=== PATIENT | female | born 1965 | race Caucasian/White ===

== ENCOUNTER 2018-06-15 14:58 | Inpatient (IN) | payer MEDICARE, OTHER ==
[2018-06-14] MEDS: RT-ALBUTEROL/IPRATROPIUM 3 ML (DUONEB) VIAL INH SCH (21:56)
[~2018-06-15] VITALS: Ht 175.3 cm; Wt 109.3 kg
--- OUTSIDE RECORDS SUMMARY | 2018-06-15 15:03 | XMS REPORT ---
Author Dianna Britton Organization [employer] Address Unknown Phone Unavailable Care Team Providers Care [facility] Corpsman Name Role Phone Dianna Morrell CP Unavailable Allergies, Adverse Reactions, Alerts Substance Reaction Event Type Penicillin G Sodium Info Not Available Drug Allergy Problems Problem Type Condition ICD-9 Code Onset Dates Condition Status Problem Type II diabetes mellitus, uncontrolled 250.02 Active Assessment Type II diabetes mellitus, uncontrolled 250.02 Active Problem COPD (chronic obstructive pulmonary disease) 496 Active Assessment COPD (chronic obstructive pulmonary disease) 496 Active Medications Medication Code System Code Instructions Start Date End Date Status Dosage Lunesta [facility] [address]-56 3 MG Orally Once a day Active 1 tablet immediately before bedtime Amitriptyline HCl [facility] [address]-49 25 MG Orally Once a day Active 1 tablet at bedtime DuoNeb [facility] 0 Active not defined Mobic [facility] [address]-84 15 MG Orally Once a day Active [address] [facility] [address]-66 15 MCG/2ML Inhalation Twice a day Active [address] [facility] [address]-72 10-325 MG Orally every 4 hours Active 1 tablet as needed NovoLog [facility] [address]-01 100 UNIT/ML Subcutaneous Active 40 units with meals Levemir [facility] [address]-19 100 UNIT/ML Subcutaneous twice a day Active 30 units Metformin HCl [facility] [address]-69 1000 MG Orally Twice a day Active 1 tablet with meals Spiriva HandiHaler [facility] [address]-66 18 MCG Inhalation twice a day Active 1 capsule Procedures Procedure Coding System Code Date OFFICE VISIT EST PATIENT LEVEL 3 CPT-4 03140 Jul 28, 2014 Vital Signs Date/Time: Jul 28, 2014 BMI 38.68 Index Weight 269.6 lbs Height 70 in Blood Pressure Diastolic 83 mm Hg Blood Pressure Systolic 136 mm Hg Cardiac Monitoring Heart Rate 84 /min Temperature 97.3 F Respiratory Rate 20 /min Results No Known Results Summary Purpose [employer] Submission
--- OUTSIDE RECORDS SUMMARY | 2018-06-15 15:03 | XMS REPORT ---
Author Dianna Britton Organization [employer] Address Unknown Phone Unavailable Care Team Providers Care Fourth Hand Name Role Phone Dianna Morrell CP Unavailable Allergies No Known Allergies Problems Problem Type Condition ICD-9 Code Onset Dates Condition Status Problem Type II diabetes mellitus, uncontrolled 250.02 Active Medications Medication Code System Code Instructions Start Date End Date Status Dosage Levemir [facility] [address]-16 100 UNIT/ML Subcutaneous twice a day Active 30 units Results No Known Results Summary Purpose [employer] Submission
--- OUTSIDE RECORDS SUMMARY | 2018-06-15 15:04 | XMS REPORT ---
Author Author GENERATED, SYSTEM Organization Unknown Address Unknown Phone Unavailable Care Team Providers Care Electrophonic Engineer Name Role Phone MD OLEGARIO, JEROME RODRIGUEZ Unavailable Reason For Visit Chief Complaint BACK PAIN Social History Functional Status Vital Signs Results Chemistry from 02/13/2014 2:38 PMSODIUM 138 MMOL/L (136-145 MMOL/L) POTASSIUM 3.9 MMOL/L (3.5-5.1 MMOL/L) CHLORIDE 103 MMOL/L (98-107 MMOL/L) TCO2 31.5 MMOL/L (21.0-32.0 MMOL/L) ANION GAP 3.5 MMOL/L L (8.0-16.0 MMOL/L) BUN 14 MG/DL (7-18 MG/DL) CREATININE 0.73 MG/DL (0.43-0.83 MG/DL) BUN/CREATININE RATIO 19.2 H (9.1-17.0 ) GLUCOSE 244 MG/DL H (65-99 MG/DL) GFR EST NON AFR COMORAN >90 ML/MIN GFRA EST AFR AMER >90 ML/MIN CALCIUM 9.0 MG/DL (8.5-10.1 MG/DL) BILIRUBIN TOTAL 0.62 MG/DL (0.20-1.00 MG/DL) TOTAL PROTEIN 7.6 GM/DL (6.4-8.2 GM/DL) ALBUMIN 3.4 GM/DL (3.4-5.0 GM/DL) GLOBULIN 4.2 GM/DL H (2.3-3.5 GM/DL) A/G RATIO 0.8 MG/DL L (1.5-2.2 MG/DL) ALK PHOS 139 U/L H (46-116 U/L) ALT (SGPT) 53 U/L (12-78 U/L) AST (SGOT) 53 U/L H (15-37 U/L) Hematology from 02/13/2014 2:38 PMWBC 5.8 X10e3/UL (3.6-11.2 X10e3/UL) RBC 4.59 X10e6/UL (3.63-4.92 X10e6/UL) HEMOGLOBIN 13.8 G/DL (11.0-14.3 G/DL) HEMATOCRIT 40.7 % (31.2-41.9 %) MCV 88.8 FL (79.0-98.0 FL) MCH 30.1 PG (27.0-33.0 PG) MCHC 33.9 G/DL (32.0-36.0 G/DL) RDW 14.6 % (12.3-17.0 %) RDWSD 45.1 (37.1-47.8 ) PLATELET 79 X10e3/UL L (159-386 X10e3/UL) MPV 9.7 FL (7.4-10.4 FL) AUTOMATED DIFF PERFORMED SEGS 67.8 % LYMPHOCYTES 22.7 % MONOCYTES 6.7 % EOSINOPHILS 1.6 % BASOPHILS 1.2 % ABSOLUTE NEUTROPHILS 3.9 X10e3/UL (1.8-7.8 X10e3/UL) ABSOLUTE LYMPHOCYTES 1.3 X10e3/UL (1.0-3.0 X10e3/UL) ABSOLUTE MONOCYTES 0.4 X10e3/UL (0.3-1.0 X10e3/UL) ABSOLUTE EOSINOPHILS 0.1 X10e3/UL (0.0-0.5 X10e3/UL) ABSOLUTE BASOPHILS 0.1 X10e3/UL (0.0-0.2 X10e3/UL) Urinalysis from 02/13/2014 2:40 PMURINE COLOR YELLOW (STRAW/YELL/DK YELL ) URINE APPEARANCE CLEAR (CLEAR ) URINE PH 6.0 (5.0-8.0 ) URINE SPECIFIC GRAVITY 1.020 (<=1.005->=1.030 ) URINE GLUCOSE 250 MG/DL A (NEGATIVE MG/DL) URINE BILIRUBIN NEGATIVE (NEGATIVE ) URINE KETONES NEGATIVE MG/DL (NEGATIVE MG/DL) URINE BLOOD TRACE-LYSED A (NEGATIVE ) URINE PROTEIN TRACE MG/DL A (NEGATIVE MG/DL) URINE UROBILINOGEN 0.2 EU/DL (0.2-1.0 EU/DL) URINE NITRITES POSITIVE A (NEGATIVE ) *URINE LEUKOCYTES NEGATIVE (NEGATIVE ) MICROSCOPIC EXAM PERFORMED PERFORMED WBC 10-25 /HPF A (0-5 /HPF) RBC 1-5 /HPF A (0-1 /HPF) SQUAMOUS EP. CELLS MODERATE /LPF A (NEG-FEW /LPF) BACTERIA MANY /HPF A (NEGATIVE /HPF) GRANULAR CASTS 0-1 /LPF (0 /LPF) Microbiology from 02/13/2014 2:40 PM* CULTURE URINE (Preliminary Result) Specimen Number: [id number] Specimen Source: Sample Collection Date/Time: 02/13/2014 2:40 PM CULTURE URINE: >100,000 cfu/ml gram negative colony types Further report to follow Problems Encounter Diagnosis No relevant problems exist. Additional Problems * Hyperglycemia Status:Active. * Pneumonia Status:Active. Encounters Encounter Diagnosis No relevant problems exist. Plan of Care Procedures No relevant procedures performed. Immunizations No immunizations administered or ordered. Hospital Course Hospital Discharge Instructions Allergies, Adverse Reactions, Alerts * Penicillins causes Severe "unable to stand". * Latex Allergy has not been assessed. * IV Contrast Allergy has not been assessed. Medication Medication reconciliation has not been performed.
--- OUTSIDE RECORDS SUMMARY | 2018-06-15 15:04 | XMS REPORT | Summary of Care ---
Author Author Saira Dugan, Anne Ruiz Unknown Address Unknown Phone Unavailable Care Team Providers Care Money Counter Name Role Phone Cary P.A., Danyelle Unavailable Unavailable Saira Dugan, Anne Unavailable Unavailable Lissett Dugan, Haylie Mahoney Unavailable Unavailable Bijal Dugan, Slime Santacruz Unavailable Unavailable Anne Chávez PP Unavailable Unavailable Unavailable Functional Status Functional Status Health Issues* Name Dates Details Functional status health issues are not documented Status: Cognitive Status Health Issues* Name Dates Details Cognitive status health issues are not documented Status: Problems Name Dates Details Depression (311, F32.9) Status: Active Esophageal reflux (530.81, K21.9) Status: Active Cervicalgia (723.1, M54.2) Status: Active Neurodermatitis (698.3, L28.0) Status: Active Psoriasis (696.1, L40.9) Status: Active Diabetes mellitus (250.00, E11.9) Status: Active Noncompliance (V15.81, Z91.19) Status: Active Obstructive sleep apnea (327.23, G47.33) Status: Active 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, 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 Quantity: 30 Cary, Danyelle P.A.* Started 14-Jul-2010 ActiveBrovana 15 MCG/2ML Inhalation Nebulization Solution INHALE THE CONTENTS OF 1 VIAL TWO TIMES DAILY IN THE MORNING AND EVENING VIA STANDARD JET NEBULIZER DIRECTED. (Dx:496) * Quantity: 60 Refills: 11 Noam Appiah M.D.* Started 14-Jul-2010 Active2 ML Vial (60 Vials) Albuterol Sulfate (2.5 MG/3ML) 0.083% Inhalation Nebulization Solution INHALE 1 0.083% Daily PRN (Dx: 496) * Quantity: 90 Refills: 11 Noam Appiah M.D.* Started 13-Oct-2010 ActiveOxycodone-Acetaminophen 10-325 MG Oral Tablet TAKE 1 TABLET EVERY 4 HOURS NEEDED FOR PAIN.*MAX 6 PER DAY*MAY FILL ON OR AFTER 09/17/14* * Quantity: 180 Refills: 0 Anne Chávez M.D.* Started 15-Sep-2011 ActiveQvar 80 MCG/ACT Inhalation Aerosol Solution INHALE 2 PUFFS, BY MOUTH, TWICE DAILY. RINSE MOUTH AFTER USE. * Quantity: 1 Refills: 11 Noam Appiah M.D.* Started 19-Oct-2011 Active8.7 GM Inhaler Oxygen Use 2 liters 24 hours/day * Quantity: 2 Refills: 0 Danyelle Townsend P.A.* Started 15-Apr-2012 ActiveCombivent Respimat 20-100 MCG/ACT Inhalation Aerosol Solution one puff qid * Quantity: 1 Refills: 3 Noam Appiah M.D.* Started Active4 GM Inhaler Amitriptyline HCl - 25 MG Oral Tablet TAKE 1 TABLET DAILY AT BEDTIME. * Quantity: 30 Refills: 1 * Started 15-Jul-2013 ActiveMeloxicam 15 MG Oral Tablet TAKE ONE TABLET BY MOUTH EVERY DAY WITH FOOD * Quantity: 30 Refills: 0 Anne Chávez M.D.* Started 15-Jul-2013 ActiveTest Strips ONE TOUCH MINI ULTRA, ONCE DAILY TESTING. DX: 25O.OO * Quantity: 30 Refills: 6 Anne Chávez M.D.* Started 23-Sep-2013 ActiveNeedles INSULIN SYRINGES 50 UNITS WITH 31 GAUGE . INJECTS TID. DX: 250 * Quantity: 100 Refills: 6 Anne Chávez M.D.* Started 25-Sep-2013 ActiveVentolin HFA 108 (90 Base) MCG/ACT Inhalation Aerosol Solution INHALE 1 TO 2 PUFFS EVERY 4 TO 6 HOURS NEEDED. * Quantity: 1 Refills: 5 Noam Appiah M.D.* Started [id number] GM Inhaler Clobetasol Propionate 0.05 % External Cream APPLY THIN LAYER TO AFFECTED AREAS TWICE DAILY * Quantity: 1 Refills: 3 Denzel Galeana M.D.* Started [id number] GM Tube Eszopiclone 3 MG Oral Tablet TAKE 1 TABLET BY MOUTH EVERY NIGHT AT BEDTIME FOR SLEEP * Quantity: 30 Refills: 0 Noam Appiah M.D.* Started 01-Apr-2014 ActiveLevemir 100 UNIT/ML Subcutaneous Solution INJECT 35 UNITS SUBCUTANEOUSLY TWICE DAILY * Quantity: 1 Refills: 0 Anne Chávez M.D.* Started 13-Apr-2014 [id number] ML Vial NovoLOG FlexPen 100 UNIT/ML Subcutaneous Solution Pen-injector INJECT 42 UNITS SUBCUTANEOUSLY THREE TIMES A DAY WITH MEALS * Quantity: 1 Refills: 5 Anne Chávez M.D.* Started 20-Apr-2014 Active3 ML Pen (5 Pens) [place] novolog flex pen 10 units TID * Quantity: 100 Refills: 3 Anne Chávez M.D.* Started 20-Apr-2014 ActiveOneTouch Ultra Blue In Vitro Strip TEST THREE TIMES A DAY * Quantity: 100 Refills: 0 Anne Chávez M.D.* Started 19-Aug-2014 ActiveOneTomiriam Delica Lancets 33G Miscellaneous TEST THREE TIMES A DAY * Quantity: 100 Refills: 0 Anne Chávez M.D.* Started 19-Aug-2014 ActiveClonazePAM 1 MG Oral Tablet TAKE 1 TABLET AT BEDTIME. * Quantity: 30 Refills: 3 Noam Appiah M.D.* Started 20-Aug-2014 ActiveTopiramate 50 MG Oral Tablet Take one tablet by mouth twice a day * Quantity: 60 Refills: 2 Anne Chávez M.D.* Started 04-May-2014 ActiveMetFORMIN HCl - 1000 MG Oral Tablet TAKE 1 TABLET BY MOUTH TWICE DAILY WITH FOOD * Quantity: 60 Refills: 3 Anne Chávez M.D.* Started 15-Aug-2013 Active Allergies and Adverse Reactions Name Dates Details Penicillins Status: Active Latex Status: Denied Past Medical History Name Dates Details History of acute bronchitis (V12.69, Z87.09) Status: Resolved History of Burning Sensation During Urination Status: Resolved History of noncompliance with medical treatment, presenting hazards to health ( V15.81, Z91.19) Status: Resolved History of obesity (V13.89, Z87.898) Status: Resolved Procedures Procedure Dates Details History of Neck Surgery History of Ankle Surgery History of Tonsillectomy History of Hernia Repair History of Oophorectomy - Unilateral (Removal Of One Ovary) Procedures not documented Immunization Name Dates Details Pneumo (Pneumovax) Administered on:2009 Family History Unknown Family Member* Name Dates Details Family history of reaction to anesthesia (V19.8, Z84.89) Comments: Family History Status: Active aunt* Name Dates Details Family history of cardiac disorder (V17.49, Z82.49) Status: Active Mother* Name Dates Details Family history of diabetes mellitus (V18.0, Z83.3) Status: Active Family history of alcohol abuse (V61.41, Z81.1) Status: Active Family history of malignant neoplasm of breast (V16.3, Z80.3) Status: Active Father* Name Dates Details Family history of Current Smoker Status: Active Family history of Lung Cancer (V16.1) Status: Active Family history of alcohol abuse (V61.41, Z81.1) Status: Active Sister* Name Dates Details Family history of Sleep Apnea Status: Active Family history of Emphysema Status: Active Family history of hypertension (V17.49, Z82.49) Status: Active Family history of malignant neoplasm of breast (V16.3, Z80.3) Status: Active Social History Name Dates Details Smoking Status* Former smoker Vital Signs Date Test Result Details 19-Aug-2014 10:43 BP Systolic 136 mm[Hg] Status: BP Diastolic 88 mm[Hg] Status: Heart Rate 81 /min Status: Respiration Rate 20 /min Status: Weight 268.5 lb Status: Height 69 in Status: O2 SAT 99 % Status: Body Mass Index Calculated 39.65 kg/m2 Status: Body Surface Area Calculated 2.34 m2 Status: Results Date Description Value Details 24-Jul-2014 15:05 ULTRASOUND BIOPSY BREAST LEFT Comments: Exam Date: 13:41Dictation Date: 15:05 XS BIOPSY BREAST LEFT (Better) 05-Aug-2014 13:54 XM UNILATERAL (Better) Comments: Exam Date: 15 :05Dictation Date: 13:54 20-Aug-2014 08:17 HEMOGLOBIN A1C 3507 Hemoglobin A1C 13.4 % (Better) ESTIMATED AVG. GLUCOSE 338 (Better) Plan of Care Planned Observations* Name Dates Details Planned Goals not documented Goal Planned Encounters* Appointment; Provider: Noam Appiah On 21-Dec-2014 13:45 * Appointment; Provider: Vanna Herring On 24-Sep-2014 13:00 * Appointment; Provider: Santana Sands On 21-Aug-2014 15:30 Instructions * Instructions not documented Encounters Appointment; Anne Chávez Encounter Diagnosis: Problem not documented On 19-Aug-2014 11:00 Appointment; Marc Garcia Encounter Diagnosis: Problem not documented On 17-Aug-2014 14:15 Appointment; Marc Garcia Encounter Diagnosis: Problem not documented On 20-Jul-2014 13:30 Appointment; Noam Appiah Encounter Diagnosis: Problem not documented On 22-Jun-2014 14:30 Appointment; Anne Chávez Encounter Diagnosis: Problem not documented On 16-Jun-2014 10:45 Appointment; Anne Chávez Encounter Diagnosis: Problem not documented On 08-Jun-2014 09:45 Appointment; Danyelle Townsend Encounter Diagnosis: Problem not documented On 08-Jun-2014 08:45 Appointment; Anne Chávez Encounter Diagnosis: Problem not documented On 04-Jun-2014 15:45 Appointment; Anne Chávez Encounter Diagnosis: Problem not documented On 26-May-2014 15:15 Appointment; Denzel Galeana Encounter Diagnosis: Problem not documented On 14-May-2014 09:30 Appointment; Anne Chávez Encounter Diagnosis: Problem not documented On 12-May-2014 14:45 Appointment; Anne Chávez Encounter Diagnosis: Problem not documented On 13-Apr-2014 14:15 Appointment; Denzel Galeana Encounter Diagnosis: Problem not documented On 14:45 Appointment; Anne Chávez Encounter Diagnosis: Problem not documented On 15:00 Appointment; Anne Chávez Encounter Diagnosis: Problem not documented On 26-Dec-2013 14:45 Appointment; Anne Chávez Encounter Diagnosis: Problem not documented On 17-Dec-2013 10:30 Appointment; Noam Appiah Encounter Diagnosis: Problem not documented On 08-Dec-2013 10:45 Appointment; Anne Chávez Encounter Diagnosis: Problem not documented On 23-Sep-2013 14:15 Appointment; Vanna Herring Encounter Diagnosis: Problem not documented On 22-Sep-2013 10:30 Appointment; Santana Sands Encounter Diagnosis: Problem not documented On 18-Aug-2013 15:00 Appointment; Anne Chávez Encounter Diagnosis: Problem not documented On 15-Aug-2013 10:00 Appointment; Anne Chávez Encounter Diagnosis: Problem not documented On 15-Jul-2013 09:30 Appointment; Noam Appiah Encounter Diagnosis: Problem not documented On 09-Jun-2013 10:45 Appointment; Noam Appiah Encounter Diagnosis: Problem not documented On 12-May-2013 16:00 Appointment; Denzel Galeana Encounter Diagnosis: Problem not documented On 26-Dec-2012 10:45 Appointment; Noam Appiah Encounter Diagnosis: Problem not documented On 05-Dec-2012 11:45 Appointment; Denzel Galeana Encounter Diagnosis: Problem not documented On 11-Nov-2012 14:00
--- OUTSIDE RECORDS SUMMARY | 2018-06-15 15:04 | XMS REPORT | Summary of Care ---
Author Author Maggie Grubbs Unknown Address [address] [place] [address] Phone Unavailable Care Team Providers Care Block Stacker Name Role Phone Danyelle Carrion Unavailable Unavailable Saira Dugan, Anne Unavailable Unavailable [...] Active Diabetes mellitus (250.00, E11.9) Status: Active DJD (degenerative joint disease), cervical (722.4, M50.90) Status: Active DJD (degenerative joint disease), lumbar (721.3, M47.816) Status: Active COPD exacerbation (491.21, J44.1) Status: Active Morbid obesity (278.01, E66.01) Status: Active Noncompliance (V15.81, Z91.19) Status: Active Chronic obstructive pulmonary disease (496, J44.9) Status: Active Obstructive sleep apnea (327.23, G47.33) Status: Active 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 * Quantity: 30 Refills: 12 Danyelle Townsend P.A.* Started 14-Jul-2010 ActiveBrovana 15 MCG/2ML Inhalation [...] 6 PER DAY*MAY FILL ON OR AFTER 07/17/14* * Quantity: 180 Refills: 0 Anne Chávez [...] Refills: 0 Anne Chávez M.D.* Started 15-Jul-2013 ActiveMetFORMIN HCl - 1000 MG Oral Tablet TAKE 1 TABLET BY MOUTH TWICE DAILY WITH FOOD * Quantity: 60 Refills: 3 Anne Chávez M.D.* Started 15-Aug-2013 ActiveTopiramate 50 MG Oral Tablet Take one tablet by mouth twice a day * Quantity: 60 Refills: 2 Anne Chávez M.D.* Started 04-May-2014 ActiveTest Strips ONE TOUCH MINI ULTRA, ONCE [...] HOURS NEEDED. * Quantity: 1 Refills: 5 Noma Appiah M.D.* Started [id number] GM Inhaler Clobetasol Propionate 0.05 % External Cream APPLY THIN LAYER TO AFFECTED AREAS TWICE DAILY * Quantity: 1 Refills: 3 Denzel Galeana M.D.* Started [id number] GM Tube Levemir 100 UNIT/ML Subcutaneous Solution INJECT 30 UNITS SUBCUTANEOUSLY AT BEDTIME DIRECTED. * Quantity: 1 Refills: 0 Anne Chávez M.D.* Started 13-Apr-2014 [id number] ML Vial NovoLOG FlexPen 100 UNIT/ML Subcutaneous Solution Pen-injector INJECT 40 UNITS SUBCUTANEOUS TID * Quantity: 15 Refills: 3 Anne Chávez M.D.* Started 20-Apr-2014 ActiveNeedles novolog flex pen 10 units TID * Quantity: 100 Refills: 3 Anne Chávez M.D.* Started 20-Apr-2014 Active Allergies and Adverse Reactions Name Dates [...] smoker Vital Signs Date Test Result Details 20-Jul-2014 13:40 BP Systolic 110 mm[Hg] Status: BP Diastolic 80 mm[Hg] Status: Heart Rate 94 /min Status: Temperature 97.9 f Status: Weight 273 lb Status: Height 69.5 in Status: O2 SAT 95 % Status: Body Mass Index Calculated 39.74 kg/m2 Status: Body Surface Area Calculated 2.37 m2 Status: Results Date Description Value Details 24-Jul-2014 15:05 ULTRASOUND BIOPSY BREAST LEFT Comments: Exam Date: 13:41Dictation Date: 15:05 XS BIOPSY BREAST LEFT (Better) 05-Aug-2014 13:54 XM UNILATERAL (Better) Comments: Exam Date: 15 :05Dictation Date: [id number] 13:54 Plan of Care Planned Observations* Name Dates Details Planned Goals not documented Goal Planned Encounters* Appointment; Provider: Noam Appiah On 21-Dec-2014 13:45 * Appointment; Provider: Vanna Herring On 24-Sep-2014 13:00 * Appointment; Provider: Santana Sands On 21-Aug-2014 15:30 * Appointment; Provider: Anne Chávez On 19-Aug-2014 11:00 * Appointment; Provider: Marc Garcia On 17-Aug-2014 14:15 Instructions * Instructions not documented Encounters Appointment; Marc Garcia Encounter Diagnosis: Problem not [...]
--- OUTSIDE RECORDS SUMMARY | 2018-06-15 15:04 | XMS REPORT ---
Author Author GENERATED, SYSTEM Organization Unknown Address Unknown Phone Unavailable Care Team Providers Care Access Specialist Name Role Phone MD OLEGARIO, JEROME RODRIGUEZ Unavailable Reason For Visit Chief Complaint DISCHARGE FROM NIPPLE Social History Functional Status Vital Signs Results Problems Encounter Diagnosis No relevant problems exist. [...]
--- OUTSIDE RECORDS SUMMARY | 2018-06-15 15:05 | XMS REPORT ---
Author Author Noam Appiah Organization Unknown Address [address] [place], [place] [id number] Phone Care Team Providers Care Network Internship Name Role Phone Elfego HUERTA PP Unavailable Unavailable Reason for Referral No Reason for Referral was given. History of Present Illness Patient presents as a sick call. She is short of breath and has had a cough with green sputum production for a week and a half. No fevers. She has been wheezing and has had chest pain. She continues to wear CPAP. Problems * Chronic Obstructive Pulmonary Disease Last Assessed: 05/12/2013 4:11:30 PM ( 496); (Active) * Acute Bronchitis Last Assessed: 05/12/2013 4:11:32 PM (466.0); (Active ) * Normal Routine History And Physical Adult (V70.0); (Active) * Headache (784.0); (Active) * Fatigue (780.79); (Active) * Esophageal Reflux (530.81); (Active) * Obesity (278.00); (Active) * Hypertension (401.9); (Active) * Diabetes Mellitus (250.00); (Active) * Feeling Weak (780.79); (Active) * Hypoxia (799.02); (Active) * Depression (311); (Active) * Obstructive Sleep Apnea (327.23); (Active) * Insomnia (780.52); (Active) * Cough (786.2); (Active) Medication * Lantus 100 UNIT/ML Subcutaneous Solution; USE DIRECTED.; Start Date: 2008 (Active) * HumaLOG 100 UNIT/ML Subcutaneous Solution; USE DIRECTED.; Start Date: 04/23 (Active) * Lunesta 3 MG Oral Tablet; TAKE 1 TABLET BY MOUTH AT BEDTIME NEEDED FOR SLEEP; Start Date: 01/20/2010 (Active) * Spiriva HandiHaler 18 MCG Inhalation Capsule; INHALE CONTENTS OF 1 CAPSULE ONCE DAILY.; Start Date: 07/14/2010; End Date: (Active) * Brovana 15 MCG/2ML Inhalation Nebulization Solution; INHALE THE CONTENTS OF 1 VIAL TWO TIMES DAILY IN THE MORNING AND EVENING VIA STANDARD JET NEBULIZER DIRECTED.; Start Date: 07/14/2010; End Date: (Active) * Albuterol Sulfate (2.5 MG/3ML) 0.083% Inhalation Nebulization Solution; INHALE 1 0.083% Daily PRN; Start Date: 10/13/2010; End Date: (Active) * Percocet 5-325 MG Oral Tablet; TAKE 1 TABLET EVERY 4 TO 6 HOURS NEEDED FOR PAIN.; Start Date: 09/15/2011 (Active) * Qvar 80 MCG/ACT Inhalation Aerosol Solution; INHALE 2 PUFFS, BY MOUTH, TWICE DAILY. RINSE MOUTH AFTER USE.; Start Date: 10/19/2011 (Active) * Oxygen; Use 2 liters 24 hours/day; Start Date: 04/15/2012 (Active) * Halobetasol Propionate 0.05 % External Cream; APPLY THIN LAYER TO AFFECTED AREAS ON ARMS AND LEGS TWICE DAILY; Start Date: 11/11/2012; End Date: 1899 (Active) * Combivent Respimat 20-100 MCG/ACT Inhalation Aerosol Solution; one puff qid; Start Date: 02/19/2013; End Date: (Active) * Azithromycin 250 MG Oral Tablet; TAKE 2 TABLETS ON DAY 1 THEN TAKE 1 TABLET A DAY FOR 4 DAYS.; Start Date: 05/12/2013; End Date: (Active) Allergies and Adverse Reactions * Penicillins (Active) Past Medical History * History of Acute Bronchitis (466.0); (Resolved) * History of Burning Sensation During Urination (Resolved) Procedures Procedure Procedure Date Date Completed Status Neck Surgery - - Active Ankle Surgery - - Active Tonsillectomy - - Active Hernia Repair - - Active Oophorectomy - Unilateral (Removal Of One Ovary) - - Active Immunization * Pneumo (Pneumovax) Family History * Sororal history of Sleep Apnea (Active) * Sororal history of Emphysema (Active) * Paternal history of Current Smoker (Active) * Paternal history of Lung Cancer (V16.1); (Active) Social History * Caffeine Use (Active) * Never Drank Alcohol (Active) * 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) * Racial Background (___ %) (Active) * Marital History - (Active) * History of Smoking Cigarettes (V15.82); (Active) Vital Signs Date Description Test Result 12 May 2013 03:54 PM recorded by: Lucila Roblero Height 67 in Weight 313 lb Body Mass Index Calculated 49.13 Body Surface Area Calculated 2.44 BP Systolic 136 mm[Hg] BP Diastolic 76 mm[Hg] Heart Rate 94 /min O2 SAT 96 % Results Date Description Test Name Value Reference Interpretation Status 12 May 2013 03:50 PM XRay CHEST-PA & LAT X CHEST PA & LAT Completed Treatment Plan * Oxygen 07/14/2010 Routine * Urine Culture PRN 8000 10/31/2011 Stat * ORTHO KNEE RIGHT 11/09/2011 Routine * Urine Culture PRN 8000 01/26/2012 Stat * XRay CHEST-PA & LAT 05/12/2013 Routine Advance Directives * No Advance Directives available. Encounters * Appointment 05/12/2013 * [facility] , Provider: Bijal Santacruz, Status: [place] , Time: 10:45 AM 06/09
--- OUTSIDE RECORDS SUMMARY | 2018-06-15 15:06 | XMS REPORT | Referral Summary ---
Author Organization Unknown Address Unknown Phone Unavailable Care Team Providers Care Wellness Educator Name Role Phone No PCP, Pt States PCP Encounter VC Date(s): 08/28/14 - 08/28/14 [facility] [address], [place] [address] Discharge Diagnosis: Hyperglycemia Discharge Diagnosis: Dehydration Discharge Diagnosis: Hypovolemia Discharge Diagnosis: Syncope Discharge Disposition: Home or Self Care Attending Physician: Estrella Aceves MD Admitting Physician: Estrella Aceves MD Referring Physician: Self Referred, X Vital Signs Most recent to 1 oldest [Reference Range]: Temperature Oral 36.1 degC [35.8-37.3 degC] (08/28/14 10:06 AM) Peripheral Pulse 91 bpm Rate [60-100 bpm] (08/28/14 10:06 AM) Heart Rate Monitored 78 bpm [60-100 bpm] (08/28/14 3:00 PM) Respiratory Rate 19 br/min [14-20 br/min] (08/28/14 3:00 PM) Blood Pressure 133/94 mmHg [90-140/60-90 mmHg] (08/28/14 3:00 PM) Mean Arterial 100 mmHg Pressure, Cuff (08/28/14 3:00 PM) Most recent to 1 oldest [Reference Range]: SpO2 96 % (08/28/14 3:00 PM) Problem List Condition Effective Dates Status Health Status Informant Back pain(Confirmed) Active patient COPD (chronic Active patient obstructive pulmonary disease)(Confirmed) Diabetes(Confirmed) Active patient Tobacco Active patient user(Confirmed) Allergies, Adverse Reactions, Alerts Substance Reaction Severity Status penicillins passed out Active Medications albuterol 0 Refill(s) Start Date: 08/28/14 Status: Ordered clonazePAM Oral, TID, 0 Refill(s) Start Date: 08/28/14 Status: Ordered Combivent Respimat puffs, Inhalation, QID, 0 Refill(s) Start Date: 08/28/14 Status: Ordered HumaLOG SubCutaneous, 0 Refill(s) Start Date: 08/28/14 Status: Ordered Levemir SubCutaneous, 0 Refill(s) Start Date: 08/28/14 Status: Ordered Percocet 10/325 oral tablet 2 tabs, Oral, q6hr, as needed for pain, 0 Refill(s) Start Date: 08/28/14 Status: Ordered Results Hematology Most recent to 1 oldest [Reference Range]: WBC [4.8-10.8 K/uL] 6.5 K/uL (08/28/14 10:08 AM) RBC [4.00-5.20 M/uL] 5.30 M/uL *HI* (08/28/14 10:08 AM) Hgb [12.0-16.0 16.1 gm/dL gm/dL] *HI* (08/28/14 10:08 AM) Hct [37.0-47.0 %] 46.0 % (08/28/14 10:08 AM) MCV [82.0-99.0 fL] 86.8 fL (08/28/14 10:08 AM) MCH [27.0-32.0 pg] 30.4 pg (08/28/14 10:08 AM) MCHC [32.0-36.0 35.0 gm/dL gm/dL] (08/28/14 10:08 AM) RDW [11.5-14.5 %] 13.2 % (08/28/14 10:08 AM) Platelet [150-400 92 K/uL K/uL] *LOW* (08/28/14 10:08 AM) MPV [9.4-12.4 fL] 12.3 fL (08/28/14 10:08 AM) Immature 0.2 % Granulocytes (08/28/14 10:08 AM) [0.0-1.0 %] Neutrophils [51-75 71 % %] (08/28/14 10:08 AM) Lymphocytes [20-46 20 % %] (08/28/14 10:08 AM) Monocytes [4-11 %] 8 % (08/28/14 10:08 AM) Eosinophils [0-4 %] 1 % (08/28/14 10:08 AM) Basophils [0-2 %] 1 % (08/28/14 10:08 AM) Neutro Absolute 4.57 THOUS [1.90-7.00 THOUS] (08/28/14 10:08 AM) Lymph Absolute 1.26 THOUS [0.80-3.30 THOUS] (08/28/14 10:08 AM) [place] Absolute 0.50 THOUS [0.30-1.00 THOUS] (08/28/14 10:08 AM) Eos Absolute 0.09 THOUS [0.00-0.50 THOUS] (08/28/14 10:08 AM) Baso Absolute 0.03 THOUS [0.00-0.20 THOUS] (08/28/14 10:08 AM) Differential Scanned Slide (08/28/14:08 AM) Chemistry Most recent to 1 oldest [Reference Range]: Sodium Lvl [136-144 133 mEq/L mEq/L] *LOW* (08/28/14 10:08 AM) Potassium Lvl 4.1 mEq/L [3.6-5.1 mEq/L] (08/28/14 10:08 AM) Chloride [99-109 96 mEq/L mEq/L] *LOW* (08/28/14 10:08 AM) CO2 [22-32 mEq/L] 27 mEq/L (08/28/14 10:08 AM) AGAP [3-20] 10 (08/28/14 10:08 AM) BUN [4-20 mg/dL] 11 mg/dL (08/28/14 10:08 AM) Glucose Lvl [70-100 505 mg/dL mg/dL] *HI* (08/28/14 10:08 AM) Creatinine Lvl 0.67 mg/dL [0.44-1.03 mg/dL] (08/28/14 10:08 AM) eGFR [>60] >60 2 (08/28/14 10:08 AM) Calcium Lvl 9.0 mg/dL [8.6-10.0 mg/dL] (08/28/14 10:08 AM) Albumin Lvl [3.5-4.8 3.6 gm/dL gm/dL] (08/28/14 10:08 AM) Total Protein 7.6 gm/dL [6.1-7.9 gm/dL] (08/28/14 10:08 AM) Globulin [1.9-4.3 4.0 gm/dL gm/dL] (08/28/14 10:08 AM) ALT [14-54 unit/L] 47 unit/L (08/28/14 10:08 AM) AST [15-41 unit/L] 39 unit/L (08/28/14 10:08 AM) Alk Phos [26-104 158 unit/L unit/L] *HI* (08/28/14 10:08 AM) Bili Total [0.2-1.2 0.9 mg/dL 1 mg/dL] (08/28/14 10:08 AM) Troponin [<0.06 <0.05 ng/mL ng/mL] (08/28/14 10:08 AM) Acetone [Negative] Negative (08/28/14 10:08 AM) 1Result Comment: Naproxen, specifically the metabolite O-desmethylnaproxen, may cause spurious elevation in Total Bilirubin levels. 2Result Comment: Multiply eGFR results by 1.21 for race. Immunizations No data available for this section Procedures No data available for this section Social History Social History Type Response Smoking Status Former smoker; Type: Cigarettes; Tobacco use per day: 1 Pack Assessment and Plan No data available for this section
--- OUTSIDE RECORDS SUMMARY | 2018-06-15 15:06 | XMS REPORT | Continuity of Care Document ---
Author Author [facility] Organization [facility] Address Unknown Phone Unavailable Care Team Providers Care Pilot Plant Operator Name Role Phone Llewellyn, Bony Marrero MD PP Insurance Providers Payer Name Policy Number Subscriber Name Relationship [facility] [id number] Mak Correa 18 Self / Same As Patient Advance Directives Directive Response Recorded Date Advanced Directives No 05/26/13 4:40pm Problems Medical Problem Onset Date Diabetes mellitus type 2 11/06/12 Mild chronic obstructive pulmonary disease 05/08/12 Neck pain 05/26/13 Social History History Response Recorded Date/Time Exposure to occupational hazards N 1:52pm Allergies, Adverse Reactions, Alerts Allergen Type Severity Reaction Last Updated Penicillins Allergy 05/08/12 Medications Medication Dose Units Route Sig Qty Days Insulin Lispro (Humalog) 30 Unit SQ TIDWM Citalopram Hydrobromide (Celexa) 20 Mg PO DAILY Zolpidem Tartrate (Ambien) 10 Mg PO HS PRN Budesonide (Pulmicort) 0.5 Mg IH BID Albuterol/Ipratropium (Duoneb Rt) 3 Ml INH QID Oxycodone Hcl/Acetaminophen (Percocet 10-325 Mg Tablet) 1 Each PO PRN Insulin Glargine,Hum.rec.anlog (Lantus Solostar) 100 Unit SQ BID Azithromycin (Zithromax) 250 Mg PO DAILY 5 Lisinopril (Zestril) 10 Mg PO DAILY Fentanyl (Duragesic) 25 Mcg TD Q72H Cyclobenzaprine Hcl (Flexeril) 1 Tab PO TID PRN 15 Insulin Lispro (Humalog) 30 Unit SQ TIDWM Response Recorded Date/Time Status not known Unknown Results No Known Relevant Diagnostic Tests, Laboratory Data and/or Discharge Summary. Procedures Procedure Code Date Blood Culture 05/08/12 Encounters Encounter Location Date/Time Departed Emergency Room [facility] 05/26/13 4:35pm Discharged Inpatient [facility] 11/06/12 12:18pm
--- OUTSIDE RECORDS SUMMARY | 2018-06-15 15:06 | XMS REPORT | Summary of Care ---
Author Author Saira Dugan, Anne Ruiz Unknown Address Unknown Phone Unavailable Care Team Providers Care Defect Cutter Name Role Phone Cary P.A., Danyelle Unavailable [...] DAILY AT BEDTIME. * Quantity: 30 Refills: 6 Anne Chávez M.D.* Started 15-Jul-2013 ActiveMeloxicam 15 MG Oral Tablet [...] ONCE DAILY TESTING. DX: 25O.OO * Quantity: 100 Refills: 6 Anne Chávez M.D.* Started 23-Sep-2013 ActiveNeedles INSULIN SYRINGES 50 UNITS WITH 31 GAUGE . INJECTS TID. DX: 250 * Quantity: 100 Refills: 6 Anen Chávez M.D.* Started 25-Sep-2013 ActiveVentolin HFA 108 (90 Base) MCG/ACT Inhalation Aerosol Solution INHALE 1 TO 2 PUFFS EVERY 4 TO 6 HOURS NEEDED. * Quantity: 1 Refills: 5 Noam Appiah M.D.* Started [id number] GM Inhaler Clobetasol Propionate 0.05 % External Cream APPLY THIN LAYER TO AFFECTED AREAS TWICE DAILY * Quantity: 1 Refills: 3 Denzel Galeana M.D.* Started [id number] GM Tube Eszopiclone 3 MG Oral Tablet TAKE 1 TABLET BY MOUTH EVERY NIGHT AT BEDTIME FOR SLEEP * Quantity: 30 Refills: 0 Noam Appiah M.D.* Started 01-Apr-2014 ActiveLevemir 100 UNIT/ML Subcutaneous Solution INJECT 35 UNITS SUBCUTANEOUSLY TWICE DAILY * Quantity: 1 Refills: 0 Anne Chávez M.D.* Started 13-Apr-2014 [id number] ML Vial NovoLOG FlexPen 100 UNIT/ML Subcutaneous Solution Pen-injector INJECT 42 UNITS SUBCUTANEOUSLY THREE TIMES A DAY WITH MEALS * Quantity: 1 Refills: 5 Anne Chávez M.D.* Started 20-Apr-2014 Active3 ML Pen (5 Pens) [place] novolog flex pen 10 units TID * Quantity: 100 Refills: 3 Anne Chávez M.D.* Started 20-Apr-2014 ActiveOneTouch Delmarcela Lancets 33G Miscellaneous TEST THREE TIMES A DAY * Quantity: 100 Refills: 0 Anne Chávez M.D.* Started 19-Aug-2014 ActiveClonazePAM 1 MG Oral Tablet TAKE 1 TABLET AT BEDTIME. * Quantity: 30 Refills: 3 Noam Appiah M.D.* Started 20-Aug-2014 Active Allergies and Adverse Reactions Name Dates [...] m2 Status: Results Date Description Value Details 20-Aug-2014 08:17 HEMOGLOBIN A1C 3507 Hemoglobin A1C 13.4 % (Better) ESTIMATED AVG. GLUCOSE 338 (Better) Plan of Care Planned Observations* Name Dates Details Planned Goals not documented Goal Planned Encounters* Appointment; Provider: Noam Appiah On 21-Dec-2014 13:45 * Appointment; Provider: Vanna Herring On 24-Sep-2014 13:00 Instructions * Instructions not documented Encounters Appointment; Santana Sands Encounter Diagnosis: Problem not documented On 03-Sep-2014 13:00 Appointment; Santana Sands Encounter Diagnosis: Problem not documented On 21-Aug-2014 15:30 Appointment; Anne Chávez Encounter Diagnosis: Problem not [...]
--- OUTSIDE RECORDS SUMMARY | 2018-06-15 15:06 | XMS REPORT | Continuity of care Document ---
Author Author GENERATED, SYSTEM Organization Unknown Address Unknown Phone Unavailable Purpose Hospital Course Allergies, Adverse Reactions, Alerts * Penicillins causes Severe "unable to stand". * Latex Allergy has not been assessed. * IV Contrast Allergy has not been assessed. Problems * Hyperglycemia Status:Active. * Pneumonia Status:Active. Procedures No relevant procedures performed. Medication Medication reconciliation has not been performed. Results Chemistry from 11/07/2013 9:50 PMANION GAP 3.4 MMOL/L L (8.0-16.0 MMOL/L) A/G RATIO 0.7 MG/DL L (1.5-2.2 MG/DL) ALBUMIN 3.3 GM/DL L (3.4-5.0 GM/DL) ALK PHOS 276 U/L H (46-116 U/L) ALT (SGPT) 44 U/L (12-78 U/L) AST (SGOT) 31 U/L (15-37 U/L) BUN/CREATININE RATIO 16.5 (9.1-17.0 ) BILIRUBIN TOTAL 0.50 MG/DL (0.20-1.00 MG/DL) BUN 18 MG/DL (7-18 MG/DL) CALCIUM 8.9 MG/DL (8.5-10.1 MG/DL) CHLORIDE 94 MMOL/L L (98-107 MMOL/L) CREATININE 1.09 MG/DL H (0.43-0.83 MG/DL) GFRA EST AFR AMER 68 ML/MIN GFR EST NON AFR MALAGASY 59 ML/MIN GLOBULIN 4.9 GM/DL H (2.3-3.5 GM/DL) GLUCOSE 650 MG/DL HH (65-99 MG/DL) POTASSIUM 4.1 MMOL/L (3.5-5.1 MMOL/L) SODIUM 129 MMOL/L L (136-145 MMOL/L) TCO2 31.6 MMOL/L (21.0-32.0 MMOL/L) TOTAL PROTEIN 8.2 GM/DL (6.4-8.2 GM/DL) B-TYPE NATRIURETIC PROTEIN 29 PG/ML (1-100 PG/ML) TROPONIN-I <0.04 (SEE BELOW ) Coagulation from 11/07/2013 9:50 PMPARTIAL THROMBOPLASTIN TIME 24.4 SECONDS (22.0- 28.0 SECONDS) INR 1.0 PROTHROMBIN TIME 10.9 SECONDS (9.4-11.5 SECONDS) DX Radiology from 11/07/2013 9:33 PMCHEST 1 VIEW DATE OF EXAM: Nov 07 2013 9: 43PM Proc: DG 0066 - CHEST 1 VIEW CPT Code(s): 46139-; ; ; INDICATION / CLINICAL HISTORY: COPD. FINDINGS: Comparison is made to the previous exam on 08/26/2013. The heart size and pulmonary vasculature are within normal limits. No pleural effusion, pneumothorax, or consolidation is identified. IMPRESSION: No acute disease in the chest. Hematology from 11/07/2013 9:50 PMHEMATOCRIT 42.5 % H (31.2-41.9 %) HEMOGLOBIN 14.1 G/DL (11.0-14.3 G/DL) MCH 29.3 PG (27.0-33.0 PG) MCHC 33.3 G/DL (32.0-36.0 G/DL) MCV 88.0 FL (79.0-98.0 FL) MPV 10.4 FL (7.4-10.4 FL) PLATELET 70 X10e3/UL L (159-386 X10e3/UL) RBC 4.83 X10e6/UL (3.63-4.92 X10e6/UL) RDW 14.4 % (12.3-17.0 %) RDWSD 44.2 (37.1-47.8 ) WBC 10.2 X10e3/UL (3.6-11.2 X10e3/UL) ABSOLUTE BASOPHILS 0.2 X10e3/UL (0.0-0.2 X10e3/UL) AUTOMATED DIFF PERFORMED ABSOLUTE EOSINOPHILS 0.1 X10e3/UL (0.0-0.5 X10e3/UL) ABSOLUTE LYMPHOCYTES 1.5 X10e3/UL (1.0-3.0 X10e3/UL) ABSOLUTE MONOCYTES 0.5 X10e3/UL (0.3-1.0 X10e3/UL) ABSOLUTE NEUTROPHILS 7.9 X10e3/UL H (1.8-7.8 X10e3/UL) BASOPHILS 1.5 % EOSINOPHILS 0.7 % LYMPHOCYTES 14.4 % MONOCYTES 5.3 % SEGS 78.1 % Urinalysis from 11/07/2013 9:35 PMURINE APPEARANCE CLEAR (CLEAR ) URINE COLOR YELLOW (STRAW/YELL/DK YELL ) URINE SPECIFIC GRAVITY <=1.005 (<=1.005->=1.030 ) URINE BILIRUBIN NEGATIVE (NEGATIVE ) URINE BLOOD Trace-Lysed A (NEGATIVE ) URINE GLUCOSE >=1000 MG/DL A (NEGATIVE MG/DL) URINE KETONES NEGATIVE MG/DL (NEGATIVE MG/DL) *URINE LEUKOCYTES NEGATIVE (NEGATIVE ) URINE NITRITES NEGATIVE (NEGATIVE ) URINE PH 6.0 (5.0-8.0 ) URINE PROTEIN NEGATIVE MG/DL (NEGATIVE MG/DL) URINE UROBILINOGEN 0.2 EU/DL (0.2-1.0 EU/DL) BACTERIA FEW /HPF A (NEGATIVE /HPF) RBC 0-1 /HPF (0-1 /HPF) SQUAMOUS EP. CELLS FEW /LPF (NEG-FEW /LPF) MICROSCOPIC EXAM PERFORMED PERFORMED WBC 5-10 /HPF A (0-5 /HPF)
--- OUTSIDE RECORDS SUMMARY | 2018-06-15 15:06 | XMS REPORT ---
Author Author GENERATED, SYSTEM Organization Unknown Address Unknown Phone Unavailable Care Team Providers Care Credit And Collections Representative Name Role Phone MD OLEGARIO, JEROME RODRIGUEZ Unavailable Reason For Visit Reason for Visit from 06/08/2014 2:49 PM:* Pt Stated Reason for Adm : cough, high blood sugars Chief Complaint COPD EXACERBATION, ACUTE BRONCHITIS, R/O,PNEUMONIA Social History Social History from 06/15/2014 10:31 AM:* Tobacco Use? : Former Smoker Social History from 06/08/2014 2:49 PM:* Tobacco Use? : Former Smoker Functional Status Functional Status from 06/15/2014 8:55 AM:* LOC : Alert * Oriented To : Person,Place,Time * Weight Bearing Status : Full * Assist Level : Independent * # Assists : Independent Functional Status from 06/14/2014 9:02 PM:* LOC : Alert * Oriented To : Person,Place,Time,Event * Weight Bearing Status : Full * Assist Level : Independent * # Assists : Independent Functional Status from 06/14/2014 12:36 PM:* LOC : Alert * Oriented To : Person,Place,Time,Event * Weight Bearing Status : Full * Assist Level : Independent * # Assists : Independent Functional Status from 06/13/2014 8:35 PM:* LOC : Alert * Oriented To : Person,Place,Time,Event * Weight Bearing Status : Full * Assist Level : Independent * # Assists : Independent Functional Status from 06/13/2014 8:54 AM:* LOC : Alert * Oriented To : Person,Place,Time,Event * Weight Bearing Status : Full * Assist Level : Independent * # Assists : Independent Functional Status from 06/12/2014 9:10 PM:* LOC : Alert * Oriented To : Person,Place,Time,Event * Weight Bearing Status : Full * Assist Level : Independent * # Assists : 1 Functional Status from 06/12/2014 8:02 AM:* LOC : Alert * Oriented To : Person,Place,Time,Event * Weight Bearing Status : Full * Assist Level : Independent * # Assists : Independent Functional Status from 06/11/2014 8:08 PM:* LOC : Alert * Oriented To : Person,Place,Time,Event * Weight Bearing Status : Full * Assist Level : Independent * # Assists : Independent Functional Status from 06/11/2014 7:44 AM:* LOC : Alert * Oriented To : Person,Place,Time,Event * Weight Bearing Status : Full * Assist Level : Independent * # Assists : 1 Functional Status from 06/10/2014 7:30 PM:* LOC : Alert * Oriented To : Person,Place,Time,Event * Weight Bearing Status : Full * Assist Level : Independent * # Assists : 1 Functional Status from 06/10/2014 7:45 AM:* LOC : Alert * Oriented To : Person,Place,Time,Event * Weight Bearing Status : Full * Assist Level : Independent * # Assists : Independent Functional Status from 06/09/2014 8:00 PM:* LOC : Alert * Oriented To : Person,Place,Time,Event * Weight Bearing Status : Full * Assist Level : Independent * # Assists : Independent Functional Status from 06/09/2014 8:32 AM:* LOC : Alert * Oriented To : Person,Place,Time,Event * Weight Bearing Status : Full * Assist Level : Independent * # Assists : 1 Functional Status from 06/08/2014 9:11 PM:* LOC : Alert * Oriented To : Person,Place,Time,Event * Weight Bearing Status : Full * Assist Level : Independent * # Assists : Independent Functional Status from 06/08/2014 2:49 PM:* LOC : Alert * Oriented To : Person,Place,Time,Event * Weight Bearing Status : Full * Assist Level : Independent * # Assists : Independent Vital Signs Hospital Vital Signs from 06/15/2014 8:56 AM:* Height : 5/11 ft,in Hospital Vital Signs from 06/15/2014 7:55 AM:* Height : 5/11 ft,in * Temperature : 96.5 F * Pulse : 86 * Respirations : 18 * BP : 131/68 Hospital Vital Signs from 06/14/2014 10:30 PM:* Height : 5/11 ft,in * Temperature : 97.6 F * Pulse : 82 * Respirations : 18 * BP : 112/60 Hospital Vital Signs from 06/14/2014 6:54 PM:* Height : 5/11 ft,in * Temperature : 96.6 F * Pulse : 100 * Respirations : 18 * BP : 120/79 Hospital Vital Signs from 06/14/2014 3:27 PM:* Height : 5/11 ft,in * Temperature : 97.6 F * Pulse : 114 * Respirations : 20 * BP : 140/67 Hospital Vital Signs from 06/14/2014 3:21 PM:* Height : 5/11 ft,in * Temperature : 96.9 F * Pulse : 91 * Respirations : 18 * BP : 144/82 Hospital Vital Signs from 06/14/2014 12:33 PM:* Temperature : 97.8 F Hospital Vital Signs from 06/14/2014 11:36 AM:* Height : 5/11 ft,in * Temperature : 97.6 F * Pulse : 85 * Respirations : 18 * BP : 123/61 Hospital Vital Signs from 06/14/2014 8:07 AM:* Height : 5/11 ft,in * Temperature : 95.5 F * Pulse : 85 * Respirations : 20 * BP : 139/76 Hospital Vital Signs from 06/13/2014 10:41 PM:* Height : 5/11 ft,in * Temperature : 96.9 F * Pulse : 86 * Respirations : 20 * BP : 120/59 Hospital Vital Signs from 06/13/2014 7:20 PM:* Height : 5/11 ft,in * Temperature : 98.3 F * Pulse : 82 * Respirations : 20 * BP : 153/77 Hospital Vital Signs from 06/13/2014 2:32 PM:* Height : 5/11 ft,in * Temperature : 98.8 F * Pulse : 83 * Respirations : 18 * BP : 118/73 Hospital Vital Signs from 06/13/2014 11:39 AM:* Height : 5/11 ft,in * Temperature : 97.3 F * Pulse : 95 * Respirations : 18 * BP : 140/73 Hospital Vital Signs from 06/13/2014 7:23 AM:* Height : 5/11 ft,in * Temperature : 95.9 F * Pulse : 86 * Respirations : 18 * BP : 120/62 Hospital Vital Signs from 06/12/2014 10:21 PM:* Height : 5/11 ft,in * Temperature : 96.8 F * Pulse : 85 * Respirations : 18 * BP : 130/76 Hospital Vital Signs from 06/12/2014 7:08 PM:* Height : 5/11 ft,in * Temperature : 96.3 F * Pulse : 87 * Respirations : 22 * BP : 145/84 Hospital Vital Signs from 06/12/2014 3:36 PM:* Height : 5/11 ft,in * Temperature : 97.1 F * Pulse : 88 * Respirations : 20 * BP : 159/84 Hospital Vital Signs from 06/12/2014 11:28 AM:* Height : 5/11 ft,in * Temperature : 97.3 F * Pulse : 82 * Respirations : 20 * BP : 171/87 Hospital Vital Signs from 06/12/2014 8:07 AM:* Height : 5/11 ft,in * Temperature : 96.9 F * Pulse : 90 * Respirations : 20 * BP : 144/85 Hospital Vital Signs from 06/11/2014 10:34 PM:* Height : 5/11 ft,in * Temperature : 96.7 F * Pulse : 89 * Respirations : 20 * BP : 128/69 Hospital Vital Signs from 06/11/2014 8:05 PM:* Height : 5/11 ft,in * Temperature : 96.9 F * Pulse : 92 * Respirations : 22 * BP : 129/84 Hospital Vital Signs from 06/11/2014 3:38 PM:* Height : 5/11 ft,in * Temperature : 97.1 F * Pulse : 97 * Respirations : 18 * BP : 134/77 Hospital Vital Signs from 06/11/2014 12:00 PM:* Height : 5/11 ft,in * Temperature : 97.4 F * Pulse : 90 * Respirations : 18 * BP : 184/80 Hospital Vital Signs from 06/11/2014 7:19 AM:* Height : 5/11 ft,in * Temperature : 96.3 F * Pulse : 90 * Respirations : 18 * BP : 132/62 Hospital Vital Signs from 06/10/2014 9:55 PM:* Height : 5/11 ft,in * Temperature : 96.2 F * Pulse : 84 * Respirations : 18 * BP : 115/70 Hospital Vital Signs from 06/10/2014 7:30 PM:* Height : 5/11 ft,in * Temperature : 97.1 F * Pulse : 87 * Respirations : 18 * BP : 132/61 Hospital Vital Signs from 06/10/2014 4:07 PM:* Height : 5/11 ft,in * Temperature : 97.3 F * Pulse : 90 * Respirations : 18 * BP : 102/55 Hospital Vital Signs from 06/10/2014 10:24 AM:* Height : 5/11 ft,in * Temperature : 97.8 F * Pulse : 88 * Respirations : 18 * BP : 164/77 Hospital Vital Signs from 06/10/2014 7:03 AM:* Height : 5/11 ft,in * Temperature : 97.0 F * Pulse : 95 * Respirations : 18 * BP : 121/60 Hospital Vital Signs from 06/09/2014 9:31 PM:* Height : 5/11 ft,in * Temperature : 96.8 F * Pulse : 97 * Respirations : 18 * BP : 122/65 Hospital Vital Signs from 06/09/2014 7:49 PM:* Height : 5/11 ft,in * Temperature : 98.0 F * Pulse : 92 * Respirations : 20 * BP : 120/65 Hospital Vital Signs from 06/09/2014 2:09 PM:* Height : 5/11 ft,in * Temperature : 97.7 F * Pulse : 94 * Respirations : 20 * BP : 136/83 Hospital Vital Signs from 06/09/2014 10:35 AM:* Height : 5/11 ft,in * Temperature : 97.9 F * Pulse : 94 * Respirations : 20 * BP : 110/71 Hospital Vital Signs from 06/09/2014 9:15 AM:* Height : 5/11 ft,in Hospital Vital Signs from 06/09/2014 7:15 AM:* Height : 5/11 ft,in * Temperature : 95.8 F * Pulse : 78 * Respirations : 20 * BP : 140/87 Hospital Vital Signs from 06/08/2014 10:00 PM:* Height : 5/11 ft,in * Temperature : 96.9 F * Pulse : 85 * Respirations : 20 * BP : 134/81 Hospital Vital Signs from 06/08/2014 9:11 PM:* Heart Rate : 88 Hospital Vital Signs from 06/08/2014 7:51 PM:* Height : 5/11 ft,in * Temperature : 96.5 F * Pulse : 86 * Respirations : 20 * BP : 131/80 Hospital Vital Signs from 06/08/2014 2:49 PM:* Weight : 125.7/ kg * Height : 11 ft,in Hospital Vital Signs from 06/08/2014 2:11 PM:* Weight : 125.7/ kg * Height : 511 ft,in * Temperature : 97.8 F * Pulse : 96 * Respirations : 20 * BP : 165/92 Results Chemistry from 06/15/2014 4:54 AMSODIUM 137 MMOL/L (136-145 MMOL/L) POTASSIUM 4.0 MMOL/L (3.5-5.1 MMOL/L) CHLORIDE 103 MMOL/L (98-107 MMOL/L) TCO2 27.2 MMOL/L (21.0-32.0 MMOL/L) ANION GAP 6.8 MMOL/L L (8.0-16.0 MMOL/L) BUN 23 MG/DL H (7-18 MG/DL) CREATININE 0.76 MG/DL (0.43-0.83 MG/DL) BUN/CREATININE RATIO 30.3 H (9.1-17.0 ) GLUCOSE 201 MG/DL H (65-99 MG/DL) GFR EST NON AFR ANDORRAN >90 ML/MIN GFRA EST AFR AMER >90 ML/MIN CALCIUM 8.6 MG/DL (8.5-10.1 MG/DL) BILIRUBIN TOTAL 0.36 MG/DL (0.20-1.00 MG/DL) TOTAL PROTEIN 6.1 GM/DL L (6.4-8.2 GM/DL) ALBUMIN 2.8 GM/DL L (3.4-5.0 GM/DL) GLOBULIN 3.3 GM/DL (2.3-3.5 GM/DL) A/G RATIO 0.8 MG/DL L (1.5-2.2 MG/DL) ALK PHOS 95 U/L (46-116 U/L) ALT (SGPT) 70 U/L (12-78 U/L) AST (SGOT) 52 U/L H (15-37 U/L) Chemistry from 06/14/2014 5:04 AMSODIUM 140 MMOL/L (136-145 MMOL/L) POTASSIUM 3.8 MMOL/L (3.5-5.1 MMOL/L) CHLORIDE 105 MMOL/L (98-107 MMOL/L) TCO2 28.8 MMOL/L (21.0-32.0 MMOL/L) ANION GAP 6.2 MMOL/L L (8.0-16.0 MMOL/L) BUN 25 MG/DL H (7-18 MG/DL) CREATININE 0.79 MG/DL (0.43-0.83 MG/DL) BUN/CREATININE RATIO 31.6 H (9.1-17.0 ) GLUCOSE 129 MG/DL H (65-99 MG/DL) GFR EST NON AFR ANDORRAN 87 ML/MIN GFRA EST AFR AMER >90 ML/MIN CALCIUM 8.8 MG/DL (8.5-10.1 MG/DL) Chemistry from 06/08/2014 5:24 PMGLUCOSE 680 MG/DL HH (65-99 MG/DL) Chemistry from 06/08/2014 4:22 PMSODIUM 130 MMOL/L L (136-145 MMOL/L) POTASSIUM 4.0 MMOL/L (3.5-5.1 MMOL/L) CHLORIDE 95 MMOL/L L (98-107 MMOL/L) TCO2 27.7 MMOL/L (21.0-32.0 MMOL/L) ANION GAP 7.3 MMOL/L L (8.0-16.0 MMOL/L) BUN 15 MG/DL (7-18 MG/DL) CREATININE 0.83 MG/DL (0.43-0.83 MG/DL) BUN/CREATININE RATIO 18.1 H (9.1-17.0 ) GLUCOSE 735 MG/DL HH (65-99 MG/DL) GFR EST NON AFR ANDORRAN 82 ML/MIN GFRA EST AFR AMER >90 ML/MIN CALCIUM 8.9 MG/DL (8.5-10.1 MG/DL) BILIRUBIN TOTAL 0.72 MG/DL (0.20-1.00 MG/DL) TOTAL PROTEIN 7.2 GM/DL (6.4-8.2 GM/DL) ALBUMIN 3.3 GM/DL L (3.4-5.0 GM/DL) GLOBULIN 3.9 GM/DL H (2.3-3.5 GM/DL) A/G RATIO 0.8 MG/DL L (1.5-2.2 MG/DL) ALK PHOS 162 U/L H (46-116 U/L) ALT (SGPT) 53 U/L (12-78 U/L) AST (SGOT) 36 U/L (15-37 U/L) Hematology from 06/15/2014 4:54 AMWBC 6.0 X10e3/UL (3.6-11.2 X10e3/UL) RBC 4.53 X10e6/UL (3.63-4.92 X10e6/UL) HEMOGLOBIN 13.7 G/DL (11.0-14.3 G/DL) HEMATOCRIT 41.6 % (31.2-41.9 %) MCV 91.9 FL (79.0-98.0 FL) MCH 30.2 PG (27.0-33.0 PG) MCHC 32.9 G/DL (32.0-36.0 G/DL) RDW 14.4 % (12.3-17.0 %) RDWSD 45.9 (37.1-47.8 ) PLATELET 86 X10e3/UL L (159-386 X10e3/UL) MPV 10.3 FL (7.4-10.4 FL) Hematology from 06/14/2014 5:04 AMWBC 6.6 X10e3/UL (3.6-11.2 X10e3/UL) RBC 4.69 X10e6/UL (3.63-4.92 X10e6/UL) HEMOGLOBIN 14.2 G/DL (11.0-14.3 G/DL) HEMATOCRIT 42.8 % H (31.2-41.9 %) MCV 91.3 FL (79.0-98.0 FL) MCH 30.3 PG (27.0-33.0 PG) MCHC 33.2 G/DL (32.0-36.0 G/DL) RDW 14.6 % (12.3-17.0 %) RDWSD 46.4 (37.1-47.8 ) PLATELET 85 X10e3/UL L (159-386 X10e3/UL) MPV 9.5 FL (7.4-10.4 FL) Hematology from 06/08/2014 4:22 PMWBC 5.1 X10e3/UL (3.6-11.2 X10e3/UL) RBC 4.98 X10e6/UL H (3.63-4.92 X10e6/UL) HEMOGLOBIN 15.0 G/DL H (11.0-14.3 G/DL) HEMATOCRIT 44.9 % H (31.2-41.9 %) MCV 90.2 FL (79.0-98.0 FL) MCH 30.1 PG (27.0-33.0 PG) MCHC 33.3 G/DL (32.0-36.0 G/DL) RDW 14.2 % (12.3-17.0 %) RDWSD 44.6 (37.1-47.8 ) PLATELET 67 X10e3/UL L (159-386 X10e3/UL) MPV 10.8 FL H (7.4-10.4 FL) AUTOMATED DIFF PERFORMED SEGS 73.7 % LYMPHOCYTES 19.6 % MONOCYTES 4.7 % EOSINOPHILS 0.8 % BASOPHILS 1.2 % ABSOLUTE NEUTROPHILS 3.8 X10e3/UL (1.8-7.8 X10e3/UL) ABSOLUTE LYMPHOCYTES 1.0 X10e3/UL (1.0-3.0 X10e3/UL) ABSOLUTE MONOCYTES 0.2 X10e3/UL L (0.3-1.0 X10e3/UL) ABSOLUTE EOSINOPHILS 0.0 X10e3/UL (0.0-0.5 X10e3/UL) ABSOLUTE BASOPHILS 0.1 X10e3/UL (0.0-0.2 X10e3/UL) PLATELET SLIDE REVIEW DECREASED A (ADEQUATE ) DX Radiology from 06/08/2014 2:40 PMCHEST 1 VIEW DATE OF EXAM: Jun 08 2014 3: 03PM Proc: DG 0066 - CHEST 1 VIEW CPT Code(s): 12469-; ; ; INDICATION / CLINICAL HISTORY: COPD exacerbation. COMPARISON: 05/27/14. FINDINGS: The cardiac silhouette and pulmonary vasculature are within normal limits. There are no acute infiltrates or effusions. IMPRESSION: No acute cardiopulmonary disease. Problems Encounter Diagnosis * Acute Bronchitis Comment:Problem resolved by [facility] Workflow upon Discharge, Status:Resolved. * Acute Exacerbation of Chronic Obstructive Airways Disease Comment:Problem resolved by [facility] Workflow upon Discharge, Status:Resolved. * Chronic Low Back Pain Comment:Problem resolved by [facility] Workflow upon Discharge, Status:Resolved. * Degenerative Joint Disease involving Multiple Joints Status:Active. * Depression Status:Active. * Gastroesophageal Reflux Disease Comment:Problem resolved by [facility] Workflow upon Discharge, Status:Resolved. * Morbid Obesity Comment:Problem resolved by [facility] Workflow upon Discharge, Status:Resolved. * Noncompliance with Therapeutic Regimen Comment:Problem resolved by [facility] Workflow upon Discharge, Status:Resolved. * Obstructive Sleep Apnea Syndrome Status:Active. Additional Problems * Hyperglycemia Comment:Problem resolved by [facility] Workflow upon Discharge, Status:Resolved. * Pneumonia Comment:Problem resolved by [facility] Workflow upon Discharge, Status: Resolved. Encounters Encounter Diagnosis * Acute Bronchitis Comment:Problem resolved by [facility] Workflow upon Discharge, Status:Resolved. * Acute Exacerbation of Chronic Obstructive Airways Disease Comment:Problem resolved by [facility] Workflow upon Discharge, Status:Resolved. * Chronic Low Back Pain Comment:Problem resolved by [facility] Workflow upon Discharge, Status:Resolved. * Degenerative Joint Disease involving Multiple Joints Status:Active. * Depression Status:Active. * Gastroesophageal Reflux Disease Comment:Problem resolved by [facility] Workflow upon Discharge, Status:Resolved. * Morbid Obesity Comment:Problem resolved by [facility] Workflow upon Discharge, Status:Resolved. * Noncompliance with Therapeutic Regimen Comment:Problem resolved by [facility] Workflow upon Discharge, Status:Resolved. * Obstructive Sleep Apnea Syndrome Status:Active. Plan of Care Follow-up Appointments from 06/15/2014 10:31 AM:* #1 Office appointment: : Dr. Melvin * #1 Date/Time : 06/16/2014 10:45 AM * Address # 1 : [facility]: [facility] [address] [place]- [phone] or * #2 Office appointment: : Dr. Appiah * #2 Date/Time : 06/22/2014 2:30 PM * Address # 2 : [facility]: [address] [place]- or Treatment Plan from 06/15/2014 10:45 AM:* Care Management Note : Patient plans to return home today. She has information on how to visit with medication assistance credit clerk at [facility] and credit clerk is sending information to patient in mail about application for mediations. Transisitional care social worker palliative care notified of discharge for today. Treatment Plan from 06/12/2014 12:47 PM:* Care Management Note : Transitional Care Program social worker palliative care aware of request to follow up with patient at discharge. Dr Appiah stated he has sent script for cpap supplies to [facility] already. Patient aware she is not discharged today but plans to return home once dismissed. Treatment Plan from 06/12/2014 9:50 AM:* Care Management Note : Glucose greater than 400. Insulin doses increased. Clinical update provided to [employer] insurance per phone. Approved until 06-15-14 Treatment Plan from 06/11/2014 2:58 PM:* Care Management Note : Informed by Ciera with [facility] that cpap card read and shows patient has been using machine. I then spoke with liaison with [facility] to update on information and see what else needs to be done so new tubing and mask can be obtained for patient. I was referred to another worker there and informed that order from Dr. Appiah needs to be written and then faxed to them. I called Maggie with Dr. Appiah and she will let doctor know. Treatment Plan from 06/11/2014 11:30 AM:* Care Management Note : Rounded w/ both Dr. Melvin et Dr. Appiah. Patient w/ acute exac of COPD. POC includes IV antibiotics et Solumedrol IV q 12. Blood sugars remained elevated. Adjusting insulin. STACIE Godinez working on dc needs for new cpap mask et tubing. Encouraged patient to ambulate et to work w/ DM educator et child welfare manager. DC plan is for a.m. Treatment Plan from 06/10/2014 3:58 PM:* Care Management Note : Referral made to transitional care program with patient's permission. Patient up walking independently in room and daughters present. Patient still plans to return home at discharge. Informed by Kourtney Espinosa RN, that she attempted to notify [facility] of patient's need for new tubing and mask for cpap, since she hasn' t had any new for past 4 years. She was informed by [facility] liaison that dog day care attendant needs to call. I then called [facility] and informed that patient's card needs to be read before going any further with replacing supplies. [facility] worker currently at hospital for another patient and I asked she take cpap card with her to take back to read. She followed through with this and states she will call me once card is read. Treatment Plan from 06/09/2014 3:14 PM:* Care Management Note : Met with patient to discuss discharge needs. Patient lives at home with her 16 year old daughter. She voiced concerns with cost of medications. soap worker in emergency department saw her approximately 2 weeks ago and provided her information on [employer] to help apply for medicare part D. Patient has not followed through with this, stating she doesn't read or spell very well. I encouraged patient to follow up with Nidia Long at [facility] to apply for medication assistance program. She stated she tried before but she wasn't in her office. [employer] information also provided to help with cost of meds and she stated she has used them last year but they won't help with her pain medications. Patient informed they can help with"life saving" medications. Patient tearful and appeared anxious. Will follow up and offer referral to Transitional Care Program. Patient open to services, stating she just needs us to figure it out for her. Treatment Plan from 06/09/2014 9:13 AM:* Care Management Note : Plan of care discussed with Dr. Melvin. Patient will continue IV anitibiotics, steroids, respiratory treatments, O2. Patient with diagnosis of morbid obesity, Insulin dependent Diabetic. Diabetic education and child welfare manager consulted. Treatment Plan from 06/08/2014 3:28 PM:* Care Management Note : Admitted from Physician's office with failed outpatient treatment of acute bronchitis and COPD exacerbation. Plan of care is IV antibiotics every 8 hours, IV steroids every 12 hours, RT treatments QID, O2. Anticipate length of stay greater than 2 midnights. Will follow with SW for discharage needs. Procedures * Completed , on 04/08/2013 12:00 AM * Completed , on 09/14/2011 12:00 AM Immunizations No immunizations administered or ordered. Hospital Course Hospital Discharge Instructions How to care for yourself at home from 06/15/2014 10:31 AM:* Discharge Activity : Activity as tolerated * Discharge Diet : Modification as given by physician * Discharge Diet: : no sugar * Call your doctor if: : Fever over 101 F or severe chills,Chest pain or other unexplained symptoms,Tingling or numbness develops,A sudden increase or decrease in weight,You have persistent or worsening symptoms,If you have Heart Failure and you gain 3 pounds within 1 week or your symptoms worsen. (Weigh at home tomorrow morning) * Specific Discharge Teaching Instructions provided: : No * Discharge on Warfarin : No Allergies, Adverse Reactions, Alerts * Penicillins causes Severe "unable to stand". * No Latex Allergy. * No IV Contrast Allergy. Medication It is the responsibility of the patient or patient lead generation representative to confirm the list of medications with either the patient's personal care provider or the patient's follow-up care provider to ensure the patient has an appropriate list of medications to take at home. Discharge medications New medications* predniSONE 5 mg Tablet, Ordered By: LADAN RIOS RN Directions: 1 tablet oral daily with breakfast Additional Instructions: take 20mg daily for 4 days, then 10mg daily for 4 days , then 5mg daily for 5 days then stop Continued medications* amitriptyline 25 mg Tablet, Ordered By: JEROME MELVIN MD Directions: 1 tablet oral daily at bedtime * arformoterol (Brovana) 15 mcg/2 mL Solution for Nebulization, Ordered By: JEROME MELVIN MD Directions: 2 mL by inhalation twice a day * eszopiclone (Lunesta) 3 mg Tablet, Ordered By: JEROME MELVIN MD Directions: 1 tablet oral daily at bedtime * topiramate 50 mg Tablet, Ordered By: JEROME MELVIN MD Directions: 1 tablet oral twice a day * oxyCODONE-acetaminophen (Percocet) 10 mg-325 mg Tablet, Ordered By: JEROME MELVIN MD Directions: 1 tablet oral every four hours PRN pain * metFORMIN 1,000 mg Tablet, Ordered By: JEROME MELVIN MD Directions: 1 tablet oral twice a day with or after meal * meloxicam 15 mg Tablet, Ordered By: JEROME MELVIN MD Directions: 1 tablet oral daily * ipratropium-albuterol (DuoNeb) 0.5 mg-3 mg (2.5 mg base)/3 mL Solution for Nebulization, Ordered By: JEROME MELVIN MD Directions: 3 mL by inhalation daily PRN shortness of breath Changed medications* tiotropium bromide (SPIriva with HandiHaler) 18 mcg Capsule , w/Inhalation Device, Ordered By: JEROME MELVIN MD Directions: 1 capsule by inhalation twice a day Additional Instructions: script never picked up * insulin aspart (NovoLOG) 100 unit/mL Solution, Ordered By: JEROME MELVIN MD Directions: 40 unit subcutaneous three times a day with or after meal * insulin detemir (Levemir) 100 unit/mL Solution, Ordered By: JEROME MELVIN MD Directions: 30 unit subcutaneous twice a day Stopped medications* levofloxacin (LevaQUIN) 500 mg Tablet Directions: 1 tablet oral daily every morning Additional Instructions: completed dose 06/08/14
--- OUTSIDE RECORDS SUMMARY | 2018-06-15 15:07 | XMS REPORT | Summary of Care ---
Author Author Saira Dugan, Anne Ruiz Unknown Address Unknown Phone Unavailable Care Team Providers Care Ticket Worker Name Role Phone Danyelle Carrion Unavailable Unavailable [...] 1 Refills: 5 Noam Appiah M.D.* Started [id number] GM Inhaler Clobetasol Propionate 0.05 % External Cream APPLY THIN LAYER TO AFFECTED AREAS TWICE DAILY * Quantity: 1 Refills: 3 Denzel Galeana M.D.* Started [id number] GM Tube Levemir 100 UNIT/ML Subcutaneous Solution INJECT 30 UNITS SUBCUTANEOUSLY AT BEDTIME DIRECTED. * Quantity: 1 Refills: 0 Anne Chávez M.D.* Started 13-Apr-2014 [id number] ML Vial NovoLOG FlexPen 100 UNIT/ML Subcutaneous [...] (Better) Comments: Exam Date: 15 :05Dictation Date: [id number] 13:54 Plan of Care Planned Observations* Name [...]
--- OUTSIDE RECORDS SUMMARY | 2018-06-15 15:07 | XMS REPORT | Summary of Care ---
Author Author Saira Dugan, Anne Ruiz Unknown Address Unknown Phone Unavailable Care Team Providers Care [facility] Director Name Role Phone Danyelle Carrion Unavailable Unavailable [...] 1 Refills: 5 Noam Appiah M.D.* Started Vuptbg32 GM Inhaler Clobetasol Propionate 0.05 % External Cream APPLY THIN LAYER TO AFFECTED AREAS TWICE DAILY * Quantity: 1 Refills: 3 Denzel Galeana M.D.* Started Oqqipz80 GM Tube Levemir 100 UNIT/ML Subcutaneous Solution INJECT 30 UNITS SUBCUTANEOUSLY AT BEDTIME DIRECTED. * Quantity: 1 Refills: 0 Anne Chávez M.D.* Started 13-Apr-2014 Baxyuj07 ML Vial NovoLOG FlexPen 100 UNIT/ML Subcutaneous [...] (Better) Comments: Exam Date: 15 :05Dictation Date: [id number] 13:54 Plan of Care Planned Observations* Name [...]
--- OUTSIDE RECORDS SUMMARY | 2018-06-15 15:07 | XMS REPORT | Summary of Care ---
Author Author Saira Dugan, Anne Ruiz Unknown Address Unknown Phone Unavailable Care Team Providers Care Cooperative Education Coordinator Name Role Phone Danyelle Carrion Unavailable Unavailable [...] 1 Refills: 5 Noam Appiah M.D.* Started Qbxdyu21 GM Inhaler Clobetasol Propionate 0.05 % External Cream APPLY THIN LAYER TO AFFECTED AREAS TWICE DAILY * Quantity: 1 Refills: 3 Denzel Galeana M.D.* Started Cwrwym10 GM Tube Levemir 100 UNIT/ML Subcutaneous Solution INJECT 30 UNITS SUBCUTANEOUSLY AT BEDTIME DIRECTED. * Quantity: 1 Refills: 0 Anne Chávez M.D.* Started 13-Apr-2014 Uuniii47 ML Vial NovoLOG FlexPen 100 UNIT/ML Subcutaneous [...] (Better) Comments: Exam Date: 15 :05Dictation Date: [id number] 13:54 Plan of Care Planned Observations* Name [...]
--- OUTSIDE RECORDS SUMMARY | 2018-06-15 15:08 | XMS REPORT ---
Author Author Noam Appiah Organization Unknown Address [address], [place] [id number] Phone Care Team Providers Care Keymodule Assembly Machine Tender Name Role Phone Ashlee HUERTA PP Unavailable Unavailable Reason for Referral No Reason for Referral was given. History of Present Illness Patient states she is breathing well. She is using the nebulizer with brovana and budesonide twice a day. She also has oxygen at night but has increased it to 3 liters as she was wakening with headaches. CPAP is also being worn with the oxygen. She occasionally has insomnia and has been trying to cut back on the sleep aid. She denies worsening dyspnea. She has some cough but no sputum production. Problems * Chronic Obstructive Pulmonary Disease Last Assessed: 06/09/2013 10:44:04 AM ( 496); (Active) * Obstructive Sleep Apnea Last Assessed: 06/09/2013 10:44:10 AM (327.23); (Active) * Insomnia Last Assessed: 06/09/2013 10:45:19 AM (780.52); (Active) * Hypoxia Last Assessed: 06/09/2013 10:45:24 AM (799.02); (Active) * Normal Routine History And Physical Adult (V70.0); (Active) * Headache (784.0); (Active) * Fatigue (780.79); (Active) * Esophageal Reflux (530.81); (Active) * Obesity (278.00); (Active) * Hypertension (401.9); (Active) * Diabetes Mellitus (250.00); (Active) * Feeling Weak (780.79); (Active) * Depression (311); (Active) * Cough (786.2); (Active) * Acute Bronchitis (466.0); (Active) Medication * Lantus 100 UNIT/ML Subcutaneous [...] 4 DAYS.; Start Date: 05/12/2013; End Date: 06/09/2013 (Complete) Allergies and Adverse Reactions * Penicillins (Active) [...] (Active) Vital Signs Date Description Test Result 09 Jun 2013 10:34 AM recorded by: Lucila Roblero Height 67 in Weight 306 lb Body Mass Index Calculated 48.03 Body Surface Area Calculated 2.42 BP Systolic 140 mm[Hg] BP Diastolic 80 mm[Hg] Heart Rate 96 /min O2 SAT 94 % Treatment Plan * Oxygen 07/14/2010 Routine * Urine Culture PRN 8000 10/31/2011 Stat * ORTHO KNEE RIGHT 11/09/2011 Routine * Urine Culture PRN 8000 01/26/2012 Stat * XRay CHEST-PA & LAT 05/12/2013 Routine Advance Directives * No Advance Directives available. Encounters * Appointment 06/09/2013 * QUAN , Provider: Bijal Santacruz, Status: [place] , Time: 10:45 AM 12/08
--- OUTSIDE RECORDS SUMMARY | 2018-06-15 15:08 | XMS REPORT ---
Author Author GENERATED, SYSTEM Organization Unknown Address Unknown Phone Unavailable Care Team Providers Care Supervisor Pairing And Inspecting Name Role Phone MD OLEGARIO, JEROME RODRIGUEZ Unavailable Reason For Visit Chief Complaint FEELS BAD Social History Functional Status Vital Signs Results Blood Gas from 05/27/2014 2:23 PMARTERIAL PH 7.427 (7.350-7.450 ) ARTERIAL PC02 40.5 MM HG (35.0-45.0 MM HG) ART. PO2 96 MM HG H (80-95 MM HG) ART. TOTAL CO2 22.5 mmol/L (20.0-30.0 mmol/L) ART. BICARBONATE 26.2 MEQ/L (19.0-29.0 MEQ/L) ART. BASE EXCESS 2.2 (-2.5-2.5 ) ART. O2 SATURATION 97.9 % H (91.0-97.0 %) PATIENT ATMOSPHERE 2 LITERS SPECIMEN SITE ARTERIAL Chemistry from 05/27/2014 2:00 PMSODIUM 131 MMOL/L L (136-145 MMOL/L) POTASSIUM 4.4 MMOL/L (3.5-5.1 MMOL/L) CHLORIDE 94 MMOL/L L (98-107 MMOL/L) TCO2 28.3 MMOL/L (21.0-32.0 MMOL/L) ANION GAP 8.7 MMOL/L (8.0-16.0 MMOL/L) BUN 21 MG/DL H (7-18 MG/DL) CREATININE 1.10 MG/DL H (0.43-0.83 MG/DL) BUN/CREATININE RATIO 19.1 H (9.1-17.0 ) GLUCOSE 684 MG/DL HH (65-99 MG/DL) GFR EST NON AFR CHADIAN 58 ML/MIN GFRA EST AFR AMER 67 ML/MIN CALCIUM 8.8 MG/DL (8.5-10.1 MG/DL) BILIRUBIN TOTAL 0.64 MG/DL (0.20-1.00 MG/DL) TOTAL PROTEIN 7.4 GM/DL (6.4-8.2 GM/DL) ALBUMIN 3.4 GM/DL (3.4-5.0 GM/DL) GLOBULIN 4.0 GM/DL H (2.3-3.5 GM/DL) A/G RATIO 0.9 MG/DL L (1.5-2.2 MG/DL) ALK PHOS 196 U/L H (46-116 U/L) ALT (SGPT) 60 U/L (12-78 U/L) AST (SGOT) 48 U/L H (15-37 U/L) AMYLASE 28 U/L (25-115 U/L) LIPASE 136 U/L (73-393 U/L) KETONE (B-HYDROXY) WB 1.4 MMOL/L H (-<0.6 MMOL/L) Hematology from 05/27/2014 2:00 PMWBC 6.1 X10e3/UL (3.6-11.2 X10e3/UL) RBC 5.11 X10e6/UL H (3.63-4.92 X10e6/UL) HEMOGLOBIN 15.3 G/DL H (11.0-14.3 G/DL) HEMATOCRIT 46.1 % H (31.2-41.9 %) MCV 90.3 FL (79.0-98.0 FL) MCH 29.9 PG (27.0-33.0 PG) MCHC 33.1 G/DL (32.0-36.0 G/DL) RDW 14.0 % (12.3-17.0 %) RDWSD 43.8 (37.1-47.8 ) PLATELET 79 X10e3/UL L (159-386 X10e3/UL) MPV 11.2 FL H (7.4-10.4 FL) AUTOMATED DIFF PERFORMED SEGS 72.5 % LYMPHOCYTES 19.4 % MONOCYTES 6.4 % EOSINOPHILS 0.8 % BASOPHILS 0.9 % ABSOLUTE NEUTROPHILS 4.5 X10e3/UL (1.8-7.8 X10e3/UL) ABSOLUTE LYMPHOCYTES 1.2 X10e3/UL (1.0-3.0 X10e3/UL) ABSOLUTE MONOCYTES 0.4 X10e3/UL (0.3-1.0 X10e3/UL) ABSOLUTE EOSINOPHILS 0.0 X10e3/UL (0.0-0.5 X10e3/UL) ABSOLUTE BASOPHILS 0.1 X10e3/UL (0.0-0.2 X10e3/UL) Urinalysis from 05/27/2014 2:00 PM* Status: Final Result URINALYSIS Specimen Number: [id number] Sample Collection Date/Time: 05/27/2014 2:00 PM Specimen Source: URINE COLOR YELLOW (STRAW/YELL/DK YELL ) URINE APPEARANCE CLEAR (CLEAR ) URINE PH 6.0 (5.0-8.0 ) URINE SPECIFIC GRAVITY <1.005 (<=1.005->=1.030 ) URINE GLUCOSE >1000 MG/DL A (NEGATIVE MG/DL) URINE BILIRUBIN NEGATIVE (NEGATIVE ) URINE KETONES 15 MG/DL A (NEGATIVE MG/DL) URINE BLOOD TRACE-INTACT A (NEGATIVE ) URINE PROTEIN TRACE MG/DL A (NEGATIVE MG/DL) URINE UROBILINOGEN 0.2 EU/DL (0.2-1.0 EU/DL) URINE NITRITES NEGATIVE (NEGATIVE ) *URINE LEUKOCYTES NEGATIVE (NEGATIVE ) MICROSCOPIC EXAM PERFORMED PERFORMED WBC 0-1 /HPF (0-5 /HPF) RBC 0-1 /HPF (0-1 /HPF) SQUAMOUS EP. CELLS FEW /LPF (NEG-FEW /LPF) Coagulation from 05/27/2014 2:00 PMPROTHROMBIN TIME 11.0 SECONDS (9.4-11.5 SECONDS) INR 1.0 PARTIAL THROMBOPLASTIN TIME 21.7 SECONDS L (22.0-28.0 SECONDS) DX Radiology from 05/27/2014 1:59 PMCHEST 2 VIEWS DATE OF EXAM: May 27 2014 2: 29PM Proc: DG 0067 - CHEST 2 VIEWS CPT Code(s): 60716-; ; ; INDICATION / CLINICAL HISTORY: Cough FINDINGS: There is mild hyperinflation consistent with COPD. The heart size is within normal limits. No acute infiltrate, pneumothorax or pleural effusion identified. IMPRESSION: Chronic obstructive pulmonary disease (COPD) without evidence of acute cardiopulmonary process. Problems Encounter Diagnosis No relevant problems exist. Additional Problems * Hyperglycemia Comment:Problem resolved by [facility] Workflow upon Discharge, Status:Resolved. * Pneumonia Comment:Problem resolved by [facility] Workflow upon Discharge, Status: Resolved. Encounters Encounter Diagnosis No relevant problems exist. Plan of Care Procedures * Completed , on 04/08/2013 12:00 [...]
--- OUTSIDE RECORDS SUMMARY | 2018-06-15 15:08 | XMS REPORT ---
Author Dianna Britton Organization [employer] Address Unknown Phone Unavailable Care Team Providers Care Palliative Care Nurse Practitioner Name Role Phone Dianna Morrell Unavailable Allergies No Known Allergies Problems Problem Type Condition ICD-9 Code Onset Dates Condition Status Problem Type II diabetes mellitus, uncontrolled 250.02 Active Assessment Diabetes mellitus without mention of complication, type II or unspecified type, not stated as uncontrolled 250.00 Active Problem COPD (chronic obstructive pulmonary disease) 496 Active Medications Medication Code System Code Instructions Start Date End Date Status Dosage Amitriptyline HCl [facility] [address]-52 25 MG Orally Once a day Active 1 tablet at bedtime Brovana [facility] [address]-90 15 MCG/2ML Inhalation Twice a day Active 2 ml Metformin HCl [facility] [address]-98 1000 MG Orally Twice a day Active 1 tablet with meals Mobic [facility] [address]-28 15 MG Orally Once a day Active 1 tablet Lunesta [facility] [address]-75 3 MG Orally Once a day Active 1 tablet immediately before bedtime Spiriva HandiHaler [facility] [address]-42 18 MCG Inhalation twice a day Active 1 capsule NovoLog [facility] [address]-20 100 UNIT/ML Subcutaneous Active 40 units with meals Levemir [facility] [address]-88 100 UNIT/ML Subcutaneous twice a day Active 30 units DuoNeb NDC 0 Active not defined Percocet [facility] [address]-44 10-325 MG Orally every 4 hours Active 1 tablet as needed Procedures Procedure Coding System Code Date DM OP SLF-MGMT TRN SRVC IND-30 MIN CPT-4 G0108 Aug 13, 2014 Results No Known Results Summary Purpose [employer] Submission
--- OUTSIDE RECORDS SUMMARY | 2018-06-15 15:08 | XMS REPORT | Continuity of care Document ---
[...] has not been performed. Results Chemistry from 01/10/2014 8:50 PMSODIUM 135 MMOL/L L (136-145 MMOL/L) POTASSIUM 3.8 MMOL/L (3.5-5.1 MMOL/L) CHLORIDE 98 MMOL/L (98-107 MMOL/L) TCO2 29.2 MMOL/L (21.0-32.0 MMOL/L) ANION GAP 7.8 MMOL/L L (8.0-16.0 MMOL/L) BUN 18 MG/DL (7-18 MG/DL) CREATININE 0.82 MG/DL (0.43-0.83 MG/DL) BUN/CREATININE RATIO 22.0 H (9.1-17.0 ) GLUCOSE 435 MG/DL H (65-99 MG/DL) GFR EST NON AFR [facility] 83 ML/MIN GFRA EST AFR AMER >=90 ML/MIN CALCIUM 8.8 MG/DL (8.5-10.1 MG/DL) BILIRUBIN TOTAL 0.45 MG/DL (0.20-1.00 MG/DL) TOTAL PROTEIN 7.6 GM/DL (6.4-8.2 GM/DL) ALBUMIN 3.1 GM/DL L (3.4-5.0 GM/DL) GLOBULIN 4.5 GM/DL H (2.3-3.5 GM/DL) A/G RATIO 0.7 MG/DL L (1.5-2.2 MG/DL) ALK PHOS 202 U/L H (46-116 U/L) ALT (SGPT) 55 U/L (12-78 U/L) AST (SGOT) 43 U/L H (15-37 U/L) SODIUM, CORRECTED 140 MMOL/L (136-145 MMOL/L) OSMOLALITY, CALCULATED 301 MOSM/KG (278-305 MOSM/KG) MAGNESIUM 1.9 MG/DL (1.8-2.4 MG/DL) PHOSPHORUS 2.9 MG/DL (2.5-4.9 MG/DL) KETONE (B-HYDROXY) WB <0.6 MMOL/L (-<0.6 MMOL/L) PH VENOUS PLASMA 7.50 H (7.35-7.45 ) Hematology from 01/10/2014 8:50 PMWBC 7.3 X10e3/UL (3.6-11.2 X10e3/UL) RBC 4.61 X10e6/UL (3.63-4.92 X10e6/UL) HEMOGLOBIN 13.8 G/DL (11.0-14.3 G/DL) HEMATOCRIT 40.6 % (31.2-41.9 %) MCV 88.0 FL (79.0-98.0 FL) MCH 29.9 PG (27.0-33.0 PG) MCHC 34.0 G/DL (32.0-36.0 G/DL) RDW 14.3 % (12.3-17.0 %) RDWSD 43.8 (37.1-47.8 ) PLATELET 77 X10e3/UL L (159-386 X10e3/UL) MPV 10.6 FL H (7.4-10.4 FL) AUTOMATED DIFF PERFORMED SEGS 68.0 % LYMPHOCYTES 22.4 % MONOCYTES 7.2 % EOSINOPHILS 1.6 % BASOPHILS 0.8 % ABSOLUTE NEUTROPHILS 5.0 X10e3/UL (1.8-7.8 X10e3/UL) ABSOLUTE LYMPHOCYTES 1.6 X10e3/UL (1.0-3.0 X10e3/UL) ABSOLUTE MONOCYTES 0.5 X10e3/UL (0.3-1.0 X10e3/UL) ABSOLUTE EOSINOPHILS 0.1 X10e3/UL (0.0-0.5 X10e3/UL) ABSOLUTE BASOPHILS 0.1 X10e3/UL (0.0-0.2 X10e3/UL) Urinalysis from 01/10/2014 5:40 PMURINE COLOR YELLOW (STRAW/YELL/DK YELL ) URINE APPEARANCE CLEAR (CLEAR ) URINE PH 6.0 (5.0-8.0 ) URINE SPECIFIC GRAVITY <=1.005 (<=1.005->=1.030 ) URINE GLUCOSE >=1000 MG/DL A (NEGATIVE MG/DL) URINE BILIRUBIN NEGATIVE (NEGATIVE ) URINE KETONES NEGATIVE MG/DL (NEGATIVE MG/DL) URINE BLOOD NEGATIVE (NEGATIVE ) URINE PROTEIN NEGATIVE MG/DL (NEGATIVE MG/DL) URINE UROBILINOGEN 0.2 EU/DL (0.2-1.0 EU/DL) URINE NITRITES NEGATIVE (NEGATIVE ) *URINE LEUKOCYTES NEGATIVE (NEGATIVE ) UR NEGATIVE (NEGATIVE ) Microbiology from 01/10/2014 7:35 PM* *ZAFAR- FUNGAL SMEAR Specimen Number: [id number] Specimen Source: Sample Collection Date/Time: 01/10/2014 7:35 PM *ZAFAR- FUNGAL SMEAR: No yeast or fungal elements seen Report Status: FINAL * *WET PREP Specimen Number: [id number] Specimen Source: Sample Collection Date/Time: 01/10/2014 7:35 PM Report Status: FINAL *WET PREP: No Trichomonas seen * CULTURE GC PROFILE (Preliminary Result) Specimen Number: [id number] Specimen Source: Sample Collection Date/Time: 01/10/2014 7:35 PM CULTURE GC PROFILE: No Neisseria gonorrhoeae isolated Reference Lab from 01/10/2014 7:45 PM* SOURCE Specimen Number: [id number] Specimen Source: Sample Collection Date/Time: 01/10/2014 7:45 PM SOURCE: [facility]
--- OUTSIDE RECORDS SUMMARY | 2018-06-15 15:09 | XMS REPORT | Summary of Care ---
Author Author Saira Dugan, Anne Ruiz Unknown Address Unknown Phone Unavailable Care Team Providers Care Battalion Fire Chief Name Role Phone Danyelle Carrion Unavailable Unavailable [...] 1 Refills: 5 Noam Appiah M.D.* Started Kihacu87 GM Inhaler Clobetasol Propionate 0.05 % External Cream APPLY THIN LAYER TO AFFECTED AREAS TWICE DAILY * Quantity: 1 Refills: 3 Denzel Galeana M.D.* Started Kdemno99 GM Tube Levemir 100 UNIT/ML Subcutaneous Solution INJECT 30 UNITS SUBCUTANEOUSLY AT BEDTIME DIRECTED. * Quantity: 1 Refills: 0 Anne Chávez M.D.* Started 13-Apr-2014 Ulgypy19 ML Vial NovoLOG FlexPen 100 UNIT/ML Subcutaneous [...] (Better) Comments: Exam Date: 15 :05Dictation Date: [id number] 13:54 Plan of Care Planned Observations* Name Dates Details Planned Goals not documented Goal Planned Encounters* Appointment; Provider: Noam Appiah On 21-Dec-2014 13:45 * Appointment; Provider: Vanna Herring On 24-Sep-2014 13:00 * Appointment; Provider: Santana Sands On 21-Aug-2014 15:30 * Appointment; Provider: Anne Chávez On 19-Aug-2014 11:00 Instructions * Instructions not documented Encounters Appointment; [...]
--- OUTSIDE RECORDS SUMMARY | 2018-06-15 15:09 | XMS REPORT | Summary of Care ---
Author Author Saira Dugan, Anne Ruiz Unknown Address Unknown Phone Unavailable Care Team Providers Care Repairer Shoe Sticks Name Role Phone Danyelle Carrion Unavailable Unavailable [...] Status: Active Cervicalgia (723.1, M54.2) Status: Active LBP (low back pain) (724.2, M54.5) Status: Active Right knee pain (719.46, M25.561) Status: Active Obstructive sleep apnea (327.23, G47.33) Status: Active Hypoxia (799.02, R09.02) Status: Active Insomnia (780.52, G47.00) Status: Active Opioid withdrawal (292.0, F11.23) Status: Active Psoriasis (696.1, L40.9) Status: Active Neurodermatitis (698.3, L28.0) Status: Active DJD (degenerative joint disease), cervical (722.4, M50.90) Status: Active DJD (degenerative joint disease), lumbar (722.52, M51.36) Status: Active Morbid obesity (278.01, E66.01) Status: Active Chronic obstructive pulmonary disease (496, J44.9) Status: Active Diabetes mellitus (250.00, E11.9) Status: Active Noncompliance (V15.81, Z91.19) Status: Active Medications Name Dates Details Lunesta 3 MG Oral Tablet TAKE ONE TABLET BY MOUTH ONCE DAILY AT BEDTIME FOR SLEEP Quantity: 30 Noam Appiah M.D.* Started ActiveBrovana 15 MCG/2ML Inhalation Nebulization Solution INHALE [...] Refills: 11 Noam Appiah M.D.* Started 13-Oct-2010 ActiveQvar 80 MCG/ACT Inhalation Aerosol Solution INHALE 2 PUFFS, BY MOUTH, TWICE DAILY. RINSE MOUTH AFTER USE. * Quantity: 1 Refills: 11 Noam Appiah M.D.* Started 19-Oct-2011 Active8.7 GM Inhaler Oxygen Use 2 liters 24 hours/day * Quantity: 2 Refills: 0 Danyelle Townsned P.A.* Started 15-Apr-2012 ActiveCombivent Respimat 20-100 MCG/ACT Inhalation Aerosol Solution one puff qid * Quantity: 1 Refills: 3 Noam Appiah M.D.* Started Active4 GM Inhaler Meloxicam 15 MG Oral Tablet TAKE ONE TABLET [...] Refills: 2 Anne Chávez M.D.* Started 04-May-2014 ActiveOnglyza 2.5 MG Oral Tablet TAKE 1 TABLET DAILY. DX:25O.OO * Quantity: 30 Refills: 6 Anne Chávez M.D.* Started 23-Sep-2013 ActiveTest Strips ONE TOUCH MINI ULTRA, ONCE DAILY TESTING. DX: 25O.OO * Quantity: 30 Refills: 6 Anne Chávez M.D.* Started 23-Sep-2013 ActiveNeshannan INSULIN SYRINGES 50 UNITS WITH 31 GAUGE . INJECTS TID. DX: 250 * Quantity: 100 Refills: 6 Anne Chávez M.D.* Started 25-Sep-2013 ActiveBelviq 10 MG Oral Tablet TAKE 1 TABLET TWICE DAY.MUST LAST 30 DAYS * Quantity: 60 Refills: 0 Anne Chávez M.D.* Started 13-Apr-2014 ActiveOxycodone-Acetaminophen 10-325 MG Oral Tablet TAKE 1 TABLET EVERY 4 HOURS NEEDED FOR PAIN.*MAX 6 PER DAY*MAY FILL ON OR AFTER 05/20/14* * Quantity: 180 Refills: 0 Anne Chávez M.D.* Started 15-Sep-2011 ActiveSpiriva HandiHaler 18 MCG Inhalation Capsule INHALE CONTENTS OF 1 CAPSULE ONCE DAILY. * Quantity: 30 Refills: 12 Danyelle Townsend P.ARachele* Started 14-Jul-2010 ActiveNeedles novolog flex pen 10 units TID * Quantity: 100 Refills: 3 Anne Chávez M.D.* Started 20-Apr-2014 ActiveNovoLOG FlexPen 100 UNIT/ML Subcutaneous Solution Pen-injector INJECT 10 UNITS SUBCUTANEOUS TID * Quantity: 15 Refills: 3 Anne Chávez M.D.* Started 20-Apr-2014 ActiveLevemir 100 UNIT/ML Subcutaneous Solution INJECT 10 UNITS SUBCUTANEOUSLY AT BEDTIME DIRECTED. * Quantity: 1 Refills: 0 Anne Chávez M.D.* Started 13-Apr-2014 Jgseod84 ML Vial Clobetasol Propionate 0.05 % External Cream APPLY THIN LAYER TO AFFECTED AREAS TWICE DAILY * Quantity: 1 Refills: 3 Denzel Galeana M.D.* Started Thlvxy76 GM Tube Ventolin HFA 108 (90 Base) MCG/ACT Inhalation Aerosol Solution INHALE 1 TO 2 PUFFS EVERY 4 TO 6 HOURS NEEDED. * Quantity: 1 Refills: 5 Noam Appiah M.D.* Started Uvakgg78 GM Inhaler Amitriptyline HCl - 25 MG Oral Tablet TAKE 1 TABLET DAILY AT BEDTIME. * Quantity: 30 Refills: 1 * Started 15-Jul-2013 Active Allergies and Adverse Reactions Name Dates Details Penicillins Status: Active Past Medical History Name Dates Details History of acute bronchitis (V12.69, Z87.09) Status: Resolved History of Burning Sensation During Urination Status: Resolved History of obesity (V13.89, Z87.898) [...] smoker Vital Signs Date Test Result Details 12-May-2014 14:44 BP Systolic 128 mm[Hg] Status: BP Diastolic 80 mm[Hg] Status: Heart Rate 88 /min Status: Respiration Rate 18 /min Status: Weight 277.5 lb Status: Height 70 in Status: O2 SAT 92 % Status: Body Mass Index Calculated 39.82 kg/m2 Status: Body Surface Area Calculated 2.4 m2 Status: Results Date Description Value Details 11-May-2014 15:31 HEMOGLOBIN A1C 3507 Hemoglobin A1C 14.3 % (Better) ESTIMATED AVG. GLUCOSE 364 (Better) Plan of Care Planned Observations* Name Dates Details Planned Goals not documented Goal Planned Encounters* Appointment; Provider: Vanna Herring On 24-Sep-2014 13:00 * Appointment; Provider: Santana Sands On 21-Aug-2014 15:30 * Appointment; Provider: Noam Appiah On 08-Jun-2014 13:15 * Appointment; Provider: Anne Chávez On 26-May-2014 15:15 Instructions * Instructions not documented Encounters Appointment; Denzel Galeana Encounter Diagnosis: Problem not [...] Diagnosis: Problem not documented On 11-Nov-2012 14:00 Appointment; Ronsick, Noam Encounter Diagnosis: Problem not documented On 06-Jun-2012 10:30
--- OUTSIDE RECORDS SUMMARY | 2018-06-15 15:09 | XMS REPORT | Summary of Care ---
Author Author Maggie Grubbs Unknown Address [address] [place] [address] Phone Unavailable Care Team Providers Care Quality Technician Name Role Phone Danyelle Carrion Unavailable Unavailable [...] 1 Refills: 5 Noam Appiah M.D.* Started Cgcrkv77 GM Inhaler Clobetasol Propionate 0.05 % External Cream APPLY THIN LAYER TO AFFECTED AREAS TWICE DAILY * Quantity: 1 Refills: 3 Denzel Galeana M.D.* Started Fcmgju77 GM Tube Levemir 100 UNIT/ML Subcutaneous Solution INJECT 30 UNITS SUBCUTANEOUSLY AT BEDTIME DIRECTED. * Quantity: 1 Refills: 0 Anne Chávez M.D.* Started 13-Apr-2014 Aacahd30 ML Vial NovoLOG FlexPen 100 UNIT/ML Subcutaneous [...] (Better) Comments: Exam Date: 15 :05Dictation Date: [id number] 13:54 Plan of Care Planned Observations* Name [...]
--- OUTSIDE RECORDS SUMMARY | 2018-06-15 15:10 | XMS REPORT | Summary of Care ---
Author Author Danyelle Carrion Organization Unknown Address [address] [place], [place] [id number] Phone Unavailable Care Team Providers Care Design Agent Name Role Phone Danyelle Carrion Unavailable Unavailable Anne Chávez M.D. Unavailable Unavailable Lissett Dugan, Haylie Mahoney Unavailable [...] 1 Refills: 5 Noam Appiah M.D.* Started Rpqoed28 GM Inhaler Clobetasol Propionate 0.05 % External Cream APPLY THIN LAYER TO AFFECTED AREAS TWICE DAILY * Quantity: 1 Refills: 3 Denzel Galeana M.D.* Started Bugpoa95 GM Tube Levemir 100 UNIT/ML Subcutaneous Solution INJECT 30 UNITS SUBCUTANEOUSLY AT BEDTIME DIRECTED. * Quantity: 1 Refills: 0 Anne Chávez M.D.* Started 13-Apr-2014 Fhyjql28 ML Vial NovoLOG FlexPen 100 UNIT/ML Subcutaneous [...] (Better) Comments: Exam Date: 15 :05Dictation Date: [id number] 13:54 Plan of Care Planned Observations* Name [...]
--- OUTSIDE RECORDS SUMMARY | 2018-06-15 15:10 | XMS REPORT | Continuity of Care Document ---
Author Author [facility] Organization [facility] Address Unknown Phone Unavailable Allergies Active Description Code Type Severity Reaction Onset Reported/Identified Relationship to Patient Clinical Status Yes PCN (penicillin) 20997720 Drug Allergy Moderate Dyspnea Yes Penicillins Penicillins Drug Allergy Unknown CANNOT BREATHE 08/14/2014 Yes penicillins NKMA N/A passed out 08/28/2014 Yes penicillin 51328 Ingredient moderate to severe Lethargy~Trouble Breathing 04/26/2018 Medications Medication Packaging Start Date Stop Date Route Dosage Sig BACITRACIN OINT 450UNITS/0.9GM UD 05/06/2018 05/06/2018 TOPICAL 1 ERNIE IBUPROFEN (MOTRIN) TAB 600MG 12/201705/10/2018 PO 600 MG IBUPROFEN (ADVIL,MOTRIN) TAB 200MG 05/10/2018 05/10/2018 PO 600 MG ACETAM/ASA/CAFF 250/250/65MG TAB 05/10/2018 05/10/2018 PO 1 TAB NICOTINE (NICORETTE) GUM 2MG 12/201705/10/2018 PO 2 MG Problems Date Dx Coded Attending Type Code Diagnosis Diagnosed By 08/31/2014 Estrella Aceves MD Final 250.00 Diabetes mellitus without mention of complication, type II or unspecified t 08/31/2014 Estrella Aceves MD Final 276.51 Dehydration 08/31/2014 Estrella Aceves MD Final 276.52 Hypovolemia 08/31/2014 Estrella Aceves MD Final 305.1 TOBACCO USE DISORDER 08/31/2014 Estrella Aceves MD Reason 780.2 SYNCOPE AND COLLAPSE 03/25/2018 S E1142 Type 2 diabetes mellitus with diabetic polyneuropathy 03/25/2018 S R86915 Nicotine dependence, cigarettes, uncomplicated 03/25/2018 S R0602 Shortness of breath 03/25/2018 P R0789 Other chest pain 03/25/2018 S R110 Nausea 03/25/2018 S R600 Localized edema 03/25/2018 S R61 Generalized hyperhidrosis 03/25/2018 S Z794 custodial ( current) use of insulin 03/25/2018 S 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 03/25/2018 S Z880 Allergy status to penicillin 04/02/2018 MARTHA DU R P B182 Chronic viral hepatitis C 04/02/2018 MARTHA DU S R162 Hepatomegaly with splenomegaly, not elsewhere classified 04/05/2018 MINERVA HUERTA, DAYO Stallings B1920 Unspecified viral hepatitis C without hepatic coma 04/05/2018 MINERVA HUERTA, DAYO Stallings E119 Type 2 diabetes mellitus without complications 04/05/2018 MINERVA HUERTA, DAYO Stallings F329 Major depressive disorder, single episode, unspecified 04/05/2018 DAYO PALMA MD G250 Essential tremor 04/05/2018 DAYO PALMA MD R197 Diarrhea, unspecified 04/05/2018 DAYO PALMA MD 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 04/23/2018 MARTHA DU P K7469 Other cirrhosis of liver 04/30/2018 Martha Du B37.81 Candidal Esophagitis 05/03/2018 MARTHA DU P B182 Chronic viral hepatitis C 05/06/2018 NAHOMI PETIT MD E119 Type 2 diabetes mellitus without complications 05/06/2018 NAHOMI PETIT MD A32121 Nicotine dependence, cigarettes, uncomplicated 05/06/2018 NAHOMI PETIT MD F329 Major depressive disorder, single episode, unspecified 05/06/2018 NAHOMI PETIT MD J449 Chronic obstructive pulmonary disease, unspecified 05/06/2018 NAHOMI PETIT MD L989 Disorder of the skin and subcutaneous tissue, unspecified 05/06/2018 NAHOMI PETIT MD D21331 Other usp (current) drug therapy 05/06/2018 NAHOMI PETIT MD Z8619 Personal history of other infectious and parasitic diseases 05/10/2018 F E11.42 05/10/2018 F F11.10 05/10/2018 F F12.10 05/10/2018 F F33.2 05/10/2018 F F43.10 05/10/2018 F J44.9 05/10/2018 F R45.851 05/10/2018 F Z63.4 05/10/2018 F Z79.4 05/10/2018 F Z86.19 05/10/2018 F Z88.0 05/10/2018 DARIUS GRANT B1920 Unspecified viral hepatitis C without hepatic coma 05/10/2018 DARIUS GRANT B9681 Helicobacter pylori [H. 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 Type 2 diabetes mellitus with diabetic polyneuropathy 05/10/2018 DARIUS GRANT G97623 Nicotine dependence, cigarettes, uncomplicated 05/10/2018 DARIUS GRANT F329 Major depressive disorder, single episode, unspecified 05/10/2018 DARIUS GRANT G4700 Insomnia, unspecified 05/10/2018 DARIUS GRANT J449 Chronic obstructive pulmonary disease, unspecified 05/10/2018 DARIUS GRANT K7460 Unspecified cirrhosis of liver 05/10/2018 DARIUS GRANT M549 Dorsalgia, unspecified 05/10/2018 DARIUS GRANT R05 Cough 05/10/2018 DARIUS GRANT R252 Cramp and spasm 05/10/2018 DARIUS GRANT R451 Restlessness and agitation 05/10/2018 DARIUS GRANT R4583 Excessive crying of child, adolescent or adult 05/10/2018 DARIUS GRANT X43451 Suicidal ideations 05/10/2018 DARIUS GRANT R51 Headache 05/10/2018 DARIUS GRANT R5381 Other malaise 05/10/2018 DARIUS GRANT R5383 Other fatigue 05/10/2018 DARIUS GRANT 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 Results Test Result Range PROTHROMBIN TIME - 04/02/18 07:50 INR 1.1 0.8 - 1.4 PROTIME 12.3 Secs 10.0 - 12.5 TSH REFLEX FT4 - 04/02/18 07:50 THYROID STIMULATING HORMONE 0.701 uIU/L 0.460 - 4.680 Hepatitis C virus genotype - 04/02/18 07:50 RBC MORPH NRG HEPATITIS C GENOTYPE LAB NRG PROTHROMBIN TIME - 04/23/18 11:20 INR 1.1 0.8 - 1.4 PROTIME 12.4 Secs 10.0 - 12.5 CBC ADIFF W/REFLEX MDIFF - 04/23/18 11:20 WHITE BLOOD COUNT 5.9 X10^3 4.0 - 11.0 RED BLOOD COUNT 5.07 10^6/uL 4.00 - 5.00 MEAN CORPUSCULAR VOLUME 88 FL 80 - 100 MEAN CORPUSCULAR HEMOGLOBIN 29.6 pg 26.0 - 34.0 MEAN CORPUSCULAR HGB CONC 33.8 g/dL 31.0 - 37.0 RED CELL DISTRIBUTION WIDTH 14.9 % 11.8 - 15.6 MEAN PLATELET VOLUME 11.9 FL 6.0 - 9.5 CBC ADIFF W/REFLEX MDIFF LAB NRG HEMOGLOBIN 15.0 g/dL 12.0 - 15.5 HEMATOCRIT 44.40 % 35.00 - 45.00 PLATELETS 73 10^3/uL 150 - 450 %NEUT 72.0 % 51.0 - 73.0 %LYMPH 17.8 % 20.0 - 46.0 %MONO 8.2 % 3.0 - 11.0 %EOS 1.5 % 0.0 - 4.0 %BASO 0.3 % 0.0 - 2.0 #NEUT 4.27 10^3/uL 2.04 - 7.37 #LYMPH 1.1 10^3/uL 0.8 - 5.0 #MONO 0.49 10^3/uL 0.12 - 1.21 #EOS 0.1 10^3/uL 0.0 - 0.4 #BASO 0.0 10^3/uL 0.0 - 0.2 MANUAL DIFF NOT INDICATED NRG RBC MORPH NOT INDICATED NRG Serum or plasma amylase measurement - 04/23/18 11:20 AMYLASE 58 U/L 25 - 115 Lipase measurement - 04/23/18 11:20 LIPASE 71 U/L 23 - 300 COMPREHENSIVE METABOLIC PANEL - 04/23/18 11:20 CARBON DIOXIDE 28 mmol/L 22 - 29 BLOOD UREA NITROGEN 17 mg/dL 7 - 18 GLOBULIN 3.3 g/dL 2.0 - 3.5 AG E TYPING 55 yrs NRG GLUCOSE 115 mg/dL 70 - 110 SODIUM 142 mmol/L 135 - 150 POTASSIUM 4.5 mmol/L 3.5 - 5.1 CHLORIDE 105 mmol/L 98 - 108 ANION GAP 9 mEq/L 3 - 15 CREATININE 0.67 mg/dL 0.60 - 1.20 BUN/CREAT 25 10 - 20 SGOT/AST 31 U/L 15 - 37 ALBUMIN 3.9 g/dL 3.4 - 5.0 TOTAL PROTEIN 7.2 g/dL 6.4 - 8.5 A/G RATIO 1.2 1.1 - 1.8 ALKALINE PHOS 92 U/L 38 - 126 TOTAL BILI 0.6 mg/dL 0.1 - 1.0 CALCIUM 9.2 mg/dL 8.8 - 10.8 OSMOLALITY 277 mOsm/L 280 - 300 SGPT/ALT 23 U/L 4 - 35 eGFR AfrAm >60 mL/min/1.7 REF RANGE=>60 eGFR NonAfrAm >60 mL/min/1.7 REF RANGE=>60 CALC IZ CA 4.2 mmol/L 3.8 - 4.6 ALPHA-FETO PROTEIN MARKER - 04/23/18 11:20 RBC MORPH NRG ALPHA-FETO PROTEIN MARKER LAB NRG HEP C RNA DETECT QT - 05/03/18 11:40 RBC MORPH NRG HEP C RNA DETECT QT LAB NRG HCV FIBROSURE--[facility] - 05/03/18 11:40 HCV FIBROSURE--[facility] LAB NRG CBC ADIFF W/REFLEX MDIFF - 05/10/18 17:01 WHITE BLOOD COUNT 8.9 X10^3 4.0 - 11.0 RED BLOOD COUNT 4.85 10^6/uL 4.00 - 5.00 MEAN CORPUSCULAR VOLUME 87 FL 80 - 100 MEAN CORPUSCULAR HEMOGLOBIN 30.1 pg 26.0 - 34.0 MEAN CORPUSCULAR HGB CONC 34.6 g/dL 31.0 - 37.0 RED CELL DISTRIBUTION WIDTH 14.3 % 11.8 - 15.6 MEAN PLATELET VOLUME 11.9 FL 6.0 - 9.5 CBC ADIFF W/REFLEX MDIFF LAB NRG HEMOGLOBIN 14.6 g/dL 12.0 - 15.5 HEMATOCRIT 42.20 % 35.00 - 45.00 PLATELETS 82 10^3/uL 150 - 450 %NEUT 77.2 % 51.0 - 73.0 %LYMPH 14.9 % 20.0 - 46.0 %MONO 7.1 % 3.0 - 11.0 %EOS 0.4 % 0.0 - 4.0 %BASO 0.2 % 0.0 - 2.0 #NEUT 6.89 10^3/uL 2.04 - 7.37 #LYMPH 1.3 10^3/uL 0.8 - 5.0 #MONO 0.63 10^3/uL 0.12 - 1.21 #EOS 0.0 10^3/uL 0.0 - 0.4 #BASO 0.0 10^3/uL 0.0 - 0.2 MANUAL DIFF NOT INDICATED NRG RBC MORPH NOT INDICATED NRG DRUG SCREEN STAT - 05/10/18 17:01 Methadone NEGATIVE NORMAL: NEGATIVE Oxycodone NEGATIVE NORMAL: NEGATIVE Phencyclidine (PCP) NEGATIVE NORMAL: NEGATIVE Propoxyphene NEGATIVE NORMAL: NEGATIVE DRUG SCREEN STAT LAB NRG COCAINE NEGATIVE NORMAL: NEGATIVE AMPHETAMINES NEGATIVE NORMAL: NEGATIVE METHAMPHET NEGATIVE NORMAL: NEGATIVE THC POSITIVE NORMAL: NEGATIVE OPIATES NEGATIVE NORMAL: NEGATIVE BARBITURATES NEGATIVE NORMAL: NEGATIVE TCA NEGATIVE NORMAL: NEGATIVE BENZO NEGATIVE NORMAL: NEGATIVE COMPREHENSIVE METABOLIC PANEL - 05/10/18 17:01 CARBON DIOXIDE 31 mmol/L 22 - 29 BLOOD UREA NITROGEN 20 mg/dL 7 - 18 GLOBULIN 3.4 g/dL 2.0 - 3.5 AG E TYPING 55 yrs NRG GLUCOSE 121 mg/dL 70 - 110 SODIUM 141 mmol/L 135 - 150 POTASSIUM 4.1 mmol/L 3.5 - 5.1 CHLORIDE 101 mmol/L 98 - 108 ANION GAP 9 mEq/L 3 - 15 CREATININE 0.70 mg/dL 0.60 - 1.20 BUN/CREAT 29 10 - 20 SGOT/AST 26 U/L 15 - 37 ALBUMIN 3.8 g/dL 3.4 - 5.0 TOTAL PROTEIN 7.2 g/dL 6.4 - 8.5 A/G RATIO 1.1 1.1 - 1.8 ALKALINE PHOS 74 U/L 38 - 126 TOTAL BILI 0.6 mg/dL 0.1 - 1.0 CALCIUM 8.7 mg/dL 8.8 - 10.8 OSMOLALITY 296 mOsm/L 280 - 300 SGPT/ALT 19 U/L 4 - 35 eGFR AfrAm >60 mL/min/1.7 REF RANGE=>60 eGFR NonAfrAm >60 mL/min/1.7 REF RANGE=>60 CALC IZ CA 3.9 mmol/L 3.8 - 4.6 ACETAMINOPHEN/SALICYLATES SERUM - 05/10/18 17:01 ACETAMINOPHEN <10.0 mcg/mL 10.0 - 30.0 SALICYLATE <1.0 mg/dL 2.0 - 20.0 TSH NON REFLEX - 05/10/18 17:01 TSH. 0.215 uIU/L 0.460 - 4.680 Encounters ACCT No. Visit Date/Time Discharge Status Pt. Type Provider Facility Loc./Unit Complaint [id number] 04/29/2018 13:47:00 04/29/2018 23:59:00 DIS Outpatient Martha Du [place] [facility] OUTPT Esophagogastroduodenoscopy [id number] 08/28/2014 09:54:00 08/28/2014 15:15:00 DIS Emergency Yola HUERTA, Estrella [facility] ED cant walk [id number] 03/21/2016 21:49:43 03/21/2016 21:49:43 Outpatient [id number] 05/10/2018 21:57:28 05/10/2018 23:59:59 CLS Outpatient [facility] [id number] 05/10/2018 16:20:00 05/10/2018 21:59:00 DIS Emergency DARIUS GRANT 015 PSYCH [id number] 05/05/2018 23:44:00 05/06/2018 00:12:00 DIS Emergency MARISABEL HUERTA, NAHOMI Pappas 015 CANT BREATHE/NOT FEELING WELL [id number] 05/03/2018 11:37:00 05/03/2018 23:59:59 CLS Outpatient MARTHA DU [id number] 05/03/2018 10:59:00 05/03/2018 11:35:00 DIS Outpatient MINERVA HUERTA, DAYO Bradley F/U on essential tremors [id number] 04/23/2018 11:08:00 04/23/2018 23:59:59 CLS Outpatient MARTHA DU [id number] 04/05/2018 11:03:00 04/05/2018 12:02:00 DIS Outpatient ADYO PALMA MD [id number] 04/02/2018 06:49:00 04/02/2018 06:49:00 DIS Outpatient MARTHA DU [facility] C [id number] 03/25/2018 09:34:00 Document Registration [id number] 08/14/2014 14:02:00 08/14/2014 15:00:00 DIS Emergency Romain De Santiago DO [facility] [id number] 05/10/2018 22:49:00 Document Registration [id number] 05/26/2013 16:35:00 05/26/2013 18:48:00 DIS Emergency [id number] 08/14/2014 14:21:06 ACT Document Registration [id number] 05/25/2018 12:13:00 05/25/2018 23:59:00 DIS Outpatient Frankie Du
[2018-06-15] MEDS ORDERED: NS IV 1000 ML 1,000 ML IV SCH (15:11)
[2018-06-15] MEDS ORDERED: RT-ALBUTEROL/IPRATROPIUM 3 ML (DUONEB) VIAL ONE (15:14)
[2018-06-15] MEDS ORDERED: RT-ALBUTEROL/IPRATROPIUM 3 ML (DUONEB) VIAL INH ONE (15:15)
[2018-06-15] MEDS ORDERED: cefTRIAXone FOR IV USE 1,000 MG in NS (IVPB) 50 ML IV ONE (15:15)
[2018-06-15] MEDS ORDERED: AZITHROMYCIN INJECTION 500 MG in NS (IVPB) 250 ML IV ONE (15:15)
[2018-06-15] MEDS ORDERED: RT-ALBUTEROL SULF 2.5 MG/3 ML PRE-MIX VIAL ONE (15:24)
--- NOTE | 2018-06-15 15:26 | ED Respiratory ---
General Stated Complaint: SOB Source: patient Exam Limitations: no limitations History of Present Illness Date Seen by Provider: Jun 15, 2018 Time Seen by Provider: 15:03 Initial Comments Patient presents to ER by private conveyance with chief complaint of shortness of breath past couple days. She's got worse yesterday. She started having some chest pain under and around her left breast yesterday morning. It's worse with deep inspiration, direct palpation over her chest wall or coughing. She's had a cough is been sometimes productive of green-yellow sputum. She's had no fever or chills. No nausea vomiting. She has a history of COPD for which she uses, several times a day. She does not have a nebulizer. She recently moved down to [facility] from [place] outside of [place] and has not established care with a primary care provider yet. She has no history of coronary artery disease or CHF. Allergies and Home Medications Allergies Coded Allergies: Penicillins (Verified Allergy, Unknown, weak, cant stand up and lose color., 06/15/18) Patient Home Medication List Home Medication List Reviewed: Yes Review of Systems Review of Systems Constitutional: No chills, No diaphoresis EENTM: No ear discharge, No ear pain Respiratory: see HPI, cough, short of breath, wheezing Cardiovascular: see HPI, chest pain; No Hx of Intervention, No palpitations, No vascular heart diseas Gastrointestinal: No abdominal pain, No constipation, No diarrhea, No nausea Genitourinary: No discharge, No dysuria Musculoskeletal: No back pain, No joint pain Past Bmbqizu-Cymapx-Tbszso Hx Patient Social History Alcohol Use: Denies Use Recreational Drug Use: Yes Drug of Choice: THC Smoking Status: Current Everyday Smoker Type Used: Cigarettes (1 ppd) Recent Foreign Travel: No Contact w/Someone Who Travel: No Physical Exam Vital Signs - First Documented 06/15/18 06/15/18 06/15/18 15:22 15:55 16:15 Temp 96.3 Pulse 98 Resp 20 B/P (MAP) 151/107 (122) Pulse Ox 98 O2 Delivery Room Air O2 Flow Rate 2.00 Capillary Refill : Height: '" Weight: lbs. oz. kg; BMI Method: General Appearance: WD/WN, moderate distress Eyes: Bilateral Eye Normal Inspection, Bilateral Eye PERRL, Bilateral Eye EOMI HEENT: PERRL/EOMI, normal ENT inspection, pharynx normal (oral mucosa dry) Neck: non-tender, full range of motion, supple, other (no specific lymphadenopathy but she does have some fullness above the right clavicle which could be secondary to lymphadenopathy) Respiratory: respiratory distress, decreased breath sounds, accessory muscle use (mild mild), wheezing (scant), expiration (prolonged), other (left chest wall lateral to the left breast is tender to palpation.) Cardiovascular: normal peripheral pulses, regular rate, rhythm, no edema Gastrointestinal: normal bowel sounds, non tender, soft Extremities: no pedal edema, normal capillary refill Neurologic/Psychiatric: alert, normal mood/affect, oriented x 3 Skin: normal color, warm/dry Focused Exam Lactate Level 06/15/18 15:20: Lactic Acid Level 1.90 Lactic Acid Level Laboratory Tests Test 06/15/18 15:20 Lactic Acid Level 1.90 MMOL/L (0.50-2.00) Progress/Results/Core Measures Suspected Sepsis SIRS Temperature: Pulse: Respiratory Rate: Laboratory Tests 06/15/18 15:20: White Blood Count 5.3 Blood Pressure / Mean: 06/15/18 15:20: Lactic Acid Level 1.90 Laboratory Tests 06/15/18 15:20: Creatinine 0.81, INR Comment 1.1, Platelet Count 92L, Total Bilirubin 0.5 Results/Orders Lab Results Laboratory Tests Test 06/15/18 15:20 06/15/18 16:01 Range/Units White Blood Count 5.3 4.3-11.0 10^3/uL Red Blood Count 4.68 4.35-5.85 10^6/uL Hemoglobin 13.8 11.5-16.0 G/DL Hematocrit 42 35-52 % Mean Corpuscular Volume 89 80-99 FL Mean Corpuscular Hemoglobin 30 25-34 PG Mean Corpuscular Hemoglobin Concent 33 32-36 G/DL Red Cell Distribution Width 14.8 H 10.0-14.5 % Platelet Count 92 L 130-400 10^3/uL Mean Platelet Volume 11.8 H 7.4-10.4 FL Neutrophils (%) (Auto) 68 42-75 % Lymphocytes (%) (Auto) 22 12-44 % Monocytes (%) (Auto) 9 0-12 % Eosinophils (%) (Auto) 2 0-10 % Basophils (%) (Auto) 0 0-10 % Neutrophils # (Auto) 3.6 1.8-7.8 X 10^3 Lymphocytes # (Auto) 1.2 1.0-4.0 X 10^3 Monocytes # (Auto) 0.5 0.0-1.0 X 10^3 Eosinophils # (Auto) 0.1 0.0-0.3 10^3/uL Basophils # (Auto) 0.0 0.0-0.1 10^3/uL Prothrombin Time 13.9 12.2-14.7 SEC INR Comment 1.1 0.8-1.4 Activated Partial Thromboplast Time 31 24-35 SEC Sodium Level 144 135-145 MMOL/L Potassium Level 4.1 3.6-5.0 MMOL/L Chloride Level 106 98-107 MMOL/L Carbon Dioxide Level 24 21-32 MMOL/L Anion Gap 14 5-14 MMOL/L Blood Urea Nitrogen 16 7-18 MG/DL Creatinine 0.81 0.60-1.30 MG/DL Estimat Glomerular Filtration Rate > 60 BUN/Creatinine Ratio 20 Glucose Level 161 H 70-105 MG/DL Lactic Acid Level 1.90 0.50-2.00 MMOL/L Calcium Level 9.6 8.5-10.1 MG/DL Corrected Calcium 9.7 8.5-10.1 MG/DL Total Bilirubin 0.5 0.1-1.0 MG/DL Aspartate Amino Transf (AST/SGOT) 18 5-34 U/L Alanine Aminotransferase (ALT/SGPT) 15 0-55 U/L Alkaline Phosphatase 98 40-136 U/L Troponin I < 0.30 <0.30 NG/ML C-Reactive Protein High Sensitivity 0.07 0.00-0.50 MG/DL Total Protein 7.9 6.4-8.2 GM/DL Albumin 3.9 3.2-4.5 GM/DL Urine Color YELLOW Urine Clarity SLIGHTLY CLOUDY Urine pH 6.5 5-9 Urine Specific [place] 1.020 1.016-1.022 Urine Protein 3+ H NEGATIVE Urine Glucose (UA) NEGATIVE NEGATIVE Urine Ketones NEGATIVE NEGATIVE Urine Nitrite NEGATIVE NEGATIVE Urine Bilirubin NEGATIVE NEGATIVE Urine Urobilinogen NORMAL NORMAL MG/DL Urine Leukocyte Esterase 1+ H NEGATIVE Urine RBC (Auto) 2+ H NEGATIVE Urine RBC 0-2 /HPF Urine WBC 0-2 /HPF Urine Squamous Epithelial Cells 2-5 /HPF Urine Crystals NONE /LPF Urine Bacteria FEW H /HPF Urine Casts NONE /LPF Urine Mucus NEGATIVE /LPF Urine Culture Indicated NO Micro Results Microbiology 06/15/18 Influenza Types A,B Antigen (FRANCISCO) - Final, Complete My Orders Orders - HALLIE FUNG Albuterol/Ipra Inhalation Soln (Duoneb I (06/15/18 15:14) Arterial Blood Gas (06/15/18 15:11) Hs C Reactive Protein (06/15/18 15:11) Troponin I (06/15/18 15:11) Influenza A And B Antigens (06/15/18 15:11) Albuterol/Ipra Inhalation Soln (Duoneb I (06/15/18 15:15) Saline Lock/Iv-Start (06/15/18 15:11) Ns Iv 1000 Ml (Sodium Chloride 0.9%) (06/15/18 15:11) Cbc With Automated Diff (06/15/18 15:11) Comprehensive Metabolic Panel (06/15/18 15:11) Blood Culture (06/15/18 15:11) Sputum Culture (06/15/18 15:11) Urinalysis (06/15/18 15:11) Urine Culture (06/15/18 15:11) Protime With Inr (06/15/18 15:11) Partial Thromboplastin Time (06/15/18 15:11) Chest 1 View, Ap/Pa Only (06/15/18 15:11) Saline Lock/Iv-Start (06/15/18 15:11) Saline Lock/Iv-Start (06/15/18 15:11) Vital Signs Adult Sepsis Patie Q15M (06/15/18 15:11) O2 (06/15/18 15:11) Remove Rings In Anticipation O (06/15/18 15:11) Lactic Acid Analyzer (06/15/18 15:11) Ceftriaxone For Iv Use (Rocephin For I (06/15/18 15:15) Azithromycin Injection (Zithromax Inject (06/15/18 15:15) Ekg Tracing (06/15/18 15:11) Continuous Ekg Monitoring (06/15/18 15:11) Svn Small Volume Nebulizer (06/15/18 15:11) Albuterol Pre-Mix Nebs (Rt) (Proventil (06/15/18 15:24) Medications Given in ED Current Medications Medications Dose Ordered Sig/Tim Route Start Time Stop Time Status Last Admin Dose Admin Albuterol Sulfate 2.5 mg STK-MED ONCE .ROUTE 06/15/18 15:24 06/15/18 15:26 DC 06/15/18 15:54 2.5 MG Albuterol/ Ipratropium 3 ml ONCE ONCE INH 06/15/18 15:15 06/15/18 15:18 DC 06/15/18 15:54 3 ML Azithromycin 500 mg/Sodium Chloride 250 ml @ 250 mls/hr ONCE ONCE IV 06/15/18 15:15 06/15/18 16:14 DC 06/15/18 17:14 250 MLS/HR Ceftriaxone Sodium 1000 mg/ Sodium Chloride 60 ml @ 100 mls/hr ONCE ONCE IV 06/15/18 15:15 06/15/18 15:50 DC 06/15/18 15:52 100 MLS/HR Vital Signs/I&O 06/15/18 06/15/18 06/15/18 15:22 15:55 16:15 Temp 96.3 Pulse 98 Resp 20 B/P (MAP) 151/107 (122) Pulse Ox 98 94 96 O2 Delivery Room Air Nasal Cannula O2 Flow Rate 2.00 Capillary Refill : Progress Note : Time: 15:28 Progress Note Patient has set the 91% on room air sober any give her breathing treatments twitch with just the first dose of DuoNeb she's already showing some improvement in her aeration sounds. We chest x-ray, labs and a septic workup. Her tachycardia is probably due to her relative hypoxia. Her chest pain we'll get an EKG which was unremarkable and troponin but it seems more like pleuritic chest wall pain. ECG Initial ECG Impression Date: Jun 15, 2018 Initial ECG Impression Time: 15:16 Initial ECG Rate: 95 Initial ECG Rhythm: Normal Sinus Initial ECG Intervals: Normal Initial ECG Impression: Normal Initial ECG Comparisson: No Previous ECG Available Comment No ST changes Diagnostic Imaging Diagonstic Imaging: Xray Plain Films/CT/US/NM/MRI: chest (1v) Comments NAME: MAK CORREA [facility] REC#: [id number] PHYSICIAN: HALLIE FUNG MD CC: BJORN MORENO MD; HALLIE FUNG Page 1 of 1 RADIOLOGY REPORT VIA [facility]. [place], [place] CC: BJORN MORENO MD; HALLIE FUNG Page 1 of 1 RADIOLOGY REPORT NAME: MAK CORREA [facility] REC#: [id number] PT STATUS: REG ER : 1965 PHYSICIAN: HALLIE FUNG MD ADMIT DATE: 06/15/18/ER Signed Date of Exam: 06/15/18 CHEST 1 VIEW, AP/PA ONLY INDICATION: Shortness of air. COMPARISON: August 28, 2014. TECHNIQUE: Single frontal radiograph of the chest dated June 15, 2018. FINDINGS: Postsurgical changes within the cervical spine are again identified. The cardiac silhouette is borderline enlarged, slightly more prominent than on the prior examination. Mild central pulmonary vascular congestion is present. Slightly increased interstitial opacities, bilaterally, without additional focal pulmonary opacity. No pleural effusion. No pneumothorax. No acute osseous abnormality. IMPRESSION: Minimal central pulmonary vascular congestion with minimal interstitial edema. No significant pleural effusion. Dictated by: Dictated on workstation # [id number] Dict: 06/15/18 1616 Trans: 06/15/181707 Interpreted by: BJORN MORENO MD Electronically signed by: BJORN MORENO MD 06/15/181707 Reviewed: Reviewed by Me Departure Communication (Admissions) Time/Spoke to Admitting Phy: 18:15 Discussed case lab imaging findings and plan for steroids and inpatient stay for COPD exacerbation on the floor and she agrees to take the patient. Impression Primary Impression: COPD exacerbation Disposition: ADMITTED INPATIENT Condition: Stable Admissions Decision to Admit Reason: Admit from ER (General) Decision to Admit/Date: Jun 15, 2018 Time/Decision to Admit Time: 18:11 Departure-Patient Inst. Referrals: NO,LOCAL PHYSICIAN (PCP/Family) Primary Care Physician HALLIE FUNG Jun 15, 2018 15:26
[2018-06-15] MEDS ORDERED: IPRA4AER (15:40)
[2018-06-15] MEDS ORDERED: FLT22013 INH (15:40)
[2018-06-15] MEDS ORDERED: TRAM50TA2 (15:40)
[2018-06-15 15:47] LABS: BASOPHILS % (AUTO) 0 % (0-10); EOSINOPHILS # (AUTO) 0.1 10^3/uL (0.0-0.3); EOSINOPHILS % (AUTO) 2 % (0-10); HEMATOCRIT 42 % (35-52); HEMOGLOBIN 13.8 G/DL (11.5-16.0); LYMPHOCYTES # (AUTO) 1.2 X 10^3 (1.0-4.0); LYMPHOCYTES % (AUTO) 22 % (12-44); MEAN CORPUSCULAR HEMOGLOBIN 30 PG (25-34); MEAN CORPUSCULAR HGB CONC 33 G/DL (32-36); MEAN CORPUSCULAR VOLUME 89 FL (80-99); MEAN PLATELET VOLUME 11.8 FL (7.4-10.4); MONOCYTES # (AUTO) 0.5 X 10^3 (0.0-1.0); MONOCYTES % (AUTO) 9 % (0-12); NEUTROPHILS # (AUTO) 3.6 X 10^3 (1.8-7.8); NEUTROPHILS % (AUTO) 68 % (42-75); PLATELET COUNT 92 10^3/uL (130-400); RED BLOOD COUNT 4.68 10^6/uL (4.35-5.85); RED CELL DISTRIBUTION WIDTH 14.8 % (10.0-14.5); WHITE BLOOD COUNT 5.3 10^3/uL (4.3-11.0)
[2018-06-15 16:00] LABS: ALANINE AMINOTRANSFERASE 15 U/L (0-55); ALBUMIN 3.9 GM/DL (3.2-4.5); ALKALINE PHOSPHATASE 98 U/L (40-136); BILIRUBIN,TOTAL 0.5 MG/DL (0.1-1.0); BUN/CREATININE RATIO 20; CALCIUM 9.6 MG/DL (8.5-10.1); CARBON DIOXIDE 24 MMOL/L (21-32); CHLORIDE 106 MMOL/L (98-107); CREATININE SERUM 0.81 MG/DL (0.60-1.30); GFR ESTIMATED > 60; GLUCOSE 161 MG/DL (70-105); POTASSIUM 4.1 MMOL/L (3.6-5.0); SODIUM 144 MMOL/L (135-145); TOTAL PROTEIN 7.9 GM/DL (6.4-8.2)
[2018-06-15 16:01] LABS: INR 1.1 (0.8-1.4); PROTHROMBIN TIME PATIENT 13.9 SEC (12.2-14.7)
[2018-06-15 16:06] LABS: BILIRUBIN,URINE NEGATIVE (NEGATIVE); CLARITY,URINE SLIGHTLY CLOUDY; COLOR,URINE YELLOW; GLUCOSE, URINE (UA) NEGATIVE (NEGATIVE); KETONES,URINE NEGATIVE (NEGATIVE); LEUKOCYTE ESTERASE ,URINE 1+ (NEGATIVE); NITRITE,URINE NEGATIVE (NEGATIVE); PH,URINE 6.5 (5-9); PROTEIN,URINE 3+ (NEGATIVE); UROBILINOGEN,URINE NORMAL (NORMAL)
[2018-06-15 16:16] LABS: RBC,URINE 0-2 /HPF; WBC,URINE 0-2 /HPF
[2018-06-15 16:17] LABS: BACTERIA,URINE FEW /HPF
--- NOTE | 2018-06-15 16:29 | Diagnostic Imaging Report ---
INDICATION: Shortness of air. COMPARISON: August 28, 2014. TECHNIQUE: Single frontal radiograph of the chest dated June 15, 2018. FINDINGS: Postsurgical changes within the cervical spine are again identified. The cardiac silhouette is borderline enlarged, slightly more prominent than on the prior examination. Mild central pulmonary vascular congestion is present. Slightly increased interstitial opacities, bilaterally, without additional focal pulmonary opacity. No pleural effusion. No pneumothorax. No acute osseous abnormality. IMPRESSION: Minimal central pulmonary vascular congestion with minimal interstitial edema. No significant pleural effusion. Dictated by: Dictated on workstation # [id number]
[2018-06-15] MEDS ORDERED: methylPREDNISolone 125 MG (Solu-MEDROL) VIAL IVP ONE (18:30)
--- OUTSIDE RECORDS SUMMARY | 2018-06-15 18:42 | XMS REPORT | Continuity of Care Document ---
Author Author [facility] Organization [facility] Address Unknown Phone Unavailable Allergies Active Description Code Type Severity Reaction Onset Reported/Identified Relationship to Patient Clinical Status Yes PCN (penicillin) 55014586 Drug Allergy Moderate Dyspnea Yes Penicillins Penicillins Drug Allergy Unknown CANNOT BREATHE 08/14/2014 Yes penicillins NKMA N/A passed out 08/28/2014 Yes penicillin 01105 Ingredient moderate to severe Lethargy~Trouble Breathing 04/26/2018 [...] diabetes mellitus with diabetic polyneuropathy 03/25/2018 S J51197 Nicotine dependence, cigarettes, uncomplicated 03/25/2018 S R0602 Shortness of breath 03/25/2018 P R0789 Other chest pain 03/25/2018 S R110 Nausea 03/25/2018 S R600 Localized edema 03/25/2018 S R61 Generalized hyperhidrosis 03/25/2018 S Z794 assisted ( current) use of insulin 03/25/2018 S 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 03/25/2018 S Z880 Allergy [...] Diarrhea, unspecified 04/05/2018 DAYO PALMA MD 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 04/23/2018 MARTHA DU P K7469 Other cirrhosis of liver 04/30/2018 Martha Du B37.81 Candidal Esophagitis 05/03/2018 MARTHA DU P B182 Chronic viral hepatitis C 05/06/2018 NAHOMI PETIT MD E119 Type 2 diabetes mellitus without complications 05/06/2018 NAHOMI PETIT MD V06973 Nicotine dependence, cigarettes, uncomplicated 05/06/2018 NAHOMI PETIT MD F329 Major depressive disorder, single episode, unspecified 05/06/2018 NAHOMI PETIT MD J449 Chronic obstructive pulmonary disease, unspecified 05/06/2018 NAHOMI PETIT MD L989 Disorder of the skin and subcutaneous tissue, unspecified 05/06/2018 NAHOMI PETIT MD D52639 Other longterm (current) drug therapy 05/06/2018 NAHOMI PETIT MD [...] mellitus with diabetic polyneuropathy 05/10/2018 DARIUS GRANT [id number] Nicotine dependence, cigarettes, uncomplicated 05/10/2018 DARIUS GRANT [...] child, adolescent or adult 05/10/2018 DARIUS GRANT [id number] Suicidal ideations 05/10/2018 DARIUS GRANT R51 Headache 05/10/2018 DARIUS GRANT R5381 Other malaise 05/10/2018 DARIUS GRANT R5383 Other fatigue 05/10/2018 DARIUS GRANT 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 [...] Status Pt. Type Provider Facility Loc./Unit Complaint [id number] 04/29/2018 13:47:00 04/29/2018 23:59:00 DIS Outpatient Martha Du [facility] OUTPT Esophagogastroduodenoscopy [id number] 08/28/2014 09:54:00 08/28/2014 15:15:00 DIS Emergency Yola HUERTA, [facility] ED cant walk [id number] 03/21/2016 21:49:43 03/21/2016 21:49:43 Outpatient [id number] 05/10/2018 21:57:28 05/10/2018 23:59:59 CLS Outpatient [facility] [id number] 05/10/2018 16:20:00 05/10/2018 21:59:00 DIS Emergency DARIUS GRANT 015 PSYCH [id number] 05/05/2018 23:44:00 05/06/2018 00:12:00 DIS Emergency MARISABEL HUERTA, NAHOMI Pappas 015 CANT BREATHE/NOT FEELING WELL [id number] 05/03/2018 11:37:00 05/03/2018 23:59:59 CLS Outpatient MARTHA DU [id number] 05/03/2018 10:59:00 05/03/2018 11:35:00 DIS Outpatient MINERVA HUERTA, DAYO Bradley F/U on essential tremors [id number] 04/23/2018 11:08:00 04/23/2018 23:59:59 CLS Outpatient MARTHA DU [id number] 04/05/2018 11:03:00 04/05/2018 12:02:00 DIS Outpatient DAYO PALMA MD [id number] 04/02/2018 06:49:00 04/02/2018 06:49:00 DIS Outpatient MARTHA DU [facility] C [id number] 03/25/2018 09:34:00 Document Registration [id number] 08/14/2014 14:02:00 08/14/2014 15:00:00 DIS Emergency Romain De Santiago DO [facility] [id number] 05/10/2018 22:49:00 Document Registration [id number] 05/26/2013 16:35:00 05/26/2013 18:48:00 DIS Emergency [id number] 08/14/2014 14:21:06 ACT Document Registration [id number] 05/25/2018 12:13:00 05/25/2018 23:59:00 DIS Outpatient Frankie Du
[2018-06-15 19:40] VITALS: BP 132/75
[2018-06-15 20:30] VITALS: BP 150/102
[2018-06-15] MEDS ORDERED: RT-ALBUTEROL/IPRATROPIUM 3 ML (DUONEB) VIAL INH PRN (20:45)
[2018-06-15] MEDS ORDERED: inSUlin DETERMIR 1 UNIT/0.01 ML (LEVEMIR) CHARGE PER UNIT SQ ONE (22:15)
[2018-06-15] MEDS: inSUlin DETERMIR 1 UNIT/0.01 ML (LEVEMIR) CHARGE PER UNIT SQ SCH (22:36)
[2018-06-15] MEDS ORDERED: traZODone 50 MG (DESYREL) TAB ONE (22:42)
[2018-06-15] MEDS ORDERED: PREGABALIN 100 MG (LYRICA) CAPSULE ONE (22:42)
[2018-06-15] MEDS: PREGABALIN 100 MG (LYRICA) CAPSULE PO SCH (23:11)
[2018-06-15] MEDS: traZODone 50 MG (DESYREL) TAB PO SCH (23:12)
[2018-06-16] VITALS: BP 138/71
[2018-06-16] MEDS: RT-ALBUTEROL/IPRATROPIUM 3 ML (DUONEB) VIAL INH SCH ×6 (02:10→22:19)
[2018-06-16 04:00] VITALS: BP 139/72
[2018-06-16 04:40] LABS: BASOPHILS % (AUTO) 0 % (0-10); EOSINOPHILS % (AUTO) 0 % (0-10); HEMATOCRIT 39 % (35-52); HEMOGLOBIN 12.5 G/DL (11.5-16.0); LYMPHOCYTES # (AUTO) 0.3 X 10^3 (1.0-4.0); LYMPHOCYTES % (AUTO) 8 % (12-44); MEAN CORPUSCULAR HEMOGLOBIN 29 PG (25-34); MEAN CORPUSCULAR HGB CONC 32 G/DL (32-36); MEAN CORPUSCULAR VOLUME 90 FL (80-99); MEAN PLATELET VOLUME 12.2 FL (7.4-10.4); MONOCYTES % (AUTO) 1 % (0-12); NEUTROPHILS # (AUTO) 3.2 X 10^3 (1.8-7.8); NEUTROPHILS % (AUTO) 91 % (42-75); PLATELET COUNT 75 10^3/uL (130-400); RED BLOOD COUNT 4.36 10^6/uL (4.35-5.85); RED CELL DISTRIBUTION WIDTH 14.4 % (10.0-14.5); WHITE BLOOD COUNT 3.6 10^3/uL (4.3-11.0)
[2018-06-16 04:59] LABS: BUN/CREATININE RATIO 22; CARBON DIOXIDE 24 MMOL/L (21-32); CHLORIDE 105 MMOL/L (98-107); CREATININE SERUM 0.81 MG/DL (0.60-1.30); GFR ESTIMATED > 60; GLUCOSE 315 MG/DL (70-105); SODIUM 141 MMOL/L (135-145)
[2018-06-16 05:23] LABS: LYMPHOCYTES % (MANUAL) 7 %; MONOCYTES % (MANUAL) 1 %; NEUTROPHILS % (MANUAL) 92 %
[2018-06-16] MEDS ORDERED: ACETAMINOPHEN 500 MG TAB (TYLENOL) PO PRN (05:30)
[2018-06-16] MEDS ORDERED: ONDANSETRON 4 MG/2 ML (SDV) Z0FRAN IV PRN (05:30)
--- NOTE | 2018-06-16 06:01 | History & Physical-Hospitalist ---
History of Present Illness HPI/Chief Complaint Pt is a 53yoCF with a PMH of COPD, IDDMII, and hepatitis C on Regan who presented to the ER with CC of SOB. She states for the past few days she has not been feeling well and has been weak due to her shortness of breath. This continued to worse prompting her to seek evaluation in the ER. She has recently moved here and does not have a PCP. She also complains of pain in the side of her neck/shoulder that has been new over the past few days. She denies any fevers. Source: patient Date Seen 06/16/18 Attending Physician Albert Valverde MD PCP No,Local Physician Referring Physician Date of Admission Jun 15, 2018 at 6:15 pm Home Medications & Allergies Home Medications Reviewed patient Home Medication Reconciliation performed by pharmacy medication reconciliations sales technician and/or nursing. Patients Allergies have been reviewed. Allergies Allergies Coded Allergies Penicillins (Verified Allergy, Unknown, weak, cant stand up and lose color., 06/15/18) Past Bzxhqoo-Wuemdw-Nyvgwf Hx Patient Social History Alcohol Use: Denies Use Number of Drinks Today: AA Recreational Drug Use: Yes Drug of Choice: THC Smoking Status: Current Everyday Smoker Type Used: Cigarettes Physical Abuse Screen: No Sexual Abuse: No Recent Foreign Travel: No Contact w/other who traveled: No Recent Hopitalizations: No Recent Infectious Disease Expo: No Immunizations Up To Date Date of Pneumonia Vaccine: Aug 06, 2016 Date of Influenza Vaccine: May 06, 2018 Seasonal Allergies Seasonal Allergies: No Past Medical History Gastrointestinal: Hepatitis Endocrine: Diabetes, Non-Insulin dep History of Blood Disorders: No Physical Exam Physical Exam Vital Signs Vital Signs - First Documented 06/15/18 06/15/18 06/15/18 15:22 15:55 16:15 Temp 96.3 Pulse 98 Resp 20 B/P (MAP) 151/107 (122) Pulse Ox 98 O2 Delivery Room Air O2 Flow Rate 2.00 Capillary Refill : Less Than 3 Seconds Height, Weight, BMI Height: 5'9.00" Weight: 241lbs. 1.0oz. 109.026897mw; 35.6 BMI Method:Stated Results Results/Procedures Labs Laboratory Tests 06/15/18 15:20 06/16/18 03:45 Patient resulted labs reviewed. Assessment/Plan Admission Diagnosis COPD Exacerbation Admission Status: Inpatient Order (span 2 midnights) Reason for Inpatient Admission: Failed outpatient treatmen. Will likely take more than two midnights to resolve with steroids and scheduled frequent breathing treatments. Diagnosis/Problems Diagnosis/Problems (1) COPD exacerbation Status: Acute Assessment & Plan: Continue steroids Continue scheduled breathing treatment with prn Pulm consulted, appreciate recs Follow up CXR today (2) Insulin dependent diabetes mellitus Assessment & Plan: Continue home medications SSI Blood sugar elevated this AM Likeyl due to steroids (3) Hepatitis C Status: Chronic Assessment & Plan: On Regan Advised patient to bring in her home med to be able to take Qualifiers: Viral hepatitis chronicity: chronic Hepatic coma status: without hepatic coma Qualified Codes: B18.2 - Chronic viral hepatitis C (4) Thrombocytopenia Assessment & Plan: Likely due to liver disease Trend No evidence of bleeding Clinical Quality Measures DVT/VTE Risk/Contraindication: Risk Factor Score Per Nursin RFS Level Per Nursing on Admit: 4+=Very High ALBERT VALVERDE MD Jun 16, 2018 6:01 am
[2018-06-16] MEDS ORDERED: NON-FORMULARY MEDICATION 1 EA EA PO SCH (06:15)
[2018-06-16] MEDS ORDERED: PATIENT MAY USE OWN MEDS, ALL MC SCH (06:15)
[2018-06-16] MEDS: predniSONE 20 MG TAB PO SCH (06:28)
[2018-06-16] MEDS ORDERED: IBUPROFEN 600 MG (MOTRIN) TAB PO PRN (06:45)
[2018-06-16 08:00] VITALS: BP 178/98
[2018-06-16] MEDS: AZITHROMYCIN 250 MG TAB (ZITHROMAX) PO SCH (10:00)
[2018-06-16] MEDS: PREGABALIN 100 MG (LYRICA) CAPSULE PO SCH ×2 (10:00→21:25)
--- NOTE | 2018-06-16 10:23 | Diagnostic Imaging Report ---
CHEST PA/LAT (2 VIEW) Indication: COPD and shortness of air. Comparison: 06/15/2018 Findings: No focal pneumonic consolidation, pleural effusion or pneumothorax. Normal heart size and pulmonary vasculature. Previously noted central vascular congestion has improved and may be technique related due to portable technique utilized. Impression: No acute cardiopulmonary process. Dictated by: Dictated on workstation # [id number]
[2018-06-16 12:00] VITALS: BP 171/94
[2018-06-16] MEDS: inSUlin ASPART (NovoLOG) 1 UNIT/0.01 ML (CHARGE PER UNIT) SC SCH ×3 (12:23→21:25)
[2018-06-16] MEDS ORDERED: FLU QUADRIvalent (5+ YOA) 2018-2019 (AFLURIA) 0.5 ML IM ONE ×2 (13:00→15:06)
[2018-06-16] MEDS: HYDROcodone/APAP 5 MG/325 MG (LORTAB) TAB PO PRN ×2 (15:33→22:23)
[2018-06-16 16:11] VITALS: BP 150/88
[2018-06-16] MEDS: MAVYRET 100MG/40MG TABLET PO SCH (18:39)
[2018-06-16 20:00] VITALS: BP 133/77
[2018-06-16] MEDS ORDERED: traZODone 50 MG (DESYREL) TAB PO ONE (21:45)
[2018-06-17] VITALS: BP 122/64
[2018-06-17] MEDS: RT-ALBUTEROL/IPRATROPIUM 3 ML (DUONEB) VIAL INH SCH ×6 (02:38→21:13)
[2018-06-17 04:00] VITALS: BP 121/58
[2018-06-17] MEDS: predniSONE 20 MG TAB PO SCH (07:21)
[2018-06-17] MEDS: inSUlin ASPART (NovoLOG) 1 UNIT/0.01 ML (CHARGE PER UNIT) SC SCH ×4 (07:21→21:18)
[2018-06-17] MEDS: HYDROcodone/APAP 5 MG/325 MG (LORTAB) TAB PO PRN ×3 (07:44→21:57)
--- NOTE | 2018-06-17 07:53 | Pulmonary Consultation ---
History of Present Illness History of Present Illness Date of Consultation 06/17/18 07:48 Time Seen by Provider: 07:49 Date of Admission History of Present Illness 53yo with hx of COPD, hep C presented to ED secondary to worsening weakness, SOB productive cough of yellow green sputum, and pleuritic CP from coughing. Pt' s Sp02 is 94% on RA. CXR is clear. PT recently moved here and has not established with PCP. Allergies and Home Medications Allergies Coded Allergies: Penicillins (Verified Allergy, Intermediate, weak, cant stand up and lose color., 06/16/18) SOB and weakness Home Medications Albuterol/Ipratropium 4 Gm Aero, 2 PUFF IH QID PRN for SHORTNESS OF BREATH, ( Reported) Aripiprazole 5 Mg Tablet, 5 MG PO DAILY, (Reported) Fluticasone Propionate 1 Ea Aero, 2 PUFF INH Q12H, (Reported) Glecaprevir/Pibrentasvir 1 Each Tablet, 3 TAB PO 1800, (Reported) Insulin Glargine,Hum.rec.anlog 100 Unit/1 Ml Insuln.pen, 40 UNIT SQ HS, ( Reported) Lisinopril 10 Mg Tablet, 10 MG PO DAILY, (Reported) Pantoprazole Sodium 40 Mg Tablet.dr, 40 MG PO DAILY, (Reported) Pregabalin 300 Mg Capsule, 300 MG PO BID, (Reported) Primidone 250 Mg Tablet, 250 MG PO HS, (Reported) Propranolol HCl 40 Mg Tablet, 40 MG PO BID, (Reported) Sertraline HCl 100 Mg Tablet, 100 MG PO DAILY, (Reported) Trazodone HCl 50 Mg Tablet, 50 MG PO HS, (Reported) Past Wxwupob-Rxuzll-Mopbwe Hx Patient Social History Alcohol Use: Denies Use Number of Drinks Today: AA Recreational Drug Use: Yes Drug of Choice: THC Smoking Status: Current Everyday Smoker Type Used: Cigarettes Recent Foreign Travel: No Contact w/Someone Who Travel: No Recent Infectious Disease Expo: No Recent Hopitalizations: No Physical Abuse: No Sexual Abuse: No Mistreated: No Fear: No Immunizations Up To Date Date of Pneumonia Vaccine: Aug 06, 2016 Date of Influenza Vaccine: May 06, 2018 Seasonal Allergies Seasonal Allergies: No Past Medical History Surgeries: Yes (HERNIA REPAIR, L ANKLE, NECK, L FILOPIAN TUBE AND OVARY, ) Respiratory: Yes COPD Cardiac: No Neurological: No Genitourinary: No Gastrointestinal: Yes Hepatitis Musculoskeletal: No Endocrine: Yes Diabetes, Non-Insulin dep HEENT: No Cancer: No Psychosocial: No Blood Disorders: No Review of Systems Time Seen by Provider: 10:41 Sepsis Event Evaluation Height, Weight, BMI Height: 5'9.00" Weight: 241lbs. 1.0oz. 109.397353em; 35.6 BMI Method:Stated Exam Exam Vital Signs Date Time Temp Pulse Resp B/P (MAP) Pulse Ox O2 Delivery O2 Flow Rate FiO2 06/17/18 07:14 94 Room Air 06/17/18 04:00 98.4 82 20 121/58 (79) 94 Room Air 06/17/18 02:39 94 Room Air 06/17/18 00:00 99.1 88 20 122/64 (83) 94 Room Air 06/16/18 22:19 95 Room Air 06/16/18 20:00 Room Air 06/16/18 20:00 98.9 92 20 133/77 (95) 95 Room Air 06/16/18 19:02 96 Room Air 06/16/18 16:11 98.9 91 20 150/88 (108) 94 Room Air 06/16/18 14:28 97 Room Air 06/16/18 12:00 98.5 84 20 171/94 (119) 94 Room Air 06/16/18 08:00 97 Room Air 06/16/18 08:00 97.7 91 18 178/98 (124) 97 Room Air I & O 06/17/18 07:00 Intake Total 2030 ml Balance 2030 ml Height & Weight Height: 5'9.00" Weight: 241lbs. 1.0oz. 109.087136ww; 35.6 BMI Method:Stated General Appearance: No Apparent Distress, WD/WN, Anxious HEENT: PERRL/EOMI, Normal ENT Inspection, Pharynx Normal Neck: Full Range of Motion, Non Tender, Supple Respiratory: No Accessory Muscle Use, No Respiratory Distress, Decreased Breath Sounds Cardiovascular: Regular Rate, Rhythm Capillary Refill: Less Than 3 Seconds Gastrointestinal: normal bowel sounds, non tender, soft Skin: Normal Color, Warm/Dry Results Lab Laboratory Tests 06/15/18 15:20 06/16/18 03:45 Assessment/Plan Assessment/Plan COPDAE -SVNs, Steroids -Will continue to follow pt as out patient. -Oxygen desat test prior to discharge IDDM Hx of Hep C -PT is on ROSINA Garcia DO Jun 17, 2018 07:53
[2018-06-17 08:00] VITALS: BP 130/76
[2018-06-17] MEDS: AZITHROMYCIN 250 MG TAB (ZITHROMAX) PO SCH (08:24)
[2018-06-17] MEDS: PREGABALIN 100 MG (LYRICA) CAPSULE PO SCH ×2 (08:25→21:18)
[2018-06-17 09:35] LABS: ABG OXYGEN SATURATION 94 % (94-100); ABG PCO2 46 MMHG (35-45); ABG PH 7.39 (7.37-7.43); ABG PO2 71 MMHG (79-93)
[2018-06-17 09:36] LABS: ALLENS TEST YES-POS; INSPIRED O2 ROOM AIR; PATIENT TEMP 98.3; VENTILATOR NO
[2018-06-17] MEDS ORDERED: ARIP5TAB12 PO (10:55)
[2018-06-17] MEDS ORDERED: LISI10TA2 PO (10:55)
[2018-06-17] MEDS ORDERED: PANT40TA2 PO (10:55)
[2018-06-17] MEDS ORDERED: IPRA4AER IH (10:55)
[2018-06-17] MEDS ORDERED: PRIM250T PO (10:55)
[2018-06-17] MEDS ORDERED: LEDI1TAB PO (10:55)
[2018-06-17] MEDS ORDERED: GLEC1TAB PO (11:02)
[2018-06-17] MEDS ORDERED: INSU100I10 SQ (11:06)
[2018-06-17] MEDS ORDERED: PREG300C PO (11:06)
[2018-06-17] MEDS ORDERED: TRAZ-189 PO (11:06)
[2018-06-17] MEDS: RT-ADVAIR HFA 115/21 MCG PER PUFF IH SCH ×2 (11:09→21:13)
[2018-06-17] MEDS ORDERED: SERT100T8 PO (11:10)
[2018-06-17] MEDS ORDERED: PROP40TA5 PO (11:10)
[2018-06-17 12:00] VITALS: BP 136/74
--- NOTE | 2018-06-17 14:54 | Progress Note-Hospitalist ---
Progress Note Progress Notes/Assess & Plan Date Seen 06/17/18 Time Seen by Provider: 14:52 Assessment & Plan The patient is a 53-year-old white female who presented to the ER yesterday with complaints of increasing shortness of breath. She relates that she smokes one pack of cigarettes per day. She started smoking as a teenager. She stopped for a period of 10 years and then restarted about 4 years ago. She states that this is necessary because she has so many stresses in her life. She has been insisting on going outside even in the snowstorm of today to smoke. Physical exam: She smells greatly of tobacco smoke. Lungs show some distant breath sounds. CV is regular. Impression: COPD exacerbation. 2.tobaccoism. Plan: I strongly advised the patient that she must stop smoking now and forever. Hope to discharge tomorrow. Focused Exam Lactate Level 06/15/18 15:20: Lactic Acid Level 1.90 ROBERT ESCOBAR MD Jun 17, 2018 14:54
[2018-06-17 15:57] VITALS: BP 144/86
[2018-06-17] MEDS: MAVYRET 100MG/40MG TABLET PO SCH (17:55)
[2018-06-17 19:50] VITALS: BP 160/90
[2018-06-17] MEDS: traZODone 50 MG (DESYREL) TAB PO SCH (21:18)
[2018-06-17] MEDS: inSUlin DETERMIR 1 UNIT/0.01 ML (LEVEMIR) CHARGE PER UNIT SQ SCH (21:18)
[2018-06-18] VITALS: BP 109/63
[2018-06-18] MEDS: RT-ALBUTEROL/IPRATROPIUM 3 ML (DUONEB) VIAL INH SCH ×2 (01:28→06:06)
[2018-06-18 04:00] VITALS: BP 120/62
[2018-06-18] MEDS: predniSONE 20 MG TAB PO SCH (06:30)
[2018-06-18] MEDS: inSUlin ASPART (NovoLOG) 1 UNIT/0.01 ML (CHARGE PER UNIT) SC SCH ×2 (06:30→11:31)
--- NOTE | 2018-06-18 06:56 | Pulmonary Progress Note ---
Subjective Time Seen by a Provider: 06:56 Subjective/Events-last exam No complications noted. Sepsis Event Evaluation Height, Weight, BMI Height: 5'9.00" Weight: 241lbs. 1.0oz. 109.185593qj; 35.6 BMI Method:Stated Focused Exam Lactate Level 06/15/18 15:20: Lactic Acid Level 1.90 Exam Exam Vital Signs Date Time Temp Pulse Resp B/P (MAP) Pulse Ox O2 Delivery O2 Flow Rate FiO2 06/18/18 06:08 Room Air 06/18/18 06:08 94 Nasal Cannula 2.00 06/18/18 04:00 97.8 78 20 120/62 (81) 97 Nasal Cannula 2.00 06/18/18 00:00 98.4 83 20 109/63 (78) 98 06/17/18 21:18 Room Air 06/17/18 21:13 95 Room Air 06/17/18 20:00 Room Air 06/17/18 19:50 98.5 92 18 160/90 (113) 97 Nasal Cannula 2.00 06/17/18 15:57 99.0 91 18 144/86 (105) 97 Nasal Cannula 2.00 06/17/18 14:52 94 Nasal Cannula 2.00 06/17/18 12:00 97.9 88 18 136/74 (94) 94 Room Air 06/17/18 11:07 96 Nasal Cannula 2.00 06/17/18 08:00 97.1 83 20 130/76 (94) 94 Room Air 06/17/18 08:00 Room Air 06/17/18 07:14 94 Room Air I & O 06/18/18 07:00 Intake Total 1896 ml Balance 1896 ml Height & Weight Height: 5'9.00" Weight: 241lbs. 1.0oz. 109.532660az; 35.6 BMI Method:Stated General Appearance: No Apparent Distress, WD/WN, Anxious HEENT: PERRL/EOMI, Pharynx Normal Neck: Full Range of Motion, Normal Inspection, Non Tender, Supple Respiratory: Chest Non Tender, No Accessory Muscle Use, No Respiratory Distress , Decreased Breath Sounds Cardiovascular: Regular Rate, Rhythm, No Edema Capillary Refill: Less Than 3 Seconds Gastrointestinal: normal bowel sounds, non tender, soft Extremity: Normal Capillary Refill, Normal Inspection Neurologic/Psychiatric: Alert, Oriented x3 Skin: Normal Color, Warm/Dry Lymphatic: No Adenopathy Assessment/Plan Assessment/Plan COPDAE -SVNs, Prednisone taper -Will continue to follow pt as out patient. -Oxygen desat test prior to discharge -C02 on ABG is 46 IDDM Hx of Hep C -PT is on Harvoni thrombocytopenia PT is ok for discharge from pulmonary standpoint. She will probably need home 02. I will f/u with her in 2-3 wks as out patient. ROSINA DANIELLE DO Jun 18, 2018 06:56
[2018-06-18 08:00] VITALS: BP 132/75
[2018-06-18] MEDS: AZITHROMYCIN 250 MG TAB (ZITHROMAX) PO SCH (08:48)
[2018-06-18] MEDS: PREGABALIN 100 MG (LYRICA) CAPSULE PO SCH (08:48)
[2018-06-18] MEDS: HYDROcodone/APAP 5 MG/325 MG (LORTAB) TAB PO PRN (08:51)
--- NOTE | 2018-06-18 10:48 | Discharge Instructions ---
Discharge Instructions Patient Instructions Patient Instructions: Medications as on your discharge sequence. Arrange for a local primary care doctor. Stop and desist all smoking You have qualified for home oxygen. Activity & Diet Discharge Diet: ADA Diet ROBERT ESCOBAR MD Jun 18, 2018 10:48
[2018-06-18 12:05] VITALS: BP 132/75
== END 2018-06-18 12:05 | disposition home or self-care (01) | DRG 192 ==
LOC: ER 14:59 → 4TH 18:15
PROVIDERS: ADMIT Family Medicine; ATTEND Family Medicine
DX: J44.1 Chronic obstructive pulmonary disease with (acute) exacerbation (principal); E11.65 Type 2 diabetes mellitus with hyperglycemia; T38.0X5A Adverse effect of glucocorticoids and synthetic analogues, initial encounter; B18.2 Chronic viral hepatitis C; D69.59 Other secondary thrombocytopenia; F17.210 Nicotine dependence, cigarettes, uncomplicated; M25.512 Pain in left shoulder; M54.2 Cervicalgia; Z79.899 Other long term (current) drug therapy; Z23 Encounter for immunization
CPT/HCPCS: 36415; 36600; 71045; 71046; 80048; 80053; 81000; 82805; 82962; 83605; 84484; 85007; 85025; 85027; 85610; 85730; 86141; 87040; 87088; 87804; 90686; 93005; 94640; 94760; 94761; 96365; 96375

== ENCOUNTER 2018-07-10 19:50 | Emergency (ER) | payer MEDICARE, OTHER ==
[~2018-07-10] VITALS: Ht 172.7 cm; Wt 104.3 kg
[~2018-07-10 19:50] MED LIST: ARIP5TAB12 PO; FLT22013 INH; GLEC1TAB PO; INSU100I10 SQ; IPRA4AER; IPRA4AER IH; LEDI1TAB PO; LISI10TA2 PO; PANT40TA2 PO; PREG300C PO; PRIM250T PO; PROP40TA5 PO; SERT100T8 PO; TRAM50TA2; TRAZ-189 PO
--- OUTSIDE RECORDS SUMMARY | 2018-07-10 19:55 | XMS REPORT ---
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 Z79.4 Active 448380329 Problem Anxiety F41.9 Active 81317025 ALLERGIES No Information ENCOUNTERS Encounter Location Date Diagnosis [place] [id number] [address] Aug, [facility] [address] [address] Jul, [place] [address] [address] Jun, [facility] [address] [place] [id number] [place] [address] Jun, [facility] [address] [address] Jun, Type 2 diabetes mellitus with unspecified complications E11.8 ; Anxiety F41.9 and Primary insomnia F51.01 [facility] [address] [address] Jun, [facility] [address] [address] Jun, Bipolar II disorder F31.81 [facility] [address] [address] Jun, IMMUNIZATIONS No Known Immunizations SOCIAL HISTORY Never Assessed REASON FOR VISIT SOCWK Intake PLAN OF CARE VITAL SIGNS MEDICATIONS Unknown Medications RESULTS No Results PROCEDURES No Known procedures INSTRUCTIONS MEDICATIONS ADMINISTERED No Known Medications MEDICAL (GENERAL) HISTORY Type Description Date Medical History diabetes Medical History anxiety Medical History depression Medical History insomnia Medical History Hep C Surgical History plate in her left ankle Surgical History rplate in the right side of her neck Surgical History tube on her left ovary removed Surgical History cycst removed from her vaginal area Surgical History hernia surgery Surgical History jaw reconstructed Hospitalization History surgeries Hospitalization History trouble breathing
--- OUTSIDE RECORDS SUMMARY | 2018-07-10 19:55 | XMS REPORT ---
Author Author KING YARI [facility] Address [address] [place] [address] Care Team Providers Care Satellite Tv Technician Name Role Phone YARI KING Unavailable PROBLEMS Type Condition ICD9-CM Code [id number] Code Onset Dates Condition Status SNOMED Code Problem Bipolar II disorder F31.81 Active 99004152 Problem Primary insomnia F51.01 Active 2309644 Problem Type 2 diabetes mellitus with unspecified complications E11.8 Active 59620176 Problem group home current use of insulin Z79.4 Active 127921326 Problem Anxiety F41.9 Active 62256235 ALLERGIES No Information ENCOUNTERS Encounter Location Date Diagnosis [place] [address] [place] [id number] [place] [phone] Aug, [facility] [address] [place] [id number] [place] [address] Jul, [place] [address] [address] Jun, [place] [address] [place] [id number] [place] [address] Jun, [place] [address] [place] [id number] [place] [address] Jun, [facility] [address] [place] [id number] [place] [address] Jun, Type 2 diabetes mellitus with unspecified complications E11.8 ; Anxiety F41.9 and Primary insomnia F51.01 [facility] [address] [place] [id number] [place] [address] Jun, Bipolar II disorder F31.81 IMMUNIZATIONS No Known Immunizations SOCIAL HISTORY Never Assessed REASON FOR VISIT BH/AT phone response PLAN OF CARE VITAL SIGNS MEDICATIONS Unknown [...]
--- OUTSIDE RECORDS SUMMARY | 2018-07-10 19:55 | XMS REPORT ---
Author Author YARI KING [facility] Address [address] [place] [address] Care Team Providers Care Manager Interface Name Role Phone MIKE KINGTA Unavailable PROBLEMS Type Condition ICD9-CM Code CWC34-EQ Code Onset Dates Condition Status SNOMED Code Problem Bipolar II disorder F31.81 Active 25787977 Problem Primary insomnia F51.01 Active 5728590 Problem Type 2 diabetes mellitus with unspecified complications E11.8 Active 48042711 Problem senior care current use of insulin Z79.4 Active 401549120 Problem Anxiety F41.9 Active 84421315 ALLERGIES Substance Reaction Event Type Date Status Penicillin G Sodium Unknown Drug Allergy Jun, Active Lavender Unknown Non Drug Allergy Jun, Active ENCOUNTERS Encounter Location Date Diagnosis [place] [id number] [place] [id number] [place] [phone] Aug, [facility] [address] [address] Jul, [facility] [address] [place] [id number] [place] [address] Jun, [facility] [address] [place] [id number] [place] [address] Jun, [facility] [address] [place] [id number] [place] [address] Jun, Type 2 diabetes mellitus with unspecified complications E11.8 ; Anxiety F41.9 and Primary insomnia F51.01 [facility] [address] [place] [id number] [place] [address] Jun, [facility] [address] [place] [id number] [place] [address] Jun, Bipolar II disorder F31.81 [facility] [address] [facility] [id number] [place] [address] Jun, IMMUNIZATIONS No Known Immunizations SOCIAL HISTORY Never Assessed REASON FOR VISIT Establish Care Kailey Cherry MA PLAN OF CARE Activity Details Follow Up 2 Weeks Reason:DM VITAL SIGNS Weight 134.8 lbs 2018-06-26 Temperature 97.6 degrees Fahrenheit 2018-06-26 Heart Rate 75 bpm 2018-06-26 Respiratory Rate 18 2018-06-26 Oximetry 97 % 2018-06-26 Blood pressure systolic 148 mmHg 2018-06-26 Blood pressure diastolic 84 mmHg 2018-06-26 MEDICATIONS Medication Instructions Dosage Frequency Start Date End Date Duration Status Primidone 250 MG Orally at bedtime 1 tablet Active Lyrica 300 MG Orally twice a day 1 capsule 12h Active Propranolol HCl 10 mg Orally twice a day 1 tablet on an empty stomach 12h Jun, 30 day(s) Active Trazodone HCl 50 mg Orally at bedtime 2 tablets 30 days Active Lisinopril 10 MG Orally Once a day 1 tablet 24h 30 day(s) Active Lantus SoloStar 100 UNIT/ML as directed Active Aripiprazole 5 MG Orally Once a day 1 tablet 24h 30 day(s) Active Clarithromycin 500 MG Orally every 12 hrs 1 tablet 12h 10 day(s) Active Pantoprazole Sodium 40 MG Orally Once a day 1 tablet 24h 30 day(s) Active Metronidazole 500 mg Orally every 12 hrs 1 tablet 12h Active RESULTS No Results PROCEDURES No Known procedures [...]
--- OUTSIDE RECORDS SUMMARY | 2018-07-10 19:55 | XMS REPORT ---
Author Author YARI KING [facility] Address [address] [place] [address] Care Team Providers Care Public Address Servicer Name Role Phone YARI KING Unavailable PROBLEMS Type Condition ICD9-CM Code CDC91-KE Code Onset Dates Condition Status SNOMED Code Problem Bipolar II disorder F31.81 Active 96637037 Problem Primary insomnia F51.01 Active 7956833 Problem Type 2 diabetes mellitus with unspecified complications E11.8 Active 12272276 Problem half-way current use of insulin Z79.4 Active 514732577 Problem Anxiety F41.9 Active 46902768 ALLERGIES No Information ENCOUNTERS Encounter Location Date Diagnosis [facility] [address] [address] Aug, [facility] [address] [address] Jul, [facility] [address] [address] Jun, [facility] [address] [address] Jun, [facility] [address] [address] Jun, Type 2 diabetes mellitus with unspecified complications E11.8 ; Anxiety F41.9 and Primary insomnia F51.01 [facility] [address] [address] Jun, [facility] [address] [address] Jun, Bipolar II disorder F31.81 [facility] [address] [address] Jun, IMMUNIZATIONS No Known Immunizations SOCIAL HISTORY [...]
--- OUTSIDE RECORDS SUMMARY | 2018-07-10 19:56 | XMS REPORT ---
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 Z79.4 Active 407910566 Problem Anxiety F41.9 Active [id number] ALLERGIES No Information ENCOUNTERS Encounter Location Date Diagnosis [facility] [place] [id number] [place] [phone] Aug, [facility] [place] [id number] [place] [phone] Jul, [facility] [place] [id number] [place] [phone] Jun, [facility] [place] [id number] [place] [phone] Jun, [facility] [place] [id number] [place] [phone] Jun, Type 2 diabetes mellitus with unspecified complications E11.8 ; Anxiety F41.9 and Primary insomnia F51.01 [facility] [place] [id number] [place] [address] [phone]- [phone] Jun, Bipolar II disorder F31.81 IMMUNIZATIONS No Known Immunizations SOCIAL HISTORY Never Assessed REASON FOR VISIT [facility] PLAN OF CARE Activity Details Follow Up 1 Week Reason: VITAL SIGNS MEDICATIONS Unknown Medications RESULTS No Results PROCEDURES Procedure Date Ordered Result Body Site [facility] NEW PT Jun 26, 2018 Psych diagnostic evaluation, new patient Jun 26, 2018 INSTRUCTIONS MEDICATIONS ADMINISTERED No Known Medications MEDICAL [...]
--- OUTSIDE RECORDS SUMMARY | 2018-07-10 20:01 | XMS REPORT | Continuity of Care Document ---
Author Author [facility] Organization [facility] Address Unknown Phone Unavailable Allergies Active Description Code Type Severity Reaction Onset Reported/Identified Relationship to Patient Clinical Status Yes PCN (penicillin) [id number] Drug Allergy Moderate Dyspnea Yes PENICILLINS MODERATE OTHER Yes Penicillins Penicillins Drug Allergy Unknown CANNOT BREATHE 08/14/2014 Yes penicillins NKMA N/A passed out 08/28/2014 Yes penicillin 19863 Ingredient moderate to severe Lethargy~Trouble Breathing 04/26/2018 Yes Penicillins [id number] Drug Allergy Unknown weak, cant dylan 06/15/2018 Yes Penicillins [id number] Drug Allergy Moderate weak, cant dylan 06/16/2018 Medications Medication Packaging Start Date Stop Date Route Dosage Sig BACITRACIN OINT 450UNITS/0.9GM UD 05/06/2018 05/06/2018 TOPICAL 1 ERNIE IBUPROFEN (MOTRIN) TAB 600MG 12/201705/10/2018 PO 600 MG IBUPROFEN (ADVIL,MOTRIN) TAB 200MG 05/10/2018 05/10/2018 PO 600 MG ACETAM/ASA/CAFF 250/250/65MG TAB 05/10/2018 05/10/2018 PO 1 TAB NICOTINE (NICORETTE) GUM 2MG 12/201705/10/2018 PO 2 MG IPRATROPIUM/ALBUTEROL INH SOLN (DUO-NEB INH SOLN) MLS 07/02/2018 07/02/2018 ONCE&0835 FUROSEMIDE VIAL INJ 40 MG (LASIX VIAL) MG 07/02/2018 07/02/2018 ONCE&0859 Problems Date Dx Coded Attending Type Code Diagnosis Diagnosed By 08/31/2014 Estrella Aceves MD Final 250.00 Diabetes mellitus without mention of complication, type II or unspecified t 08/31/2014 Estrella Aecves MD Final 276.51 Dehydration 08/31/2014 Estrella Aceves MD Final 276.52 Hypovolemia 08/31/2014 Estrella Aceves MD Final 305.1 TOBACCO USE DISORDER 08/31/2014 Estrella Aceves MD Reason 780.2 SYNCOPE AND COLLAPSE 03/25/2018 S E1142 Type 2 diabetes mellitus with diabetic polyneuropathy 03/25/2018 S E67875 Nicotine dependence, cigarettes, uncomplicated 03/25/2018 S R0602 Shortness of breath 03/25/2018 P R0789 Other chest pain 03/25/2018 S R110 Nausea 03/25/2018 S R600 Localized edema 03/25/2018 S R61 Generalized hyperhidrosis 03/25/2018 S 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 03/25/2018 S A74159 Other long-term (current) drug therapy 03/25/2018 S Z880 Allergy status to penicillin 04/02/2018 JESSICA DU P B182 Chronic viral hepatitis C 04/02/2018 JESSICA DU S R162 Hepatomegaly with splenomegaly, not elsewhere classified 04/05/2018 DAYO PALMA MD B1920 Unspecified viral hepatitis C without hepatic coma 04/05/2018 DAYO PALMA MD E119 Type 2 diabetes mellitus without complications 04/05/2018 DAYO PALMA MD F329 Major depressive disorder, single episode, unspecified 04/05/2018 DAYO PALMA MD G250 Essential tremor 04/05/2018 DAYO PALMA MD P R197 Diarrhea, unspecified 04/05/2018 DAYO PALMA MD Z794 custodial (current) use of insulin 04/23/2018 JESSICA DU P K7469 Other cirrhosis of liver 04/30/2018 Jessica Du B37.81 Candidal Esophagitis 05/03/2018 JESSICA DU P B182 Chronic viral hepatitis C 05/06/2018 NAHOMI PETIT MD E119 Type 2 diabetes mellitus without complications 05/06/2018 NAHOMI PETIT MD O54771 Nicotine dependence, cigarettes, uncomplicated 05/06/2018 NAHOMI PETIT MD F329 Major depressive disorder, single episode, unspecified 05/06/2018 NAHOMI PETIT MD J449 Chronic obstructive pulmonary disease, unspecified 05/06/2018 NAHOMI PETIT MD L989 Disorder of the skin and subcutaneous tissue, unspecified 05/06/2018 MARISABEL HUERTA, NAHOMI Stallings P24927 Other 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 container terminal (current) drug therapy 05/06/2018 MARISABEL HUERTA, NAHOMI Stallings Z8619 Personal history of other infectious and [...] mellitus with diabetic polyneuropathy 05/10/2018 DARIUS GRANT W05754 Nicotine dependence, cigarettes, uncomplicated 05/10/2018 DARIUS GRANT [...] child, adolescent or adult 05/10/2018 DARIUS GRANT X08211 Suicidal ideations 05/10/2018 DARIUS GRANT R51 Headache 05/10/2018 DARIUS GRANT R5381 Other malaise 05/10/2018 DARIUS GRANT R5383 Other fatigue 05/10/2018 DARIUS GRANT Z794 custodial (current) use of insulin 05/10/2018 DARIUS GRANT [id number] Other 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 container terminal (current) drug therapy 05/10/2018 DARIUS GRANT Z880 Allergy status to penicillin 05/10/2018 [facility] P02728 Suicidal ideations 06/18/2018 ALBERT CABRAL MD, Ot B18.2 CHRONIC VIRAL HEPATITIS C 06/18/2018 ALBERT CABRAL MD, Ot D69.59 OTHER SECONDARY THROMBOCYTOPENIA 06/18/2018 ALBERT CABRAL MD Ot E11.65 TYPE 2 DIABETES MELLITUS WITH HYPERGLYCE 06/18/2018 ALBERT CABRAL MD, Ot F17.210 NICOTINE DEPENDENCE, CIGARETTES, UNCOMPL 06/18/2018 ALBERT CABRAL MD, Ot J44.1 CHRONIC OBSTRUCTIVE PULMONARY DISEASE W 06/18/2018 ALBERT CABRAL MD, Ot M25.512 PAIN IN LEFT SHOULDER 06/18/2018 ALBERT CABRAL MD, Ot M54.2 CERVICALGIA 06/18/2018 ALBERT CABRAL MD, Ot T38.0X5A ADVERSE EFFECT OF GLUCOCORT/SYNTH ANALOG 06/18/2018 ALBERT CABRAL MD Ot Z23 ENCOUNTER FOR IMMUNIZATION 06/18/2018 ALBERT CABRAL MD, Ot 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 Results Test [...] 17:01 TSH. 0.215 uIU/L 0.460 - 4.680 Bacterial blood culture - 06/15/18 15:20 Bacterial blood culture NG NRG Bacterial blood culture - 06/15/18 15:29 Bacterial blood culture NG NRG Bacterial urine culture - 06/15/18 16:01 Bacterial urine culture SEE REPORT NRG COLONY COUNT . NRG Capillary blood glucose measurement by glucometer (mass/volume) - 06/15/18 22: 33 Capillary blood glucose measurement by glucometer (mass/volume) 274 mg/dL 70-110 Complete blood count (CBC) with automated white blood cell (WBC) differential - 06/16/18 03:45 Blood leukocytes automated count (number/volume) 3.6 10*3/uL 4.3-11.0 Blood erythrocytes automated count (number/volume) 4.36 10*6/uL 4.35-5.85 Venous blood hemoglobin measurement (mass/volume) 12.5 g/dL 11.5-16.0 Blood hematocrit (volume fraction) 39 % 35-52 Automated erythrocyte mean corpuscular volume 90 [foz_us] 80-99 Automated erythrocyte mean corpuscular hemoglobin (mass per erythrocyte) 29 pg 25-34 Automated erythrocyte mean corpuscular hemoglobin concentration measurement ( mass/volume) 32 g/dL 32-36 Automated erythrocyte distribution width ratio 14.4 % 10.0-14.5 Automated blood platelet count (count/volume) 75 10*3/uL 130-400 Automated blood platelet mean volume measurement 12.2 [foz_us] 7.4-10.4 Automated blood neutrophils/100 leukocytes 91 % 42-75 Automated blood lymphocytes/100 leukocytes 8 % 12-44 Blood monocytes/100 leukocytes 1 % 0-12 Automated blood eosinophils/100 leukocytes 0 % 0-10 Automated blood basophils/100 leukocytes 0 % 0-10 Blood neutrophils automated count (number/volume) 3.2 10*3 1.8-7.8 Blood lymphocytes automated count (number/volume) 0.3 10*3 1.0-4.0 Blood monocytes automated count (number/volume) 0.0 10*3 0.0-1.0 Automated eosinophil count 0.0 10*3/uL 0.0-0.3 Automated blood basophil count (count/volume) 0.0 10*3/uL 0.0-0.1 Whole blood basic metabolic panel - 06/16/18 03:45 Serum or plasma sodium measurement (moles/volume) 141 mmol/L 135-145 Serum or plasma potassium measurement (moles/volume) 4.0 mmol/L 3.6-5.0 Serum or plasma chloride measurement (moles/volume) 105 mmol/L 98-107 Carbon dioxide 24 mmol/L 21-32 Serum or plasma anion gap determination (moles/volume) 12 mmol/L 5-14 Serum or plasma urea nitrogen measurement (mass/volume) 18 mg/dL 7-18 Serum or plasma creatinine measurement (mass/volume) 0.81 mg/dL 0.60-1.30 Serum or plasma urea nitrogen/creatinine mass ratio 22 NRG Serum or plasma creatinine measurement with calculation of estimated glomerular filtration rate > NRG Serum or plasma glucose measurement (mass/volume) 315 mg/dL 70-105 Serum or plasma calcium measurement (mass/volume) 9.0 mg/dL 8.5-10.1 Blood manual differential performed detection - 06/16/18 03:45 Blood monocytes/100 leukocytes 1 % NRG Manual blood segmented neutrophils/100 leukocytes 92 % NRG Manual blood lymphocytes/100 leukocytes 7 % NRG Capillary blood glucose measurement by glucometer (mass/volume) - 06/16/18 05: 59 Capillary blood glucose measurement by glucometer (mass/volume) 311 mg/dL 70-110 Capillary blood glucose measurement by glucometer (mass/volume) - 06/16/18 11: 12 Capillary blood glucose measurement by glucometer (mass/volume) 281 mg/dL 70-110 Capillary blood glucose measurement by glucometer (mass/volume) - 06/16/18 16: 11 Capillary blood glucose measurement by glucometer (mass/volume) 303 mg/dL 70-110 Capillary blood glucose measurement by glucometer (mass/volume) - 06/16/18 21: 05 Capillary blood glucose measurement by glucometer (mass/volume) 224 mg/dL 70-110 Capillary blood glucose measurement by glucometer (mass/volume) - 06/17/18 05: 16 Capillary blood glucose measurement by glucometer (mass/volume) 214 mg/dL 70-110 Arterial blood gas measurement - 06/17/18 09:29 Blood pCO2 46 mm[Hg] 35-45 Blood pO2 71 mm[Hg] 79-93 Arterial blood bicarbonate measurement (moles/volume) 28 mmol/L 23-27 Arterial blood base excess by calculation 3.0 mmol/L -2.5 -2.5 Arterial blood oxygen saturation measurement 94 % 94-100 * Inhaled oxygen flow rate ROOM AIR NRG Arterial blood pH measurement with patient temperature correction 7.39 7.37-7.43 Arterial blood carbon dioxide, total measurement (moles/volume) 29.0 mmol/L 21.0-31.0 Body site LT RAD NRG Assessment of wrist artery patency prior to arterial puncture YES- POS NRG Setting of ventilation mode NO NRG Measurement of body temperature 98.3 NRG Capillary blood glucose measurement by glucometer (mass/volume) - 06/17/18 11: 06 Capillary blood glucose measurement by glucometer (mass/volume) 353 mg/dL 70-110 Capillary blood glucose measurement by glucometer (mass/volume) - 06/17/18 16: 00 Capillary blood glucose measurement by glucometer (mass/volume) 357 mg/dL 70-110 Capillary blood glucose measurement by glucometer (mass/volume) - 06/17/18 21: 03 Capillary blood glucose measurement by glucometer (mass/volume) 345 mg/dL 70-110 Capillary blood glucose measurement by glucometer (mass/volume) - 06/18/18 06: 27 Capillary blood glucose measurement by glucometer (mass/volume) 135 mg/dL 70-110 Capillary blood glucose measurement by glucometer (mass/volume) - 06/18/18 11: 24 Capillary blood glucose measurement by glucometer (mass/volume) 354 mg/dL 70-110 Sputum Culture - 07/02/18 08:03 PRELIM CULTURE RESULTS Moderate Gram Positive Mixed [place] FINAL CULTURE RESULTS Moderate Gram Positive Mixed [place] [id number] Pathogens Isolated [id number] Further Workup done MEDIA PLATED Setup at 08:29 on 07/02/2018 Arterial Blood Gas - 07/02/18 08:03 Base 10.00 mmol/L 1.80-4.20 HCO3 35 mmol/L 20-31 O2 Sat 89 RM AIR % 95-100 pCO2 58 mm/Hg 35-45 pH 7.39 7.35-7.45 PO2 60 mm/Hg 80-95 Hemoglobin A1C - 07/02/18 08:03 % A1C 6.20 % 5.40-6.60 AvGlu 144 mg/dL 70-110 EKG - 07/02/18 08:57 EKG Complete Urinalysis - 07/02/18 09:06 Icotest N/A Negative Urine Volume Urine Volume Sufficient (10mL) Urine-Appearance Clear Clear Urine-Bacteria Trace Urine-Bilirubin Negative Negative Urine-Blood Trace-lysed Negative Urine-Color Yellow Colorless-Lt. Yellow Urine-Epithelial Cells 0-5/HPF Urine-Glucose Negative Negative Urine-Ketones Negative Negative Urine-Leukocytes Negative Negative Urine-Nitrite Negative Negative Urine-Other Urine Saved if Culture Needed (48hrs from time of collection) Urine-pH 6.5 5-8.5 Urine-Protein 2+ Negative Urine-RBC Rare/HPF Urine-Specific [place] >=1.030 1.000-1.030 Urine-WBC 0-2/HPF Urobilinogen 1.0 E.U./dL 0.2-1.0 Encounters ACCT No. Visit Date/Time Discharge Status Pt. Type Provider Facility Loc./Unit Complaint [id number] 04/29/2018 13:47:00 04/29/2018 23:59:00 DIS Outpatient Jessica Du [facility] OUTPT Esophagogastroduodenoscopy [id number] 08/28/2014 09:54:00 08/28/2014 15:15:00 DIS Emergency Yola HUERTA, Estrella Guido [facility] ED cant walk [id number] 06/15/2018 18:15:00 06/18/2018 12:05:00 DIS Inpatient MISHA HUERTA, ALBERT Marrero [facility] 4TH COPD EXATRBATION [id number] 03/21/2016 21:49:43 03/21/2016 21:49:43 Outpatient [id number] 05/10/2018 21:57:28 05/10/2018 23:59:59 CLS Outpatient [facility] [id number] 05/10/2018 16:20:00 05/10/2018 21:59:00 DIS Emergency DARIUS GRANT 015 PSYCH [id number] 05/05/2018 23:44:00 05/06/2018 00:12:00 DIS Emergency NAHOMI PETIT MD 015 CANT BREATHE/NOT FEELING WELL [id number] 05/03/2018 11:37:00 05/03/2018 23:59:59 CLS Outpatient JESSICA DU [id number] 05/03/2018 10:59:00 05/03/2018 11:35:00 DIS Outpatient MINERVA HUERTA, DAYO Bradley F/U on essential tremors [id number] 04/23/2018 11:08:00 04/23/2018 23:59:59 CLS Outpatient JESSICA DU LAB [id number] 04/05/2018 11:03:00 04/05/2018 12:02:00 DIS Outpatient DAYO PALMA MD [id number] 04/02/2018 06:49:00 04/02/2018 06:49:00 DIS Outpatient JESSICA DU HEP C [id number] 03/25/2018 09:34:00 Document Registration [id number] 06/26/2018 11:00:00 06/26/2018 23:59:59 CLS Outpatient YARI KING Segundo [facility] [id number] 08/14/2014 14:02:00 08/14/2014 15:00:00 DIS Emergency Romain De Santiago DO [facility] [id number] 05/10/2018 22:49:00 Document Registration [id number] 05/26/2013 16:35:00 05/26/2013 18:48:00 DIS Emergency [id number] 07/02/2018 08:01:00 Document Registration [id number] 08/14/2014 14:21:06 ACT Document Registration [id number] 07/02/2018 08:01:00 07/02/2018 09:47:00 DIS Outpatient Melecio [facility] [id number] 05/25/2018 12:13:00 05/25/2018 23:59:00 DIS Outpatient Frankie Du [id number] 07/02/2018 08:38:04 Document Registration
[2018-07-10] MEDS ORDERED: RT-ALBUTEROL/IPRATROPIUM 3 ML (DUONEB) VIAL INH ONE (20:15)
[2018-07-10 20:39] LABS: BASOPHILS % (AUTO) 0 % (0-10); EOSINOPHILS # (AUTO) 0.1 10^3/uL (0.0-0.3); EOSINOPHILS % (AUTO) 1 % (0-10); HEMATOCRIT 40 % (35-52); LYMPHOCYTES # (AUTO) 1.2 X 10^3 (1.0-4.0); LYMPHOCYTES % (AUTO) 23 % (12-44); MEAN CORPUSCULAR HEMOGLOBIN 29 PG (25-34); MEAN CORPUSCULAR HGB CONC 33 G/DL (32-36); MEAN CORPUSCULAR VOLUME 90 FL (80-99); MEAN PLATELET VOLUME 12.5 FL (7.4-10.4); MONOCYTES # (AUTO) 0.4 X 10^3 (0.0-1.0); MONOCYTES % (AUTO) 8 % (0-12); NEUTROPHILS # (AUTO) 3.6 X 10^3 (1.8-7.8); NEUTROPHILS % (AUTO) 68 % (42-75); PLATELET COUNT 83 10^3/uL (130-400); RED BLOOD COUNT 4.46 10^6/uL (4.35-5.85); RED CELL DISTRIBUTION WIDTH 14.9 % (10.0-14.5); WHITE BLOOD COUNT 5.3 10^3/uL (4.3-11.0)
[2018-07-10 20:48] LABS: ALANINE AMINOTRANSFERASE 10 U/L (0-55); ALBUMIN 3.8 GM/DL (3.2-4.5); ALKALINE PHOSPHATASE 95 U/L (40-136); BILIRUBIN,TOTAL 0.3 MG/DL (0.1-1.0); BUN/CREATININE RATIO 30; CALCIUM 8.9 MG/DL (8.5-10.1); CARBON DIOXIDE 28 MMOL/L (21-32); CHLORIDE 104 MMOL/L (98-107); CREATININE SERUM 0.76 MG/DL (0.60-1.30); GFR ESTIMATED > 60; GLUCOSE 203 MG/DL (70-105); POTASSIUM 3.9 MMOL/L (3.6-5.0); SODIUM 142 MMOL/L (135-145); TOTAL PROTEIN 7.5 GM/DL (6.4-8.2)
--- NOTE | 2018-07-10 21:06 | Diagnostic Imaging Report ---
INDICATION: Difficulty breathing. Frontal chest obtained at 8:54 p.m. and compared with 06/16/2018. FINDINGS: Heart is borderline in size. There is mild central vascular prominence without edema. There is mild hyperinflation compatible with COPD with mild chronic appearing increased interstitial markings. There is no acute consolidation or pneumothorax or pleural fluid. IMPRESSION: COPD changes with mild chronic appearing increased interstitial markings. No acute consolidation or pleural fluid. There is borderline heart size with mild central vascular prominence without edema. Dictated by: Dictated on workstation # [id number]
--- NOTE | 2018-07-10 21:22 | ED Respiratory ---
General Chief Complaint: Respiratory Problems Stated Complaint: SOB,LEGS HURT Nursing Triage Note: Pt states having trouble breathing. pt states seen Dr Hayden today was told she needs oxygen at HS. pt sob with ambulation. Source: patient Exam Limitations: no limitations History of Present Illness Date Seen by Provider: Jul 10, 2018 Time Seen by Provider: 20:16 Initial Comments Patient is a 53-year-old female who presents to the emergency room with complaints of shortness of breath. She has a history of COPD and had an appointment at Dr. Hayden's office today and was told that she needed to wear her home oxygen more often. She has home oxygen to 4 L when necessary and continuous at night. She should up to the emergency room without her oxygen on. Denies any chest pain, fevers, nausea, vomiting. Timing/Duration: changing over time Associated Symptoms: No cough, No fever/chills; shortness of breath Allergies and Home Medications Allergies Coded Allergies: Penicillins (Verified Allergy, Intermediate, weak, cant stand up and lose color., 06/16/18) SOB and weakness Home Medications Albuterol/Ipratropium 4 Gm Aero, 2 PUFF IH QID PRN for SHORTNESS OF BREATH, ( Reported) Aripiprazole 5 Mg Tablet, 5 MG PO DAILY, (Reported) Fluticasone Propionate 1 Ea Aero, 2 PUFF INH Q12H, (Reported) Glecaprevir/Pibrentasvir 1 Each Tablet, 3 TAB PO 1800, (Reported) Insulin Glargine,Hum.rec.anlog 100 Unit/1 Ml Insuln.pen, 40 UNIT SQ HS, ( Reported) Lisinopril 10 Mg Tablet, 10 MG PO DAILY, (Reported) Pantoprazole Sodium 40 Mg Tablet.dr, 40 MG PO DAILY, (Reported) Prednisone 20 Mg Tab, 4 MG PO DAILY Prescribed by: DANIELA DENNIS on 07/10/182136 Pregabalin 300 Mg Capsule, 300 MG PO BID, (Reported) Primidone 250 Mg Tablet, 250 MG PO HS, (Reported) Propranolol HCl 40 Mg Tablet, 40 MG PO BID, (Reported) Sertraline HCl 100 Mg Tablet, 100 MG PO DAILY, (Reported) Trazodone HCl 50 Mg Tablet, 50 MG PO HS, (Reported) Patient Home Medication List Home Medication List Reviewed: Yes Review of Systems Review of Systems Constitutional: see HPI; No chills, No fever Respiratory: see HPI, short of breath All Other Systems Reviewed Negative Unless Noted: Yes Past Paejwmd-Oqjywa-Qtldzx Hx Past Med/Social Hx: Reviewed Nursing Past Med/Soc Hx Patient Social History Drug of Choice: THC Type Used: Cigarettes Recent Foreign Travel: No Contact w/Someone Who Travel: No Recent Infectious Disease Expo: No Recent Hopitalizations: No Immunizations Up To Date Date of Pneumonia Vaccine: Aug 06, 2016 Date of Influenza Vaccine: May 06, 2018 Seasonal Allergies Seasonal Allergies: No Past Medical History Surgeries: Yes (HERNIA REPAIR, L ANKLE, NECK, L FILOPIAN TUBE AND OVARY, ) Respiratory: Yes COPD Cardiac: No Neurological: No : No Genitourinary: No Gastrointestinal: Yes Hepatitis Musculoskeletal: No Endocrine: Yes Diabetes, Insulin dep HEENT: No Cancer: No Psychosocial: No Blood Disorders: No Family Medical History Reviewed Nursing Family Hx No Pertinent Family Hx Physical Exam Vital Signs - First Documented 07/10/18 07/10/18 20:07 20:09 Temp 96.3 Pulse 103 Resp 20 B/P (MAP) 161/103 (122) Pulse Ox 86 O2 Delivery Room Air O2 Flow Rate 2.00 FiO2 100 Capillary Refill : Less Than 3 Seconds Height: 5'8.00" Weight: 230lbs. 1.0oz. 104.211441yd; 35.6 BMI Method:Stated General Appearance: WD/WN, no apparent distress HEENT: PERRL/EOMI, normal ENT inspection, TMs normal, pharynx normal Respiratory: chest non-tender, no respiratory distress, no accessory muscle use , wheezing (throughout lung tran.) Cardiovascular: normal peripheral pulses, regular rate, rhythm, no edema, no gallop, no JVD, no murmur Gastrointestinal: normal bowel sounds, non tender, soft, no organomegaly, no pulsatile mass Extremities: normal capillary refill Neurologic/Psychiatric: alert, normal mood/affect, oriented x 3 Skin: normal color, warm/dry Progress/Results/Core Measures Suspected Sepsis Recent Fever Within 48 Hours: No Infection Criteria Present: None New/Unexplained Altered Menta: No Sepsis Screen: No Definite Risk SIRS Temperature:96.3 Pulse: 103 Respiratory Rate: 20 Laboratory Tests 07/10/18 20:10: White Blood Count 5.3 Blood Pressure 161 /103 Mean: 122 Laboratory Tests 07/10/18 20:10: Creatinine 0.76, Platelet Count 83L, Total Bilirubin 0.3 Results/Orders Lab Results Laboratory Tests Test 07/10/18 20:10 Range/Units White Blood Count 5.3 4.3-11.0 10^3/uL Red Blood Count 4.46 4.35-5.85 10^6/uL Hemoglobin 13.0 11.5-16.0 G/DL Hematocrit 40 35-52 % Mean Corpuscular Volume 90 80-99 FL Mean Corpuscular Hemoglobin 29 25-34 PG Mean Corpuscular Hemoglobin Concent 33 32-36 G/DL Red Cell Distribution Width 14.9 H 10.0-14.5 % Platelet Count 83 L 130-400 10^3/uL Mean Platelet Volume 12.5 H 7.4-10.4 FL Neutrophils (%) (Auto) 68 42-75 % Lymphocytes (%) (Auto) 23 12-44 % Monocytes (%) (Auto) 8 0-12 % Eosinophils (%) (Auto) 1 0-10 % Basophils (%) (Auto) 0 0-10 % Neutrophils # (Auto) 3.6 1.8-7.8 X 10^3 Lymphocytes # (Auto) 1.2 1.0-4.0 X 10^3 Monocytes # (Auto) 0.4 0.0-1.0 X 10^3 Eosinophils # (Auto) 0.1 0.0-0.3 10^3/uL Basophils # (Auto) 0.0 0.0-0.1 10^3/uL Sodium Level 142 135-145 MMOL/L Potassium Level 3.9 3.6-5.0 MMOL/L Chloride Level 104 98-107 MMOL/L Carbon Dioxide Level 28 21-32 MMOL/L Anion Gap 10 5-14 MMOL/L Blood Urea Nitrogen 23 H 7-18 MG/DL Creatinine 0.76 0.60-1.30 MG/DL Estimat Glomerular Filtration Rate > 60 BUN/Creatinine Ratio 30 Glucose Level 203 H 70-105 MG/DL Calcium Level 8.9 8.5-10.1 MG/DL Corrected Calcium 9.1 8.5-10.1 MG/DL Total Bilirubin 0.3 0.1-1.0 MG/DL Aspartate Amino Transf (AST/SGOT) 17 5-34 U/L Alanine Aminotransferase (ALT/SGPT) 10 0-55 U/L Alkaline Phosphatase 95 40-136 U/L B-Type Natriuretic Peptide 157.7 H <100.0 PG/ML Total Protein 7.5 6.4-8.2 GM/DL Albumin 3.8 3.2-4.5 GM/DL My Orders Orders - DANIELA DENNIS Cbc With Automated Diff (07/10/18 20:15) Comprehensive Metabolic Panel (07/10/18 20:15) BNP (07/10/18 20:15) Chest 1 View, Ap/Pa Only (07/10/18 20:15) Albuterol/Ipra Inhalation Soln (Duoneb I (07/10/18 20:15) Ekg Tracing (07/10/18 20:15) O2 (07/10/18 20:15) Saline Lock/Iv-Start (07/10/18 20:15) Monitor-Rhythm Ecg Trace Only (07/10/18 20:15) Svn Small Volume Nebulizer (07/10/18 20:15) Prednisone Tablet (Deltasone Tablet) (07/10/18 22:15) Prednisone Tablet (Deltasone Tablet) (07/10/18 22:01) Medications Given in ED Vital Signs/I&O 07/10/18 07/10/18 07/10/18 07/10/18 20:07 20:09 21:08 22:00 Temp 96.3 Pulse 103 78 Resp 20 18 B/P (MAP) 161/103 (122) 160/83 (108) Pulse Ox 86 98 95 97 O2 Delivery Room Air Nasal Cannula Room Air Room Air O2 Flow Rate 2.00 FiO2 100 Capillary Refill : Less Than 3 Seconds Blood Pressure Mean: 122 Progress Note : Time: 21:27 Progress Note Patient's lung sounds have improved after breathing treatment. She is no longer wheezing. She is a diabetic and we discussed the need for monitoring her blood sugars closely with the use of steroids. She agrees with plans of care, follow up with her primary care provider, return precautions were given. Voices no questions or concerns. ECG Initial ECG Impression Date: Jul 10, 2018 Initial ECG Impression Time: 20:22 Initial ECG Rate: 78 Initial ECG Rhythm: Normal Sinus Initial ECG Intervals: Normal Initial ECG Impression: Normal Diagnostic Imaging Diagonstic Imaging: Xray Plain Films/CT/US/NM/MRI: chest Comments NAME: MAK CORREA [facility] REC#: [id number] PHYSICIAN: DANIELA DENNIS CC: DANIELA DENNIS; ALESIA MOMIN MD Page 1 of 1 RADIOLOGY REPORT [facility]. [place], [place] CC: DANIELA DENNIS; ALESIA MOMIN MD Page 1 of 1 RADIOLOGY REPORT NAME: MAK CORREA [facility] REC#: [id number] PT STATUS: REG ER : 1965 PHYSICIAN: DANIELA DENNIS ADMIT DATE: 07/10/18/ER Signed Date of Exam: 07/10/18 CHEST 1 VIEW, AP/PA ONLY INDICATION: Difficulty breathing. Frontal chest obtained at 8:54 p.m. and compared with 06/16/2018. FINDINGS: Heart is borderline in size. There is mild central vascular prominence without edema. There is mild hyperinflation compatible with COPD with mild chronic appearing increased interstitial markings. There is no acute consolidation or pneumothorax or pleural fluid. IMPRESSION: COPD changes with mild chronic appearing increased interstitial markings. No acute consolidation or pleural fluid. There is borderline heart size with mild central vascular prominence without edema. Dictated by: Dictated on workstation # [id number] Dict: 07/10/182102 Trans: 07/10/182136 Interpreted by: ALESIA MOMIN MD Electronically signed by: ALESIA MOMIN MD 07/10/182136 Reviewed: Reviewed by Me Departure Impression Primary Impression: COPD exacerbation Disposition: 01 HOME, SELF-CARE Condition: Stable/Unchanged Departure-Patient Inst. Decision time for Depature: 21:33 Referrals: NO,LOCAL PHYSICIAN (PCP/Family) Primary Care Physician Patient Instructions: Exacerbation of COPD Add. Discharge Instructions: Take medications as directed. Keep a close eye on your blood sugars and adjust her insulin accordingly. Follow-up with your primary care provider and Dr. Hayden within 1 week for recheck. Wear oxygen as prescribed. All discharge instructions reviewed with patient and/or family. Voiced understanding. Scripts Prednisone (Prednisone) 20 Mg Tab 4 MG PO DAILY for 4 Days, #8 TAB Prov: DANIELA DENNIS 07/10/18 DANIELA DENNIS Jul 10, 2018 21:22
[2018-07-10] MEDS ORDERED: PRD20T PO (21:37)
[2018-07-10 22:00] VITALS: BP 160/83
[2018-07-10] MEDS ORDERED: predniSONE 20 MG TAB ONE (22:01)
[2018-07-10] MEDS ORDERED: predniSONE 20 MG TAB PO ONE (22:15)
== END 2018-07-10 22:05 | disposition home or self-care (01) ==
LOC: EDUNIT# 19:50 → ER 19:51
DX: J44.1 Chronic obstructive pulmonary disease with (acute) exacerbation (principal); E11.9 Type 2 diabetes mellitus without complications; Z99.81 Dependence on supplemental oxygen; Z87.19 Personal history of other diseases of the digestive system; Z88.0 Allergy status to penicillin; Z79.51 Long term (current) use of inhaled steroids; Z79.52 Long term (current) use of systemic steroids; Z79.4 Long term (current) use of insulin; Z98.890 Other specified postprocedural states
CPT/HCPCS: 36415; 71045; 80053; 83880; 85025; 93005; 93041; 94640

== ENCOUNTER 2018-07-16 08:04 | Day surgery (SDC) | payer MEDICARE, OTHER ==
[~2018-07-16] VITALS: Ht 172.7 cm; Wt 113.4 kg
[2018-07-16] VITALS (11 sets, daily range): BP systolic 112–170; BP diastolic 60–90
[~2018-07-16 08:04] MED LIST changes: +PRD20T PO
[2018-07-16] MEDS ORDERED: NS IV 1000 ML 1,000 ML IV SCH ×2 (08:06→10:27)
[2018-07-16] MEDS ORDERED: NS IV 1000 ML 1,000 ML ONE (08:07)
[2018-07-16] MEDS ORDERED: LIDOCAINE 1% INJ 20 ML 20 ML VIAL ONE (08:07)
[2018-07-16] MEDS ORDERED: HEParin (CATH LAB) 2,000 ML IV ONE (08:08)
--- OUTSIDE RECORDS SUMMARY | 2018-07-16 08:16 | XMS REPORT | Continuity of Care Document ---
Author Author [facility] Organization [facility] Address Unknown Phone Unavailable Allergies Active Description Code Type Severity Reaction Onset Reported/Identified Relationship to Patient Clinical Status Yes PCN (penicillin) 14999381 Drug Allergy Moderate Dyspnea Yes PENICILLINS MODERATE OTHER Yes Penicillins Penicillins Drug Allergy Unknown CANNOT BREATHE 08/14/2014 Yes penicillins NKMA N/A passed out 08/28/2014 Yes penicillin 63438 Ingredient moderate to severe Lethargy~Trouble Breathing 04/26/2018 Yes Penicillins [id number] Drug Allergy Unknown weak, cant dylan 06/15/2018 Yes Penicillins [id number] Drug Allergy Moderate weak, cant dylan 06/16/2018 [...] diabetes mellitus with diabetic polyneuropathy 03/25/2018 S O83532 Nicotine dependence, cigarettes, uncomplicated 03/25/2018 S R0602 Shortness of breath 03/25/2018 P R0789 Other chest pain 03/25/2018 S R110 Nausea 03/25/2018 S R600 Localized edema 03/25/2018 S R61 Generalized hyperhidrosis 03/25/2018 S Z794 roasterman ( current) use of insulin 03/25/2018 S U13154 Other halfway (current) drug therapy 03/25/2018 S Z880 Allergy [...] Diarrhea, unspecified 04/05/2018 DAYO PALMA MD Z794 halfway (current) use of insulin 04/23/2018 JESSICA DU P K7469 Other cirrhosis of liver 04/30/2018 Jessica Du B37.81 Candidal Esophagitis 05/03/2018 JESSICA DU P B182 Chronic viral hepatitis C 05/06/2018 NAHOMI PETIT MD E119 Type 2 diabetes mellitus without complications 05/06/2018 NAHOMI PETIT MD A11386 Nicotine dependence, cigarettes, uncomplicated 05/06/2018 NAHOMI PETIT MD F329 Major depressive disorder, single episode, unspecified 05/06/2018 NAHMOI PETIT MD J449 Chronic obstructive pulmonary disease, unspecified 05/06/2018 NAHOMI PETIT MD L989 Disorder of the skin and subcutaneous tissue, unspecified 05/06/2018 MARISABEL HUERTA, NAHOMI Stallings 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 05/06/2018 MARISABEL HUERTA, NAHOMI [...] mellitus with diabetic polyneuropathy 05/10/2018 DARIUS GRANT [id number] Nicotine dependence, cigarettes, uncomplicated 05/10/2018 DARIUS GRANT [...] child, adolescent or adult 05/10/2018 DARIUS GRANT [id number] Suicidal ideations 05/10/2018 DARIUS GRANT R51 Headache 05/10/2018 DARIUS GRANT R5381 Other malaise 05/10/2018 DARIUS GRANT R5383 Other fatigue 05/10/2018 DARIUS GRANT Z794 halfway (current) use of insulin 05/10/2018 DARIUS GRANT [id number] Other buttermaker (current) drug therapy 05/10/2018 DARISU GRANT Z880 Allergy status to penicillin 05/10/2018 [facility] P S86880 Suicidal ideations 06/18/2018 ALBERT CABRAL MD, Ot B18.2 CHRONIC VIRAL HEPATITIS C 06/18/2018 ALBERT CABRAL MD, Ot D69.59 OTHER SECONDARY THROMBOCYTOPENIA 06/18/2018 ALBERT CABRAL MD, Ot E11.65 TYPE 2 DIABETES MELLITUS WITH [...] 06/18/2018 ALBERT CABRAL MD, Ot Z79.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 07/02/2018 Gibran Majano 491.21 OBSTRUCTIVE CHRONIC BRONCHITIS WITH (ACUTE) EXACERBATION 07/02/2018 Gibran Majano J44.1 CHRONIC OBSTRUCTIVE PULMONARY DISEASE W (ACUTE) EXACERBATION 07/12/2018 DANIELA DENNIS Ot E11.9 TYPE 2 DIABETES MELLITUS WITHOUT COMPLIC 07/12/2018 DANIELA DENNIS Ot J44.1 CHRONIC OBSTRUCTIVE PULMONARY DISEASE W 07/12/2018 DANIELA DENNIS Ot R06.02 SHORTNESS OF BREATH 07/12/2018 DANIELA DENNIS Ot Z79.4 SOFT METALS HAND ENGRAVER (CURRENT) USE OF INSULIN 07/12/2018 DANIELA DENNIS Ot Z79.51 ASSISTED (CURRENT) USE OF INHALED STERO 07/12/2018 DANIELA DENNIS Ot Z79.52 SOFT METALS HAND ENGRAVER (CURRENT) USE OF SYSTEMIC STER 07/12/2018 DANIELA DENNIS Ot Z87.19 PERSONAL HISTORY OF OTHER DISEASES OF TH 07/12/2018 DANIELA DENNIS Ot Z88.0 ALLERGY STATUS TO PENICILLIN 07/12/2018 DANIELA DENNIS Ot Z98.890 OTHER SPECIFIED POSTPROCEDURAL STATES 07/12/2018 DANIELA DENNIS Ot Z99.81 DEPENDENCE ON SUPPLEMENTAL OXYGEN Procedures There is no data. Results Test [...] - 06/15/18 15:29 Bacterial blood culture NG NR Bacterial urine culture - 06/15/18 16:01 Bacterial urine culture SEE REPORT NRG COLONY COUNT . NR Capillary blood glucose measurement by glucometer (mass/volume) [...] CULTURE RESULTS Moderate Gram Positive Mixed [place] [id number] Pathogens Isolated [id number] Further Workup done MEDIA PLATED Setup at [...] 5-8.5 Urine-Protein 2+ Negative Urine-RBC Rare/HPF Urine-Specific [place] >=1.030 1.000-1.030 Urine-WBC 0-2/HPF Urobilinogen 1.0 E.U./dL 0.2-1.0 Complete blood count (CBC) with automated white blood cell (WBC) differential - 07/10/18 20:10 Blood leukocytes automated count (number/volume) 5.3 10*3/uL 4.3-11.0 Blood erythrocytes automated count (number/volume) 4.46 10*6/uL 4.35-5.85 Venous blood hemoglobin measurement (mass/volume) 13.0 g/dL 11.5-16.0 Blood hematocrit (volume fraction) 40 % 35-52 Automated erythrocyte mean corpuscular volume 90 [foz_us] 80-99 Automated erythrocyte mean corpuscular hemoglobin (mass per erythrocyte) 29 pg 25-34 Automated erythrocyte mean corpuscular hemoglobin concentration measurement ( mass/volume) 33 g/dL 32-36 Automated erythrocyte distribution width ratio 14.9 % 10.0-14.5 Automated blood platelet count (count/volume) 83 10*3/uL 130-400 Automated blood platelet mean volume measurement 12.5 [foz_us] 7.4-10.4 Automated blood neutrophils/100 leukocytes 68 % 42-75 Automated blood lymphocytes/100 leukocytes 23 % 12-44 Blood monocytes/100 leukocytes 8 % 0-12 Automated blood eosinophils/100 leukocytes 1 % 0-10 Automated blood basophils/100 leukocytes 0 % 0-10 Blood neutrophils automated count (number/volume) 3.6 10*3 1.8-7.8 Blood lymphocytes automated count (number/volume) 1.2 10*3 1.0-4.0 Blood monocytes automated count (number/volume) 0.4 10*3 0.0-1.0 Automated eosinophil count 0.1 10*3/uL 0.0-0.3 Automated blood basophil count (count/volume) 0.0 10*3/uL 0.0-0.1 Comprehensive metabolic panel - 07/10/18 20:10 Serum or plasma sodium measurement (moles/volume) 142 mmol/L 135-145 Serum or plasma potassium measurement (moles/volume) 3.9 mmol/L 3.6-5.0 Serum or plasma chloride measurement (moles/volume) 104 mmol/L 98-107 Carbon dioxide 28 mmol/L 21-32 Serum or plasma anion gap determination (moles/volume) 10 mmol/L 5-14 Serum or plasma urea nitrogen measurement (mass/volume) 23 mg/dL 7-18 Serum or plasma creatinine measurement (mass/volume) 0.76 mg/dL 0.60-1.30 Serum or plasma urea nitrogen/creatinine mass ratio 30 NRG Serum or plasma creatinine measurement with calculation of estimated glomerular filtration rate > NRG Serum or plasma glucose measurement (mass/volume) 203 mg/dL 70-105 Serum or plasma calcium measurement (mass/volume) 8.9 mg/dL 8.5-10.1 Serum or plasma total bilirubin measurement (mass/volume) 0.3 mg/dL 0.1-1.0 Serum or plasma alkaline phosphatase measurement (enzymatic activity/volume) 95 U/L 40-136 Serum or plasma aspartate aminotransferase measurement (enzymatic activity/ volume) 17 U/L 5-34 Serum or plasma alanine aminotransferase measurement (enzymatic activity/volume ) 10 U/L 0-55 Serum or plasma protein measurement (mass/volume) 7.5 g/dL 6.4-8.2 Serum or plasma albumin measurement (mass/volume) 3.8 g/dL 3.2-4.5 CALCIUM CORRECTED 9.1 mg/dL 8.5-10.1 Serum or plasma lithium measurement (moles/volume) - 07/10/18 20:10 BNP level 157.7 pg/mL <100.0 Encounters ACCT No. Visit Date/Time Discharge Status Pt. Type Provider Facility Loc./Unit Complaint [id number] 04/29/2018 13:47:00 04/29/2018 23:59:00 DIS Outpatient [facility] OUTPT Esophagogastroduodenoscopy [id number] 08/28/2014 09:54:00 08/28/2014 15:15:00 DIS Emergency Yola HUERTA, Estrella Guido [facility] on [facility] ED cant walk [id number] 07/10/2018 13:22:00 07/10/2018 23:59:59 CLS Preadmit JUVENTINO [facility]AVES [employer] RAD COPD, DYSPNEA, HYPERSOMNIA [id number] 07/10/2018 13:11:00 07/10/2018 23:59:59 CLS Preadmit JUVENTNIO CHAVES [employer] [facility] RAD COPD,DYSPNEA, HYPERSOMNIA [id number] 07/10/2018 13:01:00 07/10/2018 23:59:59 CLS Preadmit JUVENTINO CHAVES [employer] [facility] RT COPD,DYSPNEA, HYPERSOMNIA [id number] 07/10/2018 19:51:00 07/10/2018 22:05:00 DIS Outpatient DANIELA DENNIS [facility] ER SOB,LEGS HURT [id number] 06/15/2018 18:15:00 06/18/2018 12:05:00 DIS Inpatient ALBERT CABRAL MD [facility] 4TH COPD EXATRBATION [id number] 07/16/2018 08:04:00 ACT Outpatient NAYANA HUERTA FACC, OTILIO GREENP CCDS [facility] SOB,DM,COPD,FATIGUE [id number] 03/21/2016 21:49:43 03/21/2016 21:49:43 Outpatient [id number] 05/10/2018 21:57:28 05/10/2018 23:59:59 CLS Outpatient [facility] [id number] 05/10/2018 16:20:00 05/10/2018 21:59:00 DIS Emergency DARIUS GRANT 015 PSYCH [id number] 05/05/2018 23:44:00 05/06/2018 00:12:00 DIS Emergency NAHOMI PETIT MD 015 CANT BREATHE/NOT FEELING WELL [id number] 05/03/2018 11:37:00 05/03/2018 23:59:59 CLS Outpatient JESSICA DU [id number] 05/03/2018 10:59:00 05/03/2018 11:35:00 DIS Outpatient DAYO PALMA MD 062 F/U on essential tremors [id number] 04/23/2018 11:08:00 04/23/2018 23:59:59 CLS Outpatient JESSICA DU [id number] 04/05/2018 11:03:00 04/05/2018 12:02:00 DIS Outpatient DAYO PALMA MD 062 [id number] 04/02/2018 06:49:00 04/02/2018 06:49:00 DIS Outpatient JESSICA DU C [id number] 03/25/2018 09:34:00 Document Registration [id number] 06/26/2018 11:00:00 06/26/2018 23:59:59 CLS Outpatient YARI [facility] [id number] 08/14/2014 14:02:00 08/14/2014 15:00:00 DIS Emergency Romain De Santiago DO [facility] [id number] 05/10/2018 22:49:00 Document Registration [id number] 05/26/2013 16:35:00 05/26/2013 18:48:00 DIS Emergency [id number] 07/02/2018 08:01:00 Document Registration [id number] 08/14/2014 14:21:06 ACT Document Registration [id number] 07/02/2018 08:01:00 07/02/2018 09:47:00 DIS Outpatient Melecio [facility] ER [id number] 05/25/2018 12:13:00 05/25/2018 23:59:00 DIS Outpatient Frankie Du [id number] 07/02/2018 08:38:04 Document Registration
[2018-07-16 08:36] LABS: HEMOGLOBIN 12.7 G/DL (11.5-16.0); MEAN PLATELET VOLUME 12.3 FL (7.4-10.4); RED BLOOD COUNT 4.35 10^6/uL (4.35-5.85); RED CELL DISTRIBUTION WIDTH 15.1 % (10.0-14.5); WHITE BLOOD COUNT 6.4 10^3/uL (4.3-11.0)
[2018-07-16 08:48] LABS: PROTHROMBIN TIME PATIENT 13.6 SEC (12.2-14.7)
[2018-07-16] MEDS ORDERED: ASPI-586 PO (08:49)
[2018-07-16] MEDS ORDERED: RT-ALBUINH IH (08:49)
[2018-07-16 08:53] LABS: ALANINE AMINOTRANSFERASE 12 U/L (0-55); ALBUMIN 3.8 GM/DL (3.2-4.5); ALKALINE PHOSPHATASE 118 U/L (40-136); BILIRUBIN,TOTAL 0.3 MG/DL (0.1-1.0); BUN/CREATININE RATIO 30; CALCIUM 9.3 MG/DL (8.5-10.1); CARBON DIOXIDE 33 MMOL/L (21-32); CHLORIDE 103 MMOL/L (98-107); CHOLESTEROL 173 MG/DL (< 200); GFR ESTIMATED > 60; GLUCOSE 144 MG/DL (70-105); HDL CHOLESTEROL 40 MG/DL (40-60); POTASSIUM 4.4 MMOL/L (3.6-5.0); SODIUM 144 MMOL/L (135-145); TOTAL PROTEIN 7.5 GM/DL (6.4-8.2); TRIGLYCERIDES 171 MG/DL (<150); VLDL CHOLESTEROL 34 MG/DL (5-40)
[2018-07-16] MEDS ORDERED: fentaNYL INJECTION 100 MCG/2 ML AMP ONE (09:39)
[2018-07-16] MEDS ORDERED: MIDAZOLAM 5 MG/5 ML (VERSED) VIAL ONE (09:39)
--- NOTE | 2018-07-16 09:52 | Cardiac Procedure Note-CS/ASA ---
Pre-Procedure Note Pre-Op Procedure Note H&P Reviewed The H&P was reviewed, patient examined and no changes noted. Date H&P Reviewed: Jul 16, 2018 Time H&P Reviewed: 09:52 Conscious Sedation Pre-Proced Time 09:52 ASA Score 3 For ASA 3 and 4: Consider anesthesia and medical clearance. Also, for patients with a history of failed moderate sedation consider anesthesia. Airway Lungs Heart ASA score ASA 1: a normal healthy patient ASA 2: a patient with a mild systemic disease (mid diabetes, controlled hypertension, obesity ASA 3: a patient with a severe systemic disease that limits activity (angina , COPD, prior Myocardial infarction) ASA 4: a patient with an incapacitating disease that is a constant threat to life (CHF, renal failure) ASA 5: a moribund patient not expected to survive 24 hrs. (ruptured aneurysm) ASA 6: a declared brain patient whose organs are being harvested. For emergent operations, add the letter E after the classification Mallampati Classification Grade 3 Sedation Plan Analgesia, Amnesia, Plan communicated to team members, Discussed options with patient/fam, Discussed risks with patient/fam The patient is an appropriate candidate to undergo the planned procedure, sedation, and anesthesia. The patient immediately re-assessed prior to indication. OTILIO KRAUS MD FACP FAC CCDS Jul 16, 2018 09:52
[2018-07-16] MEDS ORDERED: PATIENT MAY USE OWN MEDS, ALL PO SCH (10:30)
--- NOTE | 2018-07-16 10:30 | Discharge Inst-Cardiology ---
Discharge Inst-Cardiac Discharge Medications Continued Medications: Albuterol Sulfate (Proair Hfa) 1 Puff Puff 2 PUFF IH QID, PUFF 1 PUFF = 90 MCG Albuterol/Ipratropium (Combivent Respimat Inhal [place]) 4 Gm Aero 2 PUFF IH QID PRN for SHORTNESS OF BREATH, INHALER Aripiprazole (Abilify) 5 Mg Tablet 5 MG PO DAILY, TAB Glecaprevir/Pibrentasvir (Mavyret 100-40 mg Tablet) 1 Each Tablet 3 TAB PO 1800, TAB Insulin Glargine,Hum.rec.anlog (Lantus Solostar) 100 Unit/1 Ml Insuln.pen 40 UNIT SQ HS, EA Lisinopril (Lisinopril) 10 Mg Tablet 10 MG PO DAILY, TAB Pantoprazole Sodium (Protonix) 40 Mg Tablet.dr 40 MG PO DAILY, TAB Pregabalin (Lyrica) 300 Mg Capsule 300 MG PO BID, CAP Primidone (Primidone) 250 Mg Tablet 250 MG PO HS, TAB Propranolol HCl (Propranolol HCl) 40 Mg Tablet 40 MG PO BID, TAB Trazodone HCl (Trazodone HCl) 50 Mg Tablet 50 MG PO HS, TAB Discontinued Medications: Aspirin (Aspir 81) 81 Mg Tablet.dr 81 MG PO DAILY, TAB TOILIO KRAUS MD FACP [facility] CCDS Jul 16, 2018 10:30
--- NOTE | 2018-07-16 10:30 | Discharge Inst-Post CATH ---
Discharge Inst-CATH Post Cardiac Cath D/C Inst Follow Up/Plan F/u with Dr Alberts in 1-2 weeks CARDIAC CATH DISCHARGE INSTRUCTIONS *Hold Metformin for 48 hours post heart cath. ACTIVITY * Go Home directly and rest. * Limit activity of the leg (or wrist if it was used) for 7 days including aerobics, swimming, jogging, bicycling, etc. * Restrict stair-climbing for 7 days if possible, if not, climb up with your non -cath leg, then bring together on the same step. * Avoid lifting, pushing, pulling or excessive movement of the affected extremity for 7 days. * Customary sexual activity may be resumed after 2 days-use caution not to use a position that strains or causes pain to the affected extremity. * No driving for 24 hours. * NO SMOKING. * Avoid straining for bowel movements for 7 days. * Gentle walking on level ground is allowed. * Returning to work will depend on the type of procedure and the results. Your doctor will discuss this with you. CALL YOUR DOCTOR FOR ANY OF THE FOLLOWING: *If bleeding from the puncture site occurs- Apply gentle pressure to site with clean cloth and call your doctor or EMS. * If a knot or lump forms under the skin, increases in size, or causes pain. * If bruising appears to be worsening or moving further down your leg instead of disappearing. * Temperature above 101 F. CARE OF YOUR GROIN INCISION; * Bruising or purple discoloration of the skin near the puncture site is common. * You may shower only, no bathtub bathing for 5 days. Be careful to avoid slipping as your leg may feel stiff. * If a closure device was used on your femoral artery, please see the attached guide regarding care of the device and your leg. * Leave the dressing on, until removed by office staff. CARE OF YOUR WRIST INCISION; * Bruising or purple discoloration of the skin near the puncture site is common. * You may shower. * DO NOT submerge wrist. * Leave dressing on, until removed by office staff.. OTILIO ALBERTS MD [facility] CCDS Jul 16, 2018 10:30
--- NOTE | 2018-07-16 11:07 | CARDIAC CATHETERIZATION ---
DATE OF SERVICE: 07/16/2018 CARDIAC CATHETERIZATION REPORT The patient is a 53-year-old lady with multiple coronary artery disease risk factors without symptoms suggestive of unstable angina. Cardiac catheterization was carried out today after having obtained an informed consent. We did have a detailed discussion before the cardiac catheterization explaining the procedure, risks, benefits, potential complications and alternatives. She, apparently, has chronic thrombocytopenia. We did inform her of additional risks of bleeding with the interventional/invasive procedures. She understood everything and wanted us to proceed. PROCEDURE: She was brought to the cardiac catheterization laboratory in a fasting state. Right groin was prepared and draped in the usual sterile fashion with 1% lidocaine as local anesthesia. Modified Seldinger technique was used to advance a 5-Serbian sheath in the right femoral artery. A 5-Serbian JL4 catheter for left coronary angiography, 5-Serbian JR4 catheter for right coronary angiography, 5-Serbian pigtail catheter was used for left heart catheterization and left ventricular angiography. Angiography of the right femoral artery had been carried out through the sheath at the beginning of the procedure. At the end of the procedure, Mynx was used to achieve hemostasis. HEMODYNAMICS: Left ventricular end-diastolic pressure following coronary angiography was 19 mmHg. There was no significant pressure gradient on pullback across the aortic valve. Ascending aortic pressure was 114/62 with a mean of 84 mmHg. CORONARY ANGIOGRAPHY: Left main coronary artery, left circumflex artery, left anterior descending artery and right coronary artery are all free of any angiographically significant disease. Right coronary artery is dominant. LEFT VENTRICULAR ANGIOGRAPHY: Left ventricular angiography was carried out in the right anterior oblique projection. Global left ventricular systolic function was normal. No regional abnormalities were seen. Left ventricular ejection fraction was approximately 65%. CONCLUSIONS: 1. No angiographically significant coronary artery disease. 2. Normal global left ventricular systolic function with ejection fraction of 65%. 3. Elevated left ventricular end diastolic pressure. DISCUSSION AND RECOMMENDATIONS: Based on results of the study, her symptoms of shortness of breath and chest discomfort do not appear to be of coronary origin. Continued risk factor modification is advised. Outpatient followup is advised. Job ID: [id number] DocumentID: [id number] Dictated Date: 07/16/2018 10:36:30 Data Communications Technician Date: 07/16/2018 11:06:22 Dictated By: OTILIO KRAUS MD, MA, FACP, FACC,
--- NOTE | 2018-07-16 14:47 | Cardiology History & Physical ---
HPI-Cardiology Cardiology H&P Date of Admission 07-16-18 Primary Care Physician Center/On License Of [facility] Attending Physician Dieter Alberts MD, MA FACP [facility] Consulting Physician [facility] Ms. Turpin is a 53 year old female who underwent cardiac cath to further evaluate c/o chest pain and progressive dyspnea. Cardiac cath carried out today did not show evidence of any angiographically significant CAD. She was sent to [facility] for recovery. She began to report right leg discomfort/numbness. Right groin u/s carried out showed pseudoaneurysm. Manual pressure is currently being held at the groin site per wetlands conservation laborer staff. Therefore, she is being kept overnight for observation. Review of Systems-Cardiology Review of Systems Constitutional: No chills, No fever Eyes: No vision change Ears/Nose/Throat: No epistaxis, No recent hearing loss Respiratory: As described under HPI Cardiovascular: As described under HPI Gastrointestinal: No diarrhea, No vomiting Genitourinary: No dysuria, No hematuria Musculoskeletal: As describe under HPI Skin: No rash, No ulcerations Psychiatric/Neurological: No focal weakness LSS-Ayqoyq-Arkzil Hx Patient Social History Drug of Choice: THC Smoking Status: Current Everyday Smoker Type Used: Cigarettes Recent Foreign Travel: No Recent Infectious Disease Expo: No Immunizations Up To Date Date of Pneumonia Vaccine: Aug 06, 2016 Date of Influenza Vaccine: Jun 10, 2018 Past Medical History PMH As described under Assessment. Allergies and Home Medications Allergies Coded Allergies: Penicillins (Verified Allergy, Intermediate, weak, cant stand up and lose color., 06/16/18) SOB and weakness Home Medications Albuterol Sulfate 1 Puff Puff, 2 PUFF IH QID, (Reported) 1 PUFF = 90 MCG Albuterol/Ipratropium 4 Gm Aero, 2 PUFF IH QID PRN for SHORTNESS OF BREATH, ( Reported) Aripiprazole 5 Mg Tablet, 5 MG PO DAILY, (Reported) Glecaprevir/Pibrentasvir 1 Each Tablet, 3 TAB PO 1800, (Reported) Insulin Glargine,Hum.rec.anlog 100 Unit/1 Ml Insuln.pen, 40 UNIT SQ HS, ( Reported) Lisinopril 10 Mg Tablet, 10 MG PO DAILY, (Reported) Pantoprazole Sodium 40 Mg Tablet.dr, 40 MG PO DAILY, (Reported) Pregabalin 300 Mg Capsule, 300 MG PO BID, (Reported) Primidone 250 Mg Tablet, 250 MG PO HS, (Reported) Propranolol HCl 40 Mg Tablet, 40 MG PO BID, (Reported) Trazodone HCl 50 Mg Tablet, 50 MG PO HS, (Reported) Patient Home Medication List Home Medication List Reviewed: Yes Physical Exam-Cardiology Physical Exam Vital Signs/I&O 07/16/18 07/16/18 07/16/18 07/16/18 08:26 10:45 10:49 11:00 Temp 97.2 97.4 Pulse 82 75 76 70 Resp 18 B/P (MAP) 170/80 (110) 112/60 (77) 139/78 (98) Pulse Ox 87 91 91 O2 Delivery Room Air Nasal Cannula Nasal Cannula O2 Flow Rate 4.00 4.00 07/16/18 07/16/18 07/16/18 07/16/18 11:15 11:31 12:00 12:30 Pulse 68 65 79 76 Resp 18 18 B/P (MAP) 134/73 (93) 138/73 (94) 152/80 (104) 145/76 (99) Pulse Ox 92 93 94 97 O2 Delivery Nasal Cannula Nasal Cannula Nasal Cannula Nasal Cannula O2 Flow Rate 4.00 4.00 4.00 4.00 07/16/18 07/16/18 07/16/18 07/16/18 13:30 14:30 15:00 16:45 Pulse 87 80 74 Resp 18 18 B/P (MAP) 166/90 (115) 169/82 (111) Pulse Ox 96 95 95 O2 Delivery Nasal Cannula Nasal Cannula Nasal Cannula O2 Flow Rate 4.00 4.00 4.00 Capillary Refill : Less Than 3 Seconds Constitutional: AAO x 3, well-developed, well-nourished HEENT: PERRL; No hard of hearing Neck: No carotid bruit; carotid pulses are 2 + bilaterally Respiratory: No accessory muscle use, No respiratory distress; lungs clear to auscultation (prolonged expiratory phase) Cardiovascular: regular rate-rhythm; No JVD; S1 and S2 Gastrointestinal: audible bowel sounds Extremities: no lower extremity edema bilateral Neurologic/Psychiatric: grossly intact, power is 5/5 both on sides Skin: No rash, No ulcerations Other comments Right groin with manual pressure currently being held per wetlands conservation laborer staff at this time RLE W/D/P Data Review Labs Laboratory Tests 07/16/18 08:29: White Blood Count 6.4, Red Blood Count 4.35, Hemoglobin 12.7, Hematocrit 40, Mean Corpuscular Volume 92, Mean Corpuscular Hemoglobin 29, Mean Corpuscular Hemoglobin Concent 32, Red Cell Distribution Width 15.1H, Platelet Count 81L, Mean Platelet Volume 12.3H, Prothrombin Time 13.6, INR Comment 1.0, Activated Partial Thromboplast Time 30, Sodium Level 144, Potassium Level 4.4, Chloride Level 103, Carbon Dioxide Level 33H, Anion Gap 8, Blood Urea Nitrogen 24H, Creatinine 0.80, Estimat Glomerular Filtration Rate > 60, BUN/Creatinine Ratio 30, Glucose Level 144H, Calcium Level 9.3, Corrected Calcium 9.5, Total Bilirubin 0.3, Aspartate Amino Transf (AST/SGOT) 18, Alanine Aminotransferase ( ALT/SGPT) 12, Alkaline Phosphatase 118, Total Protein 7.5, Albumin 3.8, Triglycerides Level 171H, Cholesterol Level 173, LDL Cholesterol Direct 96, VLDL Cholesterol 34, HDL Cholesterol 40 07/16/18 17:16: Glucometer 219H Radiology NAME: MAK TURPIN [facility] REC#: [id number] PT STATUS: REG [facility] : 1965 PHYSICIAN: DIETER ALBERTS MD, MA, FACP, FACC, FSCAI, CCDS ADMIT DATE: 07/16/18/[facility] Draft Date of Exam:07/16/18 US RIGHT LOW EXT [id number] EXAMINATION: Right lower extremity arterial Doppler. INDICATION: Post heart catheter leg pain. TECHNIQUE: Spectral and color flow imaging of the common femoral and superficial femoral arteries were obtained. FINDINGS: There are no prior studies available for comparison. There is a 2.3 x 1.7 x 1.9 cm pseudoaneurysm arising from the common femoral artery. The neck of the aneurysm measures approximately 5 MM. No other vascular abnormality is noted. There is good arterial blood flow in the common femoral and superficial femoral arteries. IMPRESSION: 1. There is a 2.3 x 1.7 x 1.9 cm pseudoaneurysm. 2. These results were conveyed to Dr. Alberts by our sonologist. Dictated on workstation # [id number] Dict: 07/16/18 1501 Trans: 07/16/18 1517 [id number] Interpreted by: GURPREET LYNNE MD Electronically signed by: A/P-Cardiology Assessment/Admission Diagnosis Right groin pseudoaneurysm post cardiac cath on 07-16-18. Treated successfully with u/s-guided compression No angiographically significant coronary artery disease. Normal global left ventricular systolic function with ejection fraction of 65%. Elevated left ventricular end diastolic pressure. Per cardiac cath of 07-16-18 Exertional shortness of breath Chest discomfort - does not appear cardiac in origin based on cardiac cath as noted above DM II Obesity with BMI 35.6 Chronic smoking - cessation advised Chronic headaches COPD Admission Status: Observation Discussion and Recomendations S/P cardiac cath with right groin pseudoaneurysm Admit for overnight observation Monitor groin on site services specialist lab Continue home medications Further recs will be based on her hospital course Physician Assessment Physician Assessment No cp or palp or syncope Lungs: fair to good bilat air entry, prolonged exp Cor: reg Ext: no c/c/e R groin bruising, mild Neuro: A&O x 3, moves all limbs equally A&P * As documented in our note above that I updated (italics) * We held u/s-guided pressure over the groin site for 35 min which was successful and repeat u/s does not show pseudoaneurysm * I discussed her cath findings with her and the reason for this hosp and measures undertaken for groin u/s * Continue observation overnight. Probably will d/c in am BARRY AMAYA [facility] Jul 16, 2018 14:47 DIETER ALBERTS MD [facility] Jul 16, 2018 17:53
--- NOTE | 2018-07-16 15:18 | Diagnostic Imaging Report ---
EXAMINATION: Right lower extremity arterial Doppler. INDICATION: Post heart catheter leg pain. TECHNIQUE: Spectral and color flow imaging of the common femoral and superficial femoral arteries were obtained. FINDINGS: There are no prior studies available for comparison. There is a 2.3 x 1.7 x 1.9 cm pseudoaneurysm arising from the common femoral artery. The neck of the aneurysm measures approximately 5 MM. No other vascular abnormality is noted. There is good arterial blood flow in the common femoral and superficial femoral arteries. IMPRESSION: 1. There is a 2.3 x 1.7 x 1.9 cm pseudoaneurysm. 2. These results were conveyed to Dr. Alberts by our sonologist. Dictated by: Dictated on workstation # [id number]
[2018-07-16] MEDS: oxyCODONE/APAP 5/325MG (PERCOCET 5) TABLET PO PRN ×2 (17:32→21:33)
[2018-07-16] MEDS ORDERED: MAVYRET PO SCH (18:00)
[2018-07-16] MEDS ORDERED: PRIMIDONE 250MG (MYSOLINE) TAB PO SCH (21:00)
[2018-07-16] MEDS ORDERED: traZODone 50 MG (DESYREL) TAB PO SCH (21:00)
[2018-07-16] MEDS ORDERED: INSULIN GLARGINE SQ SCH (21:00)
[2018-07-16] MEDS: RT-ALBUTEROL/IPRATROPIUM 3 ML (DUONEB) VIAL IH PRN (21:25)
[2018-07-16] MEDS: PROPRANOLOL 10 MG TABLET PO SCH (21:27)
[2018-07-17] VITALS: BP 119/59
[2018-07-17] MEDS: oxyCODONE/APAP 5/325MG (PERCOCET 5) TABLET PO PRN ×3 (03:45→13:10)
[2018-07-17 04:00] VITALS: BP 126/78
[2018-07-17 05:48] LABS: BASOPHILS % (AUTO) 0 % (0-10); EOSINOPHILS # (AUTO) 0.1 10^3/uL (0.0-0.3); EOSINOPHILS % (AUTO) 2 % (0-10); HEMATOCRIT 34 % (35-52); HEMOGLOBIN 10.8 G/DL (11.5-16.0); LYMPHOCYTES # (AUTO) 1.2 X 10^3 (1.0-4.0); LYMPHOCYTES % (AUTO) 24 % (12-44); MEAN CORPUSCULAR HEMOGLOBIN 29 PG (25-34); MEAN CORPUSCULAR HGB CONC 32 G/DL (32-36); MEAN CORPUSCULAR VOLUME 91 FL (80-99); MEAN PLATELET VOLUME 11.7 FL (7.4-10.4); MONOCYTES # (AUTO) 0.4 X 10^3 (0.0-1.0); MONOCYTES % (AUTO) 8 % (0-12); NEUTROPHILS # (AUTO) 3.2 X 10^3 (1.8-7.8); NEUTROPHILS % (AUTO) 66 % (42-75); PLATELET COUNT 57 10^3/uL (130-400); RED BLOOD COUNT 3.72 10^6/uL (4.35-5.85); RED CELL DISTRIBUTION WIDTH 14.9 % (10.0-14.5); WHITE BLOOD COUNT 4.8 10^3/uL (4.3-11.0)
[2018-07-17 06:07] LABS: ANISOCYTOSIS SLIGHT; BAND NEUTROPHILS 0 %; BASOPHILS % (MANUAL) 0 %; EOSINOPHILS % (MANUAL) 1 %; LYMPHOCYTES % (MANUAL) 24 %; MONOCYTES % (MANUAL) 8 %; NEUTROPHILS % (MANUAL) 67 %; POLYCHROMASIA SLIGHT; ROULEAUX SLIGHT
[2018-07-17 06:30] LABS: BUN/CREATININE RATIO 29; CALCIUM 8.3 MG/DL (8.5-10.1); CARBON DIOXIDE 30 MMOL/L (21-32); CHLORIDE 104 MMOL/L (98-107); CREATININE SERUM 0.78 MG/DL (0.60-1.30); GFR ESTIMATED > 60; GLUCOSE 102 MG/DL (70-105); SODIUM 141 MMOL/L (135-145)
[2018-07-17] MEDS: PROPRANOLOL 10 MG TABLET PO SCH (08:36)
[2018-07-17 08:50] VITALS: BP 165/70
[2018-07-17] MEDS ORDERED: lisINopril 10 MG (PRINIVIL) TABLET PO SCH (09:00)
[2018-07-17] MEDS ORDERED: PANTOPRAZOLE 40 MG (PROTONIX) TAB PO SCH (09:00)
[2018-07-17] MEDS: RT-ALBUTEROL/IPRATROPIUM 3 ML (DUONEB) VIAL IH PRN (11:34)
[2018-07-17 11:54] VITALS: BP 152/74
--- NOTE | 2018-07-17 13:09 | Progress Note-Cardiology ---
Cardiology SOAP Progress Note Subjective: No cp or palp or syncope or groin discomfort of leg discomfort Objective: I&O/Vital Signs 07/17/18 07/17/18 07/17/18 07/17/18 04:00 07:00 08:00 08:50 Temp 98.6 96.8 Pulse 69 71 72 Resp 18 18 B/P (MAP) 126/78 (94) 165/70 (101) Pulse Ox 96 99 O2 Delivery Nasal Cannula Nasal Cannula Nasal Cannula O2 Flow Rate 4.00 4.00 4.00 07/17/18 07/17/18 11:34 11:54 Temp 96.7 Pulse 69 Resp 18 B/P (MAP) 152/74 (100) Pulse Ox 91 93 O2 Delivery Room Air Room Air 07/17/18 00:00 Intake Total 1799 ml Output Total 400 ml Balance 1399 ml Weight (Pounds): 250 Weight (Ounces): 0.0 Weight (Calculated Kilograms): 113.746352 Condition: DP/PT pulses palpable Bruising: mild bruising Constitutional: AAO x 3, well-developed, well-nourished Respiratory: No accessory muscle use, No respiratory distress; lungs clear to auscultation (prolonged expiratory phase) Cardiovascular: regular rate-rhythm; No JVD; S1 and S2 Gastrointestional: audible bowel sounds Extremities: no lower extremity edema bilateral Neurologic/Psychiatric: oriented x 3, other (able to ambulate w/o difficulty), grossly intact, power is 5/5 both on sides Skin: No rash, No ulcerations Results/Procedures: Labs Laboratory Tests 07/16/18 17:16: Glucometer 219H 07/16/18 20:37: Glucometer 168H 07/17/18 05:13: Glucometer 116H 07/17/18 05:24: White Blood Count 4.8, Red Blood Count 3.72L, Hemoglobin 10.8L, Hematocrit 34L, Mean Corpuscular Volume 91, Mean Corpuscular Hemoglobin 29, Mean Corpuscular Hemoglobin Concent 32, Red Cell Distribution Width 14.9H, Platelet Count 57L, Mean Platelet Volume 11.7H, Neutrophils (%) (Auto) 66, Lymphocytes (%) (Auto) 24 , Monocytes (%) (Auto) 8, Eosinophils (%) (Auto) 2, Basophils (%) (Auto) 0, Neutrophils # (Auto) 3.2, Lymphocytes # (Auto) 1.2, Monocytes # (Auto) 0.4, Eosinophils # (Auto) 0.1, Basophils # (Auto) 0.0, Neutrophils % (Manual) 67, Lymphocytes % (Manual) 24, Monocytes % (Manual) 8, Eosinophils % (Manual) 1, Basophils % (Manual) 0, Band Neutrophils 0, Polychromasia SLIGHT, Anisocytosis SLIGHT, Rouleau SLIGHT, Sodium Level 141, Potassium Level 4.0, Chloride Level 104, Carbon Dioxide Level 30, Anion Gap 7, Blood Urea Nitrogen 23H, Creatinine 0.78, Estimat Glomerular Filtration Rate > 60, BUN/Creatinine Ratio 29, Glucose Level 102, Calcium Level 8.3L 07/17/18 11:05: Glucometer 191H A/P: Assessment: Right groin pseudoaneurysm post cardiac cath on 07-16-18. Treated successfully with u/s-guided compression on 07/16/18. Repeat groin u/so on 07/17/18 showed no pseudoaneurysm Exertional shortness of breath and chest discomfort, non-coronay (based on card cath of 07/16/18) Card cath of 07/16/18: No angiographically significant coronary artery disease. Normal global left ventricular systolic function with ejection fraction of 65%. Elevated left ventricular end diastolic pressure DM II Obesity with BMI 38 Chronic smoking - cessation advised Chronic headaches COPD H/o MICHOACANO (likely reason for elevated LVEDP) but has been noncompliant with therapy Plan: Feels well today Groin u/s does not show any pseudoaneurysm We again reviewed cath findings We have advised f/u with pcp for eval for non-card causes of her symptoms We have recommended risk factor mod We have advised repeat sleep eval and appropriate therapy for sleep apnea, if found She states she will comply with all of the above Meds same as prescribed after cath yesterday Outpt card f/u advised OTILIO KRAUS MD FACP [facility] CCDS Jul 17, 2018 13:09
--- NOTE | 2018-07-17 13:14 | Cardiology Discharge Summary ---
Diagnosis/Chief Complaint Date of Admission 07/16/18 Date of Discharge 07/17/18 Admission Diagnosis Final/Discharge Diagnosis Right groin pseudoaneurysm post cardiac cath on 07-16-18. Treated successfully with u/s-guided compression on 07/16/18. Repeat groin u/so on 07/17/18 showed no pseudoaneurysm Exertional shortness of breath and chest discomfort, non-coronay (based on card cath of 07/16/18) Card cath of 07/16/18: No angiographically significant coronary artery disease. Normal global left ventricular systolic function with ejection fraction of 65%. Elevated left ventricular end diastolic pressure DM II Obesity with BMI 38 Chronic smoking - cessation advised Chronic headaches COPD H/o MICHOACANO (likely reason for elevated LVEDP) but has been noncompliant with therapy Chief Complaint/HPI Chief Complaint/HPI Ms. Turpin is a 53 year old female who underwent cardiac cath to further evaluate c/o chest pain and progressive dyspnea. Cardiac cath carried out today did not show evidence of any angiographically significant CAD. She was sent to [facility] [place]. She began to report right leg discomfort/numbness. Right groin u/s carried out showed pseudoaneurysm. Manual pressure is currently being held at the groin site per brine room laborer staff. Therefore, she is being kept overnight for observation For hospital course and condition at discharge, please refer to my progress note of today's date Discharge Summary Hospital Course Pending Labs Laboratory Tests 07/17/18 05:13: Glucometer 116 07/17/18 05:24: White Blood Count 4.8, Red Blood Count 3.72, Hemoglobin 10.8, Hematocrit 34, Mean Corpuscular Volume 91, Mean Corpuscular Hemoglobin 29, Mean Corpuscular Hemoglobin Concent 32, Red Cell Distribution Width 14.9, Platelet Count 57, Mean Platelet Volume 11.7, Neutrophils (%) (Auto) 66, Lymphocytes (%) (Auto) 24 , Monocytes (%) (Auto) 8, Eosinophils (%) (Auto) 2, Basophils (%) (Auto) 0, Neutrophils # (Auto) 3.2, Lymphocytes # (Auto) 1.2, Monocytes # (Auto) 0.4, Eosinophils # (Auto) 0.1, Basophils # (Auto) 0.0, Neutrophils % (Manual) 67, Lymphocytes % (Manual) 24, Monocytes % (Manual) 8, Eosinophils % (Manual) 1, Basophils % (Manual) 0, Band Neutrophils 0, Polychromasia SLIGHT, Anisocytosis SLIGHT, Rouleau SLIGHT, Sodium Level 141, Potassium Level 4.0, Chloride Level 104, Carbon Dioxide Level 30, Anion Gap 7, Blood Urea Nitrogen 23, Creatinine 0.78, Estimat Glomerular Filtration Rate > 60, BUN/Creatinine Ratio 29, Glucose Level 102, Calcium Level 8.3 07/17/18 11:05: Glucometer 191 Discussion & Recommendations Home Medications Reviewed patient Home Medication Reconciliation performed by pharmacy medication reconciliations engine test cell technician and/or nursing. Patients Allergies have been reviewed. Discharge Home Medications: Reviewed and agree with Discharge Medication list on patient's Discharge Instruction sheet Instructions to patient/family F/u with Dr Alberts in 1-2 weeks OTILIO ALBERTS MD FACP [facility] CCDS Jul 17, 2018 13:14
--- NOTE | 2018-07-17 14:37 | Diagnostic Imaging Report ---
EXAMINATION: Ultrasound right lower extremity arterial. INDICATION: Pseudoaneurysm. FINDINGS: The recent right lower extremity arterial Doppler exam of 07/16/2018 noted a 2.8 x 1.7 x 1.9 cm pseudoaneurysm. On this exam, the pseudoaneurysm now appears to be thrombosed. There is no evidence for blood flow within the pseudoaneurysm. The pseudoaneurysm now measures 1.6 x 2.9 x 0.8 cm in size. There is good arterial blood flow in the common femoral artery. IMPRESSION: The pseudoaneurysm seen on the prior exam is now occluded. There is no acute vascular abnormality evident. Dictated by: Dictated on workstation # [id number]
== END 2018-07-17 13:45 | disposition home or self-care (01) ==
LOC: CATH 08:04 → SDC 10:46 → 4TH 15:00 → CATH 07-17 13:45
PROVIDERS: ATTEND Internal Medicine Cardiovascular Disease
DX: I97.89 Other postprocedural complications and disorders of the circulatory system, not elsewhere classified (principal); I72.4 Aneurysm of artery of lower extremity; R07.9 Chest pain, unspecified; R06.02 Shortness of breath; M79.89 Other specified soft tissue disorders; M79.605 Pain in left leg; M79.604 Pain in right leg; J44.9 Chronic obstructive pulmonary disease, unspecified; E11.9 Type 2 diabetes mellitus without complications; R09.02 Hypoxemia; G47.10 Hypersomnia, unspecified; Z79.4 Long term (current) use of insulin; F17.210 Nicotine dependence, cigarettes, uncomplicated; E66.9 Obesity, unspecified; R51 Headache; Z68.35 Body mass index [BMI] 35.0-35.9, adult; G47.33 Obstructive sleep apnea (adult) (pediatric); Z79.899 Other long term (current) drug therapy; Z79.82 Long term (current) use of aspirin
CPT/HCPCS: 36415; 80048; 80053; 80061; 82962; 85007; 85027; 85610; 85730; 87081; 93458; 93926; 94640; 94760

== ENCOUNTER 2019-03-27 14:53 | Emergency (ER) | payer MEDICARE, OTHER ==
[~2019-03-27] VITALS: Ht 172.7 cm; Wt 104.3 kg
[~2019-03-27 14:53] MED LIST changes: +ASPI-586 PO; +RT-ALBUINH IH; -TRAZ-189 PO; +TRAZ-222 PO
[2019-03-27] MEDS ORDERED: HYDROcodone/APAP 5 MG/325 MG (LORTAB) TAB PO ONE (15:15)
[2019-03-27] MEDS ORDERED: TETANUS,DIPTH,PERTUSS P/F (BOOSTRIX) 0.5 ML VIAL IM ONE (15:15)
--- NOTE | 2019-03-27 15:24 | ED Lower Extremity ---
General Chief Complaint: Trauma-Non Activation Stated Complaint: FALL; LT HAND LAC; LT LEG INJ Source: patient Exam Limitations: no limitations History of Present Illness Date Seen by Provider: Mar 27, 2019 Time Seen by Provider: 15:10 Initial Comments The patient is a very pleasant, obese, 53-year-old female who presents for evaluation after a fall. She states that she was at a [facility] home in [place] dropping off a friend and while there fell and injured herself. She states the [facility] offered to "check her out" but she declined. She then drove all the way back to [place] to her home but continued to have worsening pain so came to the emergency department. She moser a small skin tear to her left hand and is complai brenda of left hip pain, bilateral knee pain, and left foot pain. She did not hit her head or lose conscious and she is alert and oriented 4, calm, and appears to be in no distress. Onset: this morning Severity: moderate Pain/Injury Location: left hip; bilateral knee; left foot Method of Injury: fell Modifying Factors: Improves With Movement (The pain worse) Allergies and Home Medications Allergies Coded Allergies: Penicillins (Verified Allergy, Intermediate, weak, cant stand up and lose color., 06/16/18) SOB and weakness Home Medications Albuterol Sulfate 1 Puff Puff, 2 PUFF IH QID, (Reported) 1 PUFF = 90 MCG Albuterol/Ipratropium 4 Gm Aero, 2 PUFF IH QID PRN for SHORTNESS OF BREATH, (Reported) Aripiprazole 5 Mg Tablet, 5 MG PO DAILY, (Reported) Glecaprevir/Pibrentasvir 1 Each Tablet, 3 TAB PO 1800, (Reported) Hydrocodone/Acetaminophen 1 Each Tablet, 1 TAB PO Q4-6HR Prescribed by: RIKI PIRES on 03/27/19 1623 Insulin Glargine,Hum.rec.anlog 100 Unit/1 Ml Insuln.pen, 40 UNIT SQ HS, (Reported) Lisinopril 10 Mg Tablet, 10 MG PO DAILY, (Reported) Pantoprazole Sodium 40 Mg Tablet.dr, 40 MG PO DAILY, (Reported) Pregabalin 300 Mg Capsule, 300 MG PO BID, (Reported) Primidone 250 Mg Tablet, 250 MG PO HS, (Reported) Propranolol HCl 40 Mg Tablet, 40 MG PO BID, (Reported) Trazodone HCl 50 Mg Tablet, 50 MG PO HS, (Reported) Patient Home Medication List Home Medication List Reviewed: Yes Review of Systems Constitutional: no symptoms reported EENTM: no symptoms reported Respiratory: no symptoms reported Cardiovascular: no symptoms reported Gastrointestinal: no symptoms reported Genitourinary: no symptoms reported Musculoskeletal: joint pain (left hip, bilateral knees, left foot, right yee) Skin: no symptoms reported, other (minor skin tear to left hand) Psychiatric/Neurological: No Symptoms Reported All Other Systems Reviewed Negative Unless Noted: Yes Past Qfaxabe-Fazurr-Afgxqu Hx Past Med/Social Hx: Reviewed Nursing Past Med/Soc Hx Patient Social History Drug of Choice: THC Type Used: Cigarettes Recent Hopitalizations: No Immunizations Up To Date Date of Pneumonia Vaccine: Aug 06, 2016 Date of Influenza Vaccine: Jun 10, 2018 Seasonal Allergies Seasonal Allergies: No Past Medical History Surgeries: Yes (HERNIA REPAIR, L ANKLE, NECK, L FALLOPIAN TUBE AND OVARY, ) Respiratory: Yes (O2 AT NIGHT AND DURING DAY PRN) COPD Currently Using CPAP: No Currently Using BIPAP: No Cardiac: Yes Angina, Hypertension Neurological: No Genitourinary: No Gastrointestinal: Yes Hepatitis Musculoskeletal: No Endocrine: Yes Diabetes, Insulin dep HEENT: No Cancer: No Psychosocial: No Blood Disorders: No Family Medical History No Pertinent Family Hx Physical Exam Vital Signs Vital Signs - First Documented 03/27/19 14:55 Temp 98.1 Pulse 88 Resp 16 B/P (MAP) 136/83 (100) Pulse Ox 94 O2 Delivery Room Air Capillary Refill : Height, Weight, BMI Height: 5'8.00" Weight: 250lbs. 0.0oz. 113.729002ny; 36.5 BMI Method:Stated General Appearance: WD/WN HEENT: PERRL/EOMI Neck: non-tender, full range of motion, supple, normal inspection Cardiovascular: regular rate, rhythm, no edema, no JVD Respiratory: normal breath sounds, no respiratory distress Gastrointestinal: non tender, soft Back: normal inspection, no CVA tenderness, no vertebral tenderness Hips: left hip pain, left hip soft tissue tenderness Legs: bilateral leg abrasions, bilateral leg bone tenderness, bilateral leg soft tissue tenderness Knees: bilateral knee bone tenderness, bilateral knee soft tissue tenderness Ankles: bilateral ankle non-tender, bilateral ankle normal inspection, bilateral ankle normal range of motion Feet: left foot bone tenderness, left foot ecchymosis, left foot soft tissue tenderness, left foot swelling Neurologic/Psychiatric: iron setter II-XII nml as tested, no motor/sensory deficits, alert, normal mood/affect, oriented x 3 Skin: normal color, warm/dry, other (small superficial skin tear to left hand between 2nd and 3rd fingers, no repair required, tdap will be updated) Progress/Results/Core Measures Results/Orders My Orders Orders - RIKI PIRES DO Pelvis With Left Hip 2-3 View (03/27/19 15:15) Knee 3 View Bilateral (03/27/19 15:15) Foot 3 View Left (03/27/19 15:15) Tibia Fibula 2 View Right (03/27/19 15:15) Ice: Apply To Affected Area (03/27/19 15:15) Hydrocodone/Apap 5/325 Tablet (Lortab 5 (03/27/19 15:15) Dipht,Pertuss(Acell),Tet Adult (Boostrix (03/27/19 15:15) Post-Op Shoe (03/27/19 16:00) Medications Given in ED Current Medications Medications Dose Ordered Sig/Tim Route Start Time Stop Time Status Last Admin Dose Admin Acetaminophen/ Hydrocodone Bitart 1 tab ONCE ONCE PO 03/27/19 15:15 03/27/19 15:18 DC 03/27/19 15:24 1 TAB Diphtheria/ Tetanus/Acell Pertussis 0.5 ml ONCE ONCE IM 03/27/19 15:15 03/27/19 15:18 DC 03/27/19 15:25 0.5 ML Vital Signs/I&O 03/27/19 14:55 Temp 98.1 Pulse 88 Resp 16 B/P (MAP) 136/83 (100) Pulse Ox 94 O2 Delivery Room Air Progress Progress Note : Progress Note @1625 - patient updated on all imaging results which show an obliquely oriented fifth metatarsal fracture on the left but no other acute traumatic injuries. The patient will go home with a prescription for [place] and will be given orthopedic follow-up. She has been placed in an orthopedic boot. She is stable for discharge at this time. She expresses verbal understanding and agreement with the plan. Diagnostic Imaging Comments [facility]. [place], [place] NAME: MAK CORREA REC#: [id number] PT STATUS: REG ER : 1965 PHYSICIAN: RIKI PIRES DO ADMIT DATE: 03/27/19/ER FS Draft Date of Exam:03/27/19 FOOT 3 VIEW LEFT INDICATION: Fall. TIME OF EXAM: 03:18 p.m. FINDINGS: Three views of the left foot were obtained. There is an obliquely oriented, comminuted fracture of the mid shaft of the fifth metatarsal. There is some medial displacement of the distal fracture fragment. Remaining metatarsals are intact. Phalanges are unremarkable. Mid foot is unremarkable. There are postop changes at the ankle. IMPRESSION: Obliquely oriented fifth metatarsal fracture. Dictated on workstation # [id number] Dict: 03/27/19 1549 Trans: 03/27/19 1556 [id number] Interpreted by: EDITH BARONE MD Electronically signed by: Departure Impression Primary Impression: Fracture of fifth metatarsal bone of left foot Additional Impression: Multiple contusions Disposition: 01 HOME, SELF-CARE Condition: Stable Departure-Patient Inst. Referrals: SHAHLA SUAZO MD SELF,VELASQUEZ HUERTA (PCP/Family) Primary Care Physician Add. Discharge Instructions: Wear the orthopedic boot until cleared by orthopedics. Follow-up with orthopedics in the next 2-3 days. Return to the ER for new or worsening sympto ms. Take the prescribed medication as directed. Scripts Hydrocodone/Acetaminophen ([place] 5-325 Tablet) 1 Each Tablet 1 TAB PO Q4-6HR for Pain MDD 10 TABS for 7 Days, #20 TAB Prov: RIKI PIRES DO 03/27/19 RIKI PIRES DO Mar 27, 2019 15:24
--- NOTE | 2019-03-27 15:54 | Diagnostic Imaging Report ---
INDICATION: Fall. TIME OF EXAM: 03:16 p.m. FINDINGS: Two views of the right tibia and fibula were obtained. Alignment at the knee and ankle is normal. Tibia and fibula appear intact. No fractures are seen. IMPRESSION: No acute bony abnormality is detected. Dictated by: Dictated on workstation # [id number]
--- NOTE | 2019-03-27 15:57 | Diagnostic Imaging Report ---
INDICATION: Fall. TIME OF EXAM: 03:18 p.m. FINDINGS: Three views of the left foot were obtained. There is an obliquely oriented, comminuted fracture of the mid shaft of the fifth metatarsal. There is some medial displacement of the distal fracture fragment. Remaining metatarsals are intact. Phalanges are unremarkable. Mid foot is unremarkable. There are postop changes at the ankle. IMPRESSION: Obliquely oriented fifth metatarsal fracture. Dictated by: Dictated on workstation # [id number]
--- NOTE | 2019-03-27 15:59 | Diagnostic Imaging Report ---
INDICATION: Fall. TIME OF EXAM: 03:10 p.m. FINDINGS: AP view of the pelvis and two views of the left hip were obtained. Femoroacetabular alignment is normal bilaterally. Joint spaces are fairly well maintained. Left hip is intact. Femoral neck is intact. No fractures are seen. Rami are unremarkable. IMPRESSION: No acute bony abnormality is detected. Dictated by: Dictated on workstation # [id number]
--- NOTE | 2019-03-27 16:07 | Diagnostic Imaging Report ---
INDICATION: Fall. TIME OF EXAM: 3:14 p.m. EXAMINATION: Multiple views of bilateral knees were obtained. FINDINGS: Medial and lateral compartments are fairly well maintained, bilaterally. There is patellofemoral degenerative change, bilaterally. There is some spurring of the tibial spines, bilaterally. No fracture or dislocation is seen. No joint effusion is seen. IMPRESSION: Bilateral degenerative changes. No acute bony abnormality is detected. Dictated by: Dictated on workstation # [id number]
[2019-03-27] MEDS ORDERED: HYDR-4226 PO (16:23)
[2019-03-27 16:54] VITALS: BP 141/82
== END 2019-03-27 16:54 | disposition home or self-care (01) ==
LOC: EDUNIT# 14:53 → ER FS 14:55
DX: S92.352A Displaced fracture of fifth metatarsal bone, left foot, initial encounter for closed fracture (principal); S60.222A Contusion of left hand, initial encounter; S80.811A Abrasion, right lower leg, initial encounter; S80.812A Abrasion, left lower leg, initial encounter; I10 Essential (primary) hypertension; J44.9 Chronic obstructive pulmonary disease, unspecified; E11.9 Type 2 diabetes mellitus without complications; Z99.81 Dependence on supplemental oxygen; Z88.0 Allergy status to penicillin; Z23 Encounter for immunization; Z79.4 Long term (current) use of insulin; W19.XXXA Unspecified fall, initial encounter; Y92.199 Unspecified place in other specified residential institution as the place of occurrence of the external cause
CPT/HCPCS: 73502; 73590; 73630; 90715

== ENCOUNTER → 2019-04-08 | Outpatient (CLI) | payer MEDICARE, MEDICAID ==
[~2019-04-08] MED LIST changes: +HYDR-4226 PO
--- NOTE | 2019-04-08 12:47 | Diagnostic Imaging Report ---
INDICATION: Follow up fracture. COMPARISON: 03/27/2019. FINDINGS: Three radiographic views of the left foot were obtained and again show oblique oriented fracture involving the distal shaft of the fifth metatarsal. There is mild displacement of the distal fracture fragment, stable compared to prior exam. There is no appreciable bridging callus formation or other evidence to suggest significant interval healing. No new acute osseous abnormality is identified. Joint spaces are otherwise maintained. Postsurgical changes involving the included portions of the distal tibia and fibula are again noted. IMPRESSION: 1. Stable fracture of the fifth metatarsal showing no significant interval healing when compared to prior exam. Dictated by: Dictated on workstation # [id number]
== END ==
LOC: ORTHO 10:51
PROVIDERS: ATTEND Orthopaedic Surgery
DX: S92.352A Displaced fracture of fifth metatarsal bone, left foot, initial encounter for closed fracture (principal); W19.XXXA Unspecified fall, initial encounter; Y92.199 Unspecified place in other specified residential institution as the place of occurrence of the external cause
CPT/HCPCS: 73630; 99203

== ENCOUNTER → 2019-04-29 | Outpatient (CLI) | payer MEDICARE, MEDICAID ==
--- NOTE | 2019-04-29 15:28 | Diagnostic Imaging Report ---
INDICATION: Followup fifth metatarsal fracture. COMPARISON: 04/08/2019. FINDINGS: Three radiographic views of the left foot were obtained. Again identified is obliquely oriented nonacute fracture of the distal fifth metatarsal. There is mild medial dislocation of the distal fracture fragment. Fracture fragments, however, are stable in alignment. There may be some minimal callus formation within the fracture line. Otherwise, there is no significant interval healing. No new acute fracture or dislocation of the left foot is identified. Postsurgical changes of the distal tibia and fibula are noted. No unexpected radiopaque foreign bodies are seen. IMPRESSION: 1. Stable appearing nonacute fracture of the left fifth metatarsal as described above. Dictated by: Dictated on workstation # [id number]
== END ==
LOC: ORTHO 12:53
PROVIDERS: ATTEND Orthopaedic Surgery
DX: S92.352A Displaced fracture of fifth metatarsal bone, left foot, initial encounter for closed fracture (principal); W19.XXXA Unspecified fall, initial encounter; Y92.199 Unspecified place in other specified residential institution as the place of occurrence of the external cause
CPT/HCPCS: 73630

== ENCOUNTER → 2019-05-30 | Outpatient (CLI) | payer MEDICARE, MEDICAID ==
--- NOTE | 2019-05-30 10:55 | Diagnostic Imaging Report ---
EXAMINATION: Left foot. INDICATION: Fracture. Three views were obtained. FINDINGS: As noted on the prior exam of 04/29/2019 there is an oblique displaced fracture of the shaft of the fifth metatarsal. On this study the fracture fragments are unchanged in alignment. The distal fracture fragment is displaced medially by less than a quarter of the width of the metatarsal shaft. There is still approximately 2 mm of diastases between the main fracture fragments. There is still only little callus formation present. There does not appear to be any new accumulation of callus since the prior exam. No other fracture or acute bony abnormality is appreciated. The postsurgical and post traumatic changes involving the ankle joint seen previously are again evident and no different. IMPRESSION: 1. The displaced incompletely healed fracture of the fifth metatarsal seen previously is again evident and no different. There has been little, if any, new callus formation developed since the prior study. 2. There is no acute bony abnormality noted. Dictated by: Dictated on workstation # [id number]
== END ==
LOC: ORTHO 10:05
PROVIDERS: ATTEND Orthopaedic Surgery
DX: S92.352A Displaced fracture of fifth metatarsal bone, left foot, initial encounter for closed fracture (principal); W19.XXXA Unspecified fall, initial encounter; Y92.199 Unspecified place in other specified residential institution as the place of occurrence of the external cause
CPT/HCPCS: 73630

== ENCOUNTER → 2019-06-20 | Outpatient (CLI) | payer MEDICARE, MEDICAID ==
--- NOTE | 2019-06-20 12:43 | Diagnostic Imaging Report ---
INDICATION: 5th metatarsal fracture, follow-up. TIME OF EXAM: 10:32 a.m. COMPARISON: Correlation is made with prior study from 05/30/2019. FINDINGS: The obliquely oriented fracture through the mid to distal aspect of the fifth metatarsal is again noted. Overall alignment appears stable. Fracture line remains clearly visible with very slight distraction at the fracture site. No significant callus formation is seen at this time. The remaining metatarsals are intact. The phalanges are intact. Midfoot and hindfoot are unremarkable. Instrumentation within the ankle is noted. IMPRESSION: No significant change in the obliquely oriented fracture of the fifth metatarsal since study from 05/30/2019. The fracture line remains clearly visible. Dictated by: Dictated on workstation # [id number]
== END ==
LOC: ORTHO 09:57
PROVIDERS: ATTEND Orthopaedic Surgery
DX: S92.352D Displaced fracture of fifth metatarsal bone, left foot, subsequent encounter for fracture with routine healing (principal); X58.XXXD Exposure to other specified factors, subsequent encounter
CPT/HCPCS: 73630

== ENCOUNTER 2019-09-14 20:01 | Observation (INO) | payer MEDICARE, MEDICAID ==
[~2019-09-14] VITALS: Ht 172.7 cm; Wt 114.9 kg
[~2019-09-14 20:01] MED LIST changes: -TRAM50TA2; -TRAZ-222 PO; +TRM50T; +TRZ50T PO
[2019-09-14 20:20] LABS: BASOPHILS % (AUTO) 1 % (0-10); EOSINOPHILS # (AUTO) 0.2 10^3/uL (0.0-0.3); EOSINOPHILS % (AUTO) 4 % (0-10); HEMATOCRIT 38 % (35-52); LYMPHOCYTES # (AUTO) 1.2 X 10^3 (1.0-4.0); LYMPHOCYTES % (AUTO) 21 % (12-44); MEAN CORPUSCULAR HEMOGLOBIN 30 PG (25-34); MEAN CORPUSCULAR HGB CONC 32 G/DL (32-36); MEAN CORPUSCULAR VOLUME 93 FL (80-99); MEAN PLATELET VOLUME 12.4 FL (7.4-10.4); MONOCYTES # (AUTO) 0.5 X 10^3 (0.0-1.0); MONOCYTES % (AUTO) 8 % (0-12); NEUTROPHILS # (AUTO) 3.8 X 10^3 (1.8-7.8); NEUTROPHILS % (AUTO) 67 % (42-75); PLATELET COUNT 72 10^3/uL (130-400); WHITE BLOOD COUNT 5.7 10^3/uL (4.3-11.0)
--- NOTE | 2019-09-14 20:32 | ED Dyspnea ---
General Chief Complaint: Respiratory Problems Stated Complaint: COPD/SOB Nursing Triage Note: PT TO ROOM FS06 VIA EMS WITH C/O SOB STARTING TODAY. PT STATES SHE GETS SOB WHEN MOVING AROUND. Source of Information: Patient History of Present Illness Date Seen by Provider: Sep 14, 2019 Time Seen by Provider: 20:32 Initial Comments 54-year-old female presenting with increasing shortness of breath and need for her oxygen throughout the day. She states that she did not realize that she was out of her inhaler and nebulizer medication. She had not called Dr. Multani for her refills. She was having increased shortness of breath especially with minimal exertion. She was having trouble moving around even in her small apartment without getting out of breath. She had called EMS today because she couldn't get around without getting out of breath. She had been coughing up a little increased congestion. Allergies and Home Medications Allergies Coded Allergies: Penicillins (Verified Allergy, Intermediate, weak, cant stand up and lose color., 06/16/18) SOB and weakness Home Medications Albuterol Sulfate 1 Puff Puff, 2 PUFF IH QID, (Reported) 1 PUFF = 90 MCG Albuterol/Ipratropium 4 Gm Aero, 2 PUFF IH QID PRN for SHORTNESS OF BREATH, (Reported) Aripiprazole 5 Mg Tablet, 5 MG PO DAILY, (Reported) Glecaprevir/Pibrentasvir 1 Each Tablet, 3 TAB PO 1800, (Reported) Hydrocodone/Acetaminophen 1 Each Tablet, 1 TAB PO Q4-6HR Prescribed by: RIKI PIRES on 03/27/19 1623 Insulin Glargine,Hum.rec.anlog 100 Unit/1 Ml Insuln.pen, 40 UNIT SQ HS, (Reported) Lisinopril 10 Mg Tablet, 10 MG PO DAILY, (Reported) Pantoprazole Sodium 40 Mg Tablet.dr, 40 MG PO DAILY, (Reported) Pregabalin 300 Mg Capsule, 300 MG PO BID, (Reported) Primidone 250 Mg Tablet, 250 MG PO HS, (Reported) Propranolol HCl 40 Mg Tablet, 40 MG PO BID, (Reported) Trazodone HCl 50 Mg Tablet, 50 MG PO HS, (Reported) Patient Home Medication List Home Medication List Reviewed: Yes Review of Systems Review of Systems Constitutional: chills; No fever EENTM: no symptoms reported Respiratory: cough, dyspnea on exertion; No phlegm; short of breath; No stridor; wheezing Cardiovascular: No chest pain Gastrointestinal: No no symptoms reported Genitourinary: no symptoms reported Musculoskeletal: no symptoms reported Skin: no symptoms reported Psychiatric/Neurological: No Symptoms Reported Past Nfjensb-Jsnlmy-Ktlbby Hx Past Med/Social Hx: Reviewed Nursing Past Med/Soc Hx Patient Social History Alcohol Use: Denies Use Recreational Drug Use: No Drug of Choice: THC Smoking Status: Current Everyday Smoker Type Used: Cigarettes 2nd Hand Smoke Exposure: Yes Recent Foreign Travel: No Contact w/Someone Who Travel: No Recent Infectious Disease Expo: No Recent Hopitalizations: No Physical Abuse: No Sexual Abuse: No Mistreated: No Fear: No Immunizations Up To Date Date of Pneumonia Vaccine: Aug 06, 2016 Date of Influenza Vaccine: Jun 10, 2018 Seasonal Allergies Seasonal Allergies: No Past Medical History Surgeries: Yes (HERNIA REPAIR, L ANKLE, NECK, L FALLOPIAN TUBE AND OVARY, ) Respiratory: Yes (O2 AT NIGHT AND DURING DAY PRN) COPD Currently Using CPAP: No Currently Using BIPAP: No Cardiac: Yes Angina, Hypertension Neurological: No Genitourinary: No Gastrointestinal: Yes Hepatitis Musculoskeletal: No Endocrine: Yes Diabetes, Insulin dep HEENT: No Cancer: No Psychosocial: No Integumentary: No Blood Disorders: No Family Medical History No Pertinent Family Hx Physical Exam Vital Signs Vital Signs - First Documented 09/14/19 09/14/19 20:05 20:08 Temp 36.6 Pulse 74 Resp 16 B/P (MAP) 139/74 (95) Pulse Ox 98 O2 Delivery Nasal Cannula O2 Flow Rate 3.00 Capillary Refill : Less Than 3 Seconds Height, Weight, BMI Height: 5'8.00" Weight: 230lbs. 0.0oz. 104.212663to; 35.00 BMI Method:Stated General Appearance: Moderate Distress (increased work of breathing), Obese HEENT: PERRL/EOMI, Pharynx Normal Neck: Full Range of Motion, Non Tender, Supple Respiratory: Chest Non Tender, Accessory Muscle Use, Decreased Breath Sounds, Rhonci; No Stridor; Wheezing Cardiovascular: Regular Rate, Rhythm, No Edema, Normal Peripheral Pulses Gastrointestinal: Normal Bowel Sounds, No Pulsatile Mass, Non Tender, Soft Extremity: Normal Capillary Refill, Non Tender, No Pedal Edema Neurologic/Psychiatric: Alert, Oriented x3, No Motor/Sensory Deficits Skin: Normal Color, Warm/Dry Progress/Results/Core Measures Results/Orders Lab Results Laboratory Tests Test 09/14/19 20:10 09/14/19 22:15 Range/Units White Blood Count 5.7 4.3-11.0 10^3/uL Red Blood Count 4.03 L 4.35-5.85 10^6/uL Hemoglobin 12.0 11.5-16.0 G/DL Hematocrit 38 35-52 % Mean Corpuscular Volume 93 80-99 FL Mean Corpuscular Hemoglobin 30 25-34 PG Mean Corpuscular Hemoglobin Concent 32 32-36 G/DL Red Cell Distribution Width 14.0 10.0-14.5 % Platelet Count 72 L 130-400 10^3/uL Mean Platelet Volume 12.4 H 7.4-10.4 FL Neutrophils (%) (Auto) 67 42-75 % Lymphocytes (%) (Auto) 21 12-44 % Monocytes (%) (Auto) 8 0-12 % Eosinophils (%) (Auto) 4 0-10 % Basophils (%) (Auto) 1 0-10 % Neutrophils # (Auto) 3.8 1.8-7.8 X 10^3 Lymphocytes # (Auto) 1.2 1.0-4.0 X 10^3 Monocytes # (Auto) 0.5 0.0-1.0 X 10^3 Eosinophils # (Auto) 0.2 0.0-0.3 10^3/uL Basophils # (Auto) 0.0 0.0-0.1 10^3/uL Sodium Level 143 135-145 MMOL/L Potassium Level 4.5 3.6-5.0 MMOL/L Chloride Level 102 98-107 MMOL/L Carbon Dioxide Level 31 21-32 MMOL/L Anion Gap 10 5-14 MMOL/L Blood Urea Nitrogen 31 H 7-18 MG/DL Creatinine 0.83 0.60-1.30 MG/DL Estimat Glomerular Filtration Rate > 60 BUN/Creatinine Ratio 37 Glucose Level 162 H 70-105 MG/DL Calcium Level 9.0 8.5-10.1 MG/DL Corrected Calcium 9.2 8.5-10.1 MG/DL Magnesium Level 2.0 1.6-2.4 MG/DL Total Bilirubin 0.2 0.1-1.0 MG/DL Aspartate Amino Transf (AST/SGOT) 11 5-34 U/L Alanine Aminotransferase (ALT/SGPT) 9 0-55 U/L Alkaline Phosphatase 79 40-136 U/L Troponin I < 0.30 <0.30 NG/ML Pro-B-Type Natriuretic Peptide 332.2 H <75.0 PG/ML Total Protein 7.1 6.4-8.2 GM/DL Albumin 3.7 3.2-4.5 GM/DL Blood Gas Puncture Site LEFT RADIAL Blood Gas Patient Temperature 36.4 Arterial Blood pH 7.39 7.37-7.43 Arterial Blood Partial Pressure CO2 58 H 35-45 MMHG Arterial Blood Partial Pressure O2 52 L 79-93 MMHG Arterial Blood HCO3 35 H 23-27 MMOL/L Arterial Blood Total CO2 36.9 H 21.0-31.0 MMOL/L Arterial Blood Oxygen Saturation 86 L 94-100 % Arterial Blood Base Excess 8.3 H -2.5-2.5 MMOL/L Shun Test NEGATIVE Blood Gas Ventilator Setting NO Blood Gas Inspired Oxygen 3 My Orders Orders - MANUEL DUNAWAY MD Cbc With Automated Diff (09/14/19 20:16) Comprehensive Metabolic Panel (09/14/19 20:16) Chest 1 View Ap/Pa Only (09/14/19 20:16) Magnesium (09/14/19 20:16) Ekg Tracing (09/14/19 20:16) O2 (09/14/19 20:16) Ed Iv/Invasive Line Start (09/14/19 20:16) Sputum Culture (09/14/19 20:16) Monitor-Rhythm Ecg Trace Only (09/14/19 20:16) Troponin I Fs (09/14/19 20:16) Probnp Fs (09/14/19 20:16) Albuterol/Ipra Inhalation Soln (Duoneb I (09/14/19 21:17) Svn Small Volume Nebulizer (09/14/19 21:17) Arterial Blood Gas (09/14/19 21:43) Vital Signs/I&O 09/14/19 09/14/19 20:05 20:08 Temp 36.6 Pulse 74 Resp 16 B/P (MAP) 139/74 (95) Pulse Ox 98 98 O2 Delivery Nasal Cannula Nasal Cannula O2 Flow Rate 3.00 3.00 Blood Pressure Mean: 95 Progress Progress Note #1: Progress Note check labs with CXR, ECG and cardiac markers. Progress Note #2: Time: 21:12 Progress Note No acute infiltrate on chest x-ray and no acute changes on her EKG. Her labs appear stable and no signs of cardiac involvement. Her exam shows increased wheezing and shortness of breath with increased work of breathing. She states that she normally has not had on this much oxygen to help with her breathing. With minimal exertion she is getting winded even on exam. She states that she is out of her respiratory medications and did not realize that in time to call for refills before the weekend. She has some chills but no fever. Progress Note #3: Time: 21:22 Progress Note d/w Dr. Griffin for [facility] about admit for COPD exacerbation since she is out of medicine and winded with even minimal exertion and movement. Initial ECG Impression Date: Sep 14, 2019 Initial ECG Impression Time: 20:08 Initial ECG Rate: 71 Initial ECG Rhythm: Normal Sinus Initial ECG Comparisson: No Previous ECG Available Comment Sinus rhythm with a heart rate of 71 beats for minute. There is a short [place] interval of 54 ms. There is no acute ST elevation. QT interval 390 ms and a QTc interval 424 ms. There is no prior tracing available for comparison. Diagnostic Imaging Diagonstic Imaging: Xray Plain Films/CT/US/NM/MRI: chest Comments NAME: MAK CORREA [facility] REC#: [id number] PT STATUS: REG ER : 1965 PHYSICIAN: MANUEL DUNAWAY MD ADMIT DATE: 09/14/19/ER FS Draft Date of Exam:09/14/19 CHEST 1 VIEW AP/PA ONLY INDICATION: Fall. EXAMINATION: AP upright portable view of the chest was obtained. COMPARISON: Study of 06/16/2018. FINDINGS: Heart size and pulmonary vascularity are within normal limits, and the lungs are clear, bilaterally. IMPRESSION: Unremarkable chest. Dictated on workstation # [id number] Dict: 09/14/192043 Trans: 09/14/192045 [facility] [id number] Interpreted by: BAILEY CABRERA MD Electronically signed by: Departure Communication (Admissions) Time/Spoke to Admitting Phy: 21:22 d/w Dr. Griffin for [facility] and she requested ABG on patient and to do solumedrol 90 mg IV q 6 h with sliding scale insulin. Lovenox 40 mg SC q day. SCDs. Consult Dr. Hayden with pulmonary. RT MAT protocol Impression Primary Impression: COPD with exacerbation Additional Impression: Dyspnea on exertion Disposition: ADMITTED INPATIENT Condition: Stable Admissions Decision to Admit Reason: Admit from ER (General) Decision to Admit/Date: Sep 14, 2019 Time/Decision to Admit Time: 21:22 Departure-Patient Inst. Referrals: VELASQUEZ MULTANI MD (PCP/Family) Primary Care Physician MANUEL DUNAWAY MD Sep 14, 2019 20:32
[2019-09-14 20:43] LABS: ALANINE AMINOTRANSFERASE 9 U/L (0-55); ALBUMIN 3.7 GM/DL (3.2-4.5); ALKALINE PHOSPHATASE 79 U/L (40-136); BILIRUBIN,TOTAL 0.2 MG/DL (0.1-1.0); BUN/CREATININE RATIO 37; CARBON DIOXIDE 31 MMOL/L (21-32); CHLORIDE 102 MMOL/L (98-107); CREATININE SERUM 0.83 MG/DL (0.60-1.30); GFR ESTIMATED > 60; GLUCOSE 162 MG/DL (70-105); POTASSIUM 4.5 MMOL/L (3.6-5.0); SODIUM 143 MMOL/L (135-145); TOTAL PROTEIN 7.1 GM/DL (6.4-8.2)
--- NOTE | 2019-09-14 20:46 | Diagnostic Imaging Report ---
INDICATION: Fall. EXAMINATION: AP upright portable view of the chest was obtained. COMPARISON: Study of 06/16/2018. FINDINGS: Heart size and pulmonary vascularity are within normal limits and the lungs are clear, bilaterally. IMPRESSION: Unremarkable chest. Dictated by: Dictated on workstation # [id number]
[2019-09-14] MEDS ORDERED: RT-ALBUTEROL/IPRATROPIUM 3 ML (DUONEB) VIAL INH STA (21:17)
[2019-09-14 22:22] LABS: ABG BASE EXCESS 8.3 MMOL/L (-2.5-2.5); ABG OXYGEN SATURATION 86 % (94-100); ABG PCO2 58 MMHG (35-45); ABG PH 7.39 (7.37-7.43); ABG PO2 52 MMHG (79-93); ABG TCO2 36.9 MMOL/L (21.0-31.0); INSPIRED O2 3; PATIENT TEMP 36.4; VENTILATOR NO
[2019-09-14 22:28] LABS: ALLENS TEST NEGATIVE
--- NOTE | 2019-09-14 23:00 | NUR ---
MAK CORREA admitted to room 402-1, with an admitting diagnosis of PNEUMONIA, on 09/14/19 from ED via EMS/[facility], accompanied by EMS STAFF.MAK CORREA introduced to surroundings, call light, bed controls, phone, TV, temperature control, lights, meal times, smoking policy, visitor policy, side rail policy, bathrooms and showers. Patient Rights given to patient in the handbook. SUNNYMAK Hay verbalizes understanding that [facility] is not responsible for the loss or damage to any personal effects or valuables that are kept in the patients posession during their hospitalization.
[2019-09-14] MEDS ORDERED: NS IV 1000 ML 1,000 ML IV SCH (23:30)
[2019-09-14] MEDS ORDERED: ENOXAPARIN 40 MG/0.4 ML (LOVENOX) SYR SC SCH (23:30)
[2019-09-14] MEDS ORDERED: HYDROcodone/APAP 5 MG/325 MG (LORTAB) TAB PO PRN (23:45)
[2019-09-14] MEDS ORDERED: HYDROcodone/APAP 5 MG/325 MG (LORTAB) TAB ONE (23:48)
[2019-09-14 23:58] VITALS: BP 130/66
[2019-09-15] MEDS: methylPREDNISolone 125 MG (Solu-MEDROL) VIAL IVP SCH ×3 (00:20→11:50)
[2019-09-15 04:00] VITALS: BP 120/62
[2019-09-15 04:22] VITALS: BP 130/66
[2019-09-15] MEDS ORDERED: RT-ALBUTEROL/IPRATROPIUM 3 ML (DUONEB) VIAL INH PRN (04:30)
[2019-09-15 05:16] LABS: BASOPHILS % (AUTO) 0 % (0-10); EOSINOPHILS # (AUTO) 0.1 10^3/uL (0.0-0.3); EOSINOPHILS % (AUTO) 1 % (0-10); HEMATOCRIT 40 % (35-52); HEMOGLOBIN 12.4 G/DL (11.5-16.0); LYMPHOCYTES # (AUTO) 0.8 X 10^3 (1.0-4.0); LYMPHOCYTES % (AUTO) 14 % (12-44); MEAN CORPUSCULAR HEMOGLOBIN 29 PG (25-34); MEAN CORPUSCULAR HGB CONC 31 G/DL (32-36); MEAN CORPUSCULAR VOLUME 93 FL (80-99); MEAN PLATELET VOLUME 12.3 FL (7.4-10.4); MONOCYTES # (AUTO) 0.1 X 10^3 (0.0-1.0); MONOCYTES % (AUTO) 3 % (0-12); NEUTROPHILS # (AUTO) 4.6 X 10^3 (1.8-7.8); NEUTROPHILS % (AUTO) 83 % (42-75); PLATELET COUNT 60 10^3/uL (130-400); RED CELL DISTRIBUTION WIDTH 14.3 % (10.0-14.5); WHITE BLOOD COUNT 5.6 10^3/uL (4.3-11.0)
[2019-09-15 05:31] LABS: ALANINE AMINOTRANSFERASE 12 U/L (0-55); ALBUMIN 3.6 GM/DL (3.2-4.5); ALKALINE PHOSPHATASE 73 U/L (40-136); BILIRUBIN,TOTAL 0.3 MG/DL (0.1-1.0); BUN/CREATININE RATIO 33; CALCIUM 8.8 MG/DL (8.5-10.1); CARBON DIOXIDE 25 MMOL/L (21-32); CHLORIDE 105 MMOL/L (98-107); GFR ESTIMATED > 60; GLUCOSE 227 MG/DL (70-105); POTASSIUM 5.2 MMOL/L (3.6-5.0); SODIUM 139 MMOL/L (135-145); TOTAL PROTEIN 7.1 GM/DL (6.4-8.2)
[2019-09-15] MEDS: RT-ALBUTEROL/IPRATROPIUM 3 ML (DUONEB) VIAL INH SCH ×2 (06:42→10:07)
[2019-09-15 07:17] VITALS: BP 118/75
[2019-09-15] MEDS ORDERED: LISI1TAB25 PO (08:10)
[2019-09-15] MEDS ORDERED: PREG300C19 PO (08:10)
[2019-09-15] MEDS ORDERED: IBUP-2185 PO (08:11)
[2019-09-15] MEDS ORDERED: VENL75CA93 PO (08:20)
[2019-09-15] MEDS ORDERED: VENL150C98 PO (08:20)
[2019-09-15] MEDS: inSUlin ASPART (NovoLOG) 1 UNIT/0.01 ML (CHARGE PER UNIT) SC SCH ×2 (08:28→12:15)
[2019-09-15] MEDS ORDERED: HYDROcodone/APAP 5 MG/325 MG (LORTAB) TAB PO PRN (08:30)
--- NOTE | 2019-09-15 08:53 | NUR ---
SPOKE WITH THE PT WELL GOING THRU THE EXT MED HISTORY AND CALLED [facility] TO COMPLETE [facility] MED REC. VENLAFAXINE 150MG AND 75MG ARE ON THE EXT MED HISTORY AND WAS PICKED UP ON 09-08-2019, HOWEVER THE PT IS NOT TAKING THIS. SHE WAS ORIGINALLY PRESCRIBED A 225 MG TAB BUT IT WAS NOT COVERED SO IT WAS SWITCHED TO 150 AND 75. THE PT DOES NOT WANT TO TAKE THIS BC "IT IS NOT WHAT THE DR PRESCRIBED" DUE TO THAT I LEFT IT OFF THE MED REC. OTC MEDS: IBUPROFEN
[2019-09-15] MEDS ORDERED: ALPRAZolam 0.5 MG (XANAX) TAB PO PRN (10:45)
--- NOTE | 2019-09-15 10:57 | NUR ---
HOME 02 QUALIFICATION DONE. 02 AT 3LPM REPLACED AFTER SP02 DROPPED TO 87% AFTER 15MINUTES .PT WILL NEED O2 AT ALL TIMES. Addendum: 09/15/19 at 1057 by CHRISTY CASAREZ RT Amended: Links added.
[2019-09-15] MEDS ORDERED: PRED10TA22 PO (11:40)
--- NOTE | 2019-09-15 11:41 | Short Stay Summary-Hospitalist ---
History of Present Illness HPI/Chief Complaint CC: SOB HPI: This is a 54yoWF who was admitted for exacerbation of COPD from [facility], she continues to smoke and she is supposed to use CPAP but since she lot a little bit of weight she was able to DC it but still wears O2 at night. She feels a lot better and wants to go home to smoke although I counseled on mary pitts. She did meat criteria for 3 liters of O2 26/02 and those orders were given and I did initiate Prednisone taper dose. Source: patient Exam Limitations: no limitations Date Seen 09/15/19 Time Seen by a Provider: 09:30 Attending Physician Pricila Griffin DO PCP Self,Stephon HUERTA Referring Physician Date of Admission Sep 14, 2019 at 22:19 Home Medications & Allergies Home Medications Reviewed patient Home Medication Reconciliation performed by pharmacy medication reconciliations office equipment technician and/or nursing. Patients Allergies have been reviewed. Allergies Allergies Coded Allergies Penicillins (Verified Allergy, Intermediate, weak, cant stand up and lose color., 06/16/18) SOB and weakness Past Cojvzrw-Vcuwao-Sjmkkd Hx Past Med/Social Hx: Reviewed Nursing Past Med/Soc Hx, Reviewed and Corrections made Patient Social History Marrital Status: single Employed/Student: unemployed Alcohol Use: Denies Use Recreational Drug Use: No Drug of Choice: THC Smoking Status: Current Everyday Smoker Type Used: Cigarettes 2nd Hand Smoke Exposure: Yes Recent Foreign Travel: No Contact w/other who traveled: No Recent Hopitalizations: No Recent Infectious Disease Expo: No Immunizations Up To Date Date of Pneumonia Vaccine: Sep 06, 2014 Date of Influenza Vaccine: Jun 06, 2019 Seasonal Allergies Seasonal Allergies: No Past Medical History Respiratory: COPD Currently Using CPAP: No Currently Using BIPAP: No Cardiac: Angina, Hypertension Gastrointestinal: Hepatitis Endocrine: Diabetes, Insulin dep History of Blood Disorders: No Family History No Pertinent Family Hx Review of Systems Constitutional: see HPI Respiratory: cough, short of breath Physical Exam Physical Exam Vital Signs Vital Signs - First Documented 09/14/19 09/14/19 09/15/19 20:05 20:08 04:22 Temp 36.6 Pulse 74 Resp 16 B/P (MAP) 139/74 (95) Pulse Ox 98 O2 Delivery Nasal Cannula O2 Flow Rate 3.00 FiO2 32 Capillary Refill : Less Than 3 Seconds Height, Weight, BMI Height: 5'8.00" Weight: 230lbs. 0.0oz. 104.624562lx; 38.52 BMI Method:Stated General Appearance: Moderate Distress (increased work of breathing), Obese Eyes: Bilateral Eye Normal Inspection, Bilateral Eye PERRL HEENT: PERRL/EOMI, Pharynx Normal Neck: Full Range of Motion, Non Tender, Supple Respiratory: Chest Non Tender, Accessory Muscle Use, Decreased Breath Sounds, Rhonci; No Stridor; Wheezing Cardiovascular: Regular Rate, Rhythm, No Edema, Normal Peripheral Pulses Gastrointestinal: Normal Bowel Sounds, No Pulsatile Mass, Non Tender, Soft Back: Normal Inspection, No CVA Tenderness, No Vertebral Tenderness Extremity: Normal Capillary Refill, Non Tender, No Pedal Edema Neurologic/Psychiatric: Alert, Oriented x3, No Motor/Sensory Deficits Skin: Normal Color, Warm/Dry Lymphatic: No Adenopathy Results Results/Procedures Labs Laboratory Tests 09/14/19 20:10 09/15/19 04:25 Patient resulted labs reviewed. Short Stay Diagnosis Discharge Diagnosis-Short Stay Admission Diagnosis Assessment: AECOPD Smoker MICHOACANO noncompliant with CPAP Final Discharge Diagnosis Assessment: AECOPD Smoker MICHOACANO noncompliant with CPAP Conclusion Plan DC home Prednisone O2 3L/min Diagnosis/Problems Diagnosis/Problems (1) COPD with exacerbation Status: Acute Clinical Quality Measures DVT/VTE Risk/Contraindication: Risk Factor Score Per Nursin RFS Level Per Nursing on Admit: 4+=Very High PRICILA GRIFFIN DO Sep 15, 2019 11:41
[2019-09-15 12:07] VITALS: BP 141/83
[2019-09-15 13:40] VITALS: BP 118/75
--- NOTE | 2019-09-15 17:20 | NUR ---
CM/SS visited with the patient for discharge planning. Plan: The patient would be returning back to her apartment per taxi voucher. CORNEL/SS called [employer] to set up transportation. A copy was kept and signed with efren. The patient stated that she did not have any one available to pick her up and take her home. CM/SS asked about the friend listed on the face sheet and the patient reported that she had moved to [place]. CM/SS asked about neighbors or any other available options an she stated all her neighbors cannot drive. The patient lives at a low income housing complex and states she is the youngest one there. CORNEL/SS tried setting up a ride with her Medicaid but the company stated her Medicaid was inactive. She only had $ 10 which would not suffice for transportation. No other needs at this time.
== END 2019-09-15 13:40 | disposition home or self-care (01) ==
LOC: EDUNIT# 20:01 → ER FS 20:07 → 4TH 22:19
PROVIDERS: ADMIT Internal Medicine; ATTEND Internal Medicine
DX: J44.1 Chronic obstructive pulmonary disease with (acute) exacerbation (principal); F17.210 Nicotine dependence, cigarettes, uncomplicated; I10 Essential (primary) hypertension; E11.9 Type 2 diabetes mellitus without complications; I20.9 Angina pectoris, unspecified; G47.33 Obstructive sleep apnea (adult) (pediatric); Z79.4 Long term (current) use of insulin; Z91.19 Patient's noncompliance with other medical treatment and regimen; Z79.899 Other long term (current) drug therapy; Z99.81 Dependence on supplemental oxygen; Z86.19 Personal history of other infectious and parasitic diseases; Z88.0 Allergy status to penicillin
CPT/HCPCS: 36415; 71045; 80053; 82805; 82962; 83735; 83880; 84484; 85025; 87070; 87205; 93005; 93041; 94640; 94761

== ENCOUNTER 2019-11-12 08:11 | Emergency (ER) | payer MEDICARE, MEDICAID ==
[~2019-11-12] VITALS: Ht 165 cm; Wt 106.0 kg
[~2019-11-12 08:11] MED LIST changes: +IBUP-2185 PO; +LISI1TAB25 PO; +PRED10TA22 PO; +PREG300C19 PO; +VENL150C98 PO; +VENL75CA93 PO
--- NOTE | 2019-11-12 08:31 | ED General ---
General Stated Complaint: FALL, WEAKNESS, SOB Source of Information: Patient, EMS Exam Limitations: No Limitations History of Present Illness Date Seen by Provider: Nov 12, 2019 Time Seen by Provider: 08:20 Initial Comments Presents via EMS where she called this morning for a lift assist as she was in bed and couldn't get up to use the restroom. On arrival patient in no distress but does complain of some shortness of air, history of COPD. No recent fever or illness. States that she has fallen a few times on last few days and does have some bruising to the left chest and abdomen. Denies any joint pain. Denies any localized weakness, but is generally weak this is not abnormal. Normally on oxygen 3 L at night and not during the day. Allergies and Home Medications Allergies Coded Allergies: Penicillins (Verified Allergy, Intermediate, weak, cant stand up and lose color., 06/16/18) SOB and weakness Home Medications Albuterol/Ipratropium 4 Gm Aero, 2 PUFF IH QID PRN for SHORTNESS OF BREATH, (Reported) Ibuprofen 200 Mg Capsule, 400-600 MG PO Q8H PRN for PAIN-MILD (1-4), (Reported) Insulin Glargine,Hum.rec.anlog 100 Unit/1 Ml Insuln.pen, 40 UNIT SQ HS, (Reported) Lisinopril/Hydrochlorothiazide 1 Each Tablet, 1 EA PO DAILY, (Reported) Prednisone 10 Mg Tab.ds.pk, 10 MG PO DAILY Take 6 tabs(60mg)daily,decrease by 1 tab(10MG)daily. Prescribed by: TERESA RAE on 09/15/19 1140 Pregabalin 300 Mg Capsule, 600 MG PO DAILY, (Reported) TAKES 2 (300MG) TO EQUAL 600MG DAILY Patient Home Medication List Home Medication List Reviewed: Yes Review of Systems Review of Systems Constitutional: see HPI; No chills, No diaphoresis, No fever, No malaise; weakness (not new) EENTM: no symptoms reported Respiratory: short of breath (intermittent (not acute)); No stridor, No wheezing Cardiovascular: No chest pain, No edema, No palpitations Gastrointestinal: No abdominal pain, No diarrhea, No loss of appetite, No nausea, No vomiting Musculoskeletal: No back pain, No joint pain Skin: No lesions, No lumps, No rash; other (bruising left chest and abdomen) Past Buufzvx-Egpyba-Kmlusl Hx Past Med/Social Hx: Reviewed Nursing Past Med/Soc Hx Patient Social History Alcohol Use: Regular Use Drug of Choice: THC Smoking Status: Current Everyday Smoker Type Used: Cigarettes 2nd Hand Smoke Exposure: Yes Recent Foreign Travel: Yes Recent Hopitalizations: No Immunizations Up To Date Date of Pneumonia Vaccine: Sep 06, 2014 Date of Influenza Vaccine: Jun 06, 2019 Seasonal Allergies Seasonal Allergies: No Past Medical History Surgeries: Yes (HERNIA REPAIR, L ANKLE, NECK, L FALLOPIAN TUBE AND OVARY, ) Respiratory: Yes (O2 AT NIGHT AND DURING DAY PRN) COPD Currently Using CPAP: No Currently Using BIPAP: No Cardiac: Yes Angina, Hypertension Neurological: No Genitourinary: No Gastrointestinal: Yes Hepatitis Musculoskeletal: No Endocrine: Yes Diabetes, Insulin dep HEENT: No Cancer: No Psychosocial: No Integumentary: No Blood Disorders: No Family Medical History No Pertinent Family Hx Physical Exam Vital Signs Vital Signs - First Documented 11/12/19 08:26 Temp 36.3 Pulse 72 Resp 18 B/P (MAP) 138/96 (110) Pulse Ox 98 O2 Delivery Nasal Cannula Capillary Refill : Height, Weight, BMI Height: 5'8.00" Weight: 230lbs. 0.0oz. 104.386665hn; 38.52 BMI Method:Stated General Appearance: No Apparent Distress, Chronically ill, Obese HEENT: PERRL/EOMI, Normal ENT Inspection Neck: Non Tender, Supple Respiratory: Lungs Clear, Normal Breath Sounds, No Accessory Muscle Use, No Respiratory Distress Cardiovascular: Regular Rate, Rhythm, No JVD, Normal Peripheral Pulses Gastrointestinal: Non Tender, Soft Back: Normal Inspection, No CVA Tenderness, No Vertebral Tenderness Extremity: Normal Capillary Refill, Normal Inspection Neurologic/Psychiatric: Alert, Oriented x3, No Motor/Sensory Deficits Skin: Normal Color, Warm/Dry Progress/Results/Core Measures Suspected Sepsis SIRS Temperature: Pulse: Respiratory Rate: Laboratory Tests 11/12/19 08:26: White Blood Count 8.6 Blood Pressure / Mean: Laboratory Tests 11/12/19 08:26: Creatinine 0.71, Platelet Count 81L, Total Bilirubin 0.3 Results/Orders Lab Results Laboratory Tests Test 11/12/19 08:26 Range/Units White Blood Count 8.6 4.3-11.0 10^3/uL Red Blood Count 4.52 4.35-5.85 10^6/uL Hemoglobin 13.3 11.5-16.0 G/DL Hematocrit 42 35-52 % Mean Corpuscular Volume 94 80-99 FL Mean Corpuscular Hemoglobin 29 25-34 PG Mean Corpuscular Hemoglobin Concent 31 L 32-36 G/DL Red Cell Distribution Width 14.1 10.0-14.5 % Platelet Count 81 L 130-400 10^3/uL Mean Platelet Volume 12.5 H 7.4-10.4 FL Neutrophils (%) (Auto) 80 H 42-75 % Lymphocytes (%) (Auto) 13 12-44 % Monocytes (%) (Auto) 5 0-12 % Eosinophils (%) (Auto) 1 0-10 % Basophils (%) (Auto) 1 0-10 % Neutrophils # (Auto) 6.9 1.8-7.8 X 10^3 Lymphocytes # (Auto) 1.1 1.0-4.0 X 10^3 Monocytes # (Auto) 0.5 0.0-1.0 X 10^3 Eosinophils # (Auto) 0.1 0.0-0.3 10^3/uL Basophils # (Auto) 0.0 0.0-0.1 10^3/uL Sodium Level 145 135-145 MMOL/L Potassium Level 4.5 3.6-5.0 MMOL/L Chloride Level 111 H 98-107 MMOL/L Carbon Dioxide Level 26 21-32 MMOL/L Anion Gap 8 5-14 MMOL/L Blood Urea Nitrogen 36 H 7-18 MG/DL Creatinine 0.71 0.60-1.30 MG/DL Estimat Glomerular Filtration Rate > 60 BUN/Creatinine Ratio 51 Glucose Level 180 H 70-105 MG/DL Calcium Level 7.6 L 8.5-10.1 MG/DL Corrected Calcium 7.8 L 8.5-10.1 MG/DL Total Bilirubin 0.3 0.1-1.0 MG/DL Aspartate Amino Transf (AST/SGOT) 10 5-34 U/L Alanine Aminotransferase (ALT/SGPT) 7 0-55 U/L Alkaline Phosphatase 73 40-136 U/L Total Protein 6.7 6.4-8.2 GM/DL Albumin 3.7 3.2-4.5 GM/DL Group A Streptococcus Screen NEGATIVE NEGATIVE Micro Results Microbiology 11/12/19 Influenza Types A,B Antigen (FRANCISCO) - Final, Complete My Orders Orders - NATANAEL LEE DO Ed Iv/Invasive Line Start (11/12/19 08:26) Cbc With Automated Diff (11/12/19 08:26) Comprehensive Metabolic Panel (11/12/19 08:26) Influenza A And B Antigens (11/12/19 08:26) Urinalysis (11/12/19 08:26) Rapid Strep A Screen (11/12/19 08:26) Chest 1 View Ap/Pa Only (11/12/19 08:26) Vital Signs/I&O 11/12/19 08:26 Temp 36.3 Pulse 72 Resp 18 B/P (MAP) 138/96 (110) Pulse Ox 98 O2 Delivery Nasal Cannula Capillary Refill : Departure Impression Primary Impression: Weakness Additional Impression: COPD (chronic obstructive pulmonary disease) Qualified Codes: J44.9 - Chronic obstructive pulmonary disease, unspecified Disposition: 01 HOME, SELF-CARE Condition: Stable Departure-Patient Inst. Decision time for Depature: 09:23 Referrals: VELASQUEZ CHIANG MD (PCP/Family) Primary Care Physician Patient Instructions: Generalized Weakness (DC), Chronic Obstructive Pulmonary Disease (COPD), Including Emphysema Add. Discharge Instructions: Call your Doctor today to arrange for a follow up appointment in 2 days. Return to the ER if you are feeling worse. NATANAEL LEE DO Nov 12, 2019 08:31
[2019-11-12 08:42] LABS: WHITE BLOOD COUNT 8.6 10^3/uL (4.3-11.0)
[2019-11-12 08:43] LABS: BASOPHILS % (AUTO) 1 % (0-10); EOSINOPHILS # (AUTO) 0.1 10^3/uL (0.0-0.3); EOSINOPHILS % (AUTO) 1 % (0-10); HEMATOCRIT 42 % (35-52); HEMOGLOBIN 13.3 G/DL (11.5-16.0); LYMPHOCYTES # (AUTO) 1.1 X 10^3 (1.0-4.0); LYMPHOCYTES % (AUTO) 13 % (12-44); MEAN CORPUSCULAR HEMOGLOBIN 29 PG (25-34); MEAN CORPUSCULAR HGB CONC 31 G/DL (32-36); MEAN CORPUSCULAR VOLUME 94 FL (80-99); MEAN PLATELET VOLUME 12.5 FL (7.4-10.4); MONOCYTES # (AUTO) 0.5 X 10^3 (0.0-1.0); MONOCYTES % (AUTO) 5 % (0-12); NEUTROPHILS # (AUTO) 6.9 X 10^3 (1.8-7.8); NEUTROPHILS % (AUTO) 80 % (42-75); PLATELET COUNT 81 10^3/uL (130-400); RED CELL DISTRIBUTION WIDTH 14.1 % (10.0-14.5)
[2019-11-12] MEDS ORDERED: fentaNYL INJECTION 100 MCG/2 ML AMP IVP ONE (08:45)
--- NOTE | 2019-11-12 08:55 | Diagnostic Imaging Report ---
EXAMINATION: AP chest at 8:40 AM. INDICATION: Weakness, shortness of breath. FINDINGS: The heart size is within normal limits and stable when compared to 09/14/2019. The lungs are clear. There is still no evidence for failure, pneumonia, or pleural effusion. The mediastinum is not widened. The osseous structures are intact. The orthopedic hardware overlying the lower cervical spine seen previously is partially visualized on this exam. IMPRESSION: 1. There is no evidence for active disease. 2. If clinical concern regarding an underlying abnormality persists and further imaging is desired, then CT chest would be recommended. Dictated by: Dictated on workstation # [id number]
[2019-11-12 08:59] LABS: ALANINE AMINOTRANSFERASE 7 U/L (0-55); ALBUMIN 3.7 GM/DL (3.2-4.5); ALKALINE PHOSPHATASE 73 U/L (40-136); BILIRUBIN,TOTAL 0.3 MG/DL (0.1-1.0); BUN/CREATININE RATIO 51; CALCIUM 7.6 MG/DL (8.5-10.1); CARBON DIOXIDE 26 MMOL/L (21-32); CHLORIDE 111 MMOL/L (98-107); CREATININE SERUM 0.71 MG/DL (0.60-1.30); GFR ESTIMATED > 60; GLUCOSE 180 MG/DL (70-105); POTASSIUM 4.5 MMOL/L (3.6-5.0); SODIUM 145 MMOL/L (135-145); TOTAL PROTEIN 6.7 GM/DL (6.4-8.2)
[2019-11-12 09:30] VITALS: BP 134/72
--- OUTSIDE RECORDS SUMMARY | 2019-11-12 09:30 | XMS REPORT | Continuity of Care Document ---
Author Organization Unknown Address Unknown Phone Unavailable Allergies Active Description Code Type Severity Reaction Onset Reported/Identified Relationship to Patient Clinical Status Yes Penicillins Penicillins Drug Allergy Unknown CANNOT BREATHE 08/14/2014 Yes penicillin 56557 Ingredient moderate to severe Lethargy~Trouble Breathing Medications There is no data. Problems Date Dx Coded Attending Type Code Diagnosis Diagnosed By 04/30/2018 Jessica Du principal B37.81 Candidal Esophagitis 05/06/2018 Jessica Du comorbid E11 .9 Type 2 diabetes mellitus without complications 05/06/2018 Jessica Du comorbid K29.70 Gastritis, unspecified, without bleeding Procedures There is no data. Results Test Result Range CULTURE, URINE - 11/06/18 13:37 CULTURE, URINE, ROUTINE SEE NOTE NRG LIPID PANEL - 06/26/19 12:56 CHOLESTEROL, TOTAL 208 mg/dL <200 HDL CHOLESTEROL 52 mg/dL >50 TRIGLYCERIDES 176 mg/dL <150 LDL-CHOLESTEROL 127 mg/dL (calc) NRG CHOL/HDLC RATIO 4.0 (calc) <5.0 NON HDL CHOLESTEROL 156 mg/dL (calc) <13 0 CMP - 06/26/19 12:56 GLUCOSE 92 mg/dL 65-99 UREA NITROGEN (BUN) 28 mg/dL 7-25 CREATININE 0.81 mg/dL 0.50-1.05 eGFR NON-AFR. TANZANIAN 81 mL/min/1.73m2 > OR = 60 eGFR 94 mL/min/1.73m2 > OR = 60 BUN/CREATININE RATIO 35 (calc) 6-22 SODIUM 139 mmol/L 135-146 POTASSIUM 4.6 mmol/L 3.5-5.3 CHLORIDE 101 mmol/L 98-110 CARBON DIOXIDE 31 mmol/L 20-32 CALCIUM 9.4 mg/dL 8.6-10.4 PROTEIN, TOTAL 7.9 g/dL 6.1-8.1 ALBUMIN 4.1 g/dL 3.6-5.1 GLOBULIN 3.8 g/dL (calc) 1.9-3.7 ALBUMIN/GLOBULIN RATIO 1.1 (calc) 1.0-2. 5 BILIRUBIN, TOTAL 0.4 mg/dL 0.2-1.2 ALKALINE PHOSPHATASE 77 U/L 33-130 AST 14 U/L 10-35 ALT 9 U/L 6-29 A1C - 06/26/19 12:56 HEMOGLOBIN A1c 5.7 % of total Hgb <5.7 Encounters ACCT No. Visit Date/Time Discharge Status Pt. Type Provider Facility Loc./Unit Complaint [id number] 10/14/2019 15:00:00 10/14/2019 23:59: 59 CLS Outpatient [facility], VELASQUEZ Mallory [facility] [id number] 06/26/2019 12:45:00 Document Registration [id number] 11/06/2018 13:15:00 Document Registration [id number] 05/26/2013 16:35:00 013 18:48:00 DIS Emergency [id number] 04/29/2018 13:47:00 04/29/2018 23:59: 00 DIS Outpatient Jessica Du [facility] OUTPT Esophagogastroduodenoscopy [id number] 08/14/2014 14:02:00 015 15:00:00 DIS Emergency Romain De Santiago DO [facility]
== END 2019-11-12 09:40 | disposition home or self-care (01) ==
LOC: EDUNIT# 08:11 → ER FS 08:13
DX: R53.1 Weakness (principal); J44.9 Chronic obstructive pulmonary disease, unspecified; I10 Essential (primary) hypertension; E11.9 Type 2 diabetes mellitus without complications; F17.210 Nicotine dependence, cigarettes, uncomplicated; Z88.0 Allergy status to penicillin; Z79.4 Long term (current) use of insulin
CPT/HCPCS: 36415; 71045; 80053; 85025; 87430; 87804

== ENCOUNTER → 2019-11-14 | Outpatient (CLI) | payer MEDICARE, MEDICAID ==
--- NOTE | 2019-11-14 15:43 | Diagnostic Imaging Report ---
INDICATION: Back pain. EXAMINATION: AP and lateral views of the lumbar spine were obtained. FINDINGS: The lumbar vertebrae are normal in height and alignment. There is no fracture or subluxation. There is degenerative change at L5-S1 there is facet degenerative change at L4-L5. There is disc space narrowing and osteophyte formation at L1-L2 and T12-L1. IMPRESSION: Multilevel degenerative findings of the lumbar spine with no acute appearing bony abnormality. Dictated by: Dictated on workstation # [id number]
== END ==
LOC: RAD FS 14:52
PROVIDERS: ATTEND Family Medicine
DX: M54.41 Lumbago with sciatica, right side (principal); M54.42 Lumbago with sciatica, left side; M47.816 Spondylosis without myelopathy or radiculopathy, lumbar region
CPT/HCPCS: 72100

== ENCOUNTER 2019-11-29 19:36 | Inpatient (IN) | payer MEDICARE, MEDICAID ==
[~2019-11-29] VITALS: Ht 172.7 cm; Wt 109.0 kg
--- OUTSIDE RECORDS SUMMARY | 2019-11-29 19:50 | XMS REPORT | Continuity of Care Document ---
Author Organization Unknown Address Unknown Phone Unavailable Allergies Active Description Code Type Severity Reaction Onset Reported/Identified Relationship to Patient Clinical Status Yes Penicillins Penicillins Drug Allergy Unknown CANNOT BREATHE 08/14/2014 Yes penicillins NKMA N/A passed out 08/28/2014 Yes penicillin 33190 Ingredient moderate to severe Lethargy~Trouble Breathing Yes Penicillins [id number] Drug Aller gy Unknown Dizziness 05/11/2018 Yes Penicillins [id number] Drug Aller gy Unknown weak, cant dylan 06/15/2018 Yes Penicillins [id number] Drug Aller gy Moderate weak, cant dylan 06/16/2018 Medications There is no data. Problems Date Dx Coded Attending Type Code Diagnosis Diagnosed By 08/31/2014 Estrella Aceves MD Final 250.00 Diabetes mellitus without mention of com plication, type II or unspecified t 08/31/2014 Estrella Aceves MD Final 276.51 Dehydration 08/31/2014 Estrella Aceves MD Final 276.52 Hypovolemia 08/31/2014 Estrella Aceves MD Final 305.1 TOBACCO USE DISORDER 08/31/2014 Estrella Aceves MD Reason 780.2 SYNCOPE AND COLLAPSE 04/30/2018 Jessica Du principal B37.81 Candidal Esophagitis 05/06/2018 Jessica Du comorbid E11 .9 Type 2 diabetes mellitus without complications 05/06/2018 Jessica Du comorbid K29.70 Gastritis, unspecified, without bleeding 05/10/2018 F E11.42 05/10/2018 F F11.10 05/10/2018 F F12.10 05/10/2018 F F33.2 05/10/2018 F F43.10 05/10/2018 F J44.9 05/10/2018 F R45.851 05/10/2018 F Z63.4 05/10/2018 F Z79.4 05/10/2018 F Z86.19 05/10/2018 F Z88.0 05/13/2018 Other F33.2 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 2 CHRONIC VIRAL HEPATITIS C 06/18/2018 ALBERT CABRAL MD, Ot D69. 59 OTHER SECONDARY THROMBOCYTOPENIA 06/18/2018 ALBERT CABRAL MD Ot E11. 65 TYPE 2 DIABETES MELLITUS WITH HYPERGLYCE 06/18/2018 ALBERT CABRAL MD, Ot F17.210 NICOTINE DEPENDENCE, CIGARETTES, UNCOMPL 06/18/2018 ALBERT CABRAL MD, Ot J44. 1 CHRONIC OBSTRUCTIVE PULMONARY DISEASE W 06/18/2018 ALBERT CABRAL MD, Ot M25.512 PAIN IN LEFT SHOULDER 06/18/2018 ALBERT CABRAL MD, Ot M54. 2 CERVICALGIA 06/18/2018 ALBERT CABRAL MD, Ot T38.0X5A ADVERSE EFFECT OF GLUCOCORT/SYNTH ANALOG 06/18/2018 ALBERT CABRAL MD Ot Z23 ENCOUNTER FOR IMMUNIZATION 06/18/2018 ALBERT CABRAL MD, Ot Z79.899 OTHER [facility] (CURRENT) DRUG THERAPY 07/10/2018 SONNY DANIELA Ot E11.9 TYPE 2 DIABETES MELLITUS WITHOUT COMPLIC 07/10/2018 STEW DENNISIS Ot J44.1 CHRONIC OBSTRUCTIVE PULMONARY DISEASE W 07/10/2018 SONNY DANIELA Ot R06.02 SHORTNESS OF BREATH 07/10/2018 BERNMARIA ELENA DANIELA Ot Z79.4 RECYCLING SORTER (CURRENT) USE OF INSULIN 07/10/2018 SONNY, DANIELA Ot Z79.51 RECYCLING SORTER (CURRENT) USE OF INHALED STERO 07/10/2018 RICKYOT, DANIELA Ot Z79.52 RECYCLING SORTER (CURRENT) USE OF SYSTEMIC STER 07/10/2018 BERNMARIA ELENA, DANIELA Ot Z87.19 PERSONAL HISTORY OF OTHER DISEASES OF TH 07/10/2018 STEW DENNISIS Ot Z88.0 ALLERGY STATUS TO PENICILLIN 07/10/2018 BERNOT, DANIELA Ot Z98.890 OTHER SPECIFIED POSTPROCEDURAL STATES 07/10/2018 BERNOT DANIELA Ot Z99.81 DEPENDENCE ON SUPPLEMENTAL OXYGEN 07/12/2018 BERNMARIA ELENA, DANIELA Ot E11.9 TYPE 2 DIABETES MELLITUS WITHOUT COMPLIC 07/12/2018 DANIELA DENNIS Ot J44.1 CHRONIC OBSTRUCTIVE PULMONARY DISEASE W 07/12/2018 DANIELA DENNIS Ot R06.02 SHORTNESS OF BREATH 07/12/2018 DANIELA DENNIS Ot Z79.4 [facility] (CURRENT) USE OF INSULIN 07/12/2018 STEW DENNISIS Ot Z79.51 [facility] (CURRENT) USE OF INHALED STERO 07/12/2018 DANIELA DENNIS Ot Z79.52 RECYCLING SORTER (CURRENT) USE OF SYSTEMIC STER 07/12/2018 DANIELA DENNIS Ot Z87.19 PERSONAL HISTORY OF OTHER DISEASES OF TH 07/12/2018 DNAIELA DENNIS Ot Z88.0 ALLERGY STATUS TO PENICILLIN 07/12/2018 STEW DENNISIS Ot Z98.890 OTHER SPECIFIED POSTPROCEDURAL STATES 07/12/2018 DANIELA DENNIS Ot Z99.81 DEPENDENCE ON SUPPLEMENTAL OXYGEN 07/17/2018 NAYANA HUERTA FACC, OTILIO FACP CCDS Ot E11.9 TYPE 2 DIABETES MELLITUS WITHOUT COMPLIC 07/17/2018 NAYANA HUERTA FACC, OTILIO FACP CCDS Ot E66.9 OBESITY, UNSPECIFIED 07/17/2018 NAYANA HUERTA FACC, OTILIO FACP CCDS Ot F17.210 NICOTINE DEPENDENCE, CIGARETTES, UNCOMPL 07/17/2018 NAYANA HUERTA FACC, ALI FACP CCDS Ot G47.10 HYPERSOMNIA, UNSPECIFIED 07/17/2018 NAYANA HUERTA FACC, ALI FACP CCDS Ot G47.33 OBSTRUCTIVE SLEEP APNEA (ADULT) (PEDIATR 07/17/2018 NAYANA HUERTA FACC, OTILIO FACP CCDS Ot I72.4 ANEURYSM OF ARTERY OF LOWER EXTREMITY 07/17/2018 NAYANA HUERTA FACC, OTILIO FACP CCDS Ot I97.89 OTH POSTPROC COMP AND DISORDERS OF THE C 07/17/2018 NAYANA HUERTA FACC, OTILIO FACP CCDS Ot J44.9 CHRONIC OBSTRUCTIVE PULMONARY DISEASE, U 07/17/2018 NAYANA HUERTA FACC, ALI FACP CCDS Ot M79.604 PAIN IN RIGHT LEG 07/17/2018 NAYANA HUERTA FACC, ALI FACP CCDS Ot M79.605 PAIN IN LEFT LEG 07/17/2018 NAYANA HUERTA FACC, ALI FACP CCDS Ot M79.89 OTHER SPECIFIED SOFT TISSUE DISORDERS 07/17/2018 NAYANA MD FACC, ALI FACP CCDS Ot R06.02 SHORTNESS OF BREATH 07/17/2018 NAYANA HUERTA FACC, ALI FACP CCDS Ot R07.9 CHEST PAIN, UNSPECIFIED 07/17/2018 NAYANA HUERTA FACC, ALI FACP CCDS Ot R09.02 HYPOXEMIA 07/17/2018 NAYANA HUERTA FACC, ALI FACP CCDS Ot R51 HEADACHE 07/17/2018 NAYANA HUERTA FACC, ALI FACP CCDS Ot Z68.35 BODY MASS INDEX (BMI) 35.0-35.9, ADULT 07/17/2018 NAYANA HUERTA FACC, ALI FACP CCDS Ot Z79.4 [facility]IV[facility] (CURRENT) USE OF INSULIN 07/17/2018 NAYANA HUERTA FACC, ALI FACP CCDS Ot Z79.82 RECYCLING SORTER (CURRENT) USE OF ASPIRIN 07/17/2018 NAYANA HUERTA FACC, ALI FACP CCDS Ot Z79.899 OTHER RECYCLING SORTER (CURRENT) DRUG THERAPY 07/22/2018 NAYANA HUERTA FACC, OTILIO FACP CCDS Ot E11.9 TYPE 2 DIABETES MELLITUS WITHOUT COMPLIC 07/22/2018 NAYANA HUERTA FACC, ALI FACP CCDS Ot E66.9 OBESITY, UNSPECIFIED 07/22/2018 NAYANA HUERTA FACC, ALI FACP CCDS Ot F17.210 NICOTINE DEPENDENCE, CIGARETTES, UNCOMPL 07/22/2018 NAYANA HUERTA FACC, ALI FACP CCDS Ot G47.10 HYPERSOMNIA, UNSPECIFIED 07/22/2018 NAYANA HUERTA FACC, ALI FACP CCDS Ot G47.33 OBSTRUCTIVE SLEEP APNEA (ADULT) (PEDIATR 07/22/2018 NAYANA HUERTA FACC, ALI FACP CCDS Ot I72.4 ANEURYSM OF ARTERY OF LOWER EXTREMITY 07/22/2018 NAYANA HUERTA FACC, ALI FACP CCDS Ot I97.89 OT POSTPROC COMP AND DISORDERS OF THE C 07/22/2018 NAYANA HUERTA FACC, ALI FACP CCDS Ot J44.9 CHRONIC OBSTRUCTIVE PULMONARY DISEASE, U 07/22/2018 NAYANA HUERTA FACC, ALI FACP CCDS Ot M79.604 PAIN IN RIGHT LEG 07/22/2018 NAYANA HUERTA FACC, ALI FACP CCDS Ot M79.605 PAIN IN LEFT LEG 07/22/2018 NAYANA HUERTA FACC, ALI FACP CCDS Ot M79.89 OTHER SPECIFIED SOFT TISSUE DISORDERS 07/22/2018 NAYANA HUERTA FACC, ALI FACP CCDS Ot R06.02 SHORTNESS OF BREATH 07/22/2018 NAYANA HUERTA FACC, ALI FACP CCDS Ot R07.9 CHEST PAIN, UNSPECIFIED 07/22/2018 NAYANA HUERTA FACC, ALI FACP CCDS Ot R09.02 HYPOXEMIA 07/22/2018 NAYANA HUERTA FACC, ALI FACP CCDS Ot R51 HEADACHE 07/22/2018 NAYANA HUERTA FACC, ALI FACP CCDS Ot Z68.35 BODY MASS INDEX (BMI) 35.0-35.9, ADULT 07/22/2018 NAYANA HUERTA FACC, ALI FACP CCDS Ot Z79.4 [facility]IV[facility] (CURRENT) USE OF INSULIN 07/22/2018 NAYANA HUERTA FACC, OTILIO FACP CCDS Ot Z79.82 RECYCLING SORTER (CURRENT) USE OF ASPIRIN 07/22/2018 NAYANA HUERTA FACC, ALI FACP CCDS Ot Z79.899 OTHER SENIOR LIVING (CURRENT) DRUG THERAPY 08/07/2018 JUVENTINO CHAVES APRN Ot G47.10 HYPERSOMNIA, UNSPECIFIED 08/07/2018 JUVENTINO CHAVES APRN Ot G47.10 HYPERSOMNIA, UNSPECIFIED 08/29/2018 NAYANA HUERTA FACC, OTILIO FACP CCDS Ot E11.9 TYPE 2 DIABETES MELLITUS WITHOUT COMPLIC 08/29/2018 NAYANA HUERTA FACC, ALI FACP CCDS Ot E66.9 OBESITY, UNSPECIFIED 08/29/2018 NAYANA HUERTA FACC, ALI FACP CCDS Ot F17.210 NICOTINE DEPENDENCE, CIGARETTES, UNCOMPL 08/29/2018 NAYANA HUERTA FACC, ALI FACP CCDS Ot G47.10 HYPERSOMNIA, UNSPECIFIED 08/29/2018 NAYANA HUERTA FACC, ALI FACP CCDS Ot G47.33 OBSTRUCTIVE SLEEP APNEA (ADULT) (PEDIATR 08/29/2018 NAYANA HUERTA FACC, ALI FACP CCDS Ot I72.4 ANEURYSM OF ARTERY OF LOWER EXTREMITY 08/29/2018 NAYANA HUERTA FACC, ALI FACP CCDS Ot I97.89 OT POSTPROC COMP AND DISORDERS OF THE C 08/29/2018 NAYANA HUERTA FACC, OTILIO FACP CCDS Ot J44.9 CHRONIC OBSTRUCTIVE PULMONARY DISEASE, U 08/29/2018 NAYANA HUERTA FACC, ALI FACP CCDS Ot M79.604 PAIN IN RIGHT LEG 08/29/2018 NAYANA GREEN, ALI FACP CCDS Ot M79.605 PAIN IN LEFT LEG 08/29/2018 NAYANA HUERTA FACC, ALI FACP CCDS Ot M79.89 OTHER SPECIFIED SOFT TISSUE DISORDERS 08/29/2018 NAYANA HUERTA FACC, ALI FACP CCDS Ot R06.02 SHORTNESS OF BREATH 08/29/2018 NAYANA HUERTA FACC, ALI FACP CCDS Ot R07.9 CHEST PAIN, UNSPECIFIED 08/29/2018 [facility]ERT[facility] ALI FACP CCDS Ot R09.02 HYPOXEMIA 08/29/2018 N[facility]ANA HUERTA [facility], ALI FACP CCDS Ot R51 HEADACHE 08/29/2018 NAYANA HUERTA FACC, ALI FACP CCDS Ot Z68.35 BODY MASS INDEX (BMI) 35.0-35.9, ADULT 08/29/2018 NAYANA HUERTA FACC, ALI FACP CCDS Ot Z79.4 RECYCLING SORTER (CURRENT) USE OF INSULIN 08/29/2018 NAYANA HUERTA FACC, ALI FACP CCDS Ot Z79.82 RECYCLING SORTER (CURRENT) USE OF ASPIRIN 08/29/2018 NAYANA HUERTA FACC, ALI FACP CCDS Ot Z79.899 OTHER [facility]ENIOR [facility]IVING (CURRENT) DRUG THERAPY 09/09/2018 JUVENTINO CHAVES APRN Ot G47.10 HYPERSOMNIA, UNSPECIFIED 03/27/2019 PRANAY LYN DO Ot E11. 9 TYPE 2 DIABETES MELLITUS WITHOUT COMPLIC 03/27/2019 PRANAY LYN DO Ot I10 ESSENTIAL (PRIMARY) HYPERTENSION 03/27/2019 PRANAY LYN DO Ot J44. 9 CHRONIC OBSTRUCTIVE PULMONARY DISEASE, U 03/27/2019 PRANAY LYN DO Ot S60.222A CONTUSION OF LEFT HAND, INITIAL ENCOUNTE 03/27/2019 PRANAY LYN DO Ot S80.811A ABRASION, RIGHT LOWER LEG, INITIAL ENCOU 03/27/2019 PRANAY LYN DO Ot S80.812A ABRASION, LEFT LOWER LEG, INITIAL ENCOUN 03/27/2019 PRANAY LYN DO Ot S92.352A DISP FX OF FIFTH METATARSAL BONE, LEFT F 03/27/2019 PRANAY LYN DO Ot W19.XXXA UNSPECIFIED FALL, INITIAL ENCOUNTER 03/27/2019 PRANAY LYN DO Ot Y92.[address] IN [facility] 03/27/2019 PRANAY LYN DO Ot Z23 ENCOUNTER FOR IMMUNIZATION 03/27/2019 PRANAY LYN DO Ot Z79. 4 SENIOR LIVING (CURRENT) USE OF INSULIN 03/27/2019 PRANAY LYN DO Ot Z88. 0 ALLERGY STATUS TO PENICILLIN 03/27/2019 PRANAY LYN DO Ot Z99. 81 DEPENDENCE ON SUPPLEMENTAL OXYGEN 03/31/2019 PRANAY LYN DO Ot E11. 9 TYPE 2 DIABETES MELLITUS WITHOUT COMPLIC 03/31/2019 PRANAY LYN DO Ot I10 ESSENTIAL (PRIMARY) HYPERTENSION 03/31/2019 PRANAY LYN DO Ot J44. 9 CHRONIC OBSTRUCTIVE PULMONARY DISEASE, U 03/31/2019 PRANAY LYN DO Ot S60.222A CONTUSION OF LEFT HAND, INITIAL ENCOUNTE 03/31/2019 PRANAY LYN DO Ot S80.811A ABRASION, RIGHT LOWER LEG, INITIAL ENCOU 03/31/2019 PRANAY LYN DO Ot S80.812A ABRASION, LEFT LOWER LEG, INITIAL ENCOUN 03/31/2019 PRANAY LYN DO Ot S92.352A DISP FX OF FIFTH METATARSAL BONE, LEFT F 03/31/2019 PRANAY LYN DO Ot W19.XXXA UNSPECIFIED FALL, INITIAL ENCOUNTER 03/31/2019 PRANAY LYN DO Ot Y92.[address] IN [facility] 03/31/2019 PRANAY LYN DO Ot Z23 ENCOUNTER FOR IMMUNIZATION 03/31/2019 PRANAY LYN DO Ot Z79. 4 RECYCLING SORTER (CURRENT) USE OF INSULIN 03/31/2019 PRANAY LYN DO Ot Z88. 0 ALLERGY STATUS TO PENICILLIN 03/31/2019 PRANAY LYN DO Ot Z99. 81 DEPENDENCE ON SUPPLEMENTAL OXYGEN 04/09/2019 SHAHLA SUAZO MD Ot S92.352A DISP FX OF FIFTH METATARSAL BONE, LEFT F 04/09/2019 SHAHLA SUAZO MD Ot W19.XXXA UNSPECIFIED FALL, INITIAL ENCOUNTER 04/09/2019 SHAHLA SUAZO MD Ot Y92.[address] IN [facility] 05/01/2019 SHAHLA SUAOZ MD Ot S92.352A DISP FX OF FIFTH METATARSAL BONE, LEFT F 05/01/2019 SHAHLA SUAZO MD Ot W19.XXXA UNSPECIFIED FALL, INITIAL ENCOUNTER 05/01/2019 SHAHLA SUAZO MD Ot Y92.[address] [facility] 05/02/2019 SHAHLA SUAZO MD Ot S92.352A DISP FX OF FIFTH METATARSAL BONE, LEFT F 05/02/2019 SHAHLA SUAZO MD Ot W19.XXXA UNSPECIFIED FALL, INITIAL ENCOUNTER 05/02/2019 SHAHLA SUAZO MD Ot Y92.[address] IN [facility] 06/03/2019 Ot S92.352A D ISP FX OF FIFTH METATARSAL BONE, LEFT F 06/03/2019 Ot W19.XXXA U NSPECIFIED FALL, INITIAL ENCOUNTER 06/03/[address] Ot [address] IN [facility] 06/03/2019 Ot S92.352A D ISP FX OF FIFTH METATARSAL BONE, LEFT F 06/03/2019 Ot W19.XXXA U NSPECIFIED FALL, INITIAL ENCOUNTER 06/03/2019 Ot [address] IN [facility] 06/20/2019 Ot S92.352A D ISP FX OF FIFTH METATARSAL BONE, LEFT F 06/20/2019 Ot W19.XXXA U NSPECIFIED FALL, INITIAL ENCOUNTER 06/20/[address] Ot [address] IN [facility] 06/25/2019 SHAHLA SUAZO MD Ot S92.352D DISP FX OF 5TH METATARSAL BONE, L FT, 7T 06/25/2019 SHAHLA SUAZO MD Ot X58.XXXD EXPOSURE TO OTHER SPECIFIED FACTORS, SUB 06/27/2019 SHAHLA SUAZO MD Ot S92.352D DISP FX OF 5TH METATARSAL BONE, L FT, 7T 06/27/2019 SHAHLA SUAZO MD Ot X58.XXXD EXPOSURE TO OTHER SPECIFIED FACTORS, SUB 07/18/2019 SHAHLA SUAZO MD Ot S92.352D DISP FX OF 5TH METATARSAL BONE, L FT, 7T 07/18/2019 SHAHLA SUAZO MD Ot X58.XXXD EXPOSURE TO OTHER SPECIFIED FACTORS, SUB 09/14/2019 SHAHLA SUAZO MD Ot S92.352A DISP FX OF FIFTH METATARSAL BONE, LEFT F 09/14/2019 SHAHLA SUAZO MD Ot W19.XXXA UNSPECIFIED FALL, INITIAL ENCOUNTER 09/14/2019 SHAHLA SUAZO MD Ot Y92.[address] IN [facility] 09/14/2019 SHAHLA SUAZO MD Ot S92.352A DISP FX OF FIFTH METATARSAL BONE, LEFT F 09/14/2019 SHAHLA SUAZO MD Ot W19.XXXA UNSPECIFIED FALL, INITIAL ENCOUNTER 09/14/2019 SHAHLA SUAZO MD Ot Y92.[address] IN [facility] 09/14/2019 Ot S92.352A D ISP FX OF FIFTH METATARSAL BONE, LEFT F 09/14/2019 Ot W19.XXXA U NSPECIFIED FALL, INITIAL ENCOUNTER 09/14/[address] Ot [address] [facility] 09/14/2019 SHAHLA SUAZO MD Ot S92.352D DISP FX OF 5TH METATARSAL BONE, L FT, 7T 09/14/2019 SHAHLA SUAZO MD Ot X58.XXXD EXPOSURE TO OTHER SPECIFIED FACTORS, SUB 09/15/2019 SHAHLA SUAZO MD Ot S92.352A DISP FX OF FIFTH METATARSAL BONE, LEFT F 09/15/2019 SHAHLA SUAZO MD Ot W19.XXXA UNSPECIFIED FALL, INITIAL ENCOUNTER 09/15/2019 SHAHLA SUAZO MD Ot Y92.[address] [facility] 09/15/2019 SHAHLA SUAZO MD Ot S92.352A DISP FX OF FIFTH METATARSAL BONE, LEFT F 09/15/2019 SHAHLA SUAZO MD Ot W19.XXXA UNSPECIFIED FALL, INITIAL ENCOUNTER 09/15/2019 SHAHLA SUAZO MD Ot Y92.[address] IN [facility] 09/15/2019 Ot S92.352A D ISP FX OF FIFTH METATARSAL BONE, LEFT F 09/15/2019 Ot W19.XXXA U NSPECIFIED FALL, INITIAL ENCOUNTER 09/15/[address] Ot [address] IN [facility] 09/15/2019 SHAHLA SUAZO MD Ot S92.352D DISP FX OF 5TH METATARSAL BONE, L FT, 7T 09/15/2019 SHAHLA SUAZO MD Ot X58.XXXD EXPOSURE TO OTHER SPECIFIED FACTORS, SUB 09/15/2019 SHAHLA SUAZO MD Ot S92.352A DISP FX OF FIFTH METATARSAL BONE, LEFT F 09/15/2019 SHAHLA SUAZO MD Ot W19.XXXA UNSPECIFIED FALL, INITIAL ENCOUNTER 09/15/2019 SHAHLA SUAZO MD Ot Y92.[address] IN [facility] 09/15/2019 SHAHLA SUAZO MD Ot S92.352A DISP FX OF FIFTH METATARSAL BONE, LEFT F 09/15/2019 SHAHLA SUAZO MD Ot W19.XXXA UNSPECIFIED FALL, INITIAL ENCOUNTER 09/15/2019 SHAHLA SUAZO MD Ot Y92.[address] IN [facility] 09/15/2019 Ot S92.352A D ISP FX OF FIFTH METATARSAL BONE, LEFT F 09/15/2019 Ot W19.XXXA U NSPECIFIED FALL, INITIAL ENCOUNTER 09/15/[address] Ot [address] IN [facility] 09/15/2019 SHAHLA SUAZO MD Ot S92.352D DISP FX OF 5TH METATARSAL BONE, L FT, 7T 09/15/2019 SHAHLA SUAZO MD Ot X58.XXXD EXPOSURE TO OTHER SPECIFIED FACTORS, SUB 09/15/2019 SHAHLA SUAZO MD Ot S92.352A DISP FX OF FIFTH METATARSAL BONE, LEFT F 09/15/2019 SHAHLA SUAZO MD Ot W19.XXXA UNSPECIFIED FALL, INITIAL ENCOUNTER 09/15/2019 SHAHLA SUAZO MD Ot Y92.[address] IN [facility] 09/15/2019 SHAHLA SUAZO MD Ot S92.352A DISP FX OF FIFTH METATARSAL BONE, LEFT F 09/15/2019 SHAHLA SUAZO MD Ot W19.XXXA UNSPECIFIED FALL, INITIAL ENCOUNTER 09/15/2019 SHAHLA SUAZO MD Ot Y92.[address] IN [facility] 09/15/2019 Ot S92.352A D ISP FX OF FIFTH METATARSAL BONE, LEFT F 09/15/2019 Ot W19.XXXA U NSPECIFIED FALL, INITIAL ENCOUNTER 09/15/2019 Ot Y[address] IN [facility] 09/15/2019 SHAHLA SUAZO MD Ot S92.352D DISP FX OF 5TH METATARSAL BONE, L FT, 7T 09/15/2019 SHAHLA SUAZO MD Ot X58.XXXD EXPOSURE TO OTHER SPECIFIED FACTORS, SUB 09/15/2019 SHAHLA SUAZO MD Ot S92.352A DISP FX OF FIFTH METATARSAL BONE, LEFT F 09/15/2019 SHAHLA SUAZO MD Ot W19.XXXA UNSPECIFIED FALL, INITIAL ENCOUNTER 09/15/2019 SHAHLA SUAZO MD Ot Y92.[address] IN [facility] 09/15/2019 SHAHLA SUAZO MD Ot S92.352A DISP FX OF FIFTH METATARSAL BONE, LEFT F 09/15/2019 SHAHLA SUAZO MD Ot W19.XXXA UNSPECIFIED FALL, INITIAL ENCOUNTER 09/15/2019 SHAHLA SUAZO MD Ot Y92.[address] IN [facility] 09/15/2019 Ot S92.352A D ISP FX OF FIFTH METATARSAL BONE, LEFT F 09/15/2019 Ot W19.XXXA U NSPECIFIED FALL, INITIAL ENCOUNTER 09/15/[address] Ot [address] IN [facility] 09/15/2019 SHAHLA SUAZO MD Ot S92.352D DISP FX OF 5TH METATARSAL BONE, L FT, 7T 09/15/2019 SHAHLA SUAZO MD Ot X58.XXXD EXPOSURE TO OTHER SPECIFIED FACTORS, SUB 09/15/2019 SHAHLA SUAZO MD Ot S92.352A DISP FX OF FIFTH METATARSAL BONE, LEFT F 09/15/2019 SHAHLA SUAZO MD Ot W19.XXXA UNSPECIFIED FALL, INITIAL ENCOUNTER 09/15/2019 SHAHLA SUAZO MD Ot Y92.[address] [facility] 09/15/2019 SHAHLA SUAZO MD Ot S92.352A DISP FX OF FIFTH METATARSAL BONE, LEFT F 09/15/2019 SHAHLA SUAZO MD Ot W19.XXXA UNSPECIFIED FALL, INITIAL ENCOUNTER 09/15/2019 SHAHLA SUAZO MD Ot Y92.[address] IN [facility] 09/15/2019 Ot S92.352A D ISP FX OF FIFTH METATARSAL BONE, LEFT F 09/15/2019 Ot W19.XXXA U NSPECIFIED FALL, INITIAL ENCOUNTER 09/15/2019 Ot [address] IN [facility] 09/15/2019 SHAHLA SUAZO MD Ot S92.352D DISP FX OF 5TH METATARSAL BONE, L FT, 7T 09/15/2019 SHAHLA SUAZO MD Ot X58.XXXD EXPOSURE TO OTHER SPECIFIED FACTORS, SUB 09/15/2019 RAE DO, TERESA Ot E11.9 TYPE 2 DIABETES MELLITUS WITHOUT COMPLIC 09/15/2019 RAE DO, TERESA Ot F17.21 0 NICOTINE DEPENDENCE, CIGARETTES, UNCOMPL 09/15/2019 RAE DO, TERESA Ot G47.33 OBSTRUCTIVE SLEEP APNEA (ADULT) (PEDIATR 09/15/2019 RAE DO, TERESA Ot I10 ESSENTIAL (PRIMARY) HYPERTENSION 09/15/2019 KYRA DO TERESA Ot I20.9 ANGINA PECTORIS, UNSPECIFIED 09/15/2019 KYRA DO TERESA Ot J44.1 CHRONIC OBSTRUCTIVE PULMONARY DISEASE W 09/15/2019 KYRA VAN TERESA Ot Z79.4 S[facility]IOR LIV[facility] (CURRENT) USE OF INSULIN 09/15/2019 KYRA VAN TERESA Ot Z79.89 9 OTHER RECYCLING SORTER (CURRENT) DRUG THERAPY 09/15/2019 KYRA VAN TERESA Ot Z86.19 PERSONAL HISTORY OF OTHER INFECTIOUS AND 09/15/2019 KYRA DO TERESA Ot Z88.0 ALLERGY STATUS TO PENICILLIN 09/15/2019 KYRA DO TERESA Ot Z91.19 PATIENT'S NONCOMPLIANCE W [facility] 09/15/2019 RAE DO TERESA Ot Z99.81 DEPENDENCE ON SUPPLEMENTAL OXYGEN 09/15/2019 KYRA DO, TERESA Ot E11.9 TYPE 2 DIABETES MELLITUS WITHOUT COMPLIC 09/15/2019 RAE DO TERESA Ot F17.21 0 NICOTINE DEPENDENCE, CIGARETTES, UNCOMPL 09/15/2019 RAE DO, TERESA Ot G47.33 OBSTRUCTIVE SLEEP APNEA (ADULT) (PEDIATR 09/15/2019 RAE DO, TERESA Ot I10 ESSENTIAL (PRIMARY) HYPERTENSION 09/15/2019 RAE DO, TERESA Ot I20.9 ANGINA PECTORIS, UNSPECIFIED 09/15/2019 RAE DO, TERESA Ot J44.1 CHRONIC OBSTRUCTIVE PULMONARY DISEASE W 09/15/2019 RAE DO, TERESA Ot Z79.4 RECYCLING SORTER (CURRENT) USE OF INSULIN 09/15/2019 RAE DO, TERESA Ot Z79.89 9 OTHER [facility] (CURRENT) DRUG THERAPY 09/15/2019 RAE DO, TERESA Ot Z86.19 PERSONAL HISTORY OF OTHER INFECTIOUS AND 09/15/2019 RAE DO, TERESA Ot Z88.0 ALLERGY STATUS TO PENICILLIN 09/15/2019 RAE DO, TERESA Ot Z91.19 PATIENT'S NONCOMPLIANCE W [facility] 09/15/2019 RAE DO, TERESA Ot Z99.81 DEPENDENCE ON SUPPLEMENTAL OXYGEN 10/03/2019 RAE DO, TERESA Ot E11.9 TYPE 2 DIABETES MELLITUS WITHOUT COMPLIC 10/03/2019 RAE DO, TERESA Ot F17.21 0 NICOTINE DEPENDENCE, CIGARETTES, UNCOMPL 10/03/2019 RAE DO, TERESA Ot G47.33 OBSTRUCTIVE SLEEP APNEA (ADULT) (PEDIATR 10/03/2019 RAE DO, TERESA Ot I10 ESSENTIAL (PRIMARY) HYPERTENSION 10/03/2019 RAE DO, TERESA Ot I20.9 ANGINA PECTORIS, UNSPECIFIED 10/03/2019 RAE DO, TERESA Ot J44.1 CHRONIC OBSTRUCTIVE PULMONARY DISEASE W 10/03/2019 RAE DO, TERESA Ot Z79.4 [facility] (CURRENT) USE OF INSULIN 10/03/2019 RAE DO, TERESA Ot Z79.89 9 OTHER [facility] (CURRENT) DRUG THERAPY 10/03/2019 RAE DO, TERESA Ot Z86.19 PERSONAL HISTORY OF OTHER INFECTIOUS AND 10/03/2019 RAE DO, TERESA Ot Z88.0 ALLERGY STATUS TO PENICILLIN 10/03/2019 RAE DO, TERESA Ot Z91.19 PATIENT'S NONCOMPLIANCE W [facility] 10/03/2019 RAE DO, TERESA Ot Z99.81 DEPENDENCE ON SUPPLEMENTAL OXYGEN 10/24/2019 SHAHLA SUAZO MD Ot S92.352A DISP FX OF FIFTH METATARSAL BONE, LEFT F 10/24/2019 SHAHLA SUAZO MD Ot W19.XXXA UNSPECIFIED FALL, INITIAL ENCOUNTER 10/24/2019 SHAHLA SUAZO MD Ot Y92.[address] IN OT RESIDENTIAL [facility] 10/24/2019 SHAHLA SUAZO MD Ot S92.352A DISP FX OF FIFTH METATARSAL BONE, LEFT F 10/24/2019 SHAHLA SUAZO MD Ot W19.XXXA UNSPECIFIED FALL, INITIAL ENCOUNTER 10/24/2019 SHAHLA SUAZO MD Ot Y92.[address] [facility] 10/24/2019 Ot S92.352A D ISP FX OF FIFTH METATARSAL BONE, LEFT F 10/24/2019 Ot W19.XXXA U NSPECIFIED FALL, INITIAL ENCOUNTER 10/24/2019 Ot Y[address] IN OT [facility]IAL [facility] 10/24/2019 SHAHLA SUAZO MD Ot S92.352D DISP FX OF 5TH METATARSAL BONE, L FT, 7T 10/24/2019 SHAHLA SUAZO MD Ot X58.XXXD EXPOSURE TO OTHER SPECIFIED FACTORS, SUB 11/12/2019 ROVENSTINE DO, NATANAEL Kyle Ot E11.9 TYPE 2 DIABETES MELLITUS WITHOUT COMPLIC 11/12/2019 ROVENSTINE DO, NATANAEL Kyle Ot F17.210 NICOTINE DEPENDENCE, CIGARETTES, UNCOMPL 11/12/2019 ROVENSTINE DONATANAEL Ot I10 ESSENTIAL (PRIMARY) HYPERTENSION 11/12/2019 ROVENSTINE DO, NATANAEL Kyle Ot J44.9 CHRONIC OBSTRUCTIVE PULMONARY DISEASE, U 11/12/2019 ROVENSTINE DONATANAEL Ot R53.1 WEAKNESS 11/12/2019 ROVENSTINE DONATANAEL Ot Z79.4 [facility] (CURRENT) USE OF INSULIN 11/12/2019 ROVENSTINE DONATANAEL Ot Z88.0 ALLERGY STATUS TO PENICILLIN 11/14/2019 ROVENSTINE DO, NATANAEL L Ot E11.9 TYPE 2 DIABETES MELLITUS WITHOUT COMPLIC 11/14/2019 ROVENSTINE DONATANAEL Ot F17.210 NICOTINE DEPENDENCE, CIGARETTES, UNCOMPL 11/14/2019 ROVENSTINE DO, NATANAEL L Ot I10 ESSENTIAL (PRIMARY) HYPERTENSION 11/14/2019 ROVENSTINE DO, NATANAEL Kyle Ot J44.9 CHRONIC OBSTRUCTIVE PULMONARY DISEASE, U 11/14/2019 ROVENSTINE DO, NATANAEL Kyle Ot R53.1 WEAKNESS 11/14/2019 ROVENSTINE DO, NATANAEL Kyle Ot Z79.4 [facility] (CURRENT) USE OF INSULIN 11/14/2019 ROVENSTINE DO, NATANAEL Kyle Ot Z88.0 ALLERGY STATUS TO PENICILLIN 11/14/2019 SHAHLA SUAZO MD Ot S92.352A DISP FX OF FIFTH METATARSAL BONE, LEFT F 11/14/2019 SHAHLA SUAZO MD Ot W19.XXXA UNSPECIFIED FALL, INITIAL ENCOUNTER 11/14/2019 SHAHLA SUAZO MD Ot Y92.[address] IN [facility] RESIDENTIAL [facility] 11/14/2019 SHAHLA SUAZO MD Ot S92.352A DISP FX OF FIFTH METATARSAL BONE, LEFT F 11/14/2019 SHAHLA SUAZO MD Ot W19.XXXA UNSPECIFIED FALL, INITIAL ENCOUNTER 11/14/2019 SHAHLA SUAZO MD Ot Y92.[address] IN [facility] RESIDENTIAL [facility] 11/14/2019 Ot S92.352A D ISP FX OF FIFTH METATARSAL BONE, LEFT F 11/14/2019 Ot W19.XXXA U NSPECIFIED FALL, INITIAL ENCOUNTER 11/14/2019 Ot Y92.[address] IN [facility] RESIDENTIAL [facility] 11/14/2019 SHAHLA SUAZO MD Ot S92.352D DISP FX OF 5TH METATARSAL BONE, L FT, 7T 11/14/2019 SHAHLA SUAZO MD Ot X58.XXXD EXPOSURE TO OTHER SPECIFIED FACTORS, SUB 11/14/2019 SHAHLA SUAZO MD Ot S92.352A DISP FX OF FIFTH METATARSAL BONE, LEFT F 11/14/2019 SHAHLA SUAZO MD Ot W19.XXXA UNSPECIFIED FALL, INITIAL ENCOUNTER 11/14/2019 SHAHLA SUAZO MD Ot Y92.[address] IN [facility] RESIDENTIAL [facility] 11/14/2019 SHAHLA SUAZO MD Ot S92.352A DISP FX OF FIFTH METATARSAL BONE, LEFT F 11/14/2019 SHAHLA SUAZO MD Ot W19.XXXA UNSPECIFIED FALL, INITIAL ENCOUNTER 11/14/2019 SHAHLA SUAZO MD Ot Y92.[address] IN [facility] 11/14/2019 Ot S92.352A D ISP FX OF FIFTH METATARSAL BONE, LEFT F 11/14/2019 Ot W19.XXXA U NSPECIFIED FALL, INITIAL ENCOUNTER 11/14/2019 Ot [address] IN [facility] 11/14/2019 SHAHLA SUAZO MD Ot S92.352D DISP FX OF 5TH METATARSAL BONE, L FT, 7T 11/14/2019 SHAHLA SUAZO MD Ot X58.XXXD EXPOSURE TO OTHER SPECIFIED FACTORS, SUB 11/14/2019 SHAHLA SUAZO MD Ot S92.352A DISP FX OF FIFTH METATARSAL BONE, LEFT F 11/14/2019 SHAHLA SUAZO MD Ot W19.XXXA UNSPECIFIED FALL, INITIAL ENCOUNTER 11/14/2019 SHAHLA SUAZO MD Ot Y92.[address] IN [facility] 11/14/2019 SHAHLA SUAZO MD Ot S92.352A DISP FX OF FIFTH METATARSAL BONE, LEFT F 11/14/2019 SHAHLA SUAZO MD Ot W19.XXXA UNSPECIFIED FALL, INITIAL ENCOUNTER 11/14/2019 SHAHLA SUAZO MD Ot Y92.[address] IN [facility] 11/14/2019 Ot S92.352A D ISP FX OF FIFTH METATARSAL BONE, LEFT F 11/14/2019 Ot W19.XXXA U NSPECIFIED FALL, INITIAL ENCOUNTER 11/14/2019 Ot [address] IN [facility] 11/14/2019 SHAHLA SUAZO MD Ot S92.352D DISP FX OF 5TH METATARSAL BONE, L FT, 7T 11/14/2019 SHAHLA SUAZO MD Ot X58.XXXD EXPOSURE TO OTHER SPECIFIED FACTORS, SUB 11/17/2019 SHAHLA SUAZO MD Ot S92.352A DISP FX OF FIFTH METATARSAL BONE, LEFT F 11/17/2019 SHAHLA SUAZO MD Ot W19.XXXA UNSPECIFIED FALL, INITIAL ENCOUNTER 11/17/2019 SHAHLA SUAZO MD Ot Y92.[address] IN [facility] 11/17/2019 SHAHLA SUAZO MD Ot S92.352A DISP FX OF FIFTH METATARSAL BONE, LEFT F 11/17/2019 SHAHLA SUAZO MD Ot W19.XXXA UNSPECIFIED FALL, INITIAL ENCOUNTER 11/17/2019 SHAHLA SUAZO MD Ot Y92.[address] IN [facility] 11/17/2019 Ot S92.352A D ISP FX OF FIFTH METATARSAL BONE, LEFT F 11/17/2019 Ot W19.XXXA U NSPECIFIED FALL, INITIAL ENCOUNTER 11/17/2019 Ot [address] IN [facility] 11/17/2019 SHAHLA SUAZO MD Ot S92.352D DISP FX OF 5TH METATARSAL BONE, L FT, 7T 11/17/2019 SHAHLA SUAZO MD Ot X58.XXXD EXPOSURE TO OTHER SPECIFIED FACTORS, SUB 11/17/2019 VELASQUEZ CHIANG MD Ot M47.81 6 SPONDYLOSIS W/O MYELOPATHY OR RADICULOPA 11/17/2019 VELASQUEZ CHIANG MD, Ot M54.41 LUMBAGO WITH SCIATICA, RIGHT SIDE 11/17/2019 VELASQUEZ CHIANG MD, Ot M54.42 LUMBAGO WITH SCIATICA, LEFT SIDE Procedures There is no data. Results Test Result Range Bacterial blood culture - 06/15/18 15:20 Bacterial blood culture NG NRG Bacterial blood culture - 06/15/18 15:29 Bacterial blood culture NG NRG Bacterial urine culture - 06/15/18 16:01 Bacterial urine culture SEE REPORT NRG COLONY COUNT . NRG Capillary blood glucose measurement by g lucometer (mass/volume) - 06/15/18 22:33 Capillary blood glucose measurement by glucometer (mas s/volume) 274 mg/dL 70-110 Complete blood count (CBC) with automate d white blood cell (WBC) differential - 06/16/18 03:45 Blood leukocytes automated count (number/volume) 3.6 10*3/uL 4.3-11.0 Blood erythrocytes automated count (number/volume) 4.36 10*6/uL 4.35-5.85 Venous blood hemoglobin measurement (mass/volume) 12.5 g/dL 11.5-16.0 Blood hematocrit (volume fraction) 39 % 35-52 Automated erythrocyte mean corpuscular volume 90 [ foz_us] 80-99 Automated erythrocyte mean corpuscular h emoglobin (mass per erythrocyte) 29 pg 25-34 Automated erythrocyte mean corpuscular h emoglobin concentration measurement (mass/volume) 32 g/dL 32-36 Automated erythrocyte distribution width ratio 14. 4 % 10.0- 14.5 Automated blood platelet count (count/volume) 75 1 0*3/uL 130-400 Automated blood platelet mean volume measurement [...] 10*3 1.0-4.0 Blood monocytes automated count (number/volume) 0. 0 10*3 0.0-1.0 Automated eosinophil count 0.0 10*3/uL 0 .0-0.3 Automated blood basophil count (count/volume) 0.0 10*3/uL 0.0-0.1 Whole blood basic metabolic panel - 06/06 08/23 03:45 Serum or plasma sodium measurement (moles/volume) 141 mmol/L 135-145 Serum or plasma potassium measurement (moles/volume) 4.0 mmol/L 3.6-5.0 Serum or plasma chloride measurement (moles/volume) 105 mmol/L 98-107 Carbon dioxide 24 mmol/L 21-32 Serum or plasma anion gap determination (moles/volume) 12 mmol/L 5-14 Serum or plasma urea nitrogen measurement (mass/volume ) 18 mg/dL 7-18 Serum or plasma creatinine measurement (mass/volume) 0.81 mg/dL 0.60-1.30 Serum or plasma urea nitrogen/creatinine mass ratio 22 NRG Serum or plasma creatinine measurement w ith calculation of estimated glomerular filtration rate > NRG Serum or plasma glucose measurement (mass/volume) 315 mg/dL 70-105 Serum or plasma calcium measurement (mass/volume) 9.0 mg/dL 8.5-10.1 Blood manual differential performed dete ction - 06/16/18 03:45 Blood monocytes/100 leukocytes 1 % NRG Manual blood segmented neutrophils/100 leukocytes 92 % NRG Manual blood lymphocytes/100 leukocytes 7 % NRG Capillary blood glucose measurement by g lucometer (mass/volume) - 06/16/18 05:59 Capillary blood glucose measurement by glucometer (mas s/volume) 311 mg/dL 70-110 Capillary blood glucose measurement by g lucometer (mass/volume) - 06/16/18 11:12 Capillary blood glucose measurement by glucometer (mas s/volume) 281 mg/dL 70-110 Capillary blood glucose measurement by g lucometer (mass/volume) - 06/16/18 16:11 Capillary blood glucose measurement by glucometer (mas s/volume) 303 mg/dL 70-110 Capillary blood glucose measurement by g lucometer (mass/volume) - 06/16/18 21:05 Capillary blood glucose measurement by glucometer (mas s/volume) 224 mg/dL 70-110 Capillary blood glucose measurement by g lucometer (mass/volume) - 06/17/18 05:16 Capillary blood glucose measurement by glucometer (mas s/volume) 214 mg/dL 70-110 Arterial blood gas measurement - 8 09:29 Blood pCO2 46 mm[Hg] 35-45 Blood pO2 71 mm[Hg] 79-93 Arterial blood bicarbonate measurement (moles/volume) 28 mmol/L 23-27 Arterial blood base excess by calculation 3.0 mmol /L -2.5-2.5 Arterial blood oxygen saturation measurement 94 % 94-100 * Inhaled oxygen flow rate ROOM AIR NRG Arterial blood pH measurement with patient temperature correction 7.39 7.37-7.43 Arterial blood carbon dioxide, total measurement (mole s/volume) 29.0 mmol/L 21.0-31.0 Body site LT RAD NRG Assessment of wrist artery patency prior to arterial p uncture YES-POS NRG Setting of ventilation mode NO NR G Measurement of body temperature 98.3 NRG Capillary blood glucose measurement by g lucometer (mass/volume) - 06/17/18 11:06 Capillary blood glucose measurement by glucometer (mas s/volume) 353 mg/dL 70-110 Capillary blood glucose measurement by g lucometer (mass/volume) - 06/17/18 16:00 Capillary blood glucose measurement by glucometer (mas s/volume) 357 mg/dL 70-110 Capillary blood glucose measurement by g lucometer (mass/volume) - 06/17/18 21:03 Capillary blood glucose measurement by glucometer (mas s/volume) 345 mg/dL 70-110 Capillary blood glucose measurement by g lucometer (mass/volume) - 06/18/18 06:27 Capillary blood glucose measurement by glucometer (mas s/volume) 135 mg/dL 70-110 Capillary blood glucose measurement by g lucometer (mass/volume) - 06/18/18 11:24 Capillary blood glucose measurement by glucometer (mas s/volume) 354 mg/dL 70-110 Complete blood count (CBC) with automate d white blood cell (WBC) differential - 07/10/18 20:10 Blood leukocytes automated count (number/volume) 5.3 10*3/uL 4.3-11.0 Blood erythrocytes automated count (number/volume) 4.46 10*6/uL 4.35-5.85 Venous blood hemoglobin measurement (mass/volume) 13.0 g/dL 11.5-16.0 Blood hematocrit (volume fraction) 40 % 35-52 Automated erythrocyte mean corpuscular volume 90 [ foz_us] 80-99 Automated erythrocyte mean corpuscular h emoglobin (mass per erythrocyte) 29 pg 25-34 Automated erythrocyte mean corpuscular h emoglobin concentration measurement (mass/volume) 33 g/dL 32-36 Automated erythrocyte distribution width ratio 14. 9 % 10.0- 14.5 Automated blood platelet count (count/volume) 83 1 0*3/uL 130-400 Automated blood platelet mean volume measurement [...] 10*3 1.0-4.0 Blood monocytes automated count (number/volume) 0. 4 10*3 0.0-1.0 Automated eosinophil count 0.1 10*3/uL 0 .0-0.3 Automated blood basophil count (count/volume) 0.0 10*3/uL 0.0-0.1 Comprehensive metabolic panel - 07/10/18 20:10 Serum or plasma sodium measurement (moles/volume) 142 mmol/L 135-145 Serum or plasma potassium measurement (moles/volume) 3.9 mmol/L 3.6-5.0 Serum or plasma chloride measurement (moles/volume) 104 mmol/L 98-107 Carbon dioxide 28 mmol/L 21-32 Serum or plasma anion gap determination (moles/volume) 10 mmol/L 5-14 Serum or plasma urea nitrogen measurement (mass/volume ) 23 mg/dL 7-18 Serum or plasma creatinine measurement (mass/volume) 0.76 mg/dL 0.60-1.30 Serum or plasma urea nitrogen/creatinine mass ratio 30 NRG Serum or plasma creatinine measurement w ith calculation of estimated glomerular filtration rate > NRG Serum or plasma glucose measurement (mass/volume) 203 mg/dL 70-105 Serum or plasma calcium measurement (mass/volume) 8.9 mg/dL 8.5-10.1 Serum or plasma total bilirubin measurement (mass/volu me) 0.3 mg/dL 0.1-1.0 Serum or plasma alkaline phosphatase ana surement (enzymatic activity/volume) 95 U/L 40-136 Serum or plasma aspartate aminotransfera se measurement (enzymatic activity/volume) 17 U/L 5-34 Serum or plasma alanine aminotransferase measurement (enzymatic activity/volume) 10 U/L 0-55 Serum or plasma protein measurement (mass/volume) 7.5 g/dL 6.4-8.2 Serum or plasma albumin measurement (mass/volume) 3.8 g/dL 3.2-4.5 CALCIUM CORRECTED 9.1 mg/dL 8.5-10.1 Serum or plasma lithium measurement (mol es/volume) - 07/10/18 20:10 BNP level 157.7 pg/mL <100.0 Automated blood complete blood count (he mogram) panel - 07/16/18 08:29 Blood leukocytes automated count (number/volume) 6.4 10*3/uL 4.3-11.0 Blood erythrocytes automated count (number/volume) 4.35 10*6/uL 4.35-5.85 Venous blood hemoglobin measurement (mass/volume) 12.7 g/dL 11.5-16.0 Blood hematocrit (volume fraction) 40 % 35-52 Automated erythrocyte mean corpuscular volume 92 [ foz_us] 80-99 Automated erythrocyte mean corpuscular h emoglobin (mass per erythrocyte) 29 pg 25-34 Automated erythrocyte mean corpuscular h emoglobin concentration measurement (mass/volume) 32 g/dL 32-36 Automated erythrocyte distribution width ratio 15. 1 % 10.0- 14.5 Automated blood platelet count (count/volume) 81 1 0*3/uL 130-400 Automated blood platelet mean volume measurement 12.3 [foz_us] 7.4-10.4 PT panel in platelet poor plasma by coag ulation assay - 07/16/18 08:29 Prothrombin time (PT) in platelet poor plasma by coagu lation assay 13.6 s 12.2-14.7 INR in platelet poor plasma or blood by coagulation as say 1.0 0.8-1.4 Activated partial thromboplastin time (a PTT) in platelet poor plasma bycoagulation assay - 07/16/18 08:29 Activated partial thromboplastin time (a PTT) in platelet poor plasma bycoagulation assay 30 s 24-35 Comprehensive metabolic panel - 07/16/18 08:29 Serum or plasma sodium measurement (moles/volume) 144 mmol/L 135-145 Serum or plasma potassium measurement (moles/volume) 4.4 mmol/L 3.6-5.0 Serum or plasma chloride measurement (moles/volume) 103 mmol/L 98-107 Carbon dioxide 33 mmol/L 21-32 Serum or plasma anion gap determination (moles/volume) 8 mmol/L 5-14 Serum or plasma urea nitrogen measurement (mass/volume ) 24 mg/dL 7-18 Serum or plasma creatinine measurement (mass/volume) 0.80 mg/dL 0.60-1.30 Serum or plasma urea nitrogen/creatinine mass ratio 30 NRG Serum or plasma creatinine measurement w ith calculation of estimated glomerular filtration rate > NRG Serum or plasma glucose measurement (mass/volume) 144 mg/dL 70-105 Serum or plasma calcium measurement (mass/volume) 9.3 mg/dL 8.5-10.1 Serum or plasma total bilirubin measurement (mass/volu me) 0.3 mg/dL 0.1-1.0 Serum or plasma alkaline phosphatase ana surement (enzymatic activity/volume) 118 U/L 40-136 Serum or plasma aspartate aminotransfera se measurement (enzymatic activity/volume) 18 U/L 5-34 Serum or plasma alanine aminotransferase measurement (enzymatic activity/volume) 12 U/L 0-55 Serum or plasma protein measurement (mass/volume) 7.5 g/dL 6.4-8.2 Serum or plasma albumin measurement (mass/volume) 3.8 g/dL 3.2-4.5 CALCIUM CORRECTED 9.5 mg/dL 8.5-10.1 Lipid 1996 panel - 07/16/18 08:29 Serum or plasma triglyceride measurement (mass/volume) 171 mg/dL <150 Serum or plasma cholesterol measurement (mass/volume) 173 mg/dL < 200 Serum or plasma cholesterol in HDL measurement (mass/v olume) 40 mg/dL 40-60 Cholesterol in LDL [mass/volume] in serum or plasma by direct assay 96 mg/dL 1-129 Serum or plasma cholesterol in VLDL measurement (mass/ volume) 34 mg/dL 5-40 Methicillin resistant Staphylococcus aur eus (MRSA) screening culture - 07/16/18 08:29 Methicillin resistant Staphylococcus aureus (MRSA) scr eening culture NEG NRG Capillary blood glucose measurement by g lucometer (mass/volume) - 07/16/18 17:16 Capillary blood glucose measurement by glucometer (mas s/volume) 219 mg/dL 70-110 Capillary blood glucose measurement by g lucometer (mass/volume) - 07/16/18 20:37 Capillary blood glucose measurement by glucometer (mas s/volume) 168 mg/dL 70-110 Capillary blood glucose measurement by g lucometer (mass/volume) - 07/17/18 05:13 Capillary blood glucose measurement by glucometer (mas s/volume) 116 mg/dL 70-110 Blood CBC with ordered manual differenti al panel - 07/17/18 05:24 Blood leukocytes automated count (number/volume) 4.8 10*3/uL 4.3-11.0 Blood erythrocytes automated count (number/volume) 3.72 10*6/uL 4.35-5.85 Venous blood hemoglobin measurement (mass/volume) 10.8 g/dL 11.5-16.0 Blood hematocrit (volume fraction) 34 % 35-52 Automated erythrocyte mean corpuscular volume 91 [ foz_us] 80-99 Automated erythrocyte mean corpuscular h emoglobin (mass per erythrocyte) 29 pg 25-34 Automated erythrocyte mean corpuscular h emoglobin concentration measurement (mass/volume) 32 g/dL 32-36 Automated erythrocyte distribution width ratio 14. 9 % 10.0- 14.5 Automated blood platelet count (count/volume) 57 1 0*3/uL 130-400 Automated blood platelet mean volume measurement 11.7 [foz_us] 7.4-10.4 Automated blood neutrophils/100 leukocytes 66 % 42-75 Automated blood lymphocytes/100 leukocytes 24 % 12-44 Blood monocytes/100 leukocytes 8 % NRG Automated blood eosinophils/100 leukocytes 2 % 0-10 Automated blood basophils/100 leukocytes 0 % 0-10 Blood neutrophils automated count (number/volume) 3.2 10*3 1.8-7.8 Blood lymphocytes automated count (number/volume) 1.2 10*3 1.0-4.0 Blood monocytes automated count (number/volume) 0. 4 10*3 0.0-1.0 Automated eosinophil count 0.1 10*3/uL 0 .0-0.3 Automated blood basophil count (count/volume) 0.0 10*3/uL 0.0-0.1 Manual blood segmented neutrophils/100 leukocytes 67 % NRG Blood band neutrophils/100 leukocytes 0 % NRG Manual blood lymphocytes/100 leukocytes 24 % NRG Manual eosinophils/100 leukocytes in nose 1 % NRG Manual blood basophils/100 leukocytes 0 % NRG Blood polychromasia detection by light microscopy SLIGHT NRG Blood anisocytosis detection by light microscopy S LIGHT NRG Blood rouleaux detection by light microscopy SLIGH T NRG Whole blood basic metabolic panel - 07/06 09/23 05:24 Serum or plasma sodium measurement (moles/volume) 141 mmol/L 135-145 Serum or plasma potassium measurement (moles/volume) 4.0 mmol/L 3.6-5.0 Serum or plasma chloride measurement (moles/volume) 104 mmol/L 98-107 Carbon dioxide 30 mmol/L 21-32 Serum or plasma anion gap determination (moles/volume) 7 mmol/L 5-14 Serum or plasma urea nitrogen measurement (mass/volume ) 23 mg/dL 7-18 Serum or plasma creatinine measurement (mass/volume) 0.78 mg/dL 0.60-1.30 Serum or plasma urea nitrogen/creatinine mass ratio 29 NRG Serum or plasma creatinine measurement w ith calculation of estimated glomerular filtration rate > NRG Serum or plasma glucose measurement (mass/volume) 102 mg/dL 70-105 Serum or plasma calcium measurement (mass/volume) 8.3 mg/dL 8.5-10.1 Capillary blood glucose measurement by g lucometer (mass/volume) - 07/17/18 11:05 Capillary blood glucose measurement by glucometer (mas s/volume) 191 mg/dL 70-110 CULTURE, URINE - 11/06/18 13:37 CULTURE, URINE, [...] 7-25 CREATININE 0.81 mg/dL 0.50-1.05 eGFR NON-AFR. UGANDAN 81 mL/min/1.73m2 > OR = 60 eGFR [...] A1c 5.7 % of total Hgb <5.7 Complete blood count (CBC) with automate d white blood cell (WBC) differential - 09/14/19 20:10 Blood leukocytes automated count (number/volume) 5.7 10*3/uL 4.3-11.0 Blood erythrocytes automated count (number/volume) 4.03 10*6/uL 4.35-5.85 Venous blood hemoglobin measurement (mass/volume) 12.0 g/dL 11.5-16.0 Blood hematocrit (volume fraction) 38 % 35-52 Automated erythrocyte mean corpuscular volume 93 [ foz_us] 80-99 Automated erythrocyte mean corpuscular h emoglobin (mass per erythrocyte) 30 pg 25-34 Automated erythrocyte mean corpuscular h emoglobin concentration measurement (mass/volume) 32 g/dL 32-36 Automated erythrocyte distribution width ratio 14. 0 % 10.0- 14.5 Automated blood platelet count (count/volume) 72 1 0*3/uL 130-400 Automated blood platelet mean volume measurement 12.4 [foz_us] 7.4-10.4 Automated blood neutrophils/100 leukocytes 67 % 42-75 Automated blood lymphocytes/100 leukocytes 21 % 12-44 Blood monocytes/100 leukocytes 8 % 0-12 Automated blood eosinophils/100 leukocytes 4 % 0-10 Automated blood basophils/100 leukocytes 1 % 0-10 Blood neutrophils automated count (number/volume) 3.8 10*3 1.8-7.8 Blood lymphocytes automated count (number/volume) 1.2 10*3 1.0-4.0 Blood monocytes automated count (number/volume) 0. 5 10*3 0.0-1.0 Automated eosinophil count 0.2 10*3/uL 0 .0-0.3 Automated blood basophil count (count/volume) 0.0 10*3/uL 0.0-0.1 Comprehensive metabolic panel - 09/14/19 20:10 Serum or plasma sodium measurement (moles/volume) 143 mmol/L 135-145 Serum or plasma potassium measurement (moles/volume) 4.5 mmol/L 3.6-5.0 Serum or plasma chloride measurement (moles/volume) 102 mmol/L 98-107 Carbon dioxide 31 mmol/L 21-32 Serum or plasma anion gap determination (moles/volume) 10 mmol/L 5-14 Serum or plasma urea nitrogen measurement (mass/volume ) 31 mg/dL 7-18 Serum or plasma creatinine measurement (mass/volume) 0.83 mg/dL 0.60-1.30 Serum or plasma urea nitrogen/creatinine mass ratio 37 NRG Serum or plasma creatinine measurement w ith calculation of estimated glomerular filtration rate > NRG Serum or plasma glucose measurement (mass/volume) 162 mg/dL 70-105 Serum or plasma calcium measurement (mass/volume) 9.0 mg/dL 8.5-10.1 Serum or plasma total bilirubin measurement (mass/volu me) 0.2 mg/dL 0.1-1.0 Serum or plasma alkaline phosphatase ana surement (enzymatic activity/volume) 79 U/L 40-136 Serum or plasma aspartate aminotransfera se measurement (enzymatic activity/volume) 11 U/L 5-34 Serum or plasma alanine aminotransferase measurement (enzymatic activity/volume) 9 U/L 0-55 Serum or plasma protein measurement (mass/volume) 7.1 g/dL 6.4-8.2 Serum or plasma albumin measurement (mass/volume) 3.7 g/dL 3.2-4.5 CALCIUM CORRECTED 9.2 mg/dL 8.5-10.1 Magnesium - 09/14/19 20:10 Magnesium 2.0 mg/dL 1.6-2.4 TROPONIN I FS - 09/14/19 20:10 TROPONIN I FS < 0.30 <0.30 PROBNP FS - 09/14/19 20:10 PROBNP FS 332.2 pg/mL <75.0 Sputum Gram stain - 09/14/19 20:20 Sputum Gram stain relevant, interpret with caution s NRG Bacterial sputum culture - 09/14/19 20:2 0 QUANTITY OF GROWTH . NRG Bacterial sputum culture USUAL RESP NRG Arterial blood gas measurement - 0 22:15 Blood pCO2 58 mm[Hg] 35-45 Blood pO2 52 mm[Hg] 79-93 Arterial blood bicarbonate measurement (moles/volume) 35 mmol/L 23-27 Arterial blood base excess by calculation 8.3 mmol /L -2.5-2.5 Arterial blood oxygen saturation measurement 86 % 94-100 * Inhaled oxygen flow rate 3 NRG Arterial blood pH measurement with patient temperature correction 7.39 7.37-7.43 Arterial blood carbon dioxide, total measurement (mole s/volume) 36.9 mmol/L 21.0-31.0 Body site LEFT RADIAL NRG Assessment of wrist artery patency prior to arterial p uncture NEGATIVE NRG Setting of ventilation mode NO NR G Measurement of body temperature 36.4 NRG Complete blood count (CBC) with automate d white blood cell (WBC) differential - 09/15/19 04:25 Blood leukocytes automated count (number/volume) 5.6 10*3/uL 4.3-11.0 Blood erythrocytes automated count (number/volume) 4.24 10*6/uL 4.35-5.85 Venous blood hemoglobin measurement (mass/volume) 12.4 g/dL 11.5-16.0 Blood hematocrit (volume fraction) 40 % 35-52 Automated erythrocyte mean corpuscular volume 93 [ foz_us] 80-99 Automated erythrocyte mean corpuscular h emoglobin (mass per erythrocyte) 29 pg 25-34 Automated erythrocyte mean corpuscular h emoglobin concentration measurement (mass/volume) 31 g/dL 32-36 Automated erythrocyte distribution width ratio 14. 3 % 10.0- 14.5 Automated blood platelet count (count/volume) 60 1 0*3/uL 130-400 Automated blood platelet mean volume measurement 12.3 [foz_us] 7.4-10.4 Automated blood neutrophils/100 leukocytes 83 % 42-75 Automated blood lymphocytes/100 leukocytes 14 % 12-44 Blood monocytes/100 leukocytes 3 % 0-12 Automated blood eosinophils/100 leukocytes 1 % 0-10 Automated blood basophils/100 leukocytes 0 % 0-10 Blood neutrophils automated count (number/volume) 4.6 10*3 1.8-7.8 Blood lymphocytes automated count (number/volume) 0.8 10*3 1.0-4.0 Blood monocytes automated count (number/volume) 0. 1 10*3 0.0-1.0 Automated eosinophil count 0.1 10*3/uL 0 .0-0.3 Automated blood basophil count (count/volume) 0.0 10*3/uL 0.0-0.1 Comprehensive metabolic panel - 09/15/19 04:25 Serum or plasma sodium measurement (moles/volume) 139 mmol/L 135-145 Serum or plasma potassium measurement (moles/volume) 5.2 mmol/L 3.6-5.0 Serum or plasma chloride measurement (moles/volume) 105 mmol/L 98-107 Carbon dioxide 25 mmol/L 21-32 Serum or plasma anion gap determination (moles/volume) 9 mmol/L 5-14 Serum or plasma urea nitrogen measurement (mass/volume ) 26 mg/dL 7-18 Serum or plasma creatinine measurement (mass/volume) 0.80 mg/dL 0.60-1.30 Serum or plasma urea nitrogen/creatinine mass ratio 33 NRG Serum or plasma creatinine measurement w ith calculation of estimated glomerular filtration rate > NRG Serum or plasma glucose measurement (mass/volume) 227 mg/dL 70-105 Serum or plasma calcium measurement (mass/volume) 8.8 mg/dL 8.5-10.1 Serum or plasma total bilirubin measurement (mass/volu me) 0.3 mg/dL 0.1-1.0 Serum or plasma alkaline phosphatase ana surement (enzymatic activity/volume) 73 U/L 40-136 Serum or plasma aspartate aminotransfera se measurement (enzymatic activity/volume) 13 U/L 5-34 Serum or plasma alanine aminotransferase measurement (enzymatic activity/volume) 12 U/L 0-55 Serum or plasma protein measurement (mass/volume) 7.1 g/dL 6.4-8.2 Serum or plasma albumin measurement (mass/volume) 3.6 g/dL 3.2-4.5 CALCIUM CORRECTED 9.1 mg/dL 8.5-10.1 Capillary blood glucose measurement by g lucometer (mass/volume) - 09/15/19 05:46 Capillary blood glucose measurement by glucometer (mas s/volume) 245 mg/dL 70-110 Capillary blood glucose measurement by g lucometer (mass/volume) - 09/15/19 12:06 Capillary blood glucose measurement by glucometer (mas s/volume) 290 mg/dL 70-110 Complete blood count (CBC) with automate d white blood cell (WBC) differential - 11/12/19 08:26 Blood leukocytes automated count (number/volume) 8.6 10*3/uL 4.3-11.0 Blood erythrocytes automated count (number/volume) 4.52 10*6/uL 4.35-5.85 Venous blood hemoglobin measurement (mass/volume) 13.3 g/dL 11.5-16.0 Blood hematocrit (volume fraction) 42 % 35-52 Automated erythrocyte mean corpuscular volume 94 [ foz_us] 80-99 Automated erythrocyte mean corpuscular h emoglobin (mass per erythrocyte) 29 pg 25-34 Automated erythrocyte mean corpuscular h emoglobin concentration measurement (mass/volume) 31 g/dL 32-36 Automated erythrocyte distribution width ratio 14. 1 % 10.0- 14.5 Automated blood platelet count (count/volume) 81 1 0*3/uL 130-400 Automated blood platelet mean volume measurement 12.5 [foz_us] 7.4-10.4 Automated blood neutrophils/100 leukocytes 80 % 42-75 Automated blood lymphocytes/100 leukocytes 13 % 12-44 Blood monocytes/100 leukocytes 5 % 0-12 Automated blood eosinophils/100 leukocytes 1 % 0-10 Automated blood basophils/100 leukocytes 1 % 0-10 Blood neutrophils automated count (number/volume) 6.9 10*3 1.8-7.8 Blood lymphocytes automated count (number/volume) 1.1 10*3 1.0-4.0 Blood monocytes automated count (number/volume) 0. 5 10*3 0.0-1.0 Automated eosinophil count 0.1 10*3/uL 0 .0-0.3 Automated blood basophil count (count/volume) 0.0 10*3/uL 0.0-0.1 Streptococcus pyogenes antigen detection - 11/12/19 08:26 Streptococcus pyogenes antigen detection NEGATIVE NEGATIVE Influenza virus A and B antigen detectio n - 11/12/19 08:26 FLU RESULT NEGATIVE FOR INFLUENZA A AND B ANTIGENS BY IA [facility] Comprehensive metabolic panel - 11/12/19 08:26 Serum or plasma sodium measurement (moles/volume) 145 mmol/L 135-145 Serum or plasma potassium measurement (moles/volume) 4.5 mmol/L 3.6-5.0 Serum or plasma chloride measurement (moles/volume) 111 mmol/L 98-107 Carbon dioxide 26 mmol/L 21-32 Serum or plasma anion gap determination (moles/volume) 8 mmol/L 5-14 Serum or plasma urea nitrogen measurement (mass/volume ) 36 mg/dL 7-18 Serum or plasma creatinine measurement (mass/volume) 0.71 mg/dL 0.60-1.30 Serum or plasma urea nitrogen/creatinine mass ratio 51 NRG Serum or plasma creatinine measurement w ith calculation of estimated glomerular filtration rate > NRG Serum or plasma glucose measurement (mass/volume) 180 mg/dL 70-105 Serum or plasma calcium measurement (mass/volume) 7.6 mg/dL 8.5-10.1 Serum or plasma total bilirubin measurement (mass/volu me) 0.3 mg/dL 0.1-1.0 Serum or plasma alkaline phosphatase ana surement (enzymatic activity/volume) 73 U/L 40-136 Serum or plasma aspartate aminotransfera se measurement (enzymatic activity/volume) 10 U/L 5-34 Serum or plasma alanine aminotransferase measurement (enzymatic activity/volume) 7 U/L 0-55 Serum or plasma protein measurement (mass/volume) 6.7 g/dL 6.4-8.2 Serum or plasma albumin measurement (mass/volume) 3.7 g/dL 3.2-4.5 CALCIUM CORRECTED 7.8 mg/dL 8.5-10.1 Bacterial throat culture - 11/12/19 08:2 6 Bacterial throat culture [id number] NRG FREE TEXT EXTERNAL PLUS NORMAL EULOGIO NR G QUANTITY OF GROWTH Scant Growth NRG Encounters ACCT No. Visit Date/Time Discharge Status Pt. Type Provider Facility Loc./Unit Complaint [id number] 08/28/2014 09:54:00 15:15:00 DIS Emergency Estrella Aceves MD [facility] on [facility] ED cant walk [id number] 05/10/2018 22:49:00 Document Registration [id number] 11/25/2019 10:15:00 23:59:59 CLS Preadmit VELASQUEZ CHIANG MD [facility] RAD DEGENERATIVE DISC DISEA SE [id number] 11/14/2019 14:52:00 23:59:59 CLS Outpatient VELASQUEZ CHIANG MD [facility] RAD FS LUMBAGO WITH SCIATICA B ILATERAL [id number] 11/12/2019 08:13:00 09:40:00 DIS Emergency ROVENSTNATANAEL ENRIQUEZ DO [facility] ER FS FALL, WEAKNESS, SOB [id number] 09/14/2019 23:15:00 11:40:00 DIS Inpatient RAE TERESA VAN V [facility] 4TH COPD/SOB [id number] 06/20/2019 09:57:00 23:59:59 CLS Outpatient SHAHLA SUAZO MD [facility] ORTHO [id number] 04/29/2019 12:53:00 23:59:59 CLS Outpatient SHAHLA SUAZO MD [facility] ORTHO [id number] 04/08/2019 10:51:00 23:59:59 CLS Outpatient GABRIELE HUERTA, SHAHLA Raymond [facility] ORTHO [id number] 03/27/2019 14:55:00 16:54:00 DIS Emergency PRANAY LYN DO [facility] ER FS FALL; LT HAND LAC; LT L EG INJ [id number] 07/16/2018 08:04:00 13:45:00 DIS Outpatient NAYANA HUERTA FACC, OTILIO GREENP CC DS [facility] CATH SOB,DM,COPD ,FATIGUE [id number] 07/10/2018 13:22:00 23:59:59 CLS Preadmit JUVENTINO CHAVES [employer] [facility] SLEEP COPD, DYSPNEA, HYPERSOMNIA [id number] 07/10/2018 13:11:00 23:59:59 CLS Preadmit JUVENTINO CHAVES E [employer] [facility] RAD COPD,DYSPNEA,HY PERSOMNIA [id number] 07/10/2018 13:01:00 23:59:59 CLS Preadmit JUVENTINO [employer]AVES [employer] [facility] RT COPD,DYSPNEA,HY PERSOMNIA [id number] 07/10/2018 19:51:00 22:05:00 DIS Emergency DANIELA DENNIS [facility] ER SOB,LEGS HURT [id number] 06/15/2018 18:15:00 12:05:00 DIS Inpatient MISHA HUERTA, ALBERT Marrero [facility] 4TH COPD EXATRBATION [id number] 05/30/2019 10:17:00 Document Registration [id number] 05/26/2013 16:35:00 013 18:48:00 DIS Emergency [id number] 04/29/2018 13:47:00 04/29/2018 23:59: 00 DIS Outpatient Jessica Du Alexis [facility] OUTPT Esophagogastroduodenoscopy [id number] 08/14/2014 14:02:00 015 15:00:00 DIS Emergency Jonnathan VAN, Romain Jimenez [facility] [id number] 11/25/2019 13:20:00 11/25/2019 23:59: 59 CLS Outpatient SELF, VELASQUEZ Mallory [facility] [id number] 06/26/2019 12:45:00 Document Registration [id number] 11/06/2018 13:15:00 Document Registration
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
[2019-11-29 20:10] LABS: BASOPHILS % (AUTO) 1 % (0-10); EOSINOPHILS # (AUTO) 0.1 10^3/uL (0.0-0.3); EOSINOPHILS % (AUTO) 2 % (0-10); HEMATOCRIT 40 % (35-52); HEMOGLOBIN 13.2 G/DL (11.5-16.0); LYMPHOCYTES # (AUTO) 1.4 X 10^3 (1.0-4.0); LYMPHOCYTES % (AUTO) 16 % (12-44); MEAN CORPUSCULAR HEMOGLOBIN 30 PG (25-34); MEAN CORPUSCULAR HGB CONC 33 G/DL (32-36); MEAN CORPUSCULAR VOLUME 91 FL (80-99); MEAN PLATELET VOLUME 11.9 FL (7.4-10.4); MONOCYTES # (AUTO) 0.7 X 10^3 (0.0-1.0); MONOCYTES % (AUTO) 7 % (0-12); NEUTROPHILS # (AUTO) 6.5 X 10^3 (1.8-7.8); NEUTROPHILS % (AUTO) 74 % (42-75); PLATELET COUNT 93 10^3/uL (130-400); RED CELL DISTRIBUTION WIDTH 14.5 % (10.0-14.5); WHITE BLOOD COUNT 8.8 10^3/uL (4.3-11.0)
[2019-11-29 20:27] LABS: CLARITY,URINE SLIGHTLY CLOUDY; COLOR,URINE YELLOW; PH,URINE 5.5 (5-9)
[2019-11-29 20:28] LABS: BACTERIA,URINE FEW /HPF; BILIRUBIN,URINE 1+ (NEGATIVE); GLUCOSE, URINE (UA) NEGATIVE (NEGATIVE); KETONES,URINE TRACE (NEGATIVE); LEUKOCYTE ESTERASE ,URINE NEGATIVE (NEGATIVE); NITRITE,URINE NEGATIVE (NEGATIVE); PROTEIN,URINE 2+ (NEGATIVE); RBC,URINE 0-2 /HPF; WBC,URINE 25-50 /HPF
[2019-11-29 20:29] LABS: HYALINE CASTS, URINE 0-2 /LPF; URINE OTHER SODIUM URATE CRYSTAL /HPF
[2019-11-29 20:31] LABS: AMPHETAMINE SCREEN, URINE NEGATIVE (NEGATIVE); BARBITURATE SCREEN URINE NEGATIVE (NEGATIVE); BENZODIAZEPINES SCREEN URINE NEGATIVE (NEGATIVE); CANNABINOID SCREEN, URINE POSITIVE (NEGATIVE); COCAINE SCREEN URINE NEGATIVE (NEGATIVE); METHADONE STAT NEGATIVE (NEGATIVE); METHAMPHETAMINE SCREEN URINE S NEGATIVE (NEGATIVE); OPIATE SCREEN URINE NEGATIVE (NEGATIVE); OXYCODONE STAT NEGATIVE (NEGATIVE); PROPOXYPHENE STAT NEGATIVE (NEGATIVE); TRICYCLIC ANTIDEPRESSANTS SCRE NEGATIVE (NEGATIVE)
[2019-11-29 20:32] LABS: ALANINE AMINOTRANSFERASE 16 U/L (0-55); ALBUMIN 3.9 GM/DL (3.2-4.5); ALKALINE PHOSPHATASE 91 U/L (40-136); BILIRUBIN,TOTAL 0.9 MG/DL (0.1-1.0); BUN/CREATININE RATIO 36; CALCIUM 9.5 MG/DL (8.5-10.1); CARBON DIOXIDE 26 MMOL/L (21-32); CHLORIDE 102 MMOL/L (98-107); CREATININE SERUM 0.94 MG/DL (0.60-1.30); GFR ESTIMATED > 60; GLUCOSE 139 MG/DL (70-105); POTASSIUM 4.3 MMOL/L (3.6-5.0); SODIUM 144 MMOL/L (135-145); TOTAL PROTEIN 7.5 GM/DL (6.4-8.2)
--- NOTE | 2019-11-29 20:46 | Diagnostic Imaging Report ---
INDICATION: Trauma. COMPARISON: 11/12/2019. EXAMINATION: Single frontal view of the chest was obtained. FINDINGS: Normal heart size and pulmonary vascularity. The lungs are well aerated and clear. No large pleural effusion or pneumothorax is seen. The visualized osseous structures show no acute abnormality. IMPRESSION: No acute cardiopulmonary process. Dictated by: Dictated on workstation # [id number]
--- NOTE | 2019-11-29 20:47 | Diagnostic Imaging Report ---
INDICATION: Fall. Forearm pain. COMPARISON: None. EXAMINATION: Two views of the left forearm were obtained and show no fracture, dislocation or other acute bony abnormality. Joint spaces are well maintained throughout. The soft tissues appear unremarkable. No radiopaque foreign body is identified. IMPRESSION: Unremarkable radiographic exam of the left forearm. Dictated by: Dictated on workstation # [id number]
--- NOTE | 2019-11-29 20:57 | Diagnostic Imaging Report ---
PROCEDURE: CT head and CT cervical spine without contrast. TECHNIQUE: Multiple contiguous axial images were obtained through the brain and cervical spine without the use of intravenous contrast. Sagittal and coronal reformations through the cervical spine were then performed. Auto Exposure Controls were utilized during the CT exam to meet ALARA standards for radiation dose reduction. INDICATION: Fall. Trauma. COMPARISON: 06/16/2010. FINDINGS: CT head: Ventricles and cortical sulci are age-appropriate. There are areas of decreased attenuation within the periventricular and subcortical deep white matter consistent with chronic small vessel ischemic changes. There is no midline shift or mass-effect. No acute intra-axial hemorrhage is seen. There are no abnormal areas of increased or decreased density to suggest acute hemorrhage or edema. No extra-axial mass or collection is present. The bony calvarium is intact. The visualized paranasal sinuses are unremarkable. The mastoid air cells are clear. CT cervical spine: Patient is status post previous anterior fusion of C5-C6. [place] screws appear well seated and are intact. Anterior fusion plate also appears well opposed to underlying cervical spine. Intervertebral disc spacers is also noted at C5-C6 and appears appropriately positioned. Static alignment of the cervical spine is maintained. There is no significant anteroretrolisthesis. There is no evidence of jumped facets. Vertebral body heights are maintained. There is no acute fracture. No bony fragment is seen within the spinal canal. There are moderate multilevel degenerative changes consistent with intervertebral disc height loss with anterior and posterior disc osteophyte complex formations. Prevertebral and paravertebral soft tissue structures are unremarkable. Included portions of the lung apices show no additional acute abnormality. IMPRESSION: 1. No acute intracranial abnormality. No CT evidence of mass, acute infarct or intracranial hemorrhage. 2. Background chronic small vessel ischemic changes in the deep white matter. 3. No acute fracture or dislocation of the cervical spine. 4. Postsurgical changes of previous anterior fusion at C5-C6. No evidence of hardware fracture or failure. Dictated by: Dictated on workstation # [id number]
[2019-11-29 22:07] LABS: ABG BASE EXCESS 8.2 MMOL/L (-2.5-2.5); ABG OXYGEN SATURATION 97 % (94-100); ABG PCO2 48 MMHG (35-45); ABG PH 7.45 (7.37-7.43); ABG PO2 91 MMHG (79-93); ABG TCO2 34.9 MMOL/L (21.0-31.0); ALLENS TEST POSITIVE; INSPIRED O2 ROOM AIR; PATIENT TEMP 36.8; VENTILATOR NO
[2019-11-29 22:15] VITALS: BP_SYST 118; BP_SYST 121; BP_SYST 133; BP_DIAS 76; BP_DIAS 80; BP_DIAS 85
[2019-11-29] MEDS ORDERED: NS IV 1000 ML 1,000 ML IV ONE (22:32)
[2019-11-29] MEDS ORDERED: NS IV 1000 ML 1,000 ML IV SCH (22:32)
[2019-11-29] MEDS ORDERED: IOHEXOL 350 MG/ML 100 ML (OMNIPAQUE 350) VIAL IV ONE (22:45)
[2019-11-29] MEDS ORDERED: NS 100 ML (IVPB) BAG IV ONE (22:45)
[2019-11-29] MEDS ORDERED: CATHETER FLUSH 10 ML SYR IV PRN (22:45)
[2019-11-29] MEDS ORDERED: HOLD METFORMIN - RECEIVED CONTRAST 20 ML VIAL IV SCH (22:45)
[2019-11-30] MEDS ORDERED: CIPROFLOXACIN IV 400MG/200ML 200 ML IV ONE (01:00)
[2019-11-30] MEDS ORDERED: metroNIDAZOLE 500MG/100ML IVPB 100 ML IV ONE (01:00)
--- OUTSIDE RECORDS SUMMARY | 2019-11-30 01:20 | XMS REPORT | Continuity of Care Document ---
Author Organization Unknown Address Unknown Phone Unavailable Allergies Active Description Code Type Severity Reaction Onset Reported/Identified Relationship to Patient Clinical Status Yes Penicillins Penicillins Drug Allergy Unknown CANNOT BREATHE 08/14/2014 Yes penicillins NKMA N/A passed out 08/28/2014 Yes penicillin 84288 Ingredient moderate to severe Lethargy~Trouble Breathing Yes Penicillins [id number] Drug Aller gy Unknown Dizziness 05/11/2018 Yes Penicillins [id number] Drug Aller gy Unknown weak, cant dylan 06/15/2018 Yes Penicillins [id number] Drug Aller gy Moderate weak, cant dylan [...] 06/18/2018 ALBERT CABRAL MD, Ot Z79.899 OTHER GROUP HOME (CURRENT) DRUG THERAPY 07/10/2018 SONNY DANIELA Ot E11.9 TYPE 2 DIABETES MELLITUS WITHOUT COMPLIC 07/10/2018 STEW DENNISIS Ot J44.1 CHRONIC OBSTRUCTIVE PULMONARY DISEASE W 07/10/2018 SONNY DANIELA Ot R06.02 SHORTNESS OF BREATH 07/10/2018 BERNMARIA ELENA DANIELA Ot Z79.4 C SOFTWARE ENGINEER (CURRENT) USE OF INSULIN 07/10/2018 SONNY, DANIELA Ot Z79.51 C SOFTWARE ENGINEER (CURRENT) USE OF INHALED STERO 07/10/2018 RICKYOT, DANIELA Ot Z79.52 C SOFTWARE ENGINEER (CURRENT) USE OF SYSTEMIC STER 07/10/2018 BERNMARIA [...] OF BREATH 07/12/2018 DANIELA DENNIS Ot Z79.4 GROUP HOME (CURRENT) USE OF INSULIN 07/12/2018 STEW DENNISIS Ot Z79.51 GROUP HOME (CURRENT) USE OF INHALED STERO 07/12/2018 DANIELA DENNIS Ot Z79.52 C SOFTWARE ENGINEER (CURRENT) USE OF SYSTEMIC STER 07/12/2018 DANIELA [...] HUERTA FACC, ALI FACP CCDS Ot Z79.4 GROUP HOME (CURRENT) USE OF INSULIN 07/17/2018 NAYANA HUERTA FACC, ALI FACP CCDS Ot Z79.82 C SOFTWARE ENGINEER (CURRENT) USE OF ASPIRIN 07/17/2018 NAYANA HUERTA FACC, ALI FACP CCDS Ot Z79.899 OTHER C SOFTWARE ENGINEER (CURRENT) DRUG THERAPY 07/22/2018 NAYANA HUERTA FACC, [...] HUERTA FACC, ALI FACP CCDS Ot Z79.4 GROUP HOME (CURRENT) USE OF INSULIN 07/22/2018 NAYANA HUERTA FACC, OTILIO FACP CCDS Ot Z79.82 C SOFTWARE ENGINEER (CURRENT) USE OF ASPIRIN 07/22/2018 NAYANA HUERTA FACC, ALI FACP CCDS Ot Z79.899 OTHER GROUP HOME (CURRENT) DRUG THERAPY 08/07/2018 JUVENTINO CHAVES APRN [...] AND DISORDERS OF THE C 08/29/2018 NAYANA UHERTA FACC, OTILIO FACP CCDS Ot J44.9 CHRONIC [...] R07.9 CHEST PAIN, UNSPECIFIED 08/29/2018 NAYANA HUERTA [facility] ALI FACP CCDS Ot R09.02 HYPOXEMIA 08/29/2018 NAYANA HUERTA [facility] ALI FACP CCDS Ot R51 HEADACHE 08/29/2018 NAYANA HUERTA FACC, ALI FACP CCDS Ot Z68.35 BODY MASS INDEX (BMI) 35.0-35.9, ADULT 08/29/2018 NAYANA HUERTA FACC, ALI FACP CCDS Ot Z79.4 C SOFTWARE ENGINEER (CURRENT) USE OF INSULIN 08/29/2018 NAYANA HUERTA FACC, ALI FACP CCDS Ot Z79.82 C SOFTWARE ENGINEER (CURRENT) USE OF ASPIRIN 08/29/2018 NAYANA HUERTA FACC, ALI FACP CCDS Ot Z79.899 OTHER GROUP HOME (CURRENT) DRUG THERAPY 09/09/2018 JUVENTINO CHAVES APRN [...] LYN DO Ot Y92.[address] IN [facility] 03/27/2019 PRANAY LYN DO Ot Z23 ENCOUNTER FOR IMMUNIZATION 03/27/2019 PRANAY LYN DO Ot Z79. 4 GROUP HOME (CURRENT) USE OF INSULIN 03/27/2019 PRANAY LYN [...] LYN DO Ot Y92.[address] IN [facility] 03/31/2019 PRANAY LYN DO Ot Z23 ENCOUNTER FOR IMMUNIZATION 03/31/2019 PRANAY LYN DO Ot Z79. 4 C SOFTWARE ENGINEER (CURRENT) USE OF INSULIN 03/31/2019 PRANAY LYN DO Ot Z88. 0 ALLERGY STATUS TO PENICILLIN 03/31/2019 PRANAY LYN DO Ot Z99. 81 DEPENDENCE ON SUPPLEMENTAL OXYGEN 04/09/2019 SHAHLA SUAZO MD Ot S92.352A DISP FX OF FIFTH METATARSAL BONE, LEFT F 04/09/2019 SHAHLA SUAZO MD Ot W19.XXXA UNSPECIFIED FALL, INITIAL ENCOUNTER 04/09/2019 SHAHLA SUAZO MD Ot Y92.[address] IN [facility] 05/01/2019 SHAHLA SUAZO MD Ot S92.352A DISP FX OF FIFTH METATARSAL BONE, LEFT F 05/01/2019 SHAHLA SUAZO MD Ot W19.XXXA UNSPECIFIED FALL, INITIAL ENCOUNTER 05/01/2019 SHAHLA SUAZO MD Ot Y92.[address] [facility] 05/02/2019 SHAHLA SUAZO MD Ot S92.352A DISP FX OF FIFTH METATARSAL BONE, LEFT F 05/02/2019 SHAHLA SUAZO MD Ot W19.XXXA UNSPECIFIED FALL, INITIAL ENCOUNTER 05/02/2019 SHAHLA SUAZO MD Ot Y92.[address] [facility] 06/03/2019 Ot S92.352A D ISP FX OF FIFTH METATARSAL BONE, LEFT F 06/03/2019 Ot W19.XXXA U NSPECIFIED FALL, INITIAL ENCOUNTER 06/03/[address] IN [facility] 06/03/2019 Ot S92.352A D ISP FX OF FIFTH METATARSAL BONE, LEFT F 06/03/2019 Ot W19.XXXA U NSPECIFIED FALL, INITIAL ENCOUNTER 06/03/2019 Ot [address] IN [facility] 06/20/2019 Ot S92.352A D ISP FX OF FIFTH METATARSAL BONE, LEFT F 06/20/2019 Ot W19.XXXA U NSPECIFIED FALL, INITIAL ENCOUNTER 06/20/[address] IN [facility] 06/25/2019 SHAHLA USAZO MD Ot S92.352D DISP FX OF 5TH [...] Ot Y92.[address] IN OT [facility]IDENTIAL [facility] 09/14/2019 SHAHLA SUAZO MD Ot S92.352A DISP FX OF FIFTH METATARSAL BONE, LEFT F 09/14/2019 SHAHLA SUAZO MD Ot W19.XXXA UNSPECIFIED FALL, INITIAL ENCOUNTER 09/14/2019 SHAHLA SUAZO MD Ot Y92.[address] IN OT [facility]IDENTIAL [facility] 09/14/2019 Ot S92.352A D ISP FX OF FIFTH METATARSAL BONE, LEFT F 09/14/2019 Ot W19.XXXA U NSPECIFIED FALL, INITIAL ENCOUNTER 09/14/2019 Ot [address] IN [facility] 09/14/2019 SHAHLA SUAZO MD Ot S92.352D DISP FX OF 5TH METATARSAL BONE, L FT, 7T 09/14/2019 SHAHLA SUAZO MD Ot X58.XXXD EXPOSURE TO OTHER SPECIFIED FACTORS, SUB 09/15/2019 SHAHLA SUAZO MD Ot S92.352A DISP FX OF FIFTH METATARSAL BONE, LEFT F 09/15/2019 SHAHLA SUAZO MD Ot W19.XXXA UNSPECIFIED FALL, INITIAL ENCOUNTER 09/15/2019 SHAHLA SUAZO MD Ot Y92.[address] IN [facility] 09/15/2019 SHAHLA SUAZO MD Ot S92.352A DISP FX OF FIFTH METATARSAL BONE, LEFT F 09/15/2019 SHAHLA SUAZO MD Ot W19.XXXA UNSPECIFIED FALL, INITIAL ENCOUNTER 09/15/2019 SHAHLA SUAZO MD Ot Y92.[address] IN [facility] RESIDENTIAL [facility] 09/15/2019 Ot S92.352A D ISP FX OF FIFTH METATARSAL BONE, LEFT F 09/15/2019 Ot W19.XXXA U NSPECIFIED FALL, INITIAL ENCOUNTER 09/15/[address] IN [facility] 09/15/2019 SHAHLA SUAZO MD Ot S92.352D DISP FX OF 5TH METATARSAL BONE, L FT, 7T 09/15/2019 SHAHLA SUAZO MD Ot X58.XXXD EXPOSURE TO OTHER SPECIFIED FACTORS, SUB 09/15/2019 SHAHLA SAUZO MD Ot S92.352A DISP FX OF FIFTH METATARSAL BONE, LEFT F 09/15/2019 SHAHLA SUAZO MD Ot W19.XXXA UNSPECIFIED FALL, INITIAL ENCOUNTER 09/15/2019 SHAHLA SUAZO MD Ot Y92.[address] IN [facility] 09/15/2019 SHAHLA SUAZO MD Ot S92.352A DISP FX OF FIFTH METATARSAL BONE, LEFT F 09/15/2019 SHAHLA SUAZO MD Ot W19.XXXA UNSPECIFIED FALL, INITIAL ENCOUNTER 09/15/2019 SHAHLA SUAZO MD Ot Y92.[address] IN [facility] RESIDENTIAL [facility] 09/15/2019 Ot S92.352A D ISP FX OF FIFTH METATARSAL BONE, LEFT F 09/15/2019 Ot W19.XXXA U NSPECIFIED FALL, INITIAL ENCOUNTER 09/15/[address] IN [facility] RESIDENTIAL [facility] 09/15/2019 SHAHLA SUAZO MD Ot S92.352D DISP FX OF 5TH METATARSAL BONE, L FT, 7T 09/15/2019 SHAHLA SUAZO MD Ot X58.XXXD EXPOSURE TO OTHER SPECIFIED FACTORS, SUB 09/15/2019 SHAHLA SUAZO MD Ot S92.352A DISP FX OF FIFTH METATARSAL BONE, LEFT F 09/15/2019 SHAHLA SUAZO MD Ot W19.XXXA UNSPECIFIED FALL, INITIAL ENCOUNTER 09/15/2019 SHAHLA SUAZO MD Ot Y92.[address] IN [facility] 09/15/2019 SHAHLA SUAZO MD Ot S92.352A DISP FX OF FIFTH METATARSAL BONE, LEFT F 09/15/2019 SHAHLA SUAZO MD Ot W19.XXXA UNSPECIFIED FALL, INITIAL ENCOUNTER 09/15/2019 SHAHLA SUAZO MD Ot Y92.[address] IN [facility] RESIDENTIAL [facility] 09/15/2019 Ot S92.352A D ISP FX OF FIFTH METATARSAL BONE, LEFT F 09/15/2019 Ot W19.XXXA U NSPECIFIED FALL, INITIAL ENCOUNTER 09/15/[address] IN OT [facility]IDENTIAL [facility] 09/15/2019 SHAHLA SUAZO MD Ot S92.352D DISP FX OF 5TH METATARSAL BONE, L FT, 7T 09/15/2019 SHAHLA SUAZO MD Ot X58.XXXD EXPOSURE TO OTHER SPECIFIED FACTORS, SUB 09/15/2019 SHAHLA SUAZO MD Ot S92.352A DISP FX OF FIFTH METATARSAL BONE, LEFT F 09/15/2019 SHAHLA SUAZO MD Ot W19.XXXA UNSPECIFIED FALL, INITIAL ENCOUNTER 09/15/2019 SHAHLA SUAZO MD Ot Y92.[address] IN [facility] RESIDENTIAL [facility] 09/15/2019 SHAHLA SUAZO MD Ot S92.352A DISP FX OF FIFTH METATARSAL BONE, LEFT F 09/15/2019 SHAHLA SUAZO MD Ot W19.XXXA UNSPECIFIED FALL, INITIAL ENCOUNTER 09/15/2019 SHAHLA SUAZO MD Ot Y92.[address] IN [facility] RESIDENTIAL [facility] 09/15/2019 Ot S92.352A D ISP FX OF FIFTH METATARSAL BONE, LEFT F 09/15/2019 Ot W19.XXXA U NSPECIFIED FALL, INITIAL ENCOUNTER 09/15/[address] IN [facility] 09/15/2019 SHAHLA SUAZO MD Ot S92.352D DISP FX OF 5TH METATARSAL BONE, L FT, 7T 09/15/2019 SHAHLA SUAZO MD Ot X58.XXXD EXPOSURE TO OTHER SPECIFIED FACTORS, SUB 09/15/2019 SHAHLA SUAZO MD Ot S92.352A DISP FX OF FIFTH METATARSAL BONE, LEFT F 09/15/2019 SHAHLA SUAZO MD Ot W19.XXXA UNSPECIFIED FALL, INITIAL ENCOUNTER 09/15/2019 SHAHLA SUAZO MD Ot Y92.[address] IN [facility] 09/15/2019 SHAHLA SUAZO MD Ot S92.352A DISP FX OF FIFTH METATARSAL BONE, LEFT F 09/15/2019 SHAHLA SUAZO MD Ot W19.XXXA UNSPECIFIED FALL, INITIAL ENCOUNTER 09/15/2019 SHAHLA SUAZO MD Ot Y92.[address] IN [facility] 09/15/2019 Ot S92.352A D ISP FX OF FIFTH METATARSAL BONE, LEFT F 09/15/2019 Ot W19.XXXA U NSPECIFIED FALL, INITIAL ENCOUNTER 09/15/[address] IN [facility] RESIDENTIAL [facility] 09/15/2019 SHAHLA SUAZO MD Ot S92.352D DISP [...] W 09/15/2019 KYRA VAN TERESA Ot Z79.4 GROUP HOME (CURRENT) USE OF INSULIN 09/15/2019 KYRA VAN TERESA Ot Z79.89 9 OTHER C SOFTWARE ENGINEER (CURRENT) DRUG THERAPY 09/15/2019 KYRA VAN TERESA Ot Z86.19 PERSONAL HISTORY OF OTHER INFECTIOUS AND 09/15/2019 YKRA DO TERESA Ot Z88.0 ALLERGY STATUS TO PENICILLIN 09/15/2019 KYRA DO TERESA Ot Z91.19 PATIENT'S NONCOMPLIANCE W [facility] 09/15/2019 RAE DO TERESA [...] W 09/15/2019 RAE DO, TERESA Ot Z79.4 C SOFTWARE ENGINEER (CURRENT) USE OF INSULIN 09/15/2019 RAE DO, TERESA Ot Z79.89 9 OTHER GROUP HOME (CURRENT) DRUG THERAPY 09/15/2019 RAE DO, TERESA Ot Z86.19 PERSONAL HISTORY OF OTHER INFECTIOUS AND 09/15/2019 RAE DO, TERESA Ot Z88.0 ALLERGY STATUS TO PENICILLIN 09/15/2019 RAE DO, TERESA Ot Z91.19 PATIENT'S NONCOMPLIANCE W [facility] 09/15/2019 RAE DO, TERESA [...] W 10/03/2019 RAE DO, TERESA Ot Z79.4 GROUP HOME (CURRENT) USE OF INSULIN 10/03/2019 RAE DO, TERESA Ot Z79.89 9 OTHER GROUP HOME (CURRENT) DRUG THERAPY 10/03/2019 RAE DO, TERESA Ot Z86.19 PERSONAL HISTORY OF OTHER INFECTIOUS AND 10/03/2019 RAE DO, TERESA Ot Z88.0 ALLERGY STATUS TO PENICILLIN 10/03/2019 RAE DO, TERESA Ot Z91.19 PATIENT'S NONCOMPLIANCE W [facility] 10/03/2019 RAE DO, TERESA Ot Z99.81 DEPENDENCE ON SUPPLEMENTAL OXYGEN 10/24/2019 SHAHLA SUAZO MD Ot S92.352A DISP FX OF FIFTH METATARSAL BONE, LEFT F 10/24/2019 SHAHLA SUAZO MD Ot W19.XXXA UNSPECIFIED FALL, INITIAL ENCOUNTER 10/24/2019 SHAHLA SUAZO MD Ot Y92.[address] IN OT [facility]IDENTIAL [facility] 10/24/2019 SHAHLA SUAZO MD Ot S92.352A DISP FX OF FIFTH METATARSAL BONE, LEFT F 10/24/2019 SHAHLA SUAZO MD Ot W19.XXXA UNSPECIFIED FALL, INITIAL ENCOUNTER 10/24/2019 SHAHLA SUAZO MD Ot Y92.[address] IN [facility] 10/24/2019 Ot S92.352A D ISP FX OF FIFTH METATARSAL BONE, LEFT F 10/24/2019 Ot W19.XXXA U NSPECIFIED FALL, INITIAL ENCOUNTER 10/24/[address] IN OT [facility]IDENTIAL [facility] 10/24/2019 SHAHLA SUAZO MD Ot S92.352D DISP [...] R53.1 WEAKNESS 11/12/2019 ROVENSTINE DONATANAEL Ot Z79.4 GROUP HOME (CURRENT) USE OF INSULIN 11/12/2019 ROVENSTINE DONATANAEL [...] 11/14/2019 ROVENSTINE DO, NATANAEL Kyle Ot Z79.4 GROUP HOME (CURRENT) USE OF INSULIN 11/14/2019 ROVENSTINE DO, NATANAEL Kyle Ot Z88.0 ALLERGY STATUS TO PENICILLIN 11/14/2019 SHAHLA SUAZO MD Ot S92.352A DISP FX OF FIFTH METATARSAL BONE, LEFT F 11/14/2019 SHAHLA SUAZO MD Ot W19.XXXA UNSPECIFIED FALL, INITIAL ENCOUNTER 11/14/2019 SHAHLA SUAZO MD Ot Y92.[address] IN [facility] RESIDENTIAL [facility] 11/14/2019 SHALHA SUAZO MD Ot S92.352A DISP FX OF FIFTH METATARSAL BONE, LEFT F 11/14/2019 SHAHLA SUAZO MD Ot W19.XXXA UNSPECIFIED FALL, INITIAL ENCOUNTER 11/14/2019 SHAHLA SUAZO MD Ot Y92.[address] IN [facility] RESIDENTIAL [facility] 11/14/2019 Ot S92.352A D ISP FX OF FIFTH METATARSAL BONE, LEFT F 11/14/2019 Ot W19.XXXA U NSPECIFIED FALL, INITIAL ENCOUNTER 11/14/[address] IN [facility] RESIDENTIAL [facility] 11/14/2019 SHAHLA SUAZO MD Ot S92.352D DISP FX OF 5TH METATARSAL BONE, L FT, 7T 11/14/2019 SHAHLA SUAZO MD Ot X58.XXXD EXPOSURE TO OTHER SPECIFIED FACTORS, SUB 11/14/2019 SHAHLA SUAZO MD Ot S92.352A DISP FX OF FIFTH METATARSAL BONE, LEFT F 11/14/2019 SHAHLA SUAZO MD Ot W19.XXXA UNSPECIFIED FALL, INITIAL ENCOUNTER 11/14/2019 SHAHLA SUAZO MD Ot Y92.[address] IN [facility] RESIDENTIAL [facility] 11/14/2019 SHAHLA SUAZO MD Ot S92.352A DISP FX OF FIFTH METATARSAL BONE, LEFT F 11/14/2019 SHAHLA SUAZO MD Ot W19.XXXA UNSPECIFIED FALL, INITIAL ENCOUNTER 11/14/2019 SHAHLA SUAZO MD Ot Y92.[address] IN [facility] RESIDENTIAL [facility] 11/14/2019 Ot S92.352A D ISP FX OF FIFTH METATARSAL BONE, LEFT F 11/14/2019 Ot W19.XXXA U NSPECIFIED FALL, INITIAL ENCOUNTER 11/14/[address] IN OT [facility]IDENTIAL [facility] 11/14/2019 SHAHLA SUAZO MD Ot S92.352D DISP FX OF 5TH METATARSAL BONE, L FT, 7T 11/14/2019 SHAHLA SUAZO MD Ot X58.XXXD EXPOSURE TO OTHER SPECIFIED FACTORS, SUB 11/14/2019 SHAHLA SUAZO MD Ot S92.352A DISP FX OF FIFTH METATARSAL BONE, LEFT F 11/14/2019 SHAHLA SUAOZ MD Ot W19.XXXA UNSPECIFIED FALL, INITIAL ENCOUNTER 11/14/2019 SHAHLA SUAZO MD Ot Y92.[address] IN [facility] RESIDENTIAL [facility] 11/14/2019 SHAHLA SUAZO MD Ot S92.352A DISP FX OF FIFTH METATARSAL BONE, LEFT F 11/14/2019 SHAHLA SUAZO MD Ot W19.XXXA UNSPECIFIED FALL, INITIAL ENCOUNTER 11/14/2019 SHAHLA SUAZO MD Ot Y92.[address] IN OT [facility] 11/14/2019 Ot S92.352A D ISP FX OF FIFTH METATARSAL BONE, LEFT F 11/14/2019 Ot W19.XXXA U NSPECIFIED FALL, INITIAL ENCOUNTER 11/14/[address] Ot [address] IN [facility] 11/14/2019 SHAHLA SUAZO MD Ot S92.352D DISP FX OF 5TH METATARSAL BONE, L FT, 7T 11/14/2019 SHAHLA SUAZO MD Ot X58.XXXD EXPOSURE TO OTHER SPECIFIED FACTORS, SUB 11/17/2019 SHAHLA SUAZO MD Ot S92.352A DISP FX OF FIFTH METATARSAL BONE, LEFT F 11/17/2019 SHAHLA SUAZO MD Ot W19.XXXA UNSPECIFIED FALL, INITIAL ENCOUNTER 11/17/2019 SHAHLA SUAZO MD Ot Y92.[address] IN [facility] RESIDENTIAL [facility] 11/17/2019 SHAHLA SUAZO MD Ot S92.352A DISP FX OF FIFTH METATARSAL BONE, LEFT F 11/17/2019 SHAHLA SUAZO MD Ot W19.XXXA UNSPECIFIED FALL, INITIAL ENCOUNTER 11/17/2019 SHAHLA SUAZO MD Ot Y92.[address] IN OT [facility]IAL [facility] 11/17/2019 Ot S92.352A D ISP FX OF FIFTH METATARSAL BONE, LEFT F 11/17/2019 Ot W19.XXXA U NSPECIFIED FALL, INITIAL ENCOUNTER 11/17/[address] IN [facility] RESIDENTIAL [facility] 11/17/2019 SHAHLA SUAZO MD Ot S92.352D DISP [...] 7-25 CREATININE 0.81 mg/dL 0.50-1.05 eGFR NON-AFR. CITIZEN [place] 81 mL/min/1.73m2 > OR = 60 eGFR [...] INFLUENZA A AND B ANTIGENS BY IA [facility] Comprehensive metabolic panel - 11/12/19 08:26 Serum [...] - 11/12/19 08:2 6 Bacterial throat culture [id number] NRG FREE TEXT EXTERNAL PLUS NORMAL EULOGIO NR G QUANTITY OF GROWTH Scant Growth NRG Complete blood count (CBC) with automate d white blood cell (WBC) differential - 11/29/19 20:03 Blood leukocytes automated count (number/volume) 8.8 10*3/uL 4.3-11.0 Blood erythrocytes automated count (number/volume) 4.44 10*6/uL 4.35-5.85 Venous blood hemoglobin measurement (mass/volume) 13.2 g/dL 11.5-16.0 Blood hematocrit (volume fraction) 40 % 35-52 Automated erythrocyte mean corpuscular volume 91 [ foz_us] 80-99 Automated erythrocyte mean corpuscular h emoglobin (mass per erythrocyte) 30 pg 25-34 Automated erythrocyte mean corpuscular h emoglobin concentration measurement (mass/volume) 33 g/dL 32-36 Automated erythrocyte distribution width ratio 14. 5 % 10.0- 14.5 Automated blood platelet count (count/volume) 93 1 0*3/uL 130-400 Automated blood platelet mean volume measurement 11.9 [foz_us] 7.4-10.4 Automated blood neutrophils/100 leukocytes 74 % 42-75 Automated blood lymphocytes/100 leukocytes 16 % 12-44 Blood monocytes/100 leukocytes 7 % 0-12 Automated blood eosinophils/100 leukocytes 2 % 0-10 Automated blood basophils/100 leukocytes 1 % 0-10 Blood neutrophils automated count (number/volume) 6.5 10*3 1.8-7.8 Blood lymphocytes automated count (number/volume) 1.4 10*3 1.0-4.0 Blood monocytes automated count (number/volume) 0. 7 10*3 0.0-1.0 Automated eosinophil count 0.1 10*3/uL 0 .0-0.3 Automated blood basophil count (count/volume) 0.0 10*3/uL 0.0-0.1 Comprehensive metabolic panel - 11/29/19 20:03 Serum or plasma sodium measurement (moles/volume) 144 mmol/L 135-145 Serum or plasma potassium measurement (moles/volume) 4.3 mmol/L 3.6-5.0 Serum or plasma chloride measurement (moles/volume) 102 mmol/L 98-107 Carbon dioxide 26 mmol/L 21-32 Serum or plasma anion gap determination (moles/volume) 16 mmol/L 5-14 Serum or plasma urea nitrogen measurement (mass/volume ) 34 mg/dL 7-18 Serum or plasma creatinine measurement (mass/volume) 0.94 mg/dL 0.60-1.30 Serum or plasma urea nitrogen/creatinine mass ratio 36 NRG Serum or plasma creatinine measurement w ith calculation of estimated glomerular filtration rate > NRG Serum or plasma glucose measurement (mass/volume) 139 mg/dL 70-105 Serum or plasma calcium measurement (mass/volume) 9.5 mg/dL 8.5-10.1 Serum or plasma total bilirubin measurement (mass/volu me) 0.9 mg/dL 0.1-1.0 Serum or plasma alkaline phosphatase ana surement (enzymatic activity/volume) 91 U/L 40-136 Serum or plasma aspartate aminotransfera se measurement (enzymatic activity/volume) 16 U/L 5-34 Serum or plasma alanine aminotransferase measurement (enzymatic activity/volume) 16 U/L 0-55 Serum or plasma protein measurement (mass/volume) 7.5 g/dL 6.4-8.2 Serum or plasma albumin measurement (mass/volume) 3.9 g/dL 3.2-4.5 CALCIUM CORRECTED 9.6 mg/dL 8.5-10.1 TROPONIN I FS - 11/29/19 20:03 TROPONIN I FS < 0.30 <0.30 PROBNP FS - 11/29/19 20:03 PROBNP FS 85.5 pg/mL <75.0 CRP FS - 11/29/19 20:03 CRP FS 2.09 mg/dL <0.50 Serum or plasma ethanol measurement (mas s/volume) - 11/29/19 20:03 Serum or plasma ethanol measurement (mass/volume) < mg/dL <10 Arterial blood gas measurement - 0 20:05 Blood pCO2 48 mm[Hg] 35-45 Blood pO2 91 mm[Hg] 79-93 Arterial blood bicarbonate measurement (moles/volume) 33 mmol/L 23-27 Arterial blood base excess by calculation 8.2 mmol /L -2.5-2.5 Arterial blood oxygen saturation measurement 97 % 94-100 * Inhaled oxygen flow rate ROOM AIR NRG Arterial blood pH measurement with patient temperature correction 7.45 7.37-7.43 Arterial blood carbon dioxide, total measurement (mole s/volume) 34.9 mmol/L 21.0-31.0 Body site LEFT WRIST NRG Assessment of wrist artery patency prior to arterial p uncture POSITIVE NRG Setting of ventilation mode NO NR G Measurement of body temperature 36.8 NRG Complete urinalysis with reflex to cultu re - 11/29/19 20:15 Urine color determination YELLOW NRG Urine clarity determination SLIGHTLY CLOUDY NRG Urine pH measurement by test strip 5.5 5-9 Specific gravity of urine by test strip >= 1.016-1.022 Urine protein assay by test strip, semi-quantitative 2+ NEGATIVE Urine glucose detection by automated test strip NE GATIVE NEGATIVE Erythrocytes detection in urine sediment by light micr oscopy 1+ NEGATIVE Urine ketones detection by automated test strip TR DARLINE NEGATIVE Urine nitrite detection by test strip NEGATIVE NEGATIVE Urine total bilirubin detection by test strip 1+ NEGATIVE Urine urobilinogen measurement by automated test strip (mass/volume) 1.0 mg/dL < = 1.0 Urine leukocyte esterase detection by dipstick NEG ATIVE NEGATIVE Automated urine sediment erythrocyte cou nt by microscopy (number/high power field) [HPF] NRG Automated urine sediment leukocyte count by microscopy (number/high power field) [HPF] NRG Bacteria detection in urine sediment by light microsco py FEW NRG Squamous epithelial cells detection in u rine sediment by light microscopy 10-25 NRG Crystals detection in urine sediment by light microsco py PRESENT NRG Casts detection in urine sediment by light microscopy PRESENT NRG Mucus detection in urine sediment by light microscopy LARGE NRG Complete urinalysis with reflex to culture YES NRG Hyaline casts detection in urine sediment by light jerad roscopy 0-2 NRG Other elements identification in urine sediment by lig ht microscopy SODIUM URATE CRYSTAL NRG Urine drug screening test - 11/29/19 20: 15 Urine phencyclidine detection by screening method NEGATIVE NEGATIVE Urine benzodiazepines detection by screening method NEGATIVE NEGATIVE Urine cocaine detection NEGATIVE NEGATI VE Urine amphetamines detection by screening method N EGATIVE NEGATIVE Urine methamphetamine detection by screening method NEGATIVE NEGATIVE Urine cannabinoids detection by screening method P OSITIVE NEGATIVE Urine opiates detection by screening method NEGATI VE NEGATIVE Urine barbiturates detection NEGATIVE N EGATIVE Screening urine tricyclic antidepressants detection NEGATIVE NEGATIVE Urine methadone detection by screening method NEGA TIVE NEGATIVE Urine oxycodone detection NEGATIVE NEGA TIVE Urine propoxyphene detection NEGATIVE N EGATIVE Encounters ACCT No. Visit Date/Time Discharge Status Pt. Type Provider Facility Loc./Unit Complaint [id number] 08/28/2014 09:54:00 15:15:00 DIS Emergency Estrella Aceves MD [facility] on [facility] ED cant walk [id number] 05/10/2018 22:49:00 Document Registration [id number] 11/25/2019 10:15:00 23:59:59 CLS Preadmit VELASQUEZ CHIANG MD a [facility] RAD DEGENERATIVE DISC DISEA SE [id number] 11/14/2019 14:52:00 23:59:59 CLS Outpatient VELASQUEZ CHIANG MD [facility] RAD FS LUMBAGO WITH SCIATICA B ILATERAL [id number] 11/12/2019 08:13:00 09:40:00 DIS Emergency ROVENSTNATANAEL ENRIQUEZ DO [facility] ER FS FALL, WEAKNESS, SOB [id number] 09/14/2019 23:15:00 11:40:00 DIS Inpatient RAE DO TERESA V [facility] 4TH COPD/SOB [id number] 06/20/2019 09:57:00 23:59:59 CLS Outpatient SHAHLA SUAZO MD [facility] ORTHO [id number] 04/29/2019 12:53:00 23:59:59 CLS Outpatient SHAHLA SUAZO MD [facility] ORTHO [id number] 04/08/2019 10:51:00 23:59:59 CLS Outpatient SHAHLA SUAZO MD [facility] ORTHO [id number] 03/27/2019 14:55:00 019 16:54:00 DIS Emergency RIKI VAN PRANAY Guido [facility] ER FS FALL; LT HAND LAC; LT L EG INJ [id number] 07/16/2018 08:04:00 13:45:00 DIS Outpatient NAYANA HUERTA FACC, OTILIO CHRISTY CC DS [facility] CATH SOB,DM,COPD ,FATIGUE [id number] 07/10/2018 13:22:00 23:59:59 CLS Preadmit JUVENTINO CHAVES [employer] [facility] [facility] SLEEP COPD, DYSPNEA, HYPERSOMNIA [id number] 07/10/2018 13:11:00 23:59:59 CLS Preadmit ANASTACIOGRABIEL FARFANINE E HEALTH UNDERWRITER [facility] RAD COPD,DYSPNEA,HY PERSOMNIA [id number] 07/10/2018 13:01:00 018 23:59:59 CLS Preadmit GRABIEL CHAVESINE E HEALTH UNDERWRITER [facility] RT COPD,DYSPNEA,HY PERSOMNIA [id number] 07/10/2018 19:51:00 018 22:05:00 DIS Emergency DANIELA DENNIS [facility] ER SOB,LEGS HURT [id number] 06/15/2018 18:15:00 12:05:00 DIS Inpatient ALBERT CABRAL MD [facility] 4TH COPD EXATRBATION [id number] 11/29/2019 20:11:00 Document Registration [id number] 05/30/2019 10:17:00 Document Registration [id number] 05/26/2013 16:35:00 18:48:00 DIS Emergency [id number] 04/29/2018 13:47:00 04/29/2018 23:59: 00 DIS Outpatient [facility] OUTPT Esophagogastroduodenoscopy [id number] 08/14/2014 14:02:00 015 15:00:00 DIS Emergency Jonnathan VAN, Romain Jimenez [facility] W.[facility] [id number] 11/25/2019 13:20:00 11/25/2019 23:59: 59 CLS Outpatient SELF, VELASQUEZ Mallory [facility] [id number] 06/26/2019 12:45:00 Document Registration [id number] 11/06/2018 13:15:00 Document Registration
[2019-11-30] MEDS ORDERED: NS IV 1000 ML 1,000 ML ONE (01:53)
--- NOTE | 2019-11-30 02:50 | NUR ---
MAK CORREA admitted to room 419-1, with an admitting diagnosis of FALLS, METABOLIC ALKALOSIS, PHYSICAL DISABILITY, DIVERTICULITIS, on 11/30/19 from [facility] via [facility], accompanied by EMS. MAK CORREA introduced to surroundings, call light, bed controls, phone, TV, temperature control, lights, meal times, smoking policy, visitor policy, side rail policy, bathrooms and showers. Patient Rights given to patient in the handbook. SUNNYMAK Guido verbalizes understanding that [facility] is not responsible for the loss or damage to any personal effects or valuables that are kept in the patients possession during their hospitalization.
[2019-11-30] MEDS: NS IV 1000 ML 1,000 ML IV SCH ×3 (03:06→12:55)
[2019-11-30 03:11] VITALS: BP 172/72
[2019-11-30] MEDS ORDERED: ONDANSETRON 4 MG/2 ML (SDV) Z0FRAN IV PRN (03:15)
[2019-11-30] MEDS ORDERED: IBUPROFEN 600 MG (MOTRIN) TAB PO PRN (03:15)
[2019-11-30] MEDS ORDERED: RT-ALBUTEROL/IPRATROPIUM 3 ML (DUONEB) VIAL IH PRN (03:15)
[2019-11-30] MEDS ORDERED: LORazepam 0.5 MG (ATIVAN) TABLET PO PRN (03:15)
[2019-11-30] MEDS ORDERED: ALBU18HF2 INH (03:38)
[2019-11-30 04:57] LABS: BASOPHILS % (AUTO) 0 % (0-10); EOSINOPHILS # (AUTO) 0.2 10^3/uL (0.0-0.3); EOSINOPHILS % (AUTO) 2 % (0-10); HEMATOCRIT 36 % (35-52); HEMOGLOBIN 11.6 G/DL (11.5-16.0); LYMPHOCYTES # (AUTO) 1.4 X 10^3 (1.0-4.0); LYMPHOCYTES % (AUTO) 21 % (12-44); MEAN CORPUSCULAR HEMOGLOBIN 30 PG (25-34); MEAN CORPUSCULAR HGB CONC 33 G/DL (32-36); MEAN CORPUSCULAR VOLUME 91 FL (80-99); MEAN PLATELET VOLUME 11.8 FL (7.4-10.4); MONOCYTES # (AUTO) 0.6 X 10^3 (0.0-1.0); MONOCYTES % (AUTO) 9 % (0-12); NEUTROPHILS # (AUTO) 4.5 X 10^3 (1.8-7.8); NEUTROPHILS % (AUTO) 67 % (42-75); PLATELET COUNT 75 10^3/uL (130-400); RED CELL DISTRIBUTION WIDTH 14.8 % (10.0-14.5); WHITE BLOOD COUNT 6.8 10^3/uL (4.3-11.0)
[2019-11-30 05:32] LABS: ALANINE AMINOTRANSFERASE 13 U/L (0-55); ALBUMIN 3.2 GM/DL (3.2-4.5); ALKALINE PHOSPHATASE 67 U/L (40-136); BILIRUBIN,TOTAL 0.7 MG/DL (0.1-1.0); BUN/CREATININE RATIO 33; CARBON DIOXIDE 23 MMOL/L (21-32); CHLORIDE 107 MMOL/L (98-107); CREATININE SERUM 0.84 MG/DL (0.60-1.30); GFR ESTIMATED > 60; GLUCOSE 158 MG/DL (70-105); POTASSIUM 3.9 MMOL/L (3.6-5.0); SODIUM 141 MMOL/L (135-145); TOTAL PROTEIN 5.9 GM/DL (6.4-8.2)
[2019-11-30] MEDS: inSUlin ASPART (NovoLOG) 1 UNIT/0.01 ML (CHARGE PER UNIT) SC SCH ×4 (06:11→20:34)
--- NOTE | 2019-11-30 07:54 | Diagnostic Imaging Report ---
PROCEDURE: CT abdomen and pelvis with contrast. TECHNIQUE: Multiple contiguous axial images were obtained through the abdomen and pelvis after administration of intravenous contrast. Auto Exposure Controls were utilized during the CT exam to meet ALARA standards for radiation dose reduction. INDICATION: Diarrhea for one month. FINDINGS: There is moderate mucosal edema of the sigmoid colon with adjacent diverticuli. There is no free air or free fluid. No abscesses are demonstrated. Normal stool and gas pattern present without evidence of obstruction. Stomach and small bowel are not dilated. No evidence of dilated appendix. Midline abdominal hernia repair noted. No evidence of recurrent hernia. The lung bases are clear. Liver appears normal. Gallbladder and bile ducts are normal. Pancreas and spleen are normal. Adrenal glands and kidneys are normal. There is normal enhancement of the abdominal organs and vessels following IV contrast. Aorta is atherosclerotic without evidence of aneurysm. No free air or free fluid. No blastic or lytic bony changes. There is mild old wedge type compression fracture of T12 vertebral body. IMPRESSION: 1. Findings are consistent with acute diverticulitis of the sigmoid colon without complications at this time. 2. Old mild compression fracture anteriorly T12 vertebral body. Dictated by: Dictated on workstation # [id number]
[2019-11-30 08:00] VITALS: BP 123/60
[2019-11-30] MEDS: metroNIDAZOLE 500 MG/100 ML IVPB (PRE-MIX) IV SCH ×2 (08:57→18:06)
[2019-11-30] MEDS: PREGABALIN 150 MG (LYRICA) CAPSULE PO SCH (08:58)
[2019-11-30 11:00] VITALS: BP 97/56
[2019-11-30 12:00] VITALS: BP 120/59
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
[2019-11-30] MEDS: CIPROFLOXACIN 400 MG/D5W 200 ML (PRE-MIX) IV SCH (12:55)
[2019-11-30 16:35] VITALS: BP 124/67
[2019-11-30] MEDS: morphine INJ 10 MG/ML 1ML (SYR OR VIAL) IVP PRN (20:31)
[2019-11-30 20:36] VITALS: BP 118/58
[2019-12-01] VITALS: BP 140/76
[2019-12-01] MEDS: NS IV 1000 ML 1,000 ML IV SCH ×4 (00:13→16:50)
[2019-12-01] MEDS: metroNIDAZOLE 500 MG/100 ML IVPB (PRE-MIX) IV SCH ×3 (00:13→16:52)
[2019-12-01] MEDS: CIPROFLOXACIN 400 MG/D5W 200 ML (PRE-MIX) IV SCH ×2 (01:10→12:00)
[2019-12-01 04:00] VITALS: BP 148/72
[2019-12-01] MEDS: inSUlin ASPART (NovoLOG) 1 UNIT/0.01 ML (CHARGE PER UNIT) SC SCH ×4 (05:56→20:26)
[2019-12-01 08:00] VITALS: BP 152/72
[2019-12-01] MEDS: PREGABALIN 150 MG (LYRICA) CAPSULE PO SCH (08:01)
[2019-12-01] MEDS: morphine INJ 10 MG/ML 1ML (SYR OR VIAL) IVP PRN ×4 (08:01→23:30)
[2019-12-01] MEDS ORDERED: ALPR0.254 PO (09:36)
[2019-12-01] MEDS ORDERED: IBUP-2185 PO (09:44)
--- NOTE | 2019-12-01 09:48 | NUR ---
SPOKE WITH THE PT, WENT THRU THE EXT MED HISTORY AND CALLED [facility] ([facility]) TO COMPLETE THE MED REC LANTUS: LAST FILLED 09-02-2019 #5 PENS/37 DAY SUPPLY- I DID DOCUMENT THE PAST DUE FILL DATE ON THE MED REC VENLAFAXINE 75MG AND 150MG BOTH SHOW ON THE EXT MED HISTORY (FROM AUG 2019) HOWEVER THE RX HAD [facility] BUT THE PT HAS NEVER PICKED THEM UP- THEREFORE I DID NOT INCLUDE THEM ON THE MED REC THE PT WAS HERE IN SEP 2019 AND WHEN I SPOKE TO HER THEN SHE INDICATED SHE WAS TAKING LYRICA 300MG AND WAS TAKE 2 CAP DAILY (AT THE SAME TIME) SINCE THEN SHE HAS STARTED TAKING 1 CAP BID ( THESE ARE THE CORRECT DIRECTIONS PER [facility]). I UPDATED THE MED REC AND LET HER NURSE (TRACI) KNOW SO IT COULD BE ORDERED CORRECTLY OTC MEDS: IBUPROFEN
--- NOTE | 2019-12-01 11:38 | NUR ---
JOAQUIN visited with the patient for social service consult. The patient is living at home alone in a one bedroom apartment in [place]. This apartment is low income housing. The patient verbalized that she does not have a vehicle and most of the residents do not have one or do not drive. She reports she does not have friends or family in the area that can help her with transportation or help in the home. The patient reports that she is falling in her home approximately 3-4 times daily and is having to call the ambulance for assistance. In the report, it appears that Adult Protective Services has been called but they are not doing home visits. She states that her house is a mess right now due to not having the ability to get up and do it. She appeared very tearful when she was talking about this. She has two children but they are not living in [place]. Her son lives in a [place] house in [place] and her daughter lives in [place], [place]. She would prefer to live in [place] with her daughter but states she does not get along with her son-in-law. She verbalized that her son stated he was going to move in with her but she doesn't want that. JOAQUIN discussed with the patient different options. The patient states she is unable to afford an assisted living. JOAQUIN informed her of a residential home placement and she was open to this idea. However, she is not willing to go unless she can bring her three animals with her. [facility] and spoke with Livia. She is asking her linux server administrator if that is possible. [facility] spoke [facility] Bruna. She verbalized that they are not willing to accept three pets. JOAQUIN also discussed transportation with the patient. She reports that she is unable to afford a taxi back to [place] due to only having $15. The patient stated that she does not have anyone that can assist her at this time. JOAQUIN is attempting to find other options. The patient does have Medicaid but is not on a physical disability waver. JOAQUIN will contact [facility] to have them assess the patient. Will continue to follow.
[2019-12-01 12:00] VITALS: BP 192/98
--- NOTE | 2019-12-01 12:55 | Progress Note ---
Subjective Subjective/Events-last exam Afebrile. She is feeling quite down today and upset about the new falls and difficulties she has been having. Her neck is hurting all over as well as her ribs. She denies dizziness, weakness or new numbness/tingling. She has chronic issues in her feet due to her diabetes, but states it has not changed. Objective Exam Last Set of Vital Signs Vital Signs Date Time Temp Pulse Resp B/P (MAP) Pulse Ox O2 Delivery O2 Flow Rate FiO2 12/01/19 12:00 36.2 77 18 192/98 (129) 95 Nasal Cannula 2.50 11/30/19 02:55 99 Capillary Refill : Less Than 3 SecondsLess Than 3 Seconds I&O Intake and Output 12/01/19 00:00 Intake Total 5680 ml Output Total 700 ml Balance 4980 ml Intake Oral 2080 ml IV Total 3600 ml Output Urine Total 700 ml # Voids 2 Daily Weight Change No No General: Alert Lungs: Clear to Auscultation, Normal Air Movement Heart: Regular Rate, No Murmurs Neuro: Normal Speech, Strength at 5/5 X4 Ext, Cranial Nerves 3-12 NL Psych/Mental Status: Other (tearful) Results/Procedures Lab Laboratory Tests 11/30/19 16:34: Glucometer 141H 11/30/19 20:33: Glucometer 170H 12/01/19 05:35: Glucometer 128H 12/01/19 10:40: Glucometer 133H Microbiology 11/29/19 Urine Culture - Preliminary, Resulted Culture In Progress Assessment/Plan Assessment/Plan (1) Insulin dependent diabetes mellitus Status: Chronic Assessment & Plan: Resume home long acting insulin. Sliding scale insulin. Diabetic diet. (2) Diverticulitis of sigmoid colon Status: Acute Assessment & Plan: Cipro and flagyl. Tolerating oral well with no diarrhea today. (3) Fall Status: Acute Assessment & Plan: Recurrent with unknown cause but no dizziness or chest pain. PT eval. Qualifiers: Qualified Codes: W19.XXXA - Unspecified fall, initial encounter (4) Depression Status: Chronic Assessment & Plan: Prescribed venlafaxine outpatient but has never picked up. (5) Fibromyalgia Status: Chronic Assessment & Plan: Resume home Lyrica (6) Hypertension Status: Chronic Assessment & Plan: Resume home lisinopril/HCTZ with blood pressure now increased (was low on admission) Qualifiers: Qualified Codes: I10 - Essential (primary) hypertension (7) COPD Status: Chronic Assessment & Plan: On Combivent at home. Duonebs prn. (8) Thrombocytopenia Status: Chronic Assessment & Plan: Essentially stable since 2018, likely secondary to Hep C. (9) Hepatitis C Status: Chronic Qualifiers: Qualified Codes: B18.2 - Chronic viral hepatitis C (10) DVT prophylaxis Status: Acute Assessment & Plan: Enoxaparin, monitor platelets closely Clinical Quality Measures DVT/VTE Risk/Contraindication: Risk Factor Score Per Nursin RFS Level Per Nursing on Admit: 4+=Very High STEFFANIE CASTELLANO MD Dec 01, 2019 12:55
[2019-12-01] MEDS ORDERED: ENOXAPARIN 40 MG/0.4 ML (LOVENOX) SYR SQ SCH (13:30)
--- NOTE | 2019-12-01 14:10 | NUR ---
"RD ASSESSMENT PMHx: COPD; HTN; hepatitis; DM PT INTERACTION: Pt was awake and pleasant during nutrition assessment. Pt states current appetite is poor and has been this way for some time. Note avg PO intake of 42% x3meal, per chart review. Pt states following a regular diet at home, and has no issues with chewing/swallowing food. Pt states recent issues with nausea and diarrhea and that her last BM was prior to admit. Note pt not currently on bowel regimen per chart review. Pt states no recent wt changes. Note recent 7# wt gain x3w, per chart review. Pt states current DM management is good, and her average blood glucose levels are between 175-180. Note unable to determine recent HbA1c, per chart review. ABNORMAL NUTRITION-RELATED LAB VALUES LOW: Ca 8.0; Pro 5.9 HIGH: BUN 28; glu 158 Est. kcal needs: 7688-9068 kcal | 15-18 kcal/kg Est. Pro needs: 87-109 g Pro | 0.8-1.0 g Pro/kg PES STATEMENT: Inadequate oral intake (NI-2.1) related to loss of appetite | nausea | diarrhea as evidenced by pt interview | avg PO intake 42% x3meal INTERVENTION: Continue with current diet order of CHO 60g/m 3snack diet. Add Glucerna (vary) to meals TID, for increased kcal intake. Provides 220 kcal and 10 g Pro per serving. Discussed dietary education relating DM to pt's other conditions. Discussed how DM can affect blood pressure and how better control of DM can lead to better control of BP (high blood glucose levels can lead to excessive fluid intake, which can lead to higher blood pressure). Discussed importance of CHO counting and offered information on planning ahead and CHO amounts in common foods. Pt verbalized understanding of suggestions and appears confident to follow them upon discharge. Will continue to follow and reassess as pt needs, intake, and status change. MONITOR/EVALUATE: PO Intake; Plan of Care; Hydration Status; Weight Status; Lab Values Jeny Krishna, , RD, LD"
--- NOTE | 2019-12-01 14:54 | Physical Therapy Evaluation ---
PT Evaluation-General Medical Diagnosis Admission Date Nov 30, 2019 at 01:01 Medical Diagnosis: fall Onset Date: Nov 30, 2019 Therapy Diagnosis Therapy Diagnosis: debility/weakness Height/Weight Height (Feet): 5 Height (Inches): 8.00 Weight (Pounds): 230 Weight (Ounces): 0.0 Precautions Precautions/Isolations: Fall Prevention, Standard Precautions, Pressure Ulcer Weight Bear Status Right Lower Extremity: Right Weight Bearing/Tolerated Left Lower Extremity: Left Weight Bearing/Tolerated Referral Physician: Al Reason for Referral: Evaluation/Treatment Medical History Pertinent Medical History: COPD, DM, HTN, Neuropathy, Smoking Additional Medical History cervical fusion C5-C6 Current History EMS secondary to multiple falls Reviewed History: Yes Social History Home: Apartment Current Living Status: Alone Entry Into Home: Level Entry Prior Prior Level of Function SCALE: Activities may be completed with or without assistive devices. 8-Zqhbybatef-lxftrja completes the activity by him/herself with no assistance from a helper. 5-Set-up or Clean-up Assistance-helper sets up or cleans up; patient completes activity. [place] assists only prior to or following the activity. 4-Supervision or Touching Assistance-helper provides verbal cues and/or touching/steadying and/or contact guard assistance as patient completes activity. Assistance may be provided throughout the activity or intermittently. 3-Partial/Moderate Assistance-helper does LESS THAN HALF the effort. [place] lifts, holds or supports trunk or limbs, but provides less than half the effort. 2-Substantial/Maximal Assistance-helper does MORE THAN HALF the effort. [place] lifts or holds trunk or limbs and provides more than half the effort. 2-Oeycxjkot-hohmom does ALL the effort. Patient does none of the effort to complete the activity. Or, the assistance of 2 or more helpers is required for the patient to complete the activity. If activity was not attempted, code reason: 7-Patient Refused. 9-Not Applicable-not attempted and the patient did not perform the activity before the current illness, exacerbation or injury. 10-Not Attempted due to Environmental Limitations-(lack of equipment, weather restraints, etc.). 88-Not Attempted due to Medical Conditions or Safety Concerns. Bed Mobility: 6 Transfers (B,C,W/C): 6 Gait: 6 Stairs: 9 Indoor Mobility (Ambulation): Independent Stairs: Not Applicalbe Prior Devices Use: Walker (4WW) Prior Device Use: 4WW but has FWW as well PT Evaluation-Current Subjective Patient agrees to PT. Patient reports she is very inactive at home due to no family or friends present and does not have a car. Patient states she is very lonely. Pain Numeric Pain Scale: 3 Location: Left Location Body Site: Side Pain Description: Ache Objective Patient Orientation: Normal For Age Attachments: IV ROM/Strength ROM Lower Extremities bilateral LE WFL Strength Lower Extremities 4/5 grossly bilateral LE Integumentary/Posture Integumentary refer to nursing notes Bowel Incontinence: No Bladder Incontinence: No Posture WFL Neuromuscular (Tone, Coordination, Reflexes) grossly intact Sensory Vision: Functional Hearing: Functional Sensation Right Lower Extremit: Impaired Sensation Left Lower Extremity: Impaired Transfers Roll Left to Right (QC): 6 Sit to Lying (QC): 6 Lying to Sitting/Side of Bed(Q: 6 Sit to Stand (QC): 5 Gait Does the Patient Walk?: Yes Mode of Locomotion: Walk Anticipated Mode of Locomotion: Walk Walk 10 feet (QC): 5 Walk 50 ft with 2 Turns(QC): 5 Walk 150 ft (QC): 5 Distance: 250' Gait Assistive Device: FWW Comments/Gait Description safe and functional with FWW/absolutely not safe with 4WW attempt use in room Balance Sitting Static: Normal Sitting Dynamic: Normal Standing Static: Good Standing Dynamic: Good Assessment/Needs 54 y.o. female, will be seen short term by skilled PT to address functional mobility to ensure safe return to home at maximum LOF. Rehab Potential: Fair Post Rehab Potential-Barriers: compliance PT Short Term Goals Short Term Goals Time Frame: December 06, 2019 Roll Left & Right: 6 Sit to lyin Lying to sitting on side of be: 6 Sit to stand: 6 Chair/vos-rz-yotsf transfer: 6 Toilet transfer: 6 Walk 10 feet: 6 Walk 50 feet with two turns: 6 Walk 150 feet: 6 PT Plan Treatment/Plan Treatment Plan: Continue Plan of Care Treatment Plan: Education, Functional Activity Kay, Functional Strength, Gait, Safety, Therapeutic Exercise, Transfers Treatment Duration: December 06, 2019 Frequency: 6 times per week Estimated Hrs Per Day: .25 hour per day Patient and/or Family Agrees t: Yes Time/GCodes Time In: 1416 Time Out: 1433 Total Billed Treatment Time: 17 Total [facility]illed [facility] JONO BLACKWOOD PT Dec 01, 2019 14:54
[2019-12-01 15:36] VITALS: BP 127/65
[2019-12-01 20:04] VITALS: BP 127/59
[2019-12-02 00:20] VITALS: BP 129/3
[2019-12-02] MEDS: metroNIDAZOLE 500 MG/100 ML IVPB (PRE-MIX) IV SCH ×2 (00:32→08:31)
[2019-12-02] MEDS: NS IV 1000 ML 1,000 ML IV SCH ×3 (00:36→08:32)
[2019-12-02] MEDS: CIPROFLOXACIN 400 MG/D5W 200 ML (PRE-MIX) IV SCH (02:20)
[2019-12-02 04:00] VITALS: BP 130/83
[2019-12-02 05:41] LABS: CHLORIDE 109 MMOL/L (98-107); HEMOGLOBIN 11.8 G/DL (11.5-16.0); MEAN PLATELET VOLUME 12.2 FL (7.4-10.4); POTASSIUM 4.4 MMOL/L (3.6-5.0); RED CELL DISTRIBUTION WIDTH 14.6 % (10.0-14.5); SODIUM 141 MMOL/L (135-145); WHITE BLOOD COUNT 4.8 10^3/uL (4.3-11.0)
[2019-12-02 05:43] LABS: CALCIUM 8.3 MG/DL (8.5-10.1); GLUCOSE 98 MG/DL (70-105)
[2019-12-02 05:45] LABS: CARBON DIOXIDE 23 MMOL/L (21-32)
[2019-12-02] MEDS: inSUlin ASPART (NovoLOG) 1 UNIT/0.01 ML (CHARGE PER UNIT) SC SCH ×2 (05:46→11:14)
[2019-12-02 05:47] LABS: CREATININE SERUM 0.82 MG/DL (0.60-1.30); GFR ESTIMATED > 60
[2019-12-02 05:48] LABS: BUN/CREATININE RATIO 20
[2019-12-02 08:00] VITALS: BP 125/81
[2019-12-02] MEDS: PREGABALIN 150 MG (LYRICA) CAPSULE PO SCH (08:31)
[2019-12-02] MEDS ORDERED: HYDROCHLOROTHIAZIDE 12.5 MG (HCTZ) CAP PO SCH (09:00)
[2019-12-02] MEDS ORDERED: lisINopril 20 MG (PRINIVIL) TABLET PO SCH (09:00)
[2019-12-02] MEDS ORDERED: CIPR-225 PO (10:36)
[2019-12-02] MEDS ORDERED: METR500T PO (10:36)
--- NOTE | 2019-12-02 10:39 | Discharge Summary ---
Discharge Summary Instructions for Patient Assessment/Instructions Enteritis Chronic pain Debility Physician to follow Patient: Dr. Multani Discharge Diet for Home: ADA Diet Hospital Course Date of Admission: Nov 30, 2019 at 01:01 Admission Diagnosis : Family Physician/Provider: Stephon Multani MD Date of Discharge: 12/02/19 Discharge Diagnosis: Enteritis Fall Chronic pain Thrombocytopenia Depression Hospital Course: Pt admitted after fall and weakness, found to have enteritis and treated with cipro/flagyl. She did well with PT with walker, home health PT ordered. She did exhibit significant depression, has been prescribed venlafaxine but has apparently never picked it up. Labs and Pending Lab Test: Laboratory Tests 12/01/19 10:40: Glucometer 133H 12/01/19 15:37: Glucometer 138H 12/01/19 20:17: Glucometer 189H 12/02/19 05:00: White Blood Count 4.8, Red Blood Count 3.97L, Hemoglobin 11.8, Hematocrit 36, M juan Corpuscular Volume 92, Mean Corpuscular Hemoglobin 30, Mean Corpuscular Hemoglobin Concent 32, Red Cell Distribution Width 14.6H, Platelet Count 78L, Mean Platelet Volume 12.2H, Sodium Level 141, Potassium Level 4.4, Chloride Level 109H, Carbon Dioxide Level 23, Anion Gap 9, Blood Urea Nitrogen 16, Creatinine 0.82, Estimat Glomerular Filtration Rate > 60, BUN/Creatinine Ratio 20, Glucose Level 98, Calcium Level 8.3L 12/02/19 05:44: Glucometer 101 Microbiology 11/30/19 Blood Culture - Preliminary, Resulted Staph, Coag Neg (FLUE LINING DIPPER) See Comments 11/29/19 Urine Culture - Final, Complete 3 or more isolates Home Meds Active Reported Ibuprofen 200 Mg Capsule 600-800 Mg PO Q8H PRN Alprazolam 0.25 Mg Tablet 0.25 Mg PO BID PRN Ventolin Hfa (Albuterol Sulfate) 18 Gm Hfa.aer.ad 2 Puff INH Q6H PRN Pregabalin 300 Mg Capsule 300 Mg PO BID Lisinopril-Hctz 20-12.5 mg Tab (Lisinopril/Hydrochlorothiazide) 1 Each Tablet 1 Ea PO DAILY Lantus Solostar (Insulin Glargine,Hum.rec.anlog) 100 Unit/1 Ml Insuln.pen 40 Unit SQ HS LAST FILLED 09-02-2019 #5 PENS/37 DAY SUPPLY Combivent Respimat Inhal [place] (Albuterol/Ipratropium) 4 Gm Aero 2 Puff IH QID PRN Patient Allergies: Coded Allergies: Penicillins (Verified Allergy, Intermediate, weak, cant stand up and lose color., 06/16/18) SOB and weakness Height (Feet): 5 Height (Inches): 8.00 Weight (Pounds): 230 Weight (Ounces): 0.0 Home Health Need/Face to Face Date of Face to Face: Dec 02, 2019 Clinical Findings: Muscle weakness, Pain with ambulation I have seen Pt uphs-ev-[id number]: Yes Discharged To: Home Diagnosis/Conditions: Debility Fibromyalgia Chronic pain Frequent Falls Hep C Thrombocytopenia Enteritis Patient is Homebound due to: Trudy fall risk due to instabilty Homebound Status Due to the above stated illness, injury or surgical procedure (medical condition or diagnosis) and associated clinical findings, the patient is homebound because of his/her inability to leave home except with aid of a supportive device and/or person AND leaving the home requires a considerable and taxing effort or is medically contraindicated. Pt req the following assistanc: Walker Home Health Nursing Orders Home Health Services Order: Nursing Services, Physical Therapy-Evaluate & Treat Home Health Infusion Therapy Line Start Date: Nov 30, 2019 Certify Stmt I certify that this patient is under my care and that I, a nurse practitioner or a physician; a clinical assistant working with me, had a face to face encounter that - meets the physician face to face encounter requirements with this patient as dated. Discharge Physical Exam General: Alert, No Acute Distress Lungs: Clear to Auscultation, Normal Air Movement Heart: Regular Rate, No Murmurs Extremities: No Edema Psych/Mental Status: Mood NL STEFFANIE CASTELLANO MD Dec 02, 2019 10:39
--- NOTE | 2019-12-02 11:27 | Physical Therapy Daily Note ---
PT Daily Note-Current Subjective Patient reports she is going home today at 11:30. Agrees to PT. Pain Numeric Pain Scale: 0-No Pain Location: No Pain Reported Mental Status Patient Orientation: Normal For Age Attachments: IV Transfers SCALE: Activities may be completed with or without assistive devices. 9-Lhlpdbqzto-osylqcr completes the activity by him/herself with no assistance from a helper. 5-Set-up or Clean-up Assistance-helper sets up or cleans up; patient completes activity. [place] assists only prior to or following the activity. 4-Supervision or Touching Assistance-helper provides verbal cues and/or touching/steadying and/or contact guard assistance as patient completes activi ty. Assistance may be provided throughout the activity or intermittently. 3-Partial/Moderate Assistance-helper does LESS THAN HALF the effort. [place] lifts, holds or supports trunk or limbs, but provides less than half the effort. 2-Substantial/Maximal Assistance-helper does MORE THAN HALF the effort. [place] lifts or holds trunk or limbs and provides more than half the effort. 4-Qdeqfeecx-ctvcjp does ALL the effort. Patient does none of the effort to complete the activity. Or, the assistance of 2 or more helpers is required for the patient to complete the activity. If activity was not attempted, code reason: 7-Patient Refused. 9-Not Applicable-not attempted and the patient did not perform the activity before the current illness, exacerbation or injury. 10-Not Attempted due to Environmental Limitations-(lack of equipment, weather restraints, etc.). 88-Not Attempted due to Medical Conditions or Safety Concerns. Sit to Stand (QC): 6 Weight Bearing Right Lower Extremity: Right Weight Bearing/Tolerated Left Lower Extremity: Left Weight Bearing/Tolerated Gait Training Does the Patient Walk?: Yes Distance: 250' Walk 10 feet (QC): 6 Walk 50 ft with 2 Turns(QC): 6 Walk 150 ft (QC): 6 Gait Assistive Device: FWW safe and functional with FWW Assessment Patient tolerated treatment well and ambulated with no deviation with FWW. PT instructed patient to utilize FWW at home vs. 4WW for safety. Patient voices understanding. PT Short Term Goals Short Term Goals Time Frame: December 06, 2019 Roll Left & Right: 6 Sit to lyin Lying to sitting on side of be: 6 Sit to stand: 6 Chair/yiy-gt-bmyfr transfer: 6 Toilet transfer: 6 Walk 10 feet: 6 Walk 50 feet with two turns: 6 Walk 150 feet: 6 PT Plan Treatment/Plan Treatment Plan: Discontinue PT, goals met Treatment Plan: Education, Functional Activity Kay, Functional Strength, Gait, Safety, Therapeutic Exercise, Transfers Treatment Duration: December 06, 2019 Frequency: 6 times per week Estimated Hrs Per Day: .25 hour per day Patient and/or Family Agrees t: Yes Time/GCodes Time In: 1050 Time Out: 1100 Total Billed Treatment Time: 10 Total Billed Treatment 1 visit FA 10 min JONO BLACKWOOD PT Dec 02, 2019 11:27
[2019-12-02 11:30] VITALS: BP 125/81
--- NOTE | 2019-12-02 14:09 | NUR ---
CM/SS follow up. Plan: The patient will return home with taxi voucher and home health in place. Home Health: The patient was provided with a patient preference form and chose [facility]. CM/SS contacted [facility] and spoke with Almaz. CM/SS faxed discharge orders to [facility]. She verbalized that they will see the patient on . Taxi Voucher: The patient and this ss talked for a long duration on options for transportation. The patient verbalized that she did not have any one in [place] that she knew. Cm/SS asked about friends, family, confucianist members, and neighbors in the apartment complex. The patient denied being able to use any of those resources. She states that her neighbors are [address] to [place]. She reports not having any resources financially other than 15 dollars. She does not get paid until the 06 of December.The patients children do not live here. It was determined that a taxi voucher was needed. CM/SS spoke with the patients physical therapist Roselyn who stated she does better with the Front Wheeled walker compared to her 4 Wheeled walker. CM/SS went back over this with the patient. She verbalized understanding and stated she will switch to it. CM/SS also discussed with patient about building a support system for the future.
== END 2019-12-02 11:42 | disposition home health service (06) | DRG 392 ==
LOC: EDUNIT# 19:36 → ER FS 19:45 → 4TH 11-30 01:01
PROVIDERS: ADMIT Internal Medicine; ATTEND Family Medicine
DX: K57.32 Diverticulitis of large intestine without perforation or abscess without bleeding (principal); R29.6 Repeated falls; E86.0 Dehydration; E87.3 Alkalosis; E11.42 Type 2 diabetes mellitus with diabetic polyneuropathy; J44.9 Chronic obstructive pulmonary disease, unspecified; G47.33 Obstructive sleep apnea (adult) (pediatric); I20.9 Angina pectoris, unspecified; I10 Essential (primary) hypertension; R19.7 Diarrhea, unspecified; F32.9 Major depressive disorder, single episode, unspecified; M79.7 Fibromyalgia; D69.6 Thrombocytopenia, unspecified; B18.2 Chronic viral hepatitis C; F17.210 Nicotine dependence, cigarettes, uncomplicated; Z91.19 Patient's noncompliance with other medical treatment and regimen; Z79.4 Long term (current) use of insulin
CPT/HCPCS: 36415; 70450; 71045; 72125; 73090; 74177; 80048; 80053; 80306; 80320; 81000; 82533; 82550; 82805; 82962; 83880; 84484; 85025; 85027; 86141; 87040; 87088; 93005; 94760; 96360; 96361

== ENCOUNTER 2020-02-19 12:26 | Emergency (ER) | payer MEDICARE, MEDICAID ==
[~2020-02-19] VITALS: Ht 167.7 cm; Wt 181.0 kg
[~2020-02-19 12:26] MED LIST changes: +ALBU18HF2 INH; +ALPR0.254 PO; +CIPR-225 PO; +METR500T PO
--- NOTE | 2020-02-19 12:52 | ED General ---
General Chief Complaint: Trauma-Non Activation Stated Complaint: FALL Nursing Triage Note: Pt arrived via EMS with c/o left facial and left shoulder pain secondary to fall at approx 0100 hrs this morning. Pt states she got out of bed, tripped and fell against her dresser. Pt denies LOC. Pt is AOx4. Pt denies any other pain or problem. Nursing Sepsis Screen: No Definite Risk Source of Information: Patient, EMS Exam Limitations: No Limitations History of Present Illness Date Seen by Provider: Feb 19, 2020 Time Seen by Provider: 12:35 Initial Comments Patient presents via EMS after a fall 1 a.m. last night while using the restroom. States that she tripped and fell hit her head on a dresser with no loss of consciousness. Having some pain in her neck and a slight headache. Also having some pain in her left shoulder and difficulty moving her left arm. Denies any other complaints. Denies recent illness, cough, fever or chills, shortness of air, abdominal pain, diarrhea or nausea. Location Injury Occurred: At home Allergies and Home Medications Allergies Coded Allergies: Penicillins (Verified Allergy, Intermediate, weak, cant stand up and lose color., 06/16/18) SOB and weakness Home Medications Albuterol Sulfate 18 Gm Hfa.aer.ad, 2 PUFF INH Q6H PRN for SHORTNESS OF BREATH, (Reported) Albuterol/Ipratropium 4 Gm Aero, 2 PUFF IH QID PRN for SHORTNESS OF BREATH, (Reported) Alprazolam 0.25 Mg Tablet, 0.25 MG PO BID PRN for ANXIETY, (Reported) Ciprofloxacin HCl 500 Mg Tablet, 500 MG PO BID Prescribed by: STEFFANIE CASTELLANO on 12/02/19 1036 Hydrocodone/Acetaminophen 1 Each Tablet, 1 EACH PO Q4H Prescribed by: NATANAEL LEE on 02/19/20 1344 Ibuprofen 200 Mg Capsule, 600-800 MG PO Q8H PRN for PAIN-MILD (1-4), (Reported) Ibuprofen 800 Mg Tablet, 800 MG PO Q8H PRN for PAIN Prescribed by: NATANAEL TRIPPSTZOE on 02/19/20 1332 Insulin Glargine,Hum.rec.anlog 100 Unit/1 Ml Insuln.pen, 40 UNIT SQ HS, (Reported) LAST FILLED 09-02-2019 #5 PENS/37 DAY SUPPLY Lisinopril/Hydrochlorothiazide 1 Each Tablet, 1 EA PO DAILY, (Reported) Metronidazole 500 Mg Tablet, 500 MG PO TID Prescribed by: STEFFANIE CASTELLANO on 12/02/19 1036 Pregabalin 300 Mg Capsule, 300 MG PO BID, (Reported) Patient Home Medication List Home Medication List Reviewed: Yes Review of Systems Review of Systems Constitutional: No dizziness, No fever, No malaise, No weakness EENTM: no symptoms reported Respiratory: No cough, No dyspnea on exertion, No short of breath Cardiovascular: No chest pain, No edema Gastrointestinal: No abdominal pain, No constipation, No diarrhea, No loss of appetite, No vomiting Musculoskeletal: see HPI; No back pain; joint pain (let shoulder), neck pain Skin: other (bruising left side of face) Past Afpvdsm-Hcusnr-Bjjfty Hx Past Med/Social Hx: Reviewed Nursing Past Med/Soc Hx Patient Social History Alcohol Beverage of Choice: Beer Drug of Choice: THC Type Used: Cigarettes 2nd Hand Smoke Exposure: Yes Recent Foreign Travel: No Contact w/Someone Who Travel: No Recent Infectious Disease Expo: No Recent Hopitalizations: No Immunizations Up To Date Date of Pneumonia Vaccine: Sep 06, 2014 Date of Influenza Vaccine: Jun 06, 2019 Seasonal Allergies Seasonal Allergies: No Past Medical History Surgeries: Yes (HERNIA REPAIR, L ANKLE, NECK, L FALLOPIAN TUBE AND OVARY, ) Respiratory: Yes (O2 AT NIGHT AND DURING DAY PRN) COPD Currently Using CPAP: No Currently Using BIPAP: No Cardiac: Yes Angina, Hypertension Neurological: No Genitourinary: No Gastrointestinal: Yes Hepatitis Musculoskeletal: No Endocrine: Yes Diabetes, Insulin dep HEENT: No Cancer: No Psychosocial: No Integumentary: No Blood Disorders: No Family Medical History Diabetes mellitus 19 MOTHER FH: lung cancer 19 FATHER Thyroid disease 19 MOTHER No Pertinent Family Hx Physical Exam Vital Signs Vital Signs - First Documented 02/19/20 12:26 Temp 36.5 Pulse 70 Resp 16 B/P (MAP) 150/73 (98) Pulse Ox 97 O2 Delivery Nasal Cannula Capillary Refill : Less Than 3 Seconds Height, Weight, BMI Height: 5'8.00" Weight: 230lbs. 0.0oz. 104.937776ia; 64.00 BMI Method:Stated General Appearance: No Apparent Distress, WD/WN Eyes: Bilateral Eye Normal Inspection, Bilateral Eye PERRL, Bilateral Eye EOMI HEENT: PERRL/EOMI, Normal ENT Inspection Neck: Supple, Tender Midline (general) Respiratory: Chest Non Tender, Lungs Clear Cardiovascular: Regular Rate, Rhythm, No Edema Gastrointestinal: Non Tender, Soft Back: Normal Inspection, No CVA Tenderness Extremity: Other (generalized tenderness left shoulder) Neurologic/Psychiatric: Alert, Oriented x3, No Motor/Sensory Deficits Progress/Results/Core Measures Suspected Sepsis Recent Fever Within 48 Hours: No Infection Criteria Present: None New/Unexplained Altered Menta: No Sepsis Screen: No Definite Risk SIRS Temperature: Pulse: 70 Respiratory Rate: 16 Blood Pressure 150 /73 Mean: 98 Results/Orders My Orders Orders - NATANAEL LEE DO Shoulder 3 View Left (02/19/20 12:36) Ct Head/Cervical Spine Wo (02/19/20 12:36) Acetaminophen Tablet (Tylenol Tablet) (02/19/20 13:30) Medications Given in ED Current Medications Medications Dose Ordered Sig/Tim Route Start Time Stop Time Status Last Admin Dose Admin Acetaminophen 1,000 mg ONCE ONCE PO 02/19/20 13:30 02/19/20 13:31 DC 02/19/20 13:30 1,000 MG Vital Signs/I&O 02/19/20 12:26 Temp 36.5 Pulse 70 Resp 16 B/P (MAP) 150/73 (98) Pulse Ox 97 O2 Delivery Nasal Cannula Capillary Refill : Less Than 3 Seconds Blood Pressure Mean: 98 Progress Note : Progress Note explained to pt her clavicle fx and need to wear a sling. Also f/u w PCP in 1-2 wks. She does use a walker at home and advised her to go ahead and use her left arm to avoid falling. Diagnostic Imaging Comments IMPRESSION: 1. No acute intracranial abnormality. 2. No cervical spine fracture. Dictated by: Dictated on workstation # [id number] Dict: 02/19/20 1324 Trans: 02/19/20 133 [facility] [id number] Interpreted by: SUKHJINDER GARCIA MD Electronically signed by: SUKHJINDER GARCIA MD 02/19/20 1332 IMPRESSION: 1. Acute mildly displaced fracture of the distal left clavicle. 2. Narrowed appearance of the acromiohumeral joint space. Findings can be seen with chronic rotator cuff tear. Dictated on workstation # [id number] Dict: 02/19/20 1325 Trans: 02/19/20 1332 [id number] Interpreted by: MARCELLUS BANSAL MD Electronically signed by: Departure Impression Primary Impression: Minor closed head injury Additional Impressions: Cervical muscle strain Qualified Codes: S16.1XXA - Strain of muscle, fascia and tendon at neck level, initial encounter Fracture of left clavicle Qualified Codes: S42.032A - Displaced fracture of lateral end of left clavicle, initial encounter for closed fracture Disposition: 01 HOME, SELF-CARE Condition: Stable Departure-Patient Inst. Decision time for Depature: 13:43 Referrals: SELFVELASQUEZ MD (PCP/Family) Primary Care Physician Patient Instructions: Minor Head Injury (DC), Neck Sprain (DC), Shoulder Pain (DC), Clavicle Fracture (DC), How to Use a Shoulder Sling Add. Discharge Instructions: see your Primary Care doctor in 1 week. All discharge instructions reviewed with patient and/or family. Voiced understanding. Scripts Hydrocodone/Acetaminophen (Hydrocodone-Acetamin 5-325 mg) 1 Each Tablet 1 EACH PO Q4H for Abdominal Pain, #15 TAB Prov: NATANAEL LEE DO 02/19/20 Ibuprofen (Ibuprofen) 800 Mg Tablet 800 MG PO Q8H PRN for PAIN, #30 TAB 0 Refills Prov: NATANAEL LEE DO 02/19/20 NATANAEL LEE DO Feb 19, 2020 12:52
--- NOTE | 2020-02-19 13:25 | NUR ---
Pt requesting pain medication. This RN spoke with Dr. Woo who ordered Tylenol 1000 mg. This RN spoke with the pt who stated, "thats all hes going to give me? I can take that at home." Pt said she would take the medication therefore Tylenol was administered. Pt stated, "I cant believe he's not going to give me anything stronger. I wish he hurt like I do." This RN apologized and stated that I could only administer what he orders.
[2020-02-19] MEDS ORDERED: ACETAMINOPHEN 500 MG TAB (TYLENOL) PO ONE (13:30)
[2020-02-19] MEDS ORDERED: IBUP-1780 PO (13:32)
--- NOTE | 2020-02-19 13:32 | Diagnostic Imaging Report ---
INDICATION: Fall. Bruising. COMPARISON: None. FINDINGS: Three radiographic views of the left shoulder were obtained. There is acute fracture of the distal right clavicle. There is mild displacement of approximately 7 mm. Glenohumeral joint space is maintained. Acromiohumeral joint space does appear mildly narrowed. Included portions of the left hemithorax are clear. No unexpected radiopaque foreign bodies are seen. IMPRESSION: 1. Acute mildly displaced fracture of the distal left clavicle. 2. Narrowed appearance of the acromiohumeral joint space. Findings can be seen with chronic rotator cuff tear. Dictated by: Dictated on workstation # [id number]
--- NOTE | 2020-02-19 13:33 | Diagnostic Imaging Report ---
EXAMINATION: CT head and CT cervical spine without contrast. TECHNIQUE: Multiple contiguous axial images were obtained through the brain and cervical spine without the use of intravenous contrast. Sagittal and coronal reformations through the cervical spine were then performed. All CT scans use one or more of the following dose optimizing techniques: automated exposure control, MA and/or KvP adjustment based on a patient size and exam type, or iterative reconstruction. HISTORY: Fall COMPARISON: 11/29/2019 FINDINGS: The alvarez-white matter differentiation is normal. No mass effect or midline shift. The ventricles are normal in size and configuration. Basilar cisterns are patent. There are no intra- or extra-axial fluid collections. There is no intracranial hemorrhage. Periventricular white matter hypoattenuation is in keeping with chronic small vessel ischemic changes. The orbits are normal. Paranasal sinuses are normal. Mastoid air cells are clear. No soft tissue abnormality is seen. No osseus lesions or fractures are seen. The alignment of the cervical spine is normal. No fracture is seen. Vertebral body heights are normal. The craniocervical junction is normal. There is instrumented fusion of C5-C6 anteriorly. Facet and uncovertebral joints are normal. There is no osseus spinal canal stenosis. No soft tissue abnormality is seen in the neck. Limited views of the superior thorax are normal. IMPRESSION: 1. No acute intracranial abnormality. 2. No cervical spine fracture. Dictated by: Dictated on workstation # [id number]
--- OUTSIDE RECORDS SUMMARY | 2020-02-19 13:40 | XMS REPORT | Continuity of Care Document ---
Author Organization Unknown Address Unknown Phone Unavailable Allergies Active Description Code Type Severity Reaction Onset Reported/Identified Relationship to Patient Clinical Status Yes PCN (penicillin) [id number] Dr ug Allergy Moderate Dyspnea Yes PENICILLINS MODERATE MODERATE Yes PENICILLINS MODERATE OTHER Yes Penicillins Penicillins Drug Allergy Unknown CANNOT BREATHE 08/14/2014 Yes penicillins NKMA N/A passed out 08/28/2014 Yes penicillin 14698 Ingredient moderate to severe Lethargy~Trouble Breathing Yes Penicillins [id number] Drug Aller gy Unknown Dizziness 05/11/2018 Yes Penicillins [id number] Drug Aller gy Unknown weak, cant dylan 06/15/2018 Yes Penicillins [id number] Drug Aller gy Moderate weak, cant dylan 06/16/2018 Medications Medication Packaging Start Date St op Date Route Dosage Sig BACITRACIN OINT 450UNITS/0.9GM UD 05/06/2018 05/06/2018 TOPICAL 1 ERNIE IBUPROFEN (MOTRIN) TAB 600MG 05/10/2018 05/10/2018 PO 600 MG IBUPROFEN (ADVIL,MOTRIN) TAB 200MG 05/10/2018 05/10/2018 PO 600 MG ACETAM/ASA/CAFF 250/250/65MG TAB 05/10/2018 05/10/2018 PO 1 TAB NICOTINE (NICORETTE) GUM 2MG 05/10/2018 05/10/2018 PO 2 MG IPRATROPIUM/ALBUTEROL INH SO LN (DUO-NEB INH SOLN) MLS 07/02/2018 07/02/2018 ONCE&0835 [...] diabetes mellitus with diabetic polyneuropathy 03/25/2018 S [id number] Pablo otine dependence, cigarettes, uncomplicated 03/25/2018 S R0602 Shor tness of breath 03/25/2018 P R0789 Othe r chest pain 03/25/2018 S R110 Nausea 03/25/2018 S R600 Local ized edema 03/25/2018 S R61 Genera lized hyperhidrosis 03/25/2018 S Z794 emt intermediate (current) use of insulin 03/25/2018 S 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 03/25/2018 S Z880 Aller gy status to penicillin 04/02/2018 JESSICA DU P [...] Diarrhea, unspecified 04/05/2018 DAYO PALMA MD Z794 emt intermediate (current) use of insulin 04/23/2018 JESSICA DU P K7469 Other cirrhosis of liver 04/30/2018 Jessica Du principal B37.81 Candidal Esophagitis 05/03/2018 JESSICA DU P B182 Chronic viral hepatitis C 05/06/2018 NAHOMI PETIT MD E119 Type 2 diabetes mellitus without complications 05/06/2018 NAHOMI PETIT MD F1721 0 Nicotine dependence, cigarettes, uncomplicated 05/06/2018 NAHOMI PETIT MD F329 Major depressive disorder, single episode, unspecified 05/06/2018 NAHOMI PETIT MD J449 Chronic obstructive pulmonary disease, unspecified 05/06/2018 NAHOMI PETIT MD L989 Disorder of the skin and subcutaneous tissue, unspecified 05/06/2018 NAHOMI PETIT MD Z7989 9 Other snf (current) drug therapy 05/06/2018 NAHOMI PETIT MD Z8619 Personal history of other infectious and parasitic diseases 05/06/2018 Jessica Du comorbid E11 .9 Type 2 diabetes mellitus without complications 05/06/2018 Jessica Du comorbid K29.70 Gastritis, unspecified, without bleeding 05/10/2018 F E11.42 05/10/2018 F F11.10 05/10/2018 F F12.10 05/10/2018 F F33.2 05/10/2018 F F43.10 05/10/2018 F J44.9 05/10/2018 F R45.851 05/10/2018 F Z63.4 05/10/2018 F Z79.4 05/10/2018 F Z86.19 05/10/2018 F Z88.0 05/10/2018 DARIUS GRANT B1 920 Unspecified viral hepatitis C without hepatic coma 05/10/2018 DARIUS GRANT B9 681 Helicobacter pylori [H. pylori] as the cause of diseases classified elsewhere 05/10/2018 DARIUS GRANT E1 142 Type 2 diabetes mellitus with diabetic polyneuropathy 05/10/2018 DARIUS GRANT [id number] Nicotine dependence, cigarettes, uncomplicated 05/10/2018 DARIUS GRANT F3 29 Major depressive disorder, single episode, unspecified 05/10/2018 DARIUS GRANT G4 700 Insomnia, unspecified 05/10/2018 DARIUS GRANT J4 49 Chronic obstructive pulmonary disease, unspecified 05/10/2018 DARIUS GRANT K7 460 Unspecified cirrhosis of liver 05/10/2018 DARIUS GRANT M5 49 Dorsalgia, unspecified 05/10/2018 DARIUS GRANT R0 5 Cough 05/10/2018 DARIUS GRANT R2 52 Cramp and spasm 05/10/2018 DARIUS GRANT R4 51 Restlessness and agitation 05/10/2018 DARIUS GRANT R4 583 Excessive crying of child, adolescent or adult 05/10/2018 DARIUS GRANT P S59839 Suicidal ideations 05/10/2018 DARIUS GRANT R5 1 Headache 05/10/2018 DARIUS GRANT S R5 381 Other malaise 05/10/2018 DARIUS GRANT S R5 383 Other fatigue 05/10/2018 DARIUS GRANT Z7 94 emt intermediate (current) use of insulin 05/10/2018 DARIUS GRANT 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 2 CHRONIC VIRAL HEPATITIS C 06/18/2018 ALBERT CABRAL MD, Ot D69. 59 OTHER SECONDARY THROMBOCYTOPENIA 06/18/2018 ALBERT CABRAL MD, Ot E11. 65 TYPE 2 DIABETES MELLITUS WITH HYPERGLYCE 06/18/2018 ALBERT CABRAL MD, Ot F17.210 NICOTINE DEPENDENCE, CIGARETTES, UNCOMPL 06/18/2018 ALBERT CABRAL MD, Ot J44. 1 CHRONIC OBSTRUCTIVE PULMONARY DISEASE W 06/18/2018 ALBERT CABRAL MD, Ot M25.512 PAIN IN LEFT SHOULDER 06/18/2018 ALBERT CABRAL MD, Ot M54. 2 CERVICALGIA 06/18/2018 ALBERT CABRAL MD, Ot T38.0X5A ADVERSE EFFECT OF GLUCOCORT/SYNTH ANALOG 06/18/2018 ALBERT CABRAL MD, Ot Z23 ENCOUNTER FOR IMMUNIZATION 06/18/2018 ALBERT CABRAL MD, Ot Z79.899 OTHER GROUP HOME (CURRENT) DRUG THERAPY 07/02/2018 Gibran Majano 491.21 OBSTRUCTIVE CHRONIC BRONCHITIS WITH (ACUTE) EXACERBATION 07/02/2018 Gibran Majano J44.1 CHRONIC OBSTRUCTIVE PULMONARY DISEASE W (ACUTE) EXACERBATION 07/10/2018 BERNOT, DANIELA Ot E11.9 TYPE 2 DIABETES MELLITUS WITHOUT COMPLIC 07/10/2018 BERNOT, DANIELA Ot J44.1 CHRONIC OBSTRUCTIVE PULMONARY DISEASE W 07/10/2018 BERNOT, DANIELA Ot R06.02 SHORTNESS OF BREATH 07/10/2018 BERNOT, DANIELA Ot Z79.4 SUCTION PLATE CARRIER CLEANER (CURRENT) USE OF INSULIN 07/10/2018 BERNOT, DANIELA Ot Z79.51 SUCTION PLATE CARRIER CLEANER (CURRENT) USE OF INHALED STERO 07/10/2018 BERNOT, DANIELA Ot Z79.52 SUCTION PLATE CARRIER CLEANER (CURRENT) USE OF SYSTEMIC STER 07/10/2018 BERNOT, DANIELA Ot Z87.19 PERSONAL HISTORY OF OTHER DISEASES OF 07/10/2018 BERNOT, DANIELA Ot Z88.0 ALLERGY STATUS TO PENICILLIN 07/10/2018 BERNOT, DANIELA Ot Z98.890 OTHER SPECIFIED POSTPROCEDURAL STATES 07/10/2018 BERNOT, DANIELA Ot Z99.81 DEPENDENCE ON SUPPLEMENTAL OXYGEN 07/12/2018 BERNOT, DANIELA Ot E11.9 TYPE 2 DIABETES MELLITUS WITHOUT COMPLIC 07/12/2018 BERNOT, DANIELA Ot J44.1 CHRONIC OBSTRUCTIVE PULMONARY DISEASE W 07/12/2018 BERNOT, DANIELA Ot R06.02 SHORTNESS OF BREATH 07/12/2018 BERNOT, DANIELA Ot Z79.4 GROUP HOME (CURRENT) USE OF INSULIN 07/12/2018 BERNOT, DANIELA Ot Z79.51 SUCTION PLATE CARRIER CLEANER (CURRENT) USE OF INHALED STERO 07/12/2018 BERNOT, DANIELA Ot Z79.52 GROUP HOME (CURRENT) USE OF SYSTEMIC STER 07/12/2018 BERNOT, DANIELA Ot Z87.19 PERSONAL HISTORY OF OTHER DISEASES OF 07/12/2018 BERNOT, DANIELA Ot Z88.0 ALLERGY STATUS TO PENICILLIN 07/12/2018 BERNOT, DANIELA Ot Z98.890 OTHER SPECIFIED POSTPROCEDURAL STATES 07/12/2018 BERNOT, DANIELA Ot Z99.81 DEPENDENCE ON SUPPLEMENTAL OXYGEN 07/17/2018 NAYANA HUERTA FACC, ALI FACP CCDS Ot E11.9 TYPE 2 DIABETES MELLITUS WITHOUT COMPLIC 07/17/2018 NAYANA HUERTA FACC, ALI FACP CCDS Ot E66.9 OBESITY, UNSPECIFIED 07/17/2018 NAYANA HUERTA FACC, ALI FACP CCDS Ot F17.210 NICOTINE DEPENDENCE, CIGARETTES, UNCOMPL 07/17/2018 NAYANA HUERTA FACC, ALI FACP CCDS Ot G47.10 HYPERSOMNIA, UNSPECIFIED 07/17/2018 NAYANA HUERTA FACC, ALI FACP CCDS Ot G47.33 OBSTRUCTIVE SLEEP APNEA (ADULT) (PEDIATR 07/17/2018 NAYANA HUERTA FACC, ALI FACP CCDS Ot I72.4 ANEURYSM OF ARTERY OF LOWER EXTREMITY 07/17/2018 NAYANA HUERTA FACC, ALI FACP CCDS Ot I97.89 [facility] POSTPROC COMP AND DISORDERS OF THE C 07/17/2018 NAYANA HUERTA FACC, ALI FACP CCDS Ot J44.9 CHRONIC OBSTRUCTIVE PULMONARY DISEASE, U 07/17/2018 NAYANA HUERTA FACC, ALI FACP CCDS Ot M79.604 PAIN IN RIGHT LEG 07/17/2018 NAYANA HUERTA FACC, ALI FACP CCDS Ot M79.605 PAIN IN LEFT LEG 07/17/2018 NAYANA HUERTA FACC, ALI FACP CCDS Ot M79.89 OTHER SPECIFIED SOFT TISSUE DISORDERS 07/17/2018 NAYANA HUERTA FACC, ALI FACP CCDS Ot R06.02 SHORTNESS OF BREATH 07/17/2018 NAYANA HUERTA FACC, ALI FACP CCDS Ot R07.9 CHEST PAIN, UNSPECIFIED 07/17/2018 NAYANA HUERTA FACC, ALI FACP CCDS Ot R09.02 HYPOXEMIA 07/17/2018 NAYANA HUERTA FACC ALI FACP CCDS Ot R51 HEADACHE 07/17/2018 NAYANA HUERTA FACC, ALI FACP CCDS Ot Z68.35 BODY MASS INDEX (BMI) 35.0-35.9, ADULT 07/17/2018 NAYANA HUERTA FACC, ALI FACP CCDS Ot Z79.4 SUCTION PLATE CARRIER CLEANER (CURRENT) USE OF INSULIN 07/17/2018 NAYANA HUERTA FACC, ALI FACP CCDS Ot Z79.82 SUCTION PLATE CARRIER CLEANER (CURRENT) USE OF ASPIRIN 07/17/2018 NAYANA HUERTA FACC, ALI FACP CCDS Ot Z79.899 OTHER GROUP HOME (CURRENT) DRUG THERAPY 07/22/2018 NAYANA HUERTA FACC, ALI FACP CCDS Ot E11.9 TYPE 2 DIABETES [...] HUERTA FACC, ALI FACP CCDS Ot I97.89 OTH POSTPROC COMP [...] HUERTA FACC, ALI FACP CCDS Ot Z79.4 SUCTION PLATE CARRIER CLEANER (CURRENT) USE OF INSULIN 07/22/2018 NAYANA HUERTA FACC, ALI FACP CCDS Ot Z79.82 GROUP HOME (CURRENT) USE OF ASPIRIN 07/22/2018 NAYANA HUERTA FACC, ALI FACP CCDS Ot Z79.899 OTHER GROUP HOME (CURRENT) DRUG THERAPY 08/07/2018 JUVENTINO CHAVES APRN Ot G47.10 HYPERSOMNIA, UNSPECIFIED 08/07/2018 JUVENTINO CHAVES APRN Ot G47.10 HYPERSOMNIA, UNSPECIFIED 08/29/2018 NAYANA HUERTA FACC, ALI FACP CCDS Ot E11.9 TYPE 2 DIABETES MELLITUS WITHOUT COMPLIC 08/29/2018 NAYANA HUERTA FACC, ALI FACP CCDS Ot E66.9 OBESITY, UNSPECIFIED 08/29/2018 NAYANA HUERTA FACC, ALI FACP CCDS Ot F17.210 NICOTINE DEPENDENCE, CIGARETTES, UNCOMPL 08/29/2018 NAYANA HUERTA FACC, ALI FACP CCDS Ot G47.10 HYPERSOMNIA, UNSPECIFIED 08/29/2018 NAYANA HUERTA FACC, ALI FACP CCDS Ot G47.33 OBSTRUCTIVE SLEEP APNEA (ADULT) (PEDIATR 08/29/2018 NAYANA HUERTA FACC, OTILIO FACP CCDS Ot I72.4 ANEURYSM OF ARTERY OF LOWER EXTREMITY 08/29/2018 NAYANA HUERTA FACC, ALI FACP CCDS Ot I97.89 OTH POSTPROC COMP AND DISORDERS OF THE C 08/29/2018 NAYANA HUERTA FACC, OTILIO FACP CCDS Ot J44.9 CHRONIC OBSTRUCTIVE PULMONARY DISEASE, U 08/29/2018 NAYANA HUERTA FACC, ALI FACP CCDS Ot M79.604 PAIN IN RIGHT LEG 08/29/2018 NAYANA HUERTA FACC, ALI FACP CCDS Ot M79.605 PAIN IN LEFT LEG 08/29/2018 NAYANA HUERTA FACC, ALI FACP CCDS Ot M79.89 OTHER SPECIFIED SOFT TISSUE DISORDERS 08/29/2018 NAYANA HUERTA FACC, ALI FACP CCDS Ot R06.02 SHORTNESS OF BREATH 08/29/2018 NAYANA HUERTA FACC, ALI FACP CCDS Ot R07.9 CHEST PAIN, UNSPECIFIED 08/29/2018 NAYANA UHERTA FACC, ALI FACP CCDS Ot R09.02 HYPOXEMIA 08/29/2018 NAYANA HUERTA FACC, ALI FACP CCDS Ot R51 HEADACHE 08/29/2018 NAYANA HUERTA FACC, ALI FACP CCDS Ot Z68.35 BODY MASS INDEX (BMI) 35.0-35.9, ADULT 08/29/2018 NAYANA HUERTA FACC, ALI FACP CCDS Ot Z79.4 GROUP HOME (CURRENT) USE OF INSULIN 08/29/2018 NAYANA HUERTA FACC, ALI FACP CCDS Ot Z79.82 SUCTION PLATE CARRIER CLEANER (CURRENT) USE OF ASPIRIN 08/29/2018 NAYANA HUERTA FACC, ALI FACP CCDS Ot Z79.899 OTHER SUCTION PLATE CARRIER CLEANER (CURRENT) DRUG THERAPY 09/09/2018 JUVENTINO CHAVES APRN [...] LYN DO Ot Y92.[address] [facility] 03/27/2019 PARNAY LYN DO Ot Z23 ENCOUNTER FOR IMMUNIZATION 03/27/2019 PRANAY LYN DO Ot Z79. 4 SUCTION PLATE CARRIER CLEANER (CURRENT) USE OF INSULIN 03/27/2019 PRANAY LYN [...] LYN DO Ot Y92.[address] IN [facility] 03/31/2019 PRANAY LYN DO Ot Z23 ENCOUNTER FOR IMMUNIZATION 03/31/2019 PRANAY LYN DO Ot Z79. 4 GROUP HOME (CURRENT) USE OF INSULIN 03/31/2019 PRANAY LYN DO Ot Z88. 0 ALLERGY STATUS TO PENICILLIN 03/31/2019 PRANAY LYN DO Ot Z99. 81 DEPENDENCE ON SUPPLEMENTAL OXYGEN 04/09/2019 SHAHLA SUAZO MD Ot S92.352A DISP FX OF FIFTH METATARSAL BONE, LEFT F 04/09/2019 SHAHLA SUAZO MD Ot W19.XXXA UNSPECIFIED FALL, INITIAL ENCOUNTER 04/09/2019 SHAHLA SUAZO MD Ot Y92.[address] [facility] 05/01/2019 SHAHLA SUAZO MD Ot S92.352A DISP FX OF FIFTH METATARSAL BONE, LEFT F 05/01/2019 SHAHLA SUAZO MD Ot W19.XXXA UNSPECIFIED FALL, INITIAL ENCOUNTER 05/01/2019 SHAHLA SUAZO MD Ot Y92.[address] [facility] 05/02/2019 SHAHLA SUAZO MD Ot S92.352A DISP FX OF FIFTH METATARSAL BONE, LEFT F 05/02/2019 SHAHLA SUAZO MD Ot W19.XXXA UNSPECIFIED FALL, INITIAL ENCOUNTER 05/02/2019 SHAHLA SUAZO MD Ot Y92.[address] [facility] 06/03/2019 Ot S92.352A D ISP FX OF FIFTH METATARSAL BONE, LEFT F 06/03/2019 Ot W19.XXXA U NSPECIFIED FALL, INITIAL ENCOUNTER 06/03/[address] Ot [address] IN [facility] 06/03/2019 Ot S92.352A D ISP FX OF FIFTH METATARSAL BONE, LEFT F 06/03/2019 Ot W19.XXXA U NSPECIFIED FALL, INITIAL ENCOUNTER 06/03/2019 Ot Y[address] [facility] 06/20/2019 Ot S92.352A D ISP FX OF FIFTH METATARSAL BONE, LEFT F 06/20/2019 Ot W19.XXXA U NSPECIFIED FALL, INITIAL ENCOUNTER 06/20/[address] Ot [address] [facility] 06/25/2019 SHAHLA SUAZO MD Ot S92.352D DISP [...] SUAZO MD Ot Y92.[address] [facility] 09/14/2019 SHAHLA SUAZO MD Ot S92.352A DISP FX OF FIFTH METATARSAL BONE, LEFT F 09/14/2019 SHAHLA SUAZO MD Ot W19.XXXA UNSPECIFIED FALL, INITIAL ENCOUNTER 09/14/2019 SHAHLA SUAZO MD Ot Y92.[address] [facility] 09/14/2019 Ot S92.352A D ISP FX OF FIFTH METATARSAL BONE, LEFT F 09/14/2019 Ot W19.XXXA U NSPECIFIED FALL, INITIAL ENCOUNTER 09/14/[address] [facility] 09/14/2019 SHAHLA SUAZO MD Ot S92.352D DISP FX OF 5TH METATARSAL BONE, L FT, 7T 09/14/2019 SHAHLA SUAZO MD Ot X58.XXXD EXPOSURE TO OTHER SPECIFIED FACTORS, SUB 09/15/2019 SHAHLA SUAZO MD Ot S92.352A DISP FX OF FIFTH METATARSAL BONE, LEFT F 09/15/2019 SHAHLA SUAZO MD Ot W19.XXXA UNSPECIFIED FALL, INITIAL ENCOUNTER 09/15/2019 SHAHLA SUAZO MD Ot Y92.[address] [facility] 09/15/2019 SHAHLA SUAZO MD Ot S92.352A DISP FX OF FIFTH METATARSAL BONE, LEFT F 09/15/2019 SHAHLA SUAZO MD Ot W19.XXXA UNSPECIFIED FALL, INITIAL ENCOUNTER 09/15/2019 SHAHLA SUAZO MD Ot Y92.[address] [facility] 09/15/2019 Ot S92.352A D ISP FX OF FIFTH METATARSAL BONE, LEFT F 09/15/2019 Ot W19.XXXA U NSPECIFIED FALL, INITIAL ENCOUNTER 09/15/[address] [facility] 09/15/2019 SHAHLA SUAZO MD Ot S92.352D DISP FX OF 5TH METATARSAL BONE, L FT, 7T 09/15/2019 SHAHLA SUAZO MD Ot X58.XXXD EXPOSURE TO OTHER SPECIFIED FACTORS, SUB 09/15/2019 SHAHLA SUAZO MD Ot S92.352A DISP FX OF FIFTH METATARSAL BONE, LEFT F 09/15/2019 SHAHLA SUAZO MD Ot W19.XXXA UNSPECIFIED FALL, INITIAL ENCOUNTER 09/15/2019 SHAHLA SUAZO MD Ot Y92.[address] [facility] 09/15/2019 SHAHLA SUAZO MD Ot S92.352A DISP FX OF FIFTH METATARSAL BONE, LEFT F 09/15/2019 SHAHLA SUAZO MD Ot W19.XXXA UNSPECIFIED FALL, INITIAL ENCOUNTER 09/15/2019 SHAHLA SUAOZ MD Ot Y92.[address] [facility] 09/15/2019 Ot S92.352A D ISP FX OF FIFTH METATARSAL BONE, LEFT F 09/15/2019 Ot W19.XXXA U NSPECIFIED FALL, INITIAL ENCOUNTER 09/15/[address] [facility] 09/15/2019 SHAHLA SUAZO MD Ot S92.352D DISP FX OF 5TH METATARSAL BONE, L FT, 7T 09/15/2019 SHAHLA SUAZO MD Ot X58.XXXD EXPOSURE TO OTHER SPECIFIED FACTORS, SUB 09/15/2019 SHAHLA SUAZO MD Ot S92.352A DISP FX OF FIFTH METATARSAL BONE, LEFT F 09/15/2019 SHAHLA SUAZO MD Ot W19.XXXA UNSPECIFIED FALL, INITIAL ENCOUNTER 09/15/2019 SHAHLA SUAZO MD Ot Y92.[address] [facility] 09/15/2019 SHAHLA SUAZO MD Ot S92.352A DISP FX OF FIFTH METATARSAL BONE, LEFT F 09/15/2019 SHAHLA SUAZO MD Ot W19.XXXA UNSPECIFIED FALL, INITIAL ENCOUNTER 09/15/2019 SHAHLA SUAZO MD Ot Y92.[address] [facility] 09/15/2019 Ot S92.352A D ISP FX OF FIFTH METATARSAL BONE, LEFT F 09/15/2019 Ot W19.XXXA U NSPECIFIED FALL, INITIAL ENCOUNTER 09/15/[address] [facility] 09/15/2019 SHAHLA SUAZO MD Ot S92.352D DISP FX OF 5TH METATARSAL BONE, L FT, 7T 09/15/2019 SHAHLA SUAZO MD Ot X58.XXXD EXPOSURE TO OTHER SPECIFIED FACTORS, SUB 09/15/2019 SHAHLA SUAZO MD Ot S92.352A DISP FX OF FIFTH METATARSAL BONE, LEFT F 09/15/2019 SHAHLA SUAZO MD Ot W19.XXXA UNSPECIFIED FALL, INITIAL ENCOUNTER 09/15/2019 SHAHLA SUAZO MD Ot Y92.[address] [facility] 09/15/2019 SHAHLA SUAZO MD Ot S92.352A DISP FX OF FIFTH METATARSAL BONE, LEFT F 09/15/2019 SHAHLA SUAZO MD Ot W19.XXXA UNSPECIFIED FALL, INITIAL ENCOUNTER 09/15/2019 SHAHLA SUAZO MD Ot Y92.[address] [facility] 09/15/2019 Ot S92.352A D ISP FX OF FIFTH METATARSAL BONE, LEFT F 09/15/2019 Ot W19.XXXA U NSPECIFIED FALL, INITIAL ENCOUNTER 09/15/[address] OT [facility] 09/15/2019 SHAHLA SUAZO MD Ot S92.352D DISP FX OF 5TH METATARSAL BONE, L FT, 7T 09/15/2019 SHAHLA SUAZO MD Ot X58.XXXD EXPOSURE TO OTHER SPECIFIED FACTORS, SUB 09/15/2019 SHAHLA SUAZO MD Ot S92.352A DISP FX OF FIFTH METATARSAL BONE, LEFT F 09/15/2019 SHAHLA SUAZO MD Ot W19.XXXA UNSPECIFIED FALL, INITIAL ENCOUNTER 09/15/2019 SHAHLA SUAZO MD Ot Y92.[address] [facility] 09/15/2019 SHAHLA SUAZO MD Ot S92.352A DISP FX OF FIFTH METATARSAL BONE, LEFT F 09/15/2019 SHAHLA SUAZO MD Ot W19.XXXA UNSPECIFIED FALL, INITIAL ENCOUNTER 09/15/2019 SHAHLA SUAZO MD Ot Y92.[address] OT [facility] 09/15/2019 Ot S92.352A D ISP FX OF FIFTH METATARSAL BONE, LEFT F 09/15/2019 Ot W19.XXXA U NSPECIFIED FALL, INITIAL ENCOUNTER 09/15/[address] IN [facility] 09/15/2019 SHAHLA SUAZO MD Ot S92.352D DISP [...] W 09/15/2019 RAE DO, TERESA Ot Z79.4 SUCTION PLATE CARRIER CLEANER (CURRENT) USE OF INSULIN 09/15/2019 RAE DO, TERESA Ot Z79.89 9 OTHER SUCTION PLATE CARRIER CLEANER (CURRENT) DRUG THERAPY 09/15/2019 RAE DO, TERESA Ot Z86.19 PERSONAL HISTORY OF OTHER INFECTIOUS AND 09/15/2019 RAE DO, TERESA Ot Z88.0 ALLERGY STATUS TO PENICILLIN 09/15/2019 RAE DO, TERESA Ot Z91.19 PATIENT'S NONCOMPLIANCE W [facility] 09/15/2019 RAE DO, TERESA Ot Z99.81 DEPENDENCE ON SUPPLEMENTAL OXYGEN 09/15/2019 RAE DO, TERESA Ot E11.9 TYPE [...] W 09/15/2019 RAE DO, TERESA Ot Z79.4 GROUP HOME (CURRENT) USE OF INSULIN 09/15/2019 RAE DO, TERESA Ot Z79.89 9 OTHER GROUP HOME (CURRENT) DRUG THERAPY 09/15/2019 RAE DO, TERESA Ot Z86.19 PERSONAL HISTORY OF OTHER INFECTIOUS AND 09/15/2019 RAE DO, TERESA Ot Z88.0 ALLERGY STATUS TO PENICILLIN 09/15/2019 RAE DO, TERESA Ot Z91.19 PATIENT'S NONCOMPLIANCE W [facility] 09/15/2019 RAE DO, TERESA Ot Z99.81 DEPENDENCE ON SUPPLEMENTAL OXYGEN 10/03/2019 RAE DO, TERESA Ot E11.9 TYPE 2 DIABETES MELLITUS WITHOUT COMPLIC 10/03/2019 RAE DO, TERESA Ot F17.21 0 NICOTINE DEPENDENCE, CIGARETTES, UNCOMPL 10/03/2019 RAE DO, TERESA Ot G47.33 OBSTRUCTIVE SLEEP APNEA (ADULT) (PEDIATR 10/03/2019 RAE DO, TERESA Ot I10 ESSENTIAL (PRIMARY) HYPERTENSION 10/03/2019 KYRA VAN TERESA Ot I20.9 ANGINA PECTORIS, UNSPECIFIED 10/03/2019 KYRA VAN TERESA Ot J44.1 CHRONIC OBSTRUCTIVE PULMONARY DISEASE W 10/03/2019 KYRA VAN TERESA Ot Z79.4 SUCTION PLATE CARRIER CLEANER (CURRENT) USE OF INSULIN 10/03/2019 KYRA VAN TERESA Ot Z79.89 9 OTHER GROUP HOME (CURRENT) DRUG THERAPY 10/03/2019 KYRA VAN TERESA Ot Z86.19 PERSONAL HISTORY OF OTHER INFECTIOUS AND 10/03/2019 KYRA VAN TERESA Ot Z88.0 ALLERGY STATUS TO PENICILLIN 10/03/2019 KYRA VAN TERESA Ot Z91.19 PATIENT'S NONCOMPLIANCE W [facility] 10/03/2019 RAE DO TERESA Ot Z99.81 DEPENDENCE ON SUPPLEMENTAL OXYGEN 10/24/2019 SHAHLA SUAZO MD Ot S92.352A DISP FX OF FIFTH METATARSAL BONE, LEFT F 10/24/2019 SHAHLA SUAZO MD Ot W19.XXXA UNSPECIFIED FALL, INITIAL ENCOUNTER 10/24/2019 SHAHLA SUAZO MD Ot Y92.[address] [facility] 10/24/2019 SHAHLA SUAZO MD Ot S92.352A DISP FX OF FIFTH METATARSAL BONE, LEFT F 10/24/2019 SHAHLA SUAZO MD Ot W19.XXXA UNSPECIFIED FALL, INITIAL ENCOUNTER 10/24/2019 SHAHLA SUAZO MD Ot Y92.[address] [facility] 10/24/2019 Ot S92.352A D ISP FX OF FIFTH METATARSAL BONE, LEFT F 10/24/2019 Ot W19.XXXA U NSPECIFIED FALL, INITIAL ENCOUNTER 10/24/[address] [facility] 10/24/2019 SHAHLA SUAZO MD Ot S92.352D DISP FX OF 5TH METATARSAL BONE, L FT, 7T 10/24/2019 SHAHLA SUAZO MD Ot X58.XXXD EXPOSURE TO OTHER SPECIFIED FACTORS, SUB 11/12/2019 ROVENSTNATANAEL ENRIQUEZ DO Ot E11.9 TYPE 2 DIABETES MELLITUS WITHOUT COMPLIC 11/12/2019 ROVENSTINE DO, NATANAEL L Ot F17.210 NICOTINE DEPENDENCE, CIGARETTES, UNCOMPL 11/12/2019 ROVENSTINE DO, NATANAEL L Ot I10 ESSENTIAL (PRIMARY) HYPERTENSION 11/12/2019 ROVENSTINE DO, NATANAEL L Ot J44.9 CHRONIC OBSTRUCTIVE PULMONARY DISEASE, U 11/12/2019 ROVENSTINE DO, NATANAEL L Ot R53.1 WEAKNESS 11/12/2019 ROVENSTINE DO, NATANAEL L Ot Z79.4 SUCTION PLATE CARRIER CLEANER (CURRENT) USE OF INSULIN 11/12/2019 ROVENSTINE DO, NATANAEL L Ot Z88.0 ALLERGY STATUS TO PENICILLIN 11/14/2019 ROVENSTINE DO, NATANAEL L Ot E11.9 TYPE 2 DIABETES MELLITUS WITHOUT COMPLIC 11/14/2019 ROVENSTINE DO, NATANAEL L Ot F17.210 NICOTINE DEPENDENCE, CIGARETTES, UNCOMPL 11/14/2019 ROVENSTINE DO, NATANAEL L Ot I10 ESSENTIAL (PRIMARY) HYPERTENSION 11/14/2019 ROVENSTINE DO, NATANAEL L Ot J44.9 CHRONIC OBSTRUCTIVE PULMONARY DISEASE, U 11/14/2019 ROVENSTINE DO, NATANAEL L Ot R53.1 WEAKNESS 11/14/2019 ROVENSTINE DO, NATANAEL L Ot Z79.4 GROUP HOME (CURRENT) USE OF INSULIN 11/14/2019 ROVENSTINE DO, NATANAEL L Ot Z88.0 ALLERGY STATUS TO PENICILLIN 11/14/2019 SHAHLA SUAZO MD Ot S92.352A DISP FX OF FIFTH METATARSAL BONE, LEFT F 11/14/2019 SHAHLA SUAZO MD Ot W19.XXXA UNSPECIFIED FALL, INITIAL ENCOUNTER 11/14/2019 SHAHLA SUAZO MD Ot Y92.[address] IN [facility] 11/14/2019 SHAHLA SUAZO MD Ot S92.352A DISP FX OF FIFTH METATARSAL BONE, LEFT F 11/14/2019 SHAHLA SUAZO MD Ot W19.XXXA UNSPECIFIED FALL, INITIAL ENCOUNTER 11/14/2019 SHAHLA SUAZO MD Ot Y92.[address] IN [facility] 11/14/2019 Ot S92.352A D ISP FX OF FIFTH METATARSAL BONE, LEFT F 11/14/2019 Ot W19.XXXA U NSPECIFIED FALL, INITIAL ENCOUNTER 11/14/[address] Ot [address] IN [facility] 11/14/2019 SHAHLA SUAZO MD Ot S92.352D DISP FX OF 5TH METATARSAL BONE, L FT, 7T 11/14/2019 SHAHLA SUAZO MD Ot X58.XXXD EXPOSURE TO OTHER SPECIFIED FACTORS, SUB 11/14/2019 SHAHLA SUAZO MD Ot S92.352A DISP FX OF FIFTH METATARSAL BONE, LEFT F 11/14/2019 SHAHLA SUAZO MD Ot W19.XXXA UNSPECIFIED FALL, INITIAL ENCOUNTER 11/14/2019 SHAHLA SUAZO MD Ot Y92.[address] IN [facility] 11/14/2019 SHAHLA SUAZO MD Ot S92.352A DISP FX OF FIFTH METATARSAL BONE, LEFT F 11/14/2019 SHAHLA SUAZO MD Ot W19.XXXA UNSPECIFIED FALL, INITIAL ENCOUNTER 11/14/2019 SHAHLA SUAZO MD Ot Y92.[address] IN [facility] 11/14/2019 Ot S92.352A D ISP FX OF FIFTH METATARSAL BONE, LEFT F 11/14/2019 Ot W19.XXXA U NSPECIFIED FALL, INITIAL ENCOUNTER 11/14/[address] Ot [address] IN [facility] 11/14/2019 SHAHLA SUAZO MD Ot S92.352D DISP FX OF 5TH METATARSAL BONE, L FT, 7T 11/14/2019 SHAHLA SUAZO MD Ot X58.XXXD EXPOSURE TO OTHER SPECIFIED FACTORS, SUB 11/14/2019 SHAHLA SUAZO MD Ot S92.352A DISP FX OF FIFTH METATARSAL BONE, LEFT F 11/14/2019 SHAHLA SUAZO MD Ot W19.XXXA UNSPECIFIED FALL, INITIAL ENCOUNTER 11/14/2019 SHAHLA SUAZO MD Ot Y92.[address] IN [facility] 11/14/2019 SHAHLA SUAZO MD Ot S92.352A DISP FX OF FIFTH METATARSAL BONE, LEFT F 11/14/2019 SHAHLA SUAZO MD Ot W19.XXXA UNSPECIFIED FALL, INITIAL ENCOUNTER 11/14/2019 SHAHLA SUAZO MD Ot Y92.[address] [facility] 11/14/2019 Ot S92.352A D ISP FX OF FIFTH METATARSAL BONE, LEFT F 11/14/2019 Ot W19.XXXA U NSPECIFIED FALL, INITIAL ENCOUNTER 11/14/[address] [facility] 11/14/2019 SHAHLA SUAZO MD Ot S92.352D DISP FX OF 5TH METATARSAL BONE, L FT, 7T 11/14/2019 HSAHLA SUAZO MD Ot X58.XXXD EXPOSURE TO OTHER SPECIFIED FACTORS, SUB 11/17/2019 SHAHLA SUAZO MD Ot S92.352A DISP FX OF FIFTH METATARSAL BONE, LEFT F 11/17/2019 SHAHLA SUAZO MD Ot W19.XXXA UNSPECIFIED FALL, INITIAL ENCOUNTER 11/17/2019 SHAHLA SUAZO MD Ot Y92.[address] [facility] 11/17/2019 SHAHLA SUAZO MD Ot S92.352A DISP FX OF FIFTH METATARSAL BONE, LEFT F 11/17/2019 SHAHLA SUAZO MD Ot W19.XXXA UNSPECIFIED FALL, INITIAL ENCOUNTER 11/17/2019 SHAHLA SUAZO MD Ot Y92.[address] [facility] 11/17/2019 Ot S92.352A D ISP FX OF FIFTH METATARSAL BONE, LEFT F 11/17/2019 Ot W19.XXXA U NSPECIFIED FALL, INITIAL ENCOUNTER 11/17/[address] [facility] 11/17/2019 SHAHLA SUAZO MD Ot S92.352D DISP FX OF 5TH METATARSAL BONE, L FT, 7T 11/17/2019 SHAHLA SUAZO MD Ot X58.XXXD EXPOSURE TO OTHER SPECIFIED FACTORS, SUB 11/17/2019 VELASQUEZ CHIANG MD Ot M47.81 6 SPONDYLOSIS W/O MYELOPATHY OR RADICULOPA 11/17/2019 VELASQUEZ CHIANG MD Ot M54.41 LUMBAGO WITH SCIATICA, RIGHT SIDE 11/17/2019 VELASQUEZ CHIANG MD Ot M54.42 LUMBAGO WITH SCIATICA, LEFT SIDE 11/29/2019 SHAHLA SUAZO MD Ot S92.352A DISP FX OF FIFTH METATARSAL BONE, LEFT F 11/29/2019 SHAHLA SUAZO MD Ot W19.XXXA UNSPECIFIED FALL, INITIAL ENCOUNTER 11/29/2019 SHAHLA SUAZO MD Ot Y92.[address] [facility] 11/29/2019 SHAHLA SUAZO MD Ot S92.352A DISP FX OF FIFTH METATARSAL BONE, LEFT F 11/29/2019 SHAHLA SUAZO MD Ot W19.XXXA UNSPECIFIED FALL, INITIAL ENCOUNTER 11/29/2019 SHAHLA SUAZO MD Ot Y92.[address] [facility] 11/29/2019 Ot S92.352A D ISP FX OF FIFTH METATARSAL BONE, LEFT F 11/29/2019 Ot W19.XXXA U NSPECIFIED FALL, INITIAL ENCOUNTER 11/29/[address] [facility] 11/29/2019 SHAHLA SUAZO MD Ot S92.352D DISP FX OF 5TH METATARSAL BONE, L FT, 7T 11/29/2019 SHAHLA SUAZO MD Ot X58.XXXD EXPOSURE TO OTHER SPECIFIED FACTORS, SUB 11/29/2019 VELASQUEZ CHIANG MD Ot M47.81 6 SPONDYLOSIS W/O MYELOPATHY OR RADICULOPA 11/29/2019 VELASQUEZ CHIANG MD Ot M54.41 LUMBAGO WITH SCIATICA, RIGHT SIDE 11/29/2019 VELASQUEZ CHIANG MD Ot M54.42 LUMBAGO WITH SCIATICA, LEFT SIDE 11/30/2019 SHAHLA SUAZO MD Ot S92.352A DISP FX OF FIFTH METATARSAL BONE, LEFT F 11/30/2019 SHAHLA SUAZO MD Ot W19.XXXA UNSPECIFIED FALL, INITIAL ENCOUNTER 11/30/2019 SHAHLA SUAZO MD Ot Y92.[address] [facility] 11/30/2019 SHAHLA SUAZO MD Ot S92.352A DISP FX OF FIFTH METATARSAL BONE, LEFT F 11/30/2019 SHAHLA SUAZO MD Ot W19.XXXA UNSPECIFIED FALL, INITIAL ENCOUNTER 11/30/2019 SHAHLA SUAZO MD Ot Y92.[address] [facility] 11/30/2019 Ot S92.352A D ISP FX OF FIFTH METATARSAL BONE, LEFT F 11/30/2019 Ot W19.XXXA U NSPECIFIED FALL, INITIAL ENCOUNTER 11/30/[address] [facility] 11/30/2019 SHAHLA SUAZO MD Ot S92.352D DISP FX OF 5TH METATARSAL BONE, L FT, 7T 11/30/2019 SHAHLA SUAZO MD Ot X58.XXXD EXPOSURE TO OTHER SPECIFIED FACTORS, SUB 11/30/2019 SELF VELASQUEZ HUERTA Ot M47.81 6 SPONDYLOSIS W/O MYELOPATHY OR RADICULOPA 11/30/2019 VELASQUEZ CHIANG MD Ot M54.41 LUMBAGO WITH SCIATICA, RIGHT SIDE 11/30/2019 VELASQUEZ CHIANG MD Ot M54.42 LUMBAGO WITH SCIATICA, LEFT SIDE 11/30/2019 SHAHLA SUAZO MD Ot S92.352A DISP FX OF FIFTH METATARSAL BONE, LEFT F 11/30/2019 SHAHLA SUAZO MD Ot W19.XXXA UNSPECIFIED FALL, INITIAL ENCOUNTER 11/30/2019 SHAHLA SUAZO MD Ot Y92.[address] [facility] 11/30/2019 SHAHLA SUAZO MD Ot S92.352A DISP FX OF FIFTH METATARSAL BONE, LEFT F 11/30/2019 SHAHLA SUAZO MD Ot W19.XXXA UNSPECIFIED FALL, INITIAL ENCOUNTER 11/30/2019 SHAHLA SUAZO MD Ot Y92.[address] [facility] 11/30/2019 Ot S92.352A D ISP FX OF FIFTH METATARSAL BONE, LEFT F 11/30/2019 Ot W19.XXXA U NSPECIFIED FALL, INITIAL ENCOUNTER 11/30/[address] [facility] 11/30/2019 SHAHLA SUAZO MD Ot S92.352D DISP FX OF 5TH METATARSAL BONE, L FT, 7T 11/30/2019 SHAHLA SUAZO MD Ot X58.XXXD EXPOSURE TO OTHER SPECIFIED FACTORS, SUB 11/30/2019 VELASQUEZ CHIANG MD Ot M47.81 6 SPONDYLOSIS W/O MYELOPATHY OR RADICULOPA 11/30/2019 VELASQUEZ CHIANG MD Ot M54.41 LUMBAGO WITH SCIATICA, RIGHT SIDE 11/30/2019 VELASQUEZ CHIANG MD Ot M54.42 LUMBAGO WITH SCIATICA, LEFT SIDE 11/30/2019 SHAHLA SUAZO MD Ot S92.352A DISP FX OF FIFTH METATARSAL BONE, LEFT F 11/30/2019 SHAHLA SUAZO MD Ot W19.XXXA UNSPECIFIED FALL, INITIAL ENCOUNTER 11/30/2019 SHAHLA SUAZO MD Ot Y92.[address] [facility] 11/30/2019 SHAHLA SUAZO MD Ot S92.352A DISP FX OF FIFTH METATARSAL BONE, LEFT F 11/30/2019 SHAHLA SUAZO MD Ot W19.XXXA UNSPECIFIED FALL, INITIAL ENCOUNTER 11/30/2019 SHAHLA SUAZO MD Ot Y92.[address] [facility] 11/30/2019 Ot S92.352A D ISP FX OF FIFTH METATARSAL BONE, LEFT F 11/30/2019 Ot W19.XXXA U NSPECIFIED FALL, INITIAL ENCOUNTER 11/30/[address] [facility] 11/30/2019 SHAHLA SUAZO MD Ot S92.352D DISP FX OF 5TH METATARSAL BONE, L FT, 7T 11/30/2019 SHAHLA SUAZO MD Ot X58.XXXD EXPOSURE TO OTHER SPECIFIED FACTORS, SUB 11/30/2019 VELASQUEZ CHIANG MD Ot M47.81 6 SPONDYLOSIS W/O MYELOPATHY OR RADICULOPA 11/30/2019 VELASQUEZ CHIANG MD Ot M54.41 LUMBAGO WITH SCIATICA, RIGHT SIDE 11/30/2019 VELASQUEZ CHIANG MD Ot M54.42 LUMBAGO WITH SCIATICA, LEFT SIDE 12/02/2019 STEFFANIE CASTELLANO MD Ot B18 .2 CHRONIC VIRAL HEPATITIS C 12/02/2019 STEFFANIE CASTELLANO MD Ot D69 .6 THROMBOCYTOPENIA, UNSPECIFIED 12/02/2019 STEFFANIE CASTELLANO MD Ot E11.42 TYPE 2 DIABETES MELLITUS WITH DIABETIC P 12/02/2019 STEFFANIE CASTELLANO MD Ot E86 .0 DEHYDRATION 12/02/2019 STEFFANIE CASTELLANO MD Ot E87 .3 ALKALOSIS 12/02/2019 STEFFANIE CASTELLANO MD Ot F17.210 NICOTINE DEPENDENCE, CIGARETTES, UNCOMPL 12/02/2019 STEFFANIE CASTELLANO MD, Ot F32 .9 MAJOR DEPRESSIVE DISORDER, SINGLE EPISOD 12/02/2019 STEFFANIE CASTELLANO MD, Ot G47.33 OBSTRUCTIVE SLEEP APNEA (ADULT) (PEDIATR 12/02/2019 STEFFANIE CASTELLANO MD, Ot I10 ESSENTIAL (PRIMARY) HYPERTENSION 12/02/2019 STEFFANIE CASTELLANO MD, Ot I20 .9 ANGINA PECTORIS, UNSPECIFIED 12/02/2019 STEFFANIE CASTELLANO MD, Ot J44 .9 CHRONIC OBSTRUCTIVE PULMONARY DISEASE, U 12/02/2019 STEFFANIE CASTELLANO MD, Ot K57.32 DVTRCLI OF LG INT W/O PERFORATION OR ABS 12/02/2019 STEFFANIE CASTELLANO MD, Ot M79 .7 FIBROMYALGIA 12/02/2019 STEFFANIE CASTELLANO MD, Ot R19 .7 DIARRHEA, UNSPECIFIED 12/02/2019 STEFFANIE CASTELLANO MD, Ot R29 .6 REPEATED FALLS 12/02/2019 STEFFANIE CASTELLANO MD, Ot Z79 .4 GROUP HOME (CURRENT) USE OF INSULIN 12/02/2019 STEFFANIE CASTELLANO MD, Ot Z91.19 PATIENT'S NONCOMPLIANCE W [facility] 12/12/2019 VELASQUEZ CHIANG MD Ot M47.81 6 SPONDYLOSIS W/O MYELOPATHY OR RADICULOPA 12/12/2019 VELASQUEZ CHIANG MD, Ot M54.41 LUMBAGO WITH SCIATICA, RIGHT SIDE 12/12/2019 VELASQUEZ CHIANG MD, Ot M54.42 LUMBAGO WITH SCIATICA, LEFT SIDE Procedures There is no data. Results Test Result Range PROTHROMBIN TIME - 04/02/18 07:50 INR 1.1 0.8 - 1.4 PROTIME 12.3 Secs 10.0 - 12.5 TSH REFLEX FT4 - 04/02/18 07:50 THYROID STIMULATING HORMONE 0.701 uIU/L 0.460 - 4.680 Hepatitis C virus genotype - 04/02/18 07 :50 RBC MORPH NRG HEPATITIS C GENOTYPE LAB NRG PROTHROMBIN TIME - 04/23/18 11:20 INR 1.1 0.8 - 1.4 PROTIME 12.4 Secs 10.0 - 12.5 CBC ADIFF W/REFLEX MDIFF - 04/23/18 11: 20 WHITE BLOOD COUNT 5.9 X10^3 4.0 - 11.0 RED BLOOD COUNT 5.07 10^6/uL 4.00 - 5.00 MEAN CORPUSCULAR VOLUME 88 FL 80 - 1 00 MEAN CORPUSCULAR HEMOGLOBIN 29.6 pg 26 .0 - 34.0 MEAN CORPUSCULAR HGB CONC 33.8 g/dL 31.0 - 37.0 RED CELL DISTRIBUTION WIDTH 14.9 % 11 .8 - 15.6 MEAN PLATELET VOLUME 11.9 FL [...] NRG Serum or plasma amylase measurement - 11:20 AMYLASE 58 U/L 25 - 115 [...] - 35 eGFR AfrAm >60 mL/min/1.7 REF RANGE =>60 eGFR NonAfrAm >60 mL/min/1.7 REF RANGE = >60 CALC IZ CA 4.2 mmol/L 3.8 - 4.6 ALPHA-FETO PROTEIN MARKER - 04/23/18 1 1:20 RBC MORPH NRG ALPHA-FETO PROTEIN MARKER LAB NR G HEP C RNA DETECT QT - 05/03/18 11:40 RBC MORPH NRG HEP C RNA DETECT QT LAB NRG HCV FIBROSURE--[facility] - 05/03/18 11:4 0 HCV FIBROSURE--[facility] LAB NRG CBC ADIFF W/REFLEX MDIFF - 05/10/18 17: 01 WHITE BLOOD COUNT 8.9 X10^3 4.0 - 11.0 RED BLOOD COUNT 4.85 10^6/uL 4.00 - 5.00 MEAN CORPUSCULAR VOLUME 87 FL 80 - 1 00 MEAN CORPUSCULAR HEMOGLOBIN 30.1 pg 26 .0 - 34.0 MEAN CORPUSCULAR HGB CONC 34.6 g/dL 31.0 - 37.0 RED CELL DISTRIBUTION WIDTH 14.3 % 11 .8 - 15.6 MEAN PLATELET VOLUME 11.9 FL [...] NEGATIVE NORMAL: NEGATIVE Phencyclidine (PCP) NEGATIVE NORMAL: NE GATIVE Propoxyphene NEGATIVE NORMAL: NEGATIVE DRUG SCREEN STAT [...] - 35 eGFR AfrAm >60 mL/min/1.7 REF RANGE =>60 eGFR NonAfrAm >60 mL/min/1.7 REF RANGE = >60 CALC IZ CA 3.9 mmol/L 3.8 - 4.6 ACETAMINOPHEN/SALICYLATES SERUM - 17:01 ACETAMINOPHEN <10.0 mcg/mL 10.0 - 30.0 [...] by glucometer (mas s/volume) 354 mg/dL 70-110 Sputum Culture - 07/02/18 08:03 PRELIM CULTURE RESULTS Moderate Gram Positive Mixe d Eulogio FINAL CULTURE RESULTS Moderate Gram Positive Mixed Eulogio [id number] Pathogens Isolated [id number] Further Workup done MEDIA PLATED Setup at [...] Negative Urine-Blood Trace-lysed Negative Urine-Color Yellow Colorless-[place] ow Urine-Epithelial Cells 0-5/HPF Urine-Glucose Negative Negative Urine-Ketones Negative Negative Urine-Leukocytes Negative Negative Urine-Nitrite Negative Negative Urine-Other Urine Saved if Culture Need ed (48hrs from time of collection) Urine-pH 6.5 5-8.5 Urine-Protein 2+ Negative Urine-RBC Rare/HPF Urine-Specific [place] >=1.030 1.000-1 .030 Urine-WBC 0-2/HPF Urobilinogen 1.0 E.U./dL 0.2-1.0 Complete blood count (CBC) with automate d [...] 11/06/18 13:37 CULTURE, URINE, ROUTINE SEE NOTE NR LIPID PANEL - 06/26/19 12:56 CHOLESTEROL, TOTAL 208 mg/dL <200 HDL CHOLESTEROL 52 mg/dL >50 TRIGLYCERIDES 176 mg/dL <150 LDL-CHOLESTEROL 127 mg/dL (calc) NRG CHOL/HDLC RATIO 4.0 (calc) <5.0 NON HDL CHOLESTEROL 156 mg/dL (calc) <13 0 CMP - 06/26/19 12:56 GLUCOSE 92 mg/dL 65-99 UREA NITROGEN (BUN) 28 mg/dL 7-25 CREATININE 0.81 mg/dL 0.50-1.05 eGFR NON-AFR. [place]URK[place] 81 mL/min/1.73m2 > OR = 60 eGFR [...] Gram stain relevant, interpret with caution s [facility] Bacterial sputum culture - 09/14/19 20:2 0 QUANTITY OF GROWTH . [facility] Bacterial sputum culture USUAL RESP [facility] Arterial blood gas measurement - 0 22:15 [...] INFLUENZA A AND B ANTIGENS BY IA [facility] Comprehensive metabolic panel - 11/12/19 08:26 Serum [...] - 11/12/19 08:2 6 Bacterial throat culture [id number] NRG FREE TEXT EXTERNAL PLUS NORMAL EULOGIO [...] G Measurement of body temperature 36.8 NRG Serum or plasma creatine kinase measurem ent (enzymatic activity/volume) - 11/29/19 20:12 Serum or plasma creatine kinase measurem ent (enzymatic activity/volume) 87 U/L 29-168 Complete urinalysis with reflex to cultu re [...] TIVE Urine propoxyphene detection NEGATIVE N EGATIVE Bacterial urine culture - 11/29/19 20:15 Bacterial urine culture 3 OR MORE NRG COLONY COUNT 40,000 CFU/ML NRG SUSCEPTIBILITY GRAM POSITIVES SUGGESTING PROBABLE NRG MRSA SCREEN COLLECTION CONTAMINATION WITH SKIN PANCHO RA NRG RAPID ID NO SUSCEPTIBILITY PERFORMED N RG Serum or plasma cortisol measurement (ma ss/volume) - 11/30/19 01:10 Cortisol PM 8.4 % 2.9-17.3 Bacterial blood culture - 11/30/19 01:10 QUANTITY OF GROWTH . NRG Bacterial blood culture SEE COMMEN NRG Complete blood count (CBC) with automate d white blood cell (WBC) differential - 11/30/19 04:43 Blood leukocytes automated count (number/volume) 6.8 10*3/uL 4.3-11.0 Blood erythrocytes automated count (number/volume) 3.92 10*6/uL 4.35-5.85 Venous blood hemoglobin measurement (mass/volume) 11.6 g/dL 11.5-16.0 Blood hematocrit (volume fraction) 36 % 35-52 Automated erythrocyte mean corpuscular volume 91 [ foz_us] 80-99 Automated erythrocyte mean corpuscular h emoglobin (mass per erythrocyte) 30 pg 25-34 Automated erythrocyte mean corpuscular h emoglobin concentration measurement (mass/volume) 33 g/dL 32-36 Automated erythrocyte distribution width ratio 14. 8 % 10.0- 14.5 Automated blood platelet count (count/volume) 75 1 0*3/uL 130-400 Automated blood platelet mean volume measurement 11.8 [foz_us] 7.4-10.4 Automated blood neutrophils/100 leukocytes 67 % 42-75 Automated blood lymphocytes/100 leukocytes 21 % 12-44 Blood monocytes/100 leukocytes 9 % 0-12 Automated blood eosinophils/100 leukocytes 2 % 0-10 Automated blood basophils/100 leukocytes 0 % 0-10 Blood neutrophils automated count (number/volume) 4.5 10*3 1.8-7.8 Blood lymphocytes automated count (number/volume) 1.4 10*3 1.0-4.0 Blood monocytes automated count (number/volume) 0. 6 10*3 0.0-1.0 Automated eosinophil count 0.2 10*3/uL 0 .0-0.3 Automated blood basophil count (count/volume) 0.0 10*3/uL 0.0-0.1 Comprehensive metabolic panel - 11/30/19 04:43 Serum or plasma sodium measurement (moles/volume) 141 mmol/L 135-145 Serum or plasma potassium measurement (moles/volume) 3.9 mmol/L 3.6-5.0 Serum or plasma chloride measurement (moles/volume) 107 mmol/L 98-107 Carbon dioxide 23 mmol/L 21-32 Serum or plasma anion gap determination (moles/volume) 11 mmol/L 5-14 Serum or plasma urea nitrogen measurement (mass/volume ) 28 mg/dL 7-18 Serum or plasma creatinine measurement (mass/volume) 0.84 mg/dL 0.60-1.30 Serum or plasma urea nitrogen/creatinine mass ratio 33 NRG Serum or plasma creatinine measurement w ith calculation of estimated glomerular filtration rate > NRG Serum or plasma glucose measurement (mass/volume) 158 mg/dL 70-105 Serum or plasma calcium measurement (mass/volume) 8.0 mg/dL 8.5-10.1 Serum or plasma total bilirubin measurement (mass/volu me) 0.7 mg/dL 0.1-1.0 Serum or plasma alkaline phosphatase ana surement (enzymatic activity/volume) 67 U/L 40-136 Serum or plasma aspartate aminotransfera se measurement (enzymatic activity/volume) 15 U/L 5-34 Serum or plasma alanine aminotransferase measurement (enzymatic activity/volume) 13 U/L 0-55 Serum or plasma protein measurement (mass/volume) 5.9 g/dL 6.4-8.2 Serum or plasma albumin measurement (mass/volume) 3.2 g/dL 3.2-4.5 CALCIUM CORRECTED 8.6 mg/dL 8.5-10.1 Capillary blood glucose measurement by g lucometer (mass/volume) - 11/30/19 10:47 Capillary blood glucose measurement by glucometer (mas s/volume) 160 mg/dL 70-110 Capillary blood glucose measurement by g lucometer (mass/volume) - 11/30/19 16:34 Capillary blood glucose measurement by glucometer (mas s/volume) 141 mg/dL 70-110 Capillary blood glucose measurement by g lucometer (mass/volume) - 11/30/19 20:33 Capillary blood glucose measurement by glucometer (mas s/volume) 170 mg/dL 70-110 Capillary blood glucose measurement by g lucometer (mass/volume) - 12/01/19 05:35 Capillary blood glucose measurement by glucometer (mas s/volume) 128 mg/dL 70-110 Capillary blood glucose measurement by g lucometer (mass/volume) - 12/01/19 10:40 Capillary blood glucose measurement by glucometer (mas s/volume) 133 mg/dL 70-110 Capillary blood glucose measurement by g lucometer (mass/volume) - 12/01/19 15:37 Capillary blood glucose measurement by glucometer (mas s/volume) 138 mg/dL 70-110 Capillary blood glucose measurement by g lucometer (mass/volume) - 12/01/19 20:17 Capillary blood glucose measurement by glucometer (mas s/volume) 189 mg/dL 70-110 Whole blood basic metabolic panel - 11/05 03/25 05:00 Serum or plasma sodium measurement (moles/volume) 141 mmol/L 135-145 Serum or plasma potassium measurement (moles/volume) 4.4 mmol/L 3.6-5.0 Serum or plasma chloride measurement (moles/volume) 109 mmol/L 98-107 Carbon dioxide 23 mmol/L 21-32 Serum or plasma anion gap determination (moles/volume) 9 mmol/L 5-14 Serum or plasma urea nitrogen measurement (mass/volume ) 16 mg/dL 7-18 Serum or plasma creatinine measurement (mass/volume) 0.82 mg/dL 0.60-1.30 Serum or plasma urea nitrogen/creatinine mass ratio 20 NRG Serum or plasma creatinine measurement w ith calculation of estimated glomerular filtration rate > NRG Serum or plasma glucose measurement (mass/volume) 98 mg/dL 70-105 Serum or plasma calcium measurement (mass/volume) 8.3 mg/dL 8.5-10.1 Automated blood complete blood count (he mogram) panel - 12/02/19 05:00 Blood leukocytes automated count (number/volume) 4.8 10*3/uL 4.3-11.0 Blood erythrocytes automated count (number/volume) 3.97 10*6/uL 4.35-5.85 Venous blood hemoglobin measurement (mass/volume) 11.8 g/dL 11.5-16.0 Blood hematocrit (volume fraction) 36 % 35-52 Automated erythrocyte mean corpuscular volume 92 [ foz_us] 80-99 Automated erythrocyte mean corpuscular h emoglobin (mass per erythrocyte) 30 pg 25-34 Automated erythrocyte mean corpuscular h emoglobin concentration measurement (mass/volume) 32 g/dL 32-36 Automated erythrocyte distribution width ratio 14. 6 % 10.0- 14.5 Automated blood platelet count (count/volume) 78 1 0*3/uL 130-400 Automated blood platelet mean volume measurement 12.2 [foz_us] 7.4-10.4 Capillary blood glucose measurement by g lucometer (mass/volume) - 12/02/19 05:44 Capillary blood glucose measurement by glucometer (mas s/volume) 101 mg/dL 70-110 Capillary blood glucose measurement by g lucometer (mass/volume) - 12/02/19 11:13 Capillary blood glucose measurement by glucometer (mas s/volume) 151 mg/dL 70-110 CMP - 01/20/20 12:43 GLUCOSE 178 mg/dL 65-99 UREA NITROGEN (BUN) 25 mg/dL 7-25 CREATININE 0.71 mg/dL 0.50-1.05 eGFR NON-AFR. [place] 95 mL/min/1.73m2 > OR = 60 eGFR 110 mL/min/1.73m2 > OR = 60 BUN/CREATININE RATIO NOT APPLICABLE (calc) 6-22 SODIUM 140 mmol/L 135-146 POTASSIUM 4.2 mmol/L 3.5-5.3 CHLORIDE 102 mmol/L 98-110 CARBON DIOXIDE 26 mmol/L 20-32 CALCIUM 8.7 mg/dL 8.6-10.4 PROTEIN, TOTAL 6.7 g/dL 6.1-8.1 ALBUMIN 3.7 g/dL 3.6-5.1 GLOBULIN 3.0 g/dL (calc) 1.9-3.7 ALBUMIN/GLOBULIN RATIO 1.2 (calc) 1.0-2. 5 BILIRUBIN, TOTAL 0.5 mg/dL 0.2-1.2 ALKALINE PHOSPHATASE 86 U/L 37-153 AST 10 U/L 10-35 ALT 7 U/L 6-29 Encounters ACCT No. Visit Date/Time Discharge Status Pt. Type Provider Facility Loc./Unit Complaint [id number] 05/10/2018 21:57:28 05/10/2018 23:5 9:59 CLS Outpatient [facility] [id number] 05/10/2018 16:20:00 05/10/2018 21:5 9:00 DIS Emergency DARIUS GRANT 015 PSYCH [id number] 05/05/2018 23:44:00 05/06/2018 00:1 2:00 DIS Emergency NAHOMI PETIT MD 015 CANT BREATHE/NOT FEELING WELL [id number] 05/03/2018 11:37:00 05/03/2018 23:5 9:59 CLS Outpatient JESSICA DU [id number] 05/03/2018 10:59:00 05/03/2018 11:3 5:00 DIS Outpatient DAYO PALMA MD 062 F/U on essential tremors [id number] 04/23/2018 11:08:00 04/23/2018 23:5 9:59 CLS Outpatient JESSICA DU LAB [id number] 04/05/2018 11:03:00 04/05/2018 12:0 2:00 DIS Outpatient DAYO PALMA MD 062 [id number] 04/02/2018 06:49:00 04/02/2018 06:4 9:00 DIS Outpatient JESSICA DU [id number] 03/25/2018 09:34:00 Document Registration [id number] 08/28/2014 09:54:00 15:15:00 DIS Emergency Estrella Aceves MD [facility] ED cant walk [id number] 11/30/2019 01:01:00 11:42:00 DIS Inpatient STEFFANIE CASTELLANO MD [facility] 4TH FALL [id number] 11/25/2019 10:15:00 23:59:59 CLS Preadmit VELASQUEZ CHIANG MD [facility] RAD DEGENERATIVE DISC DISEA SE [id number] 11/14/2019 14:52:00 23:59:59 CLS Outpatient VELASQUEZ CHIANG MD [facility] RAD FS LUMBAGO WITH SCIATICA B ILATERAL [id number] 11/12/2019 08:13:00 09:40:00 DIS Emergency KAITLINVENSTNATANAEL ENRIQUEZ DO [facility] ER FS FALL, WEAKNESS, SOB [id number] 09/14/2019 23:15:00 11:40:00 DIS Inpatient TERESA RAE DO, V [facility] 4TH COPD/SOB [id number] 06/20/2019 09:57:00 23:59:59 CLS Outpatient SHAHLA SUAZO MD [facility] ORTHO [id number] 04/29/2019 12:53:00 23:59:59 CLS Outpatient SHAHLA SUAZO MD [facility] ORTHO [id number] 04/08/2019 10:51:00 23:59:59 CLS Outpatient SHAHLA SUAZO MD [facility] ORTHO [id number] 03/27/2019 14:55:00 08/22/2 019 16:54:00 DIS Emergency PRANAY LYN DO [facility] ER FS FALL; LT HAND LAC; LT L EG INJ [id number] 07/16/2018 08:04:00 018 13:45:00 DIS Outpatient NAYANA HUERTA FACC, OTILIO GREENP CC DS [facility] CATH SOB,DM,COPD ,FATIGUE [id number] 07/10/2018 13:22:00 018 23:59:59 CLS Preadmit JUVENTINO [employer] [facility] SLEEP COPD, DYSPNEA, HYPERSOMNIA [id number] 07/10/2018 13:11:00 018 23:59:59 CLS Preadmit JUVENTINO [employer] [facility] RAD COPD,DYSPNEA,HY PERSOMNIA [id number] 07/10/2018 13:01:00 018 23:59:59 CLS Preadmit JUVENTINO [employer] [facility] RT COPD,DYSPNEA,HY PERSOMNIA [id number] 07/10/2018 19:51:00 018 22:05:00 DIS Emergency DANIELA DENNIS [facility] ER SOB,LEGS HURT [id number] 06/15/2018 18:15:00 018 12:05:00 DIS Inpatient MISHA HUERTA, ALBERT Marrero [facility] 4TH COPD EXATRBATION [id number] 05/30/2019 10:17:00 Document Registration [id number] 04/29/2018 13:47:00 04/29/2018 23:59: 00 DIS Outpatient Jessica Du Cor[facility] OUTPT Esophagogastroduodenoscopy [id number] 08/14/2014 14:02:00 015 15:00:00 DIS Emergency Romain De Santiago DO NAME [facility] [id number] 02/17/2020 14:00:00 ACT Outpatient VELASQUEZ CHIANG [id number] 01/20/2020 10:15:00 Document Registration [id number] 06/26/2019 12:45:00 Document Registration [id number] 11/06/2018 13:15:00 Document Registration [id number] 05/10/2018 22:49:00 Document Registration [id number] 05/26/2013 16:35:00 013 18:48:00 DIS Emergency [id number] 07/02/2018 08:01:00 Document Registration [id number] 07/02/2018 08:01:00 07/02/2018 09:47: 00 DIS Outpatient [facility] [id number] 05/29/2018 10:15:00 05/29/2018 23:59: 00 DIS Outpatient SUKHJINDER VANESSA [id number] 05/25/2018 12:13:00 05/25/2018 23:59: 00 DIS Outpatient Frankie Du [id number] 07/02/2018 08:38:04 Document Registration
[2020-02-19] MEDS ORDERED: HYDR-83 PO (13:44)
[2020-02-19 14:05] VITALS: BP 148/68
== END 2020-02-19 14:05 | disposition home or self-care (01) ==
LOC: EDUNIT# 12:26 → ER FS 12:27
DX: S09.90XA Unspecified injury of head, initial encounter (principal); S42.032A Displaced fracture of lateral end of left clavicle, initial encounter for closed fracture; S16.1XXA Strain of muscle, fascia and tendon at neck level, initial encounter; J44.9 Chronic obstructive pulmonary disease, unspecified; I10 Essential (primary) hypertension; E11.9 Type 2 diabetes mellitus without complications; Z88.0 Allergy status to penicillin; Z77.22 Contact with and (suspected) exposure to environmental tobacco smoke (acute) (chronic); Z79.4 Long term (current) use of insulin; Z80.1 Family history of malignant neoplasm of trachea, bronchus and lung; W01.190A Fall on same level from slipping, tripping and stumbling with subsequent striking against furniture, initial encounter; Y92.002 Bathroom of unspecified non-institutional (private) residence as the place of occurrence of the external cause
CPT/HCPCS: 70450; 72125; 73030

== ENCOUNTER 2020-05-05 18:00 | Emergency (ER) | payer MEDICARE, MEDICAID ==
[~2020-05-05 18:00] MED LIST changes: +ACHD5005 PO; +ALPR.25T PO; -ALPR0.254 PO; +IBUP-1780 PO; -LISI1TAB25 PO; +LISI1TAB46 PO
--- NOTE | 2020-05-05 18:08 | ED Trauma-Multisystem ---
General Chief Complaint: Trauma-Non Activation Stated Complaint: FALL Source of Information: Patient, EMS History of Present Illness Date Seen by Provider: May 05, 2020 Time Seen by Provider: 18:05 Initial Comments 55-year-old presents via EMS after a fall at home. Patient states she was walking and suddenly ended up on the ground, believe she tripped. Denies any loss of consciousness, denies head, neck or back pain. Denies extremity pain. Patient did have a bloody nose, denies any difficulty breathing, she is normally on 2 L of O2 per nasal cannula. States that she also recently had a fall a few days prior and is having some pain in her left foot. Denies any weakness, confusion or any recent illness. Allergies and Home Medications Allergies Coded Allergies: Penicillins (Verified Allergy, Intermediate, weak, cant stand up and lose color., 06/16/18) SOB and weakness Home Medications ALPRAZolam 0.25 Mg Tablet, 0.25 MG PO BID PRN for ANXIETY, (Reported) Albuterol Sulfate 18 Gm Hfa.aer.ad, 2 PUFF INH Q6H PRN for SHORTNESS OF BREATH, (Reported) Albuterol/Ipratropium 4 Gm Aero, 2 PUFF IH QID PRN for SHORTNESS OF BREATH, (Reported) Cephalexin 500 Mg Tablet, 500 MG PO TID Prescribed by: NATANAEL LEE on 05/05/201941 Ciprofloxacin HCl 500 Mg Tablet, 500 MG PO BID Prescribed by: STEFFANIE CASTELLANO on 12/02/19 1036 Hydrocodone/Acetaminophen 1 Each Tablet, 1 EACH PO Q4H Prescribed by: NATANAEL LEE on 02/19/20 1344 Ibuprofen 200 Mg Capsule, 600-800 MG PO Q8H PRN for PAIN-MILD (1-4), (Reported) Ibuprofen 800 Mg Tablet, 800 MG PO Q8H PRN for PAIN Prescribed by: NATANAEL LEE on 02/19/20 1332 Insulin Glargine,Hum.rec.anlog 100 Unit/1 Ml Insuln.pen, 40 UNIT SQ HS, (Reported) LAST FILLED 09-02-2019 #5 PENS/37 DAY SUPPLY Lisinopril/Hydrochlorothiazide 1 Each Tablet, 1 EA PO DAILY, (Reported) Metronidazole 500 Mg Tablet, 500 MG PO TID Prescribed by: STEFFANIE CASTELLANO on 12/02/19 1036 Pregabalin 300 Mg Capsule, 300 MG PO BID, (Reported) Patient Home Medication List Home Medication List Reviewed: Yes Review of Systems Review of Systems Constitutional: No dizziness, No fever, No malaise, No weakness Eyes: Denies Pain, Denies Photophobia Ears: Denies Dizziness, Denies Pain Nose: See HPI; No Clots, No Congestion; Epistaxis; No Pain, No Previous Injury Mouth: No Bloody Discharge, No Clear Discharge Throat: No Difficulty With Fluids, No Discharge Respiratory: No cough, No short of breath Cardiovascular: Denies Chest Pain, Denies Edema Gastrointestinal: No abdominal pain, No nausea, No vomiting Musculoskeletal: No back pain, No joint pain; other (mild pain of left foot (prior injury)) Skin: change in color (bruising left foot ) Past Vrrjbep-Tzcaot-Eacccg Hx Past Med/Social Hx: Reviewed Nursing Past Med/Soc Hx Patient Social History Alcohol Beverage of Choice: Beer Drug of Choice: THC Type Used: Cigarettes 2nd Hand Smoke Exposure: Yes Recent Hopitalizations: No Immunizations Up To Date Date of Pneumonia Vaccine: Sep 06, 2014 Date of Influenza Vaccine: Jun 06, 2019 Seasonal Allergies Seasonal Allergies: No Past Medical History Surgeries: Yes (HERNIA REPAIR, L ANKLE, NECK, L FALLOPIAN TUBE AND OVARY, ) Respiratory: Yes (O2 AT NIGHT AND DURING DAY PRN) COPD Currently Using CPAP: No Currently Using BIPAP: No Cardiac: Yes Angina, Hypertension Neurological: No Genitourinary: No Gastrointestinal: Yes Hepatitis Musculoskeletal: No Endocrine: Yes Diabetes, Insulin dep HEENT: No Cancer: No Psychosocial: No Integumentary: No Blood Disorders: No Family Medical History Diabetes mellitus 19 MOTHER FH: lung cancer 19 FATHER Thyroid disease 19 MOTHER No Pertinent Family Hx Physical Exam Vital Signs Vital Signs - First Documented 05/05/20 18:06 Temp 36.6 Pulse 89 Resp 16 B/P (MAP) 124/85 (98) Pulse Ox 98 Height, Weight, BMI Height: 5'8.00" Weight: 230lbs. 0.0oz. 104.626267rp; 64.00 BMI Method:Stated General Appearance: No Apparent Distress, WD/WN Head: No Evidence of Injury; No Active Bleeding, No Roland's Sign, No Contusions, No Ecchymosis, No Lacerations, No Raccoon Eyes, No Swelling, No Tenderness Eyes: Bilateral Eye Normal Inspection, Bilateral Eye PERRL, Bilateral Eye EOMI Ears, Nose, Throat: Hearing Grossly Normal, No Dental Injury, Other (epistaxis without nasal bone abnl. no active bleed. ) Neck: Full Range of Motion, Normal Inspection, Non Tender, Supple; No Limited Range of Motion Cardiovascular: Regular Rate, Rhythm, No JVD Respiratory: Chest Non Tender, Lungs Clear, Normal Breath Sounds Gastrointestinal: Non Tender, Soft Back: Normal Inspection, No CVA Tenderness, No Vertebral Tenderness Extremity: Normal Capillary Refill, Normal Inspection, Normal Range of Motion, No Calf Tenderness, Other (ecchymosis and TTP left foot) Neurologic/Psychiatric: Alert, Oriented x3, No Motor/Sensory Deficits, Normal Mood/Affect Progress/Results/Core Measures Results/Orders My Orders Orders - NATANAEL LEE DO Foot 3 View Left (05/05/20 18:07) Vital Signs/I&O 05/05/20 05/05/20 18:06 19:55 Temp 36.6 Pulse 89 89 Resp 16 16 B/P (MAP) 124/85 (98) 149/87 (98) Pulse Ox 98 98 Diagnostic Imaging Diagonstic Imaging: Xray Comments See x-ray report- foot- no acute fx. Old 5th MT fx healing Old ORIF ankle Departure Impression Primary Impression: Fall at home Qualified Codes: W19.XXXA - Unspecified fall, initial encounter; Y92.009 - Unspecified place in unspecified non-institutional (private) residence as the place of occurrence of the external cause Additional Impressions: Epistaxis due to trauma Cellulitis of left foot Sprain of foot, left Qualified Codes: S93.602A - Unspecified sprain of left foot, initial encounter Disposition: HOME, SELF-CARE Condition: Stable Departure-Patient Inst. Decision time for Depature: 19:39 Referrals: SELF,VELASQUEZ HUERTA (PCP/Family) Primary Care Physician Patient Instructions: Foot Sprain (DC), Cellulitis and Erysipelas (Skin Infections), Preventing Falls Add. Discharge Instructions: see your doctor in 2-3 days if your foot redness is not improving, ER sooner if worse and unable to be seen All discharge instructions reviewed with patient and/or family. Voiced understanding. Scripts Cephalexin (Cephalexin) 500 Mg Tablet 500 MG PO TID, #21 TAB 0 Refills Prov: NATANAEL LEE DO 05/05/20 NATANAEL LEE DO May 05, 2020 18:08
--- NOTE | 2020-05-05 18:50 | Diagnostic Imaging Report ---
HISTORY: Fall, left foot pain. COMPARISON: 06/20/2019. TECHNIQUE: Three views of the left foot. FINDINGS: There is an old oblique fracture of the left 5th metatarsal shaft which demonstrates healing changes. There is bridging across the fracture site. There is a prominent os peroneum. There is internal fixation of the distal fibula and tibia with degenerative change at the ankle joint. No acute fracture is seen in the left foot. There is mild soft tissue swelling about the forefoot. There is calcific atherosclerosis. IMPRESSION: 1. Chronic findings in the left foot with no acute fracture seen. 2. Mild soft tissue swelling about the left foot. Dictated by: Dictated on workstation # [id number]
[2020-05-05] MEDS ORDERED: CEPH500T PO (19:42)
--- NOTE | 2020-05-05 19:54 | NUR ---
ems here for transport. Addendum: 05/05/20 at 5 by [id number] report and care given.
[2020-05-05 19:55] VITALS: BP 149/87
== END 2020-05-05 19:55 | disposition home or self-care (01) ==
LOC: EDUNIT# 18:00 → ER FS 18:01
DX: S93.602A Unspecified sprain of left foot, initial encounter (principal); R04.0 Epistaxis; L03.116 Cellulitis of left lower limb; J44.9 Chronic obstructive pulmonary disease, unspecified; I10 Essential (primary) hypertension; E11.9 Type 2 diabetes mellitus without complications; Z88.0 Allergy status to penicillin; Z99.81 Dependence on supplemental oxygen; Z79.4 Long term (current) use of insulin; Z77.22 Contact with and (suspected) exposure to environmental tobacco smoke (acute) (chronic); Z80.1 Family history of malignant neoplasm of trachea, bronchus and lung; W01.0XXA Fall on same level from slipping, tripping and stumbling without subsequent striking against object, initial encounter; Y92.009 Unspecified place in unspecified non-institutional (private) residence as the place of occurrence of the external cause
CPT/HCPCS: 73630